=== PATIENT | female | born 1960 | race Caucasian/White ===

== ENCOUNTER → 2017-12-11 11:06 | Outpatient (CLI) | payer BC, SELFPAY ==
[2017-12-11 12:14] LABS: Add Manual Diff / Slide Review NO; Basophils Percent Auto 0.8 % (0-2); Hemoglobin 16.2 g/dL (12.0-16.0); Lymphocytes Percent Auto 25.8 % (25-40); Mean Corpuscular HGB Conc 34.4 % (30-36); Mean Corpuscular Hemoglobin 33.4 PG (26-34); Mean Corpuscular Volume 96.8 fL (80-100); Monocytes Percent Auto 8.6 % (3-14); Neutrophils Absolute Auto 4500 /uL (3000-5900); Neutrophils Percent Auto 61.8 % (50-75); Platelet Count 217 X10^3/uL (150-400); Red Blood Cell Count 4.86 X10^6/uL (4.0-5.2); Red Cell Distribution Width 12.4 % (11.6-14.8); White Blood Cell Count 7.2 X10^3/uL (4.5-11.0)
[2017-12-11 12:26] LABS: Alanine Aminotransferase 48 IU/L (9-52); Albumin 4.4 g/dL (3.5-5.0); Albumin Globulin Ratio 1.5 (1.0-2.8); Alkaline Phosphatase 57 U/L (38-126); Aspartate Aminotransferase 59 IU/L (14-36); Bilirubin Total 0.8 mg/dL (0.2-1.3); Blood Urea Nitrogen 7 mg/dL (7-17); Calcium 9.6 mg/dL (8.4-10.2); Carbon Dioxide 30 mmol/L (22-32); Chloride 102 mmol/L (98-107); Cholesterol 225 mg/dL (140-199); Estimated Glomerular Filt Rate > 60.0 mL/min (>60); Glucose 90 mg/dL (70-100); HEMOLYSIS < 15 (0-50); Sodium 144 mmol/L (137-145); Total Protein 7.4 g/dL (6.3-8.2); Triglycerides 197 mg/dL (35-150)
[2017-12-11 12:49] LABS: HDL Cholesterol 123 mg/dL (40-60); LDL Cholesterol Calculated 63 mg/dL (<100)
[2017-12-11 12:54] LABS: Thyroid Stimulating Hormone 3.15 uIU/mL (0.47-4.68)
== END ==
PROVIDERS: Family Provider Family Medicine; PCP Family Medicine; Visit Provider Family Medicine
DX: Z00.00 Encounter for general adult medical examination without abnormal findings (principal); E78.2 Mixed hyperlipidemia
CPT/HCPCS: 36415; 80053; 80061; 84443; 85025

== ENCOUNTER → 2018-01-18 14:51 | Outpatient (CLI) | payer BC, SELFPAY ==
--- NOTE | 2018-01-18 | DI.MG.S_ITS ---
BILATERAL DIGITAL SCREENING MAMMOGRAM 3D/2D WITH CAD POST LUMPECTOMY: 01/18/2018 CLINICAL: Routine screening. Personal history of bilateral breast cancer. Family history of breast cancer. Comparison is made to exams dated: 12/28/2016 mammogram, 12/27/2015 mammogram, 12/24/2014 mammogram, and 02/15/2014 mammogram - [facility]. The tissue of both breasts is extremely dense, which lowers the sensitivity of mammography. Current study was also evaluated with a Computer Aided Detection (CAD) system. There are benign post operative findings in both breasts, with overlying linear scar markers. No significant masses, calcifications, or other findings are seen in either breast. There has been no significant interval change. IMPRESSION: There is no mammographic evidence of malignancy. A 1 year screening mammogram is recommended. This exam was interpreted at Station ID: [id number]. NOTE: For mammograms, a report in lay terms will be sent to the patient. Approximately 15% of breast malignancies will not be visualized mammographically. In the management of a palpable breast mass, a negative mammogram must not discourage biopsy of a clinically suspicious lesion. Electronically Signed By: Earle Vargas M.D. ecl/:01/19/2018 07:24:55 copy to: FLEX PRATER letter sent: Normal Exam ACR BI-RADS Category 2: Benign Finding(s) [id number]
[2018-01-18 15:12] LABS: Add Manual Diff / Slide Review NO; Basophils Percent Auto 0.8 % (0-2); Eosinophils Percent Auto 4.1 % (2-4); Hematocrit 43.9 % (36-46); Hemoglobin 14.8 g/dL (12.0-16.0); Lymphocytes Percent Auto 23.4 % (25-40); Mean Corpuscular HGB Conc 33.8 % (30-36); Mean Corpuscular Hemoglobin 33.5 PG (26-34); Mean Corpuscular Volume 99.1 fL (80-100); Monocytes Percent Auto 9.7 % (3-14); Neutrophils Absolute Auto 3100 /uL (3000-5900); Platelet Count 197 X10^3/uL (150-400); Red Blood Cell Count 4.43 X10^6/uL (4.0-5.2); Red Cell Distribution Width 12.9 % (11.6-14.8)
[2018-01-18 15:29] LABS: Alanine Aminotransferase 40 IU/L (9-52); Albumin 4.3 g/dL (3.5-5.0); Albumin Globulin Ratio 1.7 (1.0-2.8); Alkaline Phosphatase 53 U/L (38-126); Aspartate Aminotransferase 50 IU/L (14-36); BUN Creatinine Ratio 12.9 (6-22); Bilirubin Total 1.1 mg/dL (0.2-1.3); Blood Urea Nitrogen 9 mg/dL (7-17); Calcium 9.3 mg/dL (8.4-10.2); Carbon Dioxide 28 mmol/L (22-32); Chloride 101 mmol/L (98-107); Estimated Glomerular Filt Rate > 60.0 mL/min (>60); Globulin 2.6 g/dL (1.7-4.1); Glucose 124 mg/dL (70-100); HEMOLYSIS 16 (0-50); Potassium 4.3 mmol/L (3.4-5.1); Sodium 138 mmol/L (137-145); Total Protein 6.9 g/dL (6.3-8.2)
[2018-01-20 15:45] LABS: Cancer Antigen 27.29 23 U/mL (< 38)
== END ==
PROVIDERS: PCP Family Medicine; Visit Provider Nurse Practitioner Gerontology
DX: Z12.31 Encounter for screening mammogram for malignant neoplasm of breast (principal); Z85.3 Personal history of malignant neoplasm of breast; Z80.3 Family history of malignant neoplasm of breast; J45.909 Unspecified asthma, uncomplicated; E78.2 Mixed hyperlipidemia; G62.9 Polyneuropathy, unspecified; G89.29 Other chronic pain
CPT/HCPCS: 36415; 77063; 77067; 80053; 85025; 86300

== ENCOUNTER → 2018-04-12 15:34 | Outpatient (CLI) | payer BC, SELFPAY ==
[2018-04-12 15:43] LABS: RBC Urine None Seen (0-5/HPF)
[2018-04-12 16:09] LABS: Appearance Urine UA CLEAR; Bilirubin Urine UA NEGATIVE (NEGATIVE); Color Urine UA YELLOW; Glucose Urine UA NEGATIVE (Negative); Ketones Urine UA NEGATIVE (NEGATIVE); Leukocyte Esterase Urine UA NEGATIVE (NEGATIVE); Nitrite Urine UA NEGATIVE (Negative); Occult Blood Urine UA NEGATIVE (Negative); Protein Urine UA NEGATIVE (Negative); Specific Gravity Urine UA <=1.005 (1.000-1.035); Urobilinogen Urine UA 0.2 E.U./dL (0.2)
[2018-04-12 16:20] LABS: Add Manual Diff / Slide Review NO; Basophils Absolute Auto 100 /uL (0-100); Basophils Percent Auto 0.5 % (0-2); Eosinophils Absolute Auto 100 /uL (0-450); Hematocrit 42.4 % (36-46); Hemoglobin 14.1 g/dL (12.0-16.0); Lymphocytes Absolute Auto 1300 /uL (1100-4500); Lymphocytes Percent Auto 11.6 % (25-40); Mean Corpuscular HGB Conc 33.2 % (30-36); Mean Corpuscular Hemoglobin 32.7 PG (26-34); Mean Corpuscular Volume 98.5 fL (80-100); Monocytes Absolute Auto 1000 /uL (0-900); Monocytes Percent Auto 9.2 % (3-14); Neutrophils Absolute Auto 8600 /uL (1500-7000); Neutrophils Percent Auto 77.7 % (50-75); Platelet Count 202 X10^3/uL (150-400); Red Blood Cell Count 4.31 X10^6/uL (4.0-5.2); Red Cell Distribution Width 12.6 % (11.6-14.8)
[2018-04-12 16:21] LABS: Bacteria Urine Occasional (0-1); Culture Indicated Urine Cult Not Indicated; Squamous Epithelial Cell Urine 0-1 /HPF; WBC Urine 0-1/HPF (0-5/HPF)
== END ==
PROVIDERS: Family Provider Family Medicine; PCP Family Medicine; Visit Provider Family Medicine
DX: K57.92 Diverticulitis of intestine, part unspecified, without perforation or abscess without bleeding (principal); R10.9 Unspecified abdominal pain
CPT/HCPCS: 36415; 81001; 85025

== ENCOUNTER → 2018-05-30 16:00 | Outpatient (CLI) | payer BC, SELFPAY ==
[2018-05-30 16:28] LABS: Influenza A and B by PCR Rapid Negative (Negative)
== END ==
PROVIDERS: Family Provider Family Medicine; PCP Family Medicine; Visit Provider Physician Assistant
DX: R68.89 Other general symptoms and signs (principal)
CPT/HCPCS: 87400

== ENCOUNTER → 2018-11-23 16:17 | Outpatient (CLI) | payer BC, SELFPAY ==
--- NOTE | 2018-11-23 16:24 | DI.RAD.S_ITS ---
PROCEDURE: XR HIP W PEL IF DONE LT 2V INDICATIONS: Left hip pain TECHNIQUE: AP pelvis with lateral view(s) of the left hip(s). COMPARISON: [facility], CR, [id number] W PEL IF PERFORMED, 05/13/2015, 11:23. FINDINGS: Bones: Symmetric appearing mild to moderate bilateral hip joint osteoarthritic changes are seen with joint space narrowing and subchondral sclerosis. No fractures or dislocations. Pelvic ring appears intact. No evidence of avascular necrosis of femoral head. No suspicious bony lesions. Soft tissues: The visualized bowel gas pattern is normal. No suspicious soft tissue calcifications. IMPRESSION: Symmetric appearing mild to moderate bilateral hip joint osteoarthritis. Dictated by: Kolby Asif M.D. on 11/23/2018 at 18:04 Approved by: Kolby Asif M.D. on 11/23/2018 at 18:04
== END ==
PROVIDERS: Family Provider Family Medicine; PCP Family Medicine; Visit Provider Hospitalist
DX: M25.552 Pain in left hip (principal); M16.0 Bilateral primary osteoarthritis of hip
CPT/HCPCS: 73502

== ENCOUNTER → 2018-12-05 06:15 | Outpatient (CLI) | payer BC, SELFPAY ==
--- NOTE | 2018-12-05 06:16 | DI.MRI.S_ITS ---
PROCEDURE: MR PELVIS WO CON INDICATIONS: Left hip pain TECHNIQUE: Coronal HASTE, sagittal breath-hold T2 FSE; axial T1 FSE with and without fat saturation through the pelvis. Optional long- and short-axis uterine nonbreath-hold T2 FSE through the uterus. Sagittal or axial dynamic VIBE during administration of contrast. Post-contrast axial or coronal VIBE/2-D FLASH with fat saturation from the iliac crests to the symphysis. Optional diffusion weighted imaging and ADC may be performed. COMPARISON: None. FINDINGS: Image quality: Excellent. Uterus: Bulky appearing uterus is seen with multiple uterine fibroids and measures up to 5 x 4 cm in size. Endometrium is within normal limits. Adnexa: Both ovaries are normal in size, without suspicious cystic or solid lesions. Urinary system: Bladder wall is normal in thickness. Distal ureters are non distended. Urethra appears normal in morphology. Nodes and vessels: No pelvic or inguinal adenopathy by size criteria. Iliac vessels are normal in size. Bowel and peritoneum: No pathologic free pelvic fluid. Inferior colon and small bowel loops are normal in caliber. Soft tissues: No inguinal hernias. No findings of pelvic floor incompetence in the absence of provocation. Bones: Extensive marrow edema involving left femoral neck and intertrochanteric region is seen extending to proximal left femoral shaft. No definite fracture line is identified. Mild adjacent soft tissue edema is seen. There is also extensive marrow edema involving S1 and S2 vertebral bodies extending to involve the right side of sacrum adjacent to right sacroiliac joint. There is extension of medullary space. No cortical disruption or discrete fracture line. 1.7 x 1 cm oval area of marrow edema involving right posterior inferior sacrum is seen. There is also subtle area of marrow edema involving the anterior aspect of left iliac bone. Similar lesion is noted involving posterior left acetabular roof. IMPRESSION: 1. Multiple expansile intraosseous lesion in the bony pelvis most prominent involving left femoral neck and intertrochanteric region extending to proximal left femoral shaft as well as S1 and S2 vertebral bodies extending to right sacrum. 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 No definite pathologic fracture is seen. Early stress fracture in left femoral neck cannot be entirely excluded. 2. No gross soft tissue mass or fluid collection is seen. 3. No pelvic free fluid. No bowel obstruction. Multiple uterine fibroids. Dictated by: Kolby Asif M.D. on 12/05/2018 at 9:30 Approved by: Kolby Asif M.D. on 12/05/2018 at 10:33
--- NOTE | 2018-12-05 06:16 | DI.MRI.S_ITS ---
PROCEDURE: MR HIP LT WO CON INDICATIONS: left hip pain TECHNIQUE: Noncontrast coronal T1 spin echo and STIR through the bony pelvis. Coronal and axial T2 fast spin echo with fat saturation, sagittal T1 spin echo, and oblique axial T2 fast spin echo with fat saturation through the hip. COMPARISON: None. FINDINGS: Image quality: Excellent. Bones and joints: There is extensive marrow edema involving the left femoral neck extending to proximal left femoral shaft and intertrochanteric region. No definite discrete fracture line is seen. There is no evidence of avascular necrosis of femoral head. No definite cortical erosion or destruction is noted. Ill-defined marrow edema involving right sacral and inferior portion of right iliac bone is also seen incompletely evaluated on this MRI of left hip study. Symmetric mild to moderate bilateral hip joint osteoarthritic changes are noted. No gross marrow signal abnormality is seen in visualized lower lumbar spine. A Tendons and ligaments: The gluteus medius and minimus tendons appear intact, without associated muscle atrophy. The nearby proximal iliotibial band also appears intact. The iliopsoas tendon appears intact, without adjacent bursal fluid collections or evidence for impingement syndrome. The origin of the hamstring tendon is intact at the ischial tuberosity, as well as the associated sacrotuberous ligament. The straight and reflected heads of the rectus femoris muscle origin appear intact, as well as the conjoint tendon. The ligamentum teres appears intact where visualized. Labrum and cartilage: The acetabular labrum appears intact in the absence of intra-articular contrast. Cartilage surface of the femoral head appears of normal thickness. The alpha angle of the femur is within normal limits at less than 55 degrees. Soft tissues: Visualized muscles demonstrate normal bulk and internal signal. Quadratus femoris muscle demonstrates no internal edema to suggest ischiofemoral impingement. The proximal sciatic neurovascular bundle appears normal adjacent to the hamstring tendons. No free pelvic fluid. Bladder wall thickness is normal. Genitourinary structures and bowel loops appear normal where visualized. No acute appearing uterus is seen with multiple uterine fibroids. IMPRESSION: 1. Extensive marrow signal abnormality involving left femoral neck, intertrochanteric region and proximal left femoral shaft with no discrete fracture line visualized. Finding is highly suspicious for an expansile and infiltrative process involving left proximal femur. Similar marrow signal abnormality is also noted involving right sacrum and right iliac bone and is concerning for metastatic bony lesions. 2. Bilateral hip joint osteoarthritis. No acute fracture or dislocation. No evidence of avascular necrosis of femoral heads. 3. Multiple uterine fibroids. Dictated by: Kolby Asif M.D. on 12/05/2018 at 9:11 Approved by: Kolby Asif M.D. on 12/05/2018 at 9:20
== END ==
PROVIDERS: Family Provider Family Medicine; PCP Family Medicine; Visit Provider Family Medicine
DX: M25.552 Pain in left hip (principal); M16.0 Bilateral primary osteoarthritis of hip; D25.9 Leiomyoma of uterus, unspecified; M89.9 Disorder of bone, unspecified
CPT/HCPCS: 72195; 73721

== ENCOUNTER → 2018-12-15 08:56 | Outpatient (CLI) | payer BC, SELFPAY ==
--- NOTE | 2018-12-15 09:38 | DI.CT.S_ITS ---
PROCEDURE: CT CHEST ABD PEL W CON INDICATIONS: Metastatic breast cancer TECHNIQUE: After the administration of oral and intravenous contrast, 5 mm thick sections acquired from the lung apices to the symphysis. 5 mm coronal and sagittal reformats were performed, with additional 7 mm coronal MIP reformats through the lungs. For radiation dose reduction, the following was used: automated exposure control, adjustment of mA and/or kV according to patient size. COMPARISON: [facility], MR, MR PELVIS WO CON, 12/05/2018, 7:02. [facility], CT, ABDOMEN/PELVIS WITH CONTRAST, 12/16/2015, 19:37. [facility], CT, CHEST/ABD/PEL WITH CONTRAST, 04/07/2013, 7:49. FINDINGS: Image quality: Excellent. CHEST: Lungs and pleura: No pleural effusion or pneumothorax. 1.3 x 1.1 cm medial right lower lobe nodular opacity is seen on image to 31 series 3 which is increased since the prior study from 12/16/15. Scattered scarring and atelectasis noted throughout both upper and lower lobes. Central bronchial wall thickening noted. Mediastinum: Heart size is normal. No pericardial effusion. No mediastinal or hilar adenopathy by size criteria. Thoracic aorta and central pulmonary arteries are normal in size. Esophagus is normal in caliber. No hiatal hernia. Chest wall: No axillary or supraclavicular adenopathy by size criteria. Thyroid gland negative. ABDOMEN: Solid organs: Diffuse hepatic steatosis. Gallbladder contains a 5 mm gallstone seen on image 62 series 2. Duodenal diverticulum noted with air-fluid level. Biliary system is non dilated. Pancreas enhances normally. Spleen is normal in size and enhancement. No adrenal nodules. Kidneys demonstrate normal size and enhancement, without hydronephrosis. Peritoneum and bowel: Bowel loops demonstrate normal wall thickness and caliber. No free fluid or air. Colonic diverticulosis incidentally noted. Rectum grossly unremarkable. Nodes and vessels: No retroperitoneal or mesenteric adenopathy by size criteria. Aorta and inferior vena cava are normal in size. Tiny fat containing umbilical hernia. PELVIS: Genitourinary: Bladder wall thickness is normal. Possible ill-defined uterine fibroids as before. Miscellaneous: No inguinal hernias or adenopathy. Bones: Patchy sclerosis present within the proximal left femur and right sacrum in keeping with osseous metastatic disease, much more conspicuous on the comparison MRI dated 12/05/18. However, other areas of signal change in the prior study are much less conspicuous on the current exam and not well seen for example within the anterior left iliac wing, and posteromedial right iliac bone. Partially visualized sclerotic C6 vertebral body lesion IMPRESSION: Increasing nodular focus within the medial right lower lobe, worrisome for pulmonary metastasis. Multiple osseous metastases although these are much more conspicuous on the comparison MRI dated 12/05/18. Of note densely sclerotic C6 vertebral body lesion suspicious for additional osseous metastasis although this could be further evaluated with cervical MRI with contrast. Consider whole body bone scan as clinically necessary. Additional chronic and incidental findings as above. Dictated by: Vignesh Jamison M.D. on 12/15/2018 at 10:36 Approved by: Vignesh Jamison M.D. on 12/15/2018 at 10:53
[2018-12-15 10:10] LABS: Add Manual Diff / Slide Review NO; Basophils Absolute Auto 100 /uL (0-100); Basophils Percent Auto 1.3 % (0-2); Eosinophils Absolute Auto 200 /uL (0-450); Eosinophils Percent Auto 3.9 % (2-4); Hematocrit 45.9 % (36-46); Hemoglobin 15.5 g/dL (12.0-16.0); Lymphocytes Absolute Auto 1600 /uL (1100-4500); Lymphocytes Percent Auto 32.1 % (25-40); Mean Corpuscular HGB Conc 33.8 % (30-36); Mean Corpuscular Hemoglobin 32.5 PG (26-34); Mean Corpuscular Volume 96.2 fL (80-100); Monocytes Absolute Auto 600 /uL (0-900); Monocytes Percent Auto 12.1 % (3-14); Neutrophils Absolute Auto 2500 /uL (1500-7000); Neutrophils Percent Auto 50.6 % (50-75); Platelet Count 265 X10^3/uL (150-400); Red Blood Cell Count 4.77 X10^6/uL (4.0-5.2); Red Cell Distribution Width 12.7 % (11.6-14.8); White Blood Cell Count 4.9 X10^3/uL (4.5-11.0)
[2018-12-15 11:01] LABS: Alanine Aminotransferase 36 IU/L (9-52); Albumin 4.6 g/dL (3.5-5.0); Albumin Globulin Ratio 1.6 (1.0-2.8); Alkaline Phosphatase 121 U/L (38-126); Aspartate Aminotransferase 53 IU/L (14-36); Bilirubin Total 0.8 mg/dL (0.2-1.3); Blood Urea Nitrogen 9 mg/dL (7-17); Calcium 10.8 mg/dL (8.4-10.2); Carbon Dioxide 30 mmol/L (22-32); Chloride 98 mmol/L (98-107); Cholesterol 242 mg/dL (140-199); Estimated Glomerular Filt Rate > 60.0 mL/min (>60); Globulin 2.9 g/dL (1.7-4.1); Glucose 120 mg/dL (80-110); HDL Cholesterol 108 mg/dL (40-60); HEMOLYSIS < 15 (0-50); LDL Cholesterol Calculated 102 mg/dL (<100); Sodium 140 mmol/L (137-145); Total Protein 7.5 g/dL (6.3-8.2); Triglycerides 160 mg/dL (35-150)
[2018-12-15 11:02] LABS: TSH w/ Reflex to FT4 2.59 uIU/mL (0.47-4.68)
== END ==
PROVIDERS: Nurse Practitioner; Family Provider Family Medicine; PCP Family Medicine
DX: C50.919 Malignant neoplasm of unspecified site of unspecified female breast (principal); C79.51 Secondary malignant neoplasm of bone; R91.8 Other nonspecific abnormal finding of lung field; K76.0 Fatty (change of) liver, not elsewhere classified; K57.10 Diverticulosis of small intestine without perforation or abscess without bleeding; K57.90 Diverticulosis of intestine, part unspecified, without perforation or abscess without bleeding; E78.2 Mixed hyperlipidemia
CPT/HCPCS: 36415; 71260; 74177; 80053; 80061; 84443; 85025; Q9967

== ENCOUNTER → 2018-12-23 07:50 | Outpatient (CLI) | payer BC, SELFPAY ==
--- NOTE | 2018-12-23 07:51 | DI.NM.S_ITS ---
PROCEDURE: [place] BONE SCAN WHOLE BODY RADIOPHARMACEUTICAL: 18.4 mCi Tc-99m MDP IV. INDICATIONS: bone metastasis, breast cancer TECHNIQUE: Delayed whole-body scintigrams were obtained approximately 3-4 hours after intravenous injection of radiotracer. Anterior and posterior views were acquired from vertex to feet. COMPARISON: [facility], MR, MR HIP LT WO CON, 12/05/2018, 6:39. [facility], NM, BONE SCAN WHOLE BODY, 04/07/2013, 10:18. [facility], MR, MR PELVIS WO CON, 12/05/2018, 7:02. [facility], CT, CT CHEST ABD PEL W CON, 12/15/2018, 10:09. FINDINGS: There are multiple foci of abnormal uptake involving calvarium, left maxilla, cervical spine (C6), thoracic spine (T1, T 7, T10), lumbar spine L1), sacrum, the left 11th rib, right iliac bone, and proximal left femur, consistent with metastases. The findings are new compared to the last bone scan on 04/07/2013. IMPRESSION: Multiple foci of osseous metastatic disease involving the skull, cervical, thoracic and lumbar spine, sacrum, the left 11th rib, right iliac bone, and the proximal left femur. The bone lesions are new. Dictated by: Elisha Galicia M.D. on 12/23/2018 at 13:44 Approved by: Elisha Galicia M.D. on 12/23/2018 at 13:53
== END ==
PROVIDERS: Family Provider Family Medicine; PCP Family Medicine; Visit Provider Internal Medicine Hematology & Oncology
DX: C50.919 Malignant neoplasm of unspecified site of unspecified female breast (principal); C79.51 Secondary malignant neoplasm of bone
CPT/HCPCS: 78306; A9503

== ENCOUNTER → 2018-12-28 16:17 | Outpatient (CLI) | payer SELFPAY ==
--- NOTE | 2018-12-28 16:20 | DI.NM.S_ITS ---
PROCEDURE: [place] PET CT FUSION LIMITED AREA RADIOPHARMACEUTICAL: 12 mCi F-18 fluorodeoxyglucose IV. INDICATIONS: Metastatic breast cancer. Reported history of left breast surgery 10 years prior, right breast surgery 3 years prior, and left shoulder surgery 6 years prior. Reported history of bilateral breast cancer, with history of chemotherapy and radiation therapy in 2016. TECHNIQUE: After intravenous administration of F-18 fluoro-deoxyglucose (FDG), noncontrast CT images were obtained for attenuation correction and anatomic localization. A series of overlapping emission PET images was then obtained. The patient's pretest fasting blood glucose level as measured by glucometer was 116 mg/dl. The area imaged spanned from the skull vertex to the feet. COMPARISON: [facility], NM, NM BONE SCAN WHOLE BODY, 12/23/2018, 11:01. [facility], CT, CT CHEST ABD PEL W CON, 12/15/2018, 10:09. [facility], MR, MR PELVIS WO CON, 12/05/2018, 7:02. [facility], MR, MR HIP LT WO CON, 12/05/2018, 6:39. [facility], CR, XR HIP W PEL IF DONE LT 2V, 11/23/2018, 16:37. [facility], MG, MM SCREENING MAMMO BI, 01/18/2018, 15:33. FINDINGS: Head and neck: There is a 1.9 cm anteroposterior by 1.5 cm transverse irregular spiculated medial right supraclavicular neck mass demonstrating increased FDG activity. Thyroid gland is unremarkable. Calcified plaque of the bilateral carotid bifurcations, right greater than left. Thorax: There is redemonstration of a 1.3 cm anteroposterior by 1.1 cm transverse irregular spiculated mass in the medial right lower lobe which is similar in size and appearance to comparison exam of 12/15/18. This does not demonstrate significant FDG activity on PET scan. There is anterior right middle lobe and anterior right upper lobe atelectasis and parenchymal scarring. Central bronchial wall thickening again noted. No mediastinal or hilar lymphadenopathy. There is mild calcification of the aortic arch. Abdomen and pelvis: No enlarged retroperitoneal or mesenteric lymph nodes. No abnormal hal tracer uptake. There is normal heterogeneous hepatic tracer uptake. There is diffuse hepatic steatosis. The spleen is normal in size. The previous identified 5 mm gallstone seen on comparison CT is not well seen on the current exam. Pancreas is normal in morphology. No adrenal nodules. Kidneys are normal in size, without hydronephrosis or nephrolithiasis. Similar-appearing duodenal diverticulum. There is diffuse colonic diverticulosis without evidence of acute diverticulitis. Aorta and inferior vena cava are normal in size. No free fluid or air. No pelvic or inguinal adenopathy. Bladder wall thickness is normal. Small fat-containing umbilical hernia again noted. There are bilateral breast calcifications. Bones: There is increased FDG-uptake of the inferior left occipital bone and left anterolateral aspect of the C1 vertebral body (extending to the left C1 transverse process), with associated sclerosis. There is increased FDG-uptake of the C6 vertebral body with associated sclerosis. There is increased sclerosis throughout the cervical spine. There is increased FDG-uptake of the right sacrum with associated sclerosis. There is increased FDG-uptake of the proximal left femur with associated sclerosis, centered primarily within the intertrochanteric region and involving the lesser trochanter. There is cortical irregularity and irregular lucency of the intertrochanteric region of the proximal left femur concerning for small nondisplaced fractures. Right shoulder arthroplasty are again demonstrated. Additional areas of abnormal osseous uptake described on comparison nuclear medicine bone scan of 12/23/18 are less well-seen on the current exam, likely secondary to differences in imaging technique. IMPRESSION: 1. Numerous areas of abnormal osseous FDG-uptake consistent with diffuse skeletal metastatic disease, most prominently involving the proximal left femur, right sacrum, C1 and C6 vertebral bodies, and inferior left occipital bone. There are associated CT findings concerning for potential small nondisplaced proximal left femur intratrochanteric pathological fractures. Additional increased sclerosis throughout the cervical spine correlates with multilevel degenerative changes, but additional metastatic involvement could appear similar. 2. 1.9 cm irregular spiculated FDG-avid medial right supraclavicular soft tissue neck mass consistent with metastatic disease. 3. 1.3 cm irregular spiculated mass in the medial right lower lobe does not demonstrate significant increased FDG-avidity, but remains morphologically concerning for additional metastatic disease/lung malignancy on CT imaging. Attention on followup exams recommended. Findings discussed with referring provider Dr. Shannan Cadet by telephone by Dr. Vargas at 12:50 PM on 12/29/18. Dictated by: Earle Vargas M.D. on 12/29/2018 at 10:51 Approved by: Earle Vargas M.D. on 12/29/2018 at 13:01
== END ==
PROVIDERS: Family Provider Family Medicine; PCP Family Medicine; Visit Provider Internal Medicine Hematology & Oncology
DX: C50.911 Malignant neoplasm of unspecified site of right female breast (principal); C50.912 Malignant neoplasm of unspecified site of left female breast; M89.9 Disorder of bone, unspecified; R22.1 Localized swelling, mass and lump, neck; R91.1 Solitary pulmonary nodule; K57.90 Diverticulosis of intestine, part unspecified, without perforation or abscess without bleeding; N32.3 Diverticulum of bladder; K42.9 Umbilical hernia without obstruction or gangrene

== ENCOUNTER 2019-01-06 01:08 | Inpatient (IN) | payer BC, SELFPAY ==
[2019-01-06] VITALS (11 sets, daily range): BP systolic 122–162; BP diastolic 77–98; PULSE 58–96; RESP 14–20; TEMP 36.4–37.1; O2SAT 94–97; BMI 24.0; BMI 20.7; BMI 21.4
--- NOTE | 2019-01-06 01:12 | DI.RAD.S_ITS ---
PROCEDURE: XR FEMUR LT MIN 2V INDICATIONS: hx cancer fall pain TECHNIQUE: 2 views of the femur were acquired. COMPARISON: [place], [place], [place] BONE SCAN WHOLE BODY, 12/23/2018, 11:01. [place], [place], [place] PET CT FUSION SKULL 2 THIGH, 12/28/2018, 16:49. [facility], , XR HIP W PEL IF DONE LT 2V, 01/06/2019, 1:17. FINDINGS: Bones: There is a femoral neck fracture with superior displacement of the distal fracture fragment. Mixed sclerotic and lytic appearance of the proximal femur is consistent with metastasis. No suspicious bony lesions. Soft tissues: No suspicious soft tissue calcifications or masses. IMPRESSION: 1. Displaced right femoral neck fracture. 2. Mixed sclerotic and lytic bone lesion involving the proximal femur consistent with metastasis. Dictated by: Elisha Galicia M.D. on 01/06/2019 at 9:12 Approved by: Elisha Galicia M.D. on 01/06/2019 at 9:16
--- NOTE | 2019-01-06 01:12 | DI.RAD.S_ITS ---
PROCEDURE: XR HIP W PEL IF DONE LT 2V INDICATIONS: short pain TECHNIQUE: AP pelvis with lateral view(s) of the left hip(s). COMPARISON: [facility], [place] BONE SCAN WHOLE BODY, 12/23/2018, 11:01. [facility], CR, XR FEMUR LT MIN 2V, 01/06/2019, 1:17. [facility], CT, CT CHEST ABD PEL W CON, 12/15/2018, 10:09. [facility], MR, MR HIP LT WO CON, 12/05/2018, 6:39. [facility], CR, XR HIP W PEL IF DONE LT 2V, 11/23/2018, 16:37. FINDINGS: Bones: There is a left femoral neck fracture with superior displacement of the distal fracture fragment and angulation. There is mixed sclerotic and lytic appearance in the proximal femur. The fracture secondary a pathological fracture. Pelvic ring appears intact. No suspicious bony lesions. Soft tissues: The visualized bowel gas pattern is normal. No suspicious soft tissue calcifications. IMPRESSION: Suspect a pathologic fracture of the left femoral neck. Mixed sclerotic and lytic appearance in the proximal femur is consistent with osseous metastasis. Dictated by: Elisha Galicia M.D. on 01/06/2019 at 9:16 Approved by: Elisha Galicia M.D. on 01/06/2019 at 9:21
[2019-01-06] MEDS: HYDROMORPHONE 1 MG INJ IV ×4 (01:25→19:15)
--- NOTE | 2019-01-06 01:27 | ED_ITS ---
HPI - Extremity Injury (Lower) General Chief Complaint: Extremity Injury, Lower Stated Complaint: Left leg pain Time Seen by Provider: 01/06/19 01:12 Source: patient and EMS Mode of arrival: EMS Limitations: no limitations History of Present Illness HPI Narrative: Patient is a 58-year-old female with history of metastatic breast cancer. A new lesion was recently found in the left femoral neck. She was scheduled to start radiation on Wednesday which is in 4 days. However she fell this evening and has extreme pain in the left side and her left leg is shortened. No other injury. She did take 3 Vicodin prior to arrival. She states it does not hurt if you touch it however she is unable to weightbear. He is able to move her toes. MD complaint: hip injury Related Data Home Medications Medication Instructions Recorded Confirmed multivitamin [Multiple Vitamins] 1 tab PO Q48H #0 03/03/16 01/03/19 Vitamin B-12 50 mcg PO Q DAY #0 06/29/17 01/03/19 Previous Rx's Medication Instructions Recorded albuterol sulfate 90 mcg/actuation See Rx Instructions INHALATION Q4H 12/15/17 aerosol inhaler #3 each ipratropium-albuterol 0.5 mg-3 See Rx Instructions INHALATION 12/31/17 mg(2.5 mg base)/3 mL nebulization Q2HP PRN #180 ml soln atorvastatin [Lipitor] 10 mg PO HS #90 tab 07/21/18 gabapentin 900 mg PO BID 30 Days #180 cap 09/20/18 atenolol 50 mg tablet 50 mg PO Q DAY #90 tab 11/07/18 omeprazole 20 mg capsule,delayed 20 mg PO QDAY #90 cap 11/11/18 release fluticasone propionate 250 See Rx Instructions .ROUTE 11/23/18 mcg/actuation blister powder for .COMPLEX #60 unspecified inhalation alprazolam 0.5 mg tablet 0.5 - 1 mg PO BIDP PRN #60 tab 12/21/18 hydrocodone 5 mg-acetaminophen 325 1 - 2 tab PO Q6HP PRN #60 tab 12/21/18 mg tablet miscellaneous medical supply #1 each 12/30/18 Allergies Allergy/AdvReac Type Severity Reaction Status Date / Time No Known Drug Allergies Allergy Verified 12/21/18 15:08 Review of Systems Review of Systems Narrative: GENERAL: Denies chills, fatigue, malaise, fever, sweats, travel HEENT: Denies sinus pain, ear pain, sore throat, difficulty swallowing, neck pain RESPIRATORY: Denies dyspnea, cough, wheezing, hemoptysis, sputum. CARDIOVASCULAR: Denies chest pain, palpitations, orthopnea, edema GASTROINTESTINAL: Denies nausea, vomiting, abdominal pain, diarrhea, constipation, melena. : Denies dysuria, frequency, incontinence, hematuria, urinary retention, flank pain. MUSCULOSKELETAL: See HPI SKIN: No rash, no erythema, no pruritus NEUROLOGIC: Denies weakness, dizziness, headache, numbness, change in speech, confusion PSYCHIATRIC: No concerning psychosocial issues. 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 (Acute) Osteopenia after menopause (Acute) Pancreatitis (Chronic ~2010) Vertigo (Chronic ~2011) Surgical History Anesthesia (Resolved) Breast cancer (Resolved ~2006) History of shoulder surgery (Resolved ~2011) Status post appendectomy (~1963) Family History Brother Age: 55 Scoliosis Father Heart disease Hypertension Mother Age: 81 Cancer Diabetes mellitus Social History household members: significant other Smoking Status: Former smoker alcohol intake: current Exam Initial Vital Signs Initial Vital Signs: Vital Signs Temperature 98.7 F 01/06/19 01:15 Pulse Rate 96 H 01/06/19 01:15 Respiratory Rate 16 01/06/19 01:15 Blood Pressure 162/88 H 01/06/19 01:15 Pulse Oximetry 94 01/06/19 01:15 GENERAL: Well-appearing, well-nourished and in no acute distress. HEENT: Head atraumatic,EOMI, pupils reactive, face symmetric CARDIOVASCULAR: Regular rate and rhythm without murmurs, rubs or gallops. RESPIRATORY: Breath sounds equal bilaterally, no wheezes rales or rhonchi. ABDOMEN: Soft, nontender. Normoactive bowel sounds all 4 quadrants. No guarding or rebound. EXTREMITIES: Normal range of motion, no clubbing or edema. Neurovascularly intact Left leg is shortened able to move toes distal pedal pulse intact. No pain in pelvis or hip no contusion. NEUROLOGICAL: Alert and oriented x4.. Cranial nerves II through XII grossly intact. SKIN: Warm, dry, no laceration, no petechiae, no rashes or lesions. Course Orders Ordered: ED Orders 01/06/19 01:12 XR femur LT min 2V Stat XR hip w pel if done LT 2V Stat 01/06/19 01:20 Complete Blood Count AUTO DIFF Stat Comprehensive Metabolic Panel Stat 01/06/19 03:52 Consult to Orthopedic Surgery Routine Hydromorphone HCl (Dilaudid) 0.5 mg IV Q4HR PRN PRN Reason: Pain, Moderate (4-6) Last Admin: 01/06/19 04:12 Dose: 0.5 mg Documented by: SILVIA Sodium Chloride (Normal Saline 0.9%) 1,000 mls @ 125 mls/hr IV CONT KINGSLEY Last Admin: 01/06/19 04:14 Dose: 125 mls/hr Documented by: SILVIA Ondansetron HCl (Zofran) 4 mg IV Q4HR PRN PRN Reason: Nausea And Vomiting Sodium Chloride (Normal Saline 0.9% Flush) 10 ml IV PRN PRN PRN Reason: Flush Discontinued Medications Hydromorphone HCl (Dilaudid) 1 mg IV NOW ONE Stop: 01/06/19 01:14 Last Admin: 01/06/19 01:25 Dose: 1 mg Documented by: JC Hydromorphone HCl (Dilaudid) 0.5 mg IV NOW ONE Stop: 01/06/19 02:54 Last Admin: 01/06/19 02:58 Dose: 0.5 mg Documented by: KENDRICK Consultations Consultation #1: Dr. Florence has reviewed x-rays himself. Request and he will will go to OR later today Time: 02:38 Consultation #2: Dr. Krueger, updated patient symptoms ortho recommendations. Vital Signs Vital signs: Vital Signs - 8 hr 01/06/19 01:15 Temperature 98.7 F Pulse Rate 96 H Respiratory Rate 16 Blood Pressure 162/88 H Pulse Oximetry 94 MDM - Extremity Injury (Lower) Lab Data Attestation: I reviewed the patient's lab results. Result diagrams: 01/06/19 01:20 01/06/19 01:20 Labs: Lab Results 01/06/19 01/06/19 Range/Units 01:20 01:20 WBC 8.1 (4.5-11.0) X10^3/uL RBC 4.59 (4.0-5.2) X10^6/uL Hgb 14.9 (12.0-16.0) g/dL Hct 43.8 (36-46) % MCV 95.5 (80-100) fL MCH 32.4 (26-34) PG MCHC 34.0 (30-36) % RDW 12.4 (11.6-14.8) % Plt Count 225 (150-400) X10^3/uL Neut % (Auto) 74.4 (50-75) % Lymph % (Auto) 18.0 L (25-40) % [place] % (Auto) 6.0 (3-14) % Eos % (Auto) 1.0 L (2-4) % Baso % (Auto) 0.6 (0-2) % Neut # (Auto) 6000 (6885-8059) /uL Lymph # (Auto) 1500 (8506-1779) /uL [place] # (Auto) 500 (0-900) /uL Eos # (Auto) 100 (0-450) /uL Baso # (Auto) 0 (0-100) /uL Sodium 140 (137-145) mmol/L Potassium 3.9 (3.4-5.1) mmol/L Chloride 99 (98-107) mmol/L Carbon Dioxide 27 (22-32) mmol/L BUN 10 (7-17) mg/dL Creatinine 0.60 (0.52-1.04) mg/dL Estimated GFR > 60.0 (>60) mL/min BUN/Creatinine Ratio 16.7 (6-22) Glucose 170 H (80-110) mg/dL Calcium 9.4 (8.4-10.2) mg/dL Total Bilirubin 0.5 (0.2-1.3) mg/dL AST 53 H (14-36) IU/L ALT 31 (9-52) IU/L Alkaline Phosphatase 130 H (38-126) U/L Total Protein 8.0 (6.3-8.2) g/dL Albumin 4.7 (3.5-5.0) g/dL Globulin 3.3 (1.7-4.1) g/dL Albumin/Globulin Ratio 1.4 (1.0-2.8) Imaging Data Left hip: Attestation: I personally reviewed and interpreted this imaging study as follows: My impression: Pathologic femoral neck fracture femur: Attestation: I personally reviewed and interpreted this imaging study as follows: My impression: femoral neck fracture Discharge Plan Departure Patient Disposition: Admitted As Inpatient Clinical Impression: Closed left hip fracture Qualifiers: Encounter type: initial encounter Qualified Code(s): S72.002A - Fracture of unspecified part of neck of left femur, initial encounter for closed fracture Discharge Date/Time: 01/06/19 03:40 Admit Date/Time: 01/06/19 02:49 Admit Provider: Tj Krueger
[2019-01-06 01:36] LABS: Add Manual Diff / Slide Review NO; Basophils Absolute Auto 0 /uL (0-100); Basophils Percent Auto 0.6 % (0-2); Eosinophils Absolute Auto 100 /uL (0-450); Hematocrit 43.8 % (36-46); Hemoglobin 14.9 g/dL (12.0-16.0); Lymphocytes Absolute Auto 1500 /uL (1100-4500); Mean Corpuscular Hemoglobin 32.4 PG (26-34); Mean Corpuscular Volume 95.5 fL (80-100); Monocytes Absolute Auto 500 /uL (0-900); Neutrophils Absolute Auto 6000 /uL (1500-7000); Neutrophils Percent Auto 74.4 % (50-75); Platelet Count 225 X10^3/uL (150-400); Red Blood Cell Count 4.59 X10^6/uL (4.0-5.2); Red Cell Distribution Width 12.4 % (11.6-14.8); White Blood Cell Count 8.1 X10^3/uL (4.5-11.0)
[2019-01-06 01:43] LABS: Alanine Aminotransferase 31 IU/L (9-52); Albumin 4.7 g/dL (3.5-5.0); Albumin Globulin Ratio 1.4 (1.0-2.8); Alkaline Phosphatase 130 U/L (38-126); Aspartate Aminotransferase 53 IU/L (14-36); BUN Creatinine Ratio 16.7 (6-22); Bilirubin Total 0.5 mg/dL (0.2-1.3); Blood Urea Nitrogen 10 mg/dL (7-17); Calcium 9.4 mg/dL (8.4-10.2); Carbon Dioxide 27 mmol/L (22-32); Chloride 99 mmol/L (98-107); Estimated Glomerular Filt Rate > 60.0 mL/min (>60); Globulin 3.3 g/dL (1.7-4.1); Glucose 170 mg/dL (80-110); HEMOLYSIS < 15 (0-50); Potassium 3.9 mmol/L (3.4-5.1); Sodium 140 mmol/L (137-145)
[2019-01-06] MEDS: HYDROMORPHONE 0.5 MG INJ IV ×4 (02:58→09:40)
[2019-01-06] MEDS: SODIUM CHLORIDE 0.9% 1,000 ML 125 ML IV ×2 (04:14→12:01)
--- NOTE | 2019-01-06 04:53 | PC.ADMIT ---
Addendum entered by Karley Aj R.N. 01/06/19 06:33: States pain is again 8/10 with slightest movement and 5/10 with no movement; requesting more pain medication. Dr Krueger contacted and new order received. Original Note: 0340 Patient admitted to room 218 per stretcher from ER. States she tripped on crutches at home placing full weight on left leg but did not fall. Significant other assisted her to the bed. EMT's called after severe pain in left hip did not subside. Was diagnosed with fx left hip. Patient is alert and oriented. Breath sounds CTA with sat of 94% on 1L/min oxygen (desat in ER reported following administration of Dilaudid). HRR. Denies nausea. BT present and abdomen is soft/flat. Indwelling catheter is patent; urine clear yellow. Complaint of 9/10 left hip/groin pain and was medicated with IV Dilaudid and ice pack applied. Not wanting to move due to pain so will use Marissa tilt function to alter position as tolerated. Skin condition good except bilateral heels are reddened and skin is peeling. Significant other rooming in. Fall risk score is high and bed alarm is activated. Instructed in bed controls and call light. Informed of NPO status, ortho consult for a.m. and given lemon glycerin swabs for mouth moisturizer. [email or web address] Admission Note: The patient,Vicky Tripathi,58 y/o, was given written information regarding hospital policies, unit procedures and contact persons. Patient's smoking status: Former smoker. Vital Signs - 8 hr 01/06/19 01:15 01/06/19 02:58 Temperature 98.7 F Pulse Rate 96 H 58 L Respiratory Rate 16 16 Blood Pressure 162/88 H Blood Pressure [Left Arm] 136/94 H Pulse Oximetry 94 96
--- NOTE | 2019-01-06 07:02 | P.CONS_ITS ---
History of Present Illness Consult details Date Patient Seen: 01/06/19 Time Patient Seen: 07:03 Chief complaint: Left leg pain Reason for consult: L hip fracture Requesting provider: Tj Krueger Narrative: 4-year-old female with a left hip fracture. She has been treated for 2 separate types of breast cancer, left breast 2008, right breast 2013. She has a known recurrence of the breast cancer with metastasis to her sacrum as well as her left hip. Her oncologist is Dr. Whaley. She has been working with Dr. Carter and the plan was to start radiation therapy to the left hip on Wednesday and then possible surgery after this. They were also going to biopsy a lymph node in her neck. She has been touchdown weight-bearing on the left leg for the past few weeks using a walker. Not really having much pain in the leg but when she tried to get into bed last night she dragged her left toe and began having severe pain in the left hip. She came into the emergency room and was found have a displaced femoral neck fracture. Could no longer move or walk on the leg. She denies any pain across her lower back, or anywhere else in her body. She has no problems with the right leg. It is somewhat tolerable laying in bed but any motion of the left leg is excruciatingly sharp. She is not on any blood thinners. [facility] Medical History Ankle pain (Chronic) Anxiety (Chronic) Arthralgia of left hip (Acute) Asthma (Chronic) Breast cancer (Acute) Chicken pox (Resolved) Elbow pain (Chronic) Foot pain (Chronic) 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 (Acute) Osteopenia after menopause (Acute) Pancreatitis (Chronic ~2010) Vertigo (Chronic ~2011) Surgical History Anesthesia (Resolved) Breast cancer (Resolved ~2006) History of shoulder surgery (Resolved ~2011) Status post appendectomy (~1963) Family History Brother Age: 55 Scoliosis Father Heart disease Hypertension Mother Age: 81 Cancer Diabetes mellitus Social History household members: significant other Smoking Status: Former smoker alcohol intake: current Meds Home Medications and Allergies Home Medications Medication Instructions Recorded Confirmed Type multivitamin [Multiple Vitamins] 1 tab PO Q48H #0 03/03/16 01/06/19 History Vitamin B-12 50 mcg PO Q DAY #0 06/29/17 01/06/19 History albuterol sulfate 90 mcg/actuation See Rx Instructions INHALATION Q4H 12/15/17 01/06/19 Rx aerosol inhaler #3 each ipratropium-albuterol 0.5 mg-3 See Rx Instructions INHALATION 12/31/17 01/06/19 Rx mg(2.5 mg base)/3 mL nebulization Q2HP PRN #180 ml soln atorvastatin [Lipitor] 10 mg PO HS #90 tab 07/21/18 01/06/19 Rx gabapentin 900 mg PO BID 30 Days #180 cap 09/20/18 01/06/19 Rx atenolol 50 mg tablet 50 mg PO Q DAY #90 tab 11/07/18 01/06/19 Rx omeprazole 20 mg capsule,delayed 20 mg PO QDAY #90 cap 11/11/18 01/06/19 Rx release alprazolam 0.5 mg tablet 0.5 - 1 mg PO BIDP PRN #60 tab 12/21/18 01/06/19 Rx hydrocodone 5 mg-acetaminophen 325 1 - 2 tab PO Q6HP PRN #60 tab 12/21/18 01/06/19 Rx mg tablet miscellaneous medical supply #1 each 12/30/18 01/06/19 Rx beclomethasone dipropionate [Qvar 2 inh INHALATION BID 01/06/19 01/06/19 History RediHaler] calcium carbonate-vitamin D3 2 cap PO DAILY 01/06/19 01/06/19 History [Calcium 600 + D(3)] Allergies Allergy/AdvReac Type Severity Reaction Status Date / Time No Known Drug Allergies Allergy Verified 12/21/18 15:08 Review of Systems Constitutional Constitutional: Denies chills, Reports fatigue and Denies fever(s) Eyes Eyes: Denies blurry vision ENT Ears, Nose, Mouth, and Throat: No abnormal hearing, No dizziness and No lip swelling Cardiovascular Cardiovascular: Denies chest pain and Reports shortness of breath with activity (She has asthma) Respiratory Respiratory: Reports dyspnea on exertion (She has asthma) Gastrointestinal Gastrointestinal: Denies abdominal pain Musculoskeletal Musculoskeletal: Reports as per HPI and Denies numbness Integumentary/Breasts Skin/Breast: Denies changing lesions Neurologic Neurologic: Denies abnormal hearing, Denies dizziness and Denies numbness Psychiatric Psychiatric: Reports anxiety Endocrine Endocrine: Reports fatigue Hematologic/Lymphatic Hematologic/Lymphatic: Denies easy bleeding Allergic/Immunologic Allergic/Immunologic: Denies lip swelling Exam Vital Signs (past 8 hours): - 01/06/19 01:15 01/06/19 02:58 01/06/19 03:55 Temperature 98.7 F 98.4 F Pulse Rate 96 H 58 L 92 H Respiratory Rate 16 16 17 Blood Pressure 162/88 H 122/77 Blood Pressure [Left Arm] 136/94 H Pulse Oximetry 94 96 94 Oxygen Delivery Method Nasal Cannula Oxygen Flow Rate 1 Const Orientation: alert and oriented x3 Resp Auscultation: clear to auscultation bilaterally Cardio Rate: regular rate Rhythm: regular rhythm Back/Spine/Pelvis Other: Nontender over the sacrum Extrem Other: Left hip intact integument. Pain with any attempt at log roll. Intact sensation throughout the left leg. Easily wiggles toes and ankle with full strength. 2+ dorsalis pedis pulse. Right leg full pain-free range of motion. 5/5 strength. Objective Imaging Hip x-ray: My impression: Hip x-ray from yesterday shows a displaced femoral neck fracture with bony changes consistent with metastasis through the end proximal femur. MRI hip 12/05/18: My impression: metastatic lesions to right side of S1 and S2. R ileum, and extensively into L proximal femur in neck and trochanteric region bone scan 12/23/18: My impression: Multiple areas metastasis in the skull, cervical thoracic and lumbar spine, S1 and S2, right ilium, 11th rib, and left proximal femur. Labs Result Diagrams: 01/06/19 01:20 01/06/19 01:20 Labs: Laboratory Results - last 24 hr 01/06/19 01/06/19 01:20 01:20 WBC 8.1 RBC 4.59 Hgb 14.9 Hct 43.8 MCV 95.5 MCH 32.4 MCHC 34.0 RDW 12.4 Plt Count 225 Neut % (Auto) 74.4 Lymph % (Auto) 18.0 L [place] % (Auto) 6.0 Eos % (Auto) 1.0 L Baso % (Auto) 0.6 Neut # (Auto) 6000 Lymph # (Auto) 1500 [place] # (Auto) 500 Eos # (Auto) 100 Baso # (Auto) 0 Sodium 140 Potassium 3.9 Chloride 99 Carbon Dioxide 27 BUN 10 Creatinine 0.60 Estimated GFR > 60.0 BUN/Creatinine Ratio 16.7 Glucose 170 H Calcium 9.4 Total Bilirubin 0.5 AST 53 H ALT 31 Alkaline Phosphatase 130 H Total Protein 8.0 Albumin 4.7 Globulin 3.3 Albumin/Globulin Ratio 1.4 Assessment & Plan Assessment & Plan narrative: Metastatic cancer, presumed from the breast, through multiple areas of the body, now with a pathologic left hip fracture. Initially she was going to have a biopsy and radiation. However with her hip fracture, that changes the time course. She is going to require partial hip replacement to fix this so that she can then mobilize as soon as possible. Dr. Carter has been following her for this problem and I will discuss it with Dr. Carter today and either she or I can perform the surgery this evening. We discussed risks and benefits as well as postoperative course. She will need to be on blood thinners postoperatively as she has metastatic cancer and extremity fracture. The wound will need to heal before she should start radiation. I am going to let her eat breakfast as the OR schedule is not open till this evening and then NPO for the remainder of the day.
[2019-01-06] MEDS: ALBUTEROL HFA 60 PUFF/8 GM INH INH ×3 (07:49→19:16)
[2019-01-06] MEDS: ONDANSETRON 4 MG/2 ML INJ IV (07:59)
[2019-01-06] MEDS: GABAPENTIN 300 MG CAPSULE 900 MG PO ×2 (07:59→20:32)
[2019-01-06] MEDS: ATENOLOL 50 MG TABLET PO (08:04)
--- NOTE | 2019-01-06 08:46 | PM.HP.1 ---
History of Present Illness History of Present Illness Date Patient Seen: 01/06/19 Time Patient Seen: 08:46 Chief complaint: Left leg pain Narrative: 58-year-old female with history of breast cancer left breast and right breast. One of the cancer was triple negative breast cancer the other 1 was estrogen receptor positive. Patient earlier this year began to have hip pain. There is initial concern of hip osteoarthritis. Further examination revealed probable metastatic disease. Patient went through other investigations including CT scan bone scan and PET scan. Patient was found to have multiple metastatic lesions. It in the hip pelvis sacral area school. There is questionable uptake as well in the lung lesion. Patient has since met with oncology Dr. Le her Dr. Hansen her primary care doctor and Dr. dominga Carter orthopedic surgery. Patient had a treatment plan including radiation oncology and biopsy of lesion to further differentiate type of cancer. Patient presented to the emergency department last evening. For the last month she has been walking with crutches. She has had increasing pain in her left hip. Difficulty with ambulation. Her walker really does not work well in her house. She then fell. And had hip pain. And was unable to ambulate and was brought to the emergency department. On x-ray examination patient was found to have a femoral neck fracture. Patient states she has good pain control. She is using pain medication every 2 hours. She says she is tired. On review of patient's health history patient states she has had many surgeries before she gets postoperative nausea. No problems with anesthesia. Patient denies any history with bleeding disorders or blood clotting disorders. Patient denies any history of heart disease heart attacks or irregular heartbeats. Patient does not have any problems with heart failure. Patient has inhalers for which she takes which are albuterol as well as ipratropium. Patient has never had a stroke or peripheral blood clot. 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 (Acute) Osteopenia after menopause (Acute) Pancreatitis (Chronic ~2010) Vertigo (Chronic ~2011) Surgical History Anesthesia (Resolved) Breast cancer (Resolved ~2006) History of shoulder surgery (Resolved ~2011) Status post appendectomy (~1963) Family & Social History Family History Brother Age: 55 Scoliosis Father Heart disease Hypertension Mother Age: 81 Cancer Diabetes mellitus Social History: household members significant other Prior Living Arrangements House Safety & Behavioral: Feels Safe in Current Yes Environment Been Physically Hurt or No Threatened By a Person Suicidal Ideation Description None Tobacco & Substance use: Smoking Status Former smoker alcohol intake current alcohol intake frequency 0-2 drinks per day Substance Use Type does not use Meds Home Medications and Allergies Home Medications Medication Instructions Recorded Confirmed Type multivitamin [Multiple Vitamins] 1 tab PO Q48H #0 03/03/16 01/06/19 History Vitamin B-12 50 mcg PO Q DAY #0 06/29/17 01/06/19 History albuterol sulfate 90 mcg/actuation See Rx Instructions INHALATION Q4H 12/15/17 01/06/19 Rx aerosol inhaler #3 each ipratropium-albuterol 0.5 mg-3 See Rx Instructions INHALATION 12/31/17 01/06/19 Rx mg(2.5 mg base)/3 mL nebulization Q2HP PRN #180 ml soln atorvastatin [Lipitor] 10 mg PO HS #90 tab 07/21/18 01/06/19 Rx gabapentin 900 mg PO BID 30 Days #180 cap 09/20/18 01/06/19 Rx atenolol 50 mg tablet 50 mg PO Q DAY #90 tab 11/07/18 01/06/19 Rx omeprazole 20 mg capsule,delayed 20 mg PO QDAY #90 cap 11/11/18 01/06/19 Rx release alprazolam 0.5 mg tablet 0.5 - 1 mg PO BIDP PRN #60 tab 12/21/18 01/06/19 Rx hydrocodone 5 mg-acetaminophen 325 1 - 2 tab PO Q6HP PRN #60 tab 12/21/18 01/06/19 Rx mg tablet miscellaneous medical supply #1 each 12/30/18 01/06/19 Rx beclomethasone dipropionate [Qvar 2 inh INHALATION BID 01/06/19 01/06/19 History RediHaler] calcium carbonate-vitamin D3 2 cap PO DAILY 01/06/19 01/06/19 History [Calcium 600 + D(3)] Allergies Allergy/AdvReac Type Severity Reaction Status Date / Time No Known Drug Allergies Allergy Verified 12/21/18 15:08 Exam Vital Signs (past 8 hours): - 01/06/19 01:15 01/06/19 02:58 01/06/19 03:55 Temperature 98.7 F 98.4 F Pulse Rate 96 H 58 L 92 H Respiratory Rate 16 16 17 Blood Pressure 162/88 H 122/77 Blood Pressure [Left Arm] 136/94 H Pulse Oximetry 94 96 94 01/06/19 08:00 Temperature 98.4 F Pulse Rate 95 H Respiratory Rate 16 Blood Pressure 146/87 H Blood Pressure [Left Arm] Pulse Oximetry 96 Oxygen Delivery Method Nasal Cannula Oxygen Flow Rate 1 Narrative Exam Narrative: Gen.: Alert somewhat sleepy good historian. Family member at the bedside HEENT: NC/AT PERRLA oral mucosa is moist Cardio: S1-S2 regular rate and rhythm Respiratory: Normal respiratory effort lungs are clear Abdomen: Soft nontender Extremities: Good distal pulses trace lower extremity edema Neurologic: Cranial nerves are intact grossly. Moving all extremities Objective Labs Result Diagrams: 01/06/19 01:20 01/06/19 01:20 Labs: Laboratory Results - last 24 hr 01/06/19 01/06/19 01:20 01:20 WBC 8.1 RBC 4.59 Hgb 14.9 Hct 43.8 MCV 95.5 MCH 32.4 MCHC 34.0 RDW 12.4 Plt Count 225 Neut % (Auto) 74.4 Lymph % (Auto) 18.[address] [place] % (Auto) 6.0 Eos % (Auto) 1.0 L Baso % (Auto) 0.6 Neut # (Auto) 6000 Lymph # (Auto) 1500 [place] # (Auto) 500 Eos # (Auto) 100 Baso # (Auto) 0 Sodium 140 Potassium 3.9 Chloride 99 Carbon Dioxide 27 BUN 10 Creatinine 0.60 Estimated GFR > 60.0 BUN/Creatinine Ratio 16.7 Glucose 170 H Calcium 9.4 Total Bilirubin 0.5 AST 53 H ALT 31 Alkaline Phosphatase 130 H Total Protein 8.0 Albumin 4.7 Globulin 3.3 Albumin/Globulin Ratio 1.4 Assessment & Plan Assessment & Plan narrative: Left hip fracture femoral neck. Pathologic due to her metastatic cancer presumed cancer source is breast as patient has had 2 previous breast cancers. Patient has been seen and evaluated by Orthopedic surgery and is anticipated to undergo hip replacement surgery. We will provide medical optimization for the surgery. On review patient's blood work. Patient is not anemic preoperatively. Patient has normal kidney function. Patient's platelets are within the normal range. Patient has no history of bleeding or blood clotting disorders. Presumably metastatic cancer which puts patient at high risk for venous thromboembolism preoperatively during and postoperatively. Would recommend anticoagulation for the patient potentially indefinitely while she undergoes treatment for her metastatic disease. Patient will have an EKG preoperatively done. Will go ahead and switch her atenolol to metoprolol which may have a better cardio protective affects 50 mg. She will be placed on SCDs and afterwards as per orthopedic surgery recommended anticoagulation. She is currently on Dilaudid for pain which seems to be helping well as q.2 hours and getting Zofran. Place her on a bowel regimen of Colace and senna to help prevent constipation after surgery. Breast cancer history of possible metastatic disease. Guess biopsy could be done during the surgical process that today while her hip replacement. Will let that be left up to the surgeons. Hypertension. Switch atenolol to metoprolol for better beta phillip coverage for surgery. Probably just continue on with this afterwards. Asthma. Intermittent use of inhalers. She will be written for her and helped steroids as well as albuterol as needed. Hyperlipidemia. Currently stable. History of diverticulosis no current problems at this point. Anxiety. Continued intermittent use of lorazepam. Code status full code. Medical optimization for surgery discussion above. Patient meets inpatient criteria. Quality VTE Deep Vein Thrombosis/Pulmonary Embolism Present on Admission: No
--- NOTE | 2019-01-06 09:43 | OT.IP.TRT ---
Surgery Performed Operation Date: 01/06/19 17:00 <No data on this case meets the specified criteria> Occupational Therapy Treatment Note M3 OT- IP Subjective and Pain Start: 01/06/19 09:42 Freq: Status: Active Protocol: Document 01/06/19 09:42 [facility] (Rec: 01/06/19 09:43 [facility] [id number]) OT- Subjective Occupational Therapy Visit Type Type Administrative Note Notes Pt looking to have surgery this evening, therefore to do OT eval tomorrow.
[2019-01-06] MEDS: hydrOXYzine pamoate 25 MG CAPSULE PO ×2 (11:07→22:48)
[2019-01-06] MEDS: BECLOMETHASONE 80 MCG INH 10.6 GM 2 PUFF INH ×2 (11:58→19:16)
[2019-01-06] MEDS: HYDROMORPHONE 0.5 MG INJ 1 MG IV (12:00)
--- NOTE | 2019-01-06 15:43 | DIET.PN ---
Dietary Progress Note Assessment: 58y F admitted for L femoral neck fx secondary to extensive met Ca referred to nutrition for MNA score 10 and Javy score 15. Pt NPO (missed window for breakfast this am) and in considerable px inappropriate for RD consult today. Pt wt recorded as 63.5kg and 54.8kg in same day, STATISTICAL PROGRAMMER ANALYST Isabel asked to get accurate wt of pt which is 56.8kg showing 10% wt loss in 2w which is severe. HT: 162.5cm WT: 56.8kg UBW: 65kg BMI: 21.5 Labs: AST 53 H, Alk Phos 130 H MNA:10 Javy: 15 Nutrition Diagnosis: Acute Severe PCM r/t decreased intake of food related to px from met Ca aeb unintentional wt loss 10% in 2w (severe), femoral fx secondary to met Ca, MNA score 10. Interventions: Recc liberalized General diet order c PRO smoothies tid to address severe PCM, diet aides will assess pt's food preferences Sat am. Diet Order: currently NPO, recc general diet order add PRO smoothies tid EER: 1600kcal, 70g PRO (1.2g/kg per Ca), 1.7L fluids Monitoring/Evaluations: I&Os, pt food preference
[2019-01-06] MEDS: ALPRAZolam 0.5 MG TABLET PO (18:05)
--- NOTE | 2019-01-06 19:42 | PC.NURSE ---
Addendum entered by Natalie Mckenna R.N. 01/06/19 23:32: Pt reports pain 5/10 to left hip. Reports improvement in c/o itching verbalized earlier and pain. Vistaril for spasms that woke pt from sleep. Discussed changing positions in bed with pt. Pt agreeable to slightly turning onto right side. This was done utilizing turning feature in bed with pillow placed under left hip. Pt reports unable to tolerate scd to RLE at this time. Pump was turned off and NOC RN informed. Original Note: Pt's surgery has been postponed this evening as per Dr. Carter. Awaiting instrumention as per automobile assembly supervisor, Mattie'elizabeth, statement. Pt and pt's family have multiple questions. Printing Supervisor, Mattie, has notified surgery and requested Dr. Carter come to see patient and family to address. Pt reports left hip pain with any movement. Ice to hip as well as iv dilaudid as per pt request every 2 hours. Pt admits to neuropathy to feet BL and states sensation is currently at baseline to BL LE's. Dr. Carter arrives at bedside and pt's iv fluids were dc'd as per . Pt was instructed per Dr. Carter to eat diet tonight and npo after midnight anticipating surgery 1430 01/07. Clear liquids until 0800 01/[address] Carter. Pt agreeable to scd to RLE and this was placed. Hernandez to gravity and oral fluids encouraged. Attentive family to obtain evening meal for patient and bring in to hospital. Pt's conversation and mentation remain intact. 02 2L nc sats 93% per continuous monitor.
--- NOTE | 2019-01-06 20:27 | PM.PREOP ---
Pre-operative Note Interval Note History & Physical reviewed/Exam performed by Physician: Yes Changes to H&P: Yes H&P completed within 30 days and has changed as indicated here:: Vicky has a known metastatic cancer in her left hip. She was waiting to get in with the radiation oncologist. I spoke to her medical oncologist and his partner in order to optimize her plan for fixation of her left hip. Unfortunately she fell and noted the acute onset of worsening left hip pain. She has a known history of breast cancer of 2 different types and it is uncertain what type her left femur cancer is. Her x-rays show a displaced left femoral neck fracture. She needs operative fixation to include a cemented left hip unipolar with an open biopsy of her left femur. Procedure alternatives risks benefits complications possible need for blood transfusion and concerns regarding her metastatic cancer and known metastases was discussed in detail with the patient. She consents to left hip partial replacement for metastatic cancer and open biopsy.
[2019-01-06] MEDS: ATORVASTATIN 10 MG TABLET PO (20:31)
[2019-01-06] MEDS: DOCUSATE 100 MG CAPSULE PO (20:32)
[2019-01-06] MEDS: SENNOSIDES 8.6 MG TABLET 17.2 MG PO (20:32)
[2019-01-06] MEDS: SODIUM CHLORIDE 0.9% FLUSH 10 ML IV (20:33)
[2019-01-06] MEDS: diphenhydrAMINE 25 MG TABLET PO (20:33)
[2019-01-06] MEDS: HYDROMORPHONE 2 MG TABLET PO (21:49)
[2019-01-07] VITALS (17 sets, daily range): BP systolic 100–151; BP diastolic 69–90; PULSE 74–108; RESP 10–20; TEMP 36.6–37.6; O2SAT 89–97
--- NOTE | 2019-01-07 | PATH_ITS ---
[facility] Accession Number: [id number] . 01 Material submitted: . PART A: femur - LEFT FEMORAL HEAD PART B: bone - LEFT FEMORAL NECK AND CANAL SEGMENTS PART C: bone - LEFT FEMORAL NECK AND CANAL SEGMENTS . 01 Clinical history: . LEFT LEG PAIN . 01 Diagnosis: A. Femoral Head, Left, Resection: Metastatic poorly differentiated adenocarcinoma, consistent with origin from patient's known breast primary. Focal degenerative and reactive changes, consistent with osteoarthritis. . B. Bone, Left Femoral Neck and Canal, Excision: Metastatic poorly differentiated adenocarcinoma, consistent with origin from patient's known breast primary (see comment). Focal osteonecrosis, consistent with recent fracture site. . C. Bone, Left Femoral Neck and Canal, Excision: Metastatic, poorly differentiated adenocarcinoma, consistent with origin from patient's known breast primary. Focal osteonecrosis, consistent with recent fracture site. [facility] 01/13/2019 1841 Local . 01 Comment: All three specimens show multiple foci of extensive involvement by a poorly differentiated carcinoma forming solid sheets, nests, and cribriform glands of large eosinophilic cells with pleomorphic/atypical nuclei. A panel of *immunostains is obtained on block B1, with controls stained appropriately. The tumor shows the following results: . Cytokeratin 7: Uniformly positive. Cytokeratin 20: Negative. Estrogen receptor: Negative. GATA3: Rare cell positive (weak). Mammaglobin: Focally positive. GCDFP15: Uniformly positive. TTF1: Negative. PAX-8: Negative. . These results in conjunction with the provided clinical history and morphologic features confirm metastasis from the patient's known breast primary. Additionally, the morphologic features are compatible with a ductal-type breast carcinoma. Origin from breast is specifically supported with coexpression of multiple breast markers GATA3 (albeit minimal), GCDFP15, and mammaglobin. In this case, estrogen receptor is negative, although false negative results cannot be excluded given that the specimen has undergone decalcification. Furthermore, there is no evidence for metastatic adenocarcinoma from lung (negative TTF1) or gynecologic tract (negative PAX-8). . The findings of this case are verbally provided by Dr. Fields to Nurse Medina on 01/13/2019 at 2:20 p.m. She indicates that the patient presented with a recent fracture of the left femoral neck. . * This test was developed and its performance characteristics determined by [employer]. It has not been cleared or approved by the U.S. Food and Drug Administration. The FDA has determined that such clearance or approval is not necessary. This test is used for clinical purposes. It should not be regarded as investigational or for research. . 01 Electronically signed: . Kerri Fields MD, Pathologist NPI- [id number] . 01 Gross description: . (A) Received in formalin, labeled left femoral head, is a femoral head (4.3 x 3.9 x 3.8 cm) and a piece of resected bone (2.9 x 2.4 x 1.5 cm). The femoral head has a hernandez-florence semi-soft irregular margin. The surface is hernandez-yellow with focal eburnation. The cut surface is hernandez-yellow and focally hemorrhagic and soft. No nodules or masses are identified. The separate piece has a florence-white and diffusely hemorrhagic cut surface and appears to be the true resection margin. The resection margin is inked blue. Section code: (A1-A4) femoral head, one full cross-section quartered; (A5) femoral head, additional sales representative canvas products tissue; (A6) separate piece, sales representative canvas products. Note: The tissue has been decalcified. Also received: Two slices in Vanzol fixative and two air-dried slides. (B) Received in formalin, labeled left fem neck + canal segments, are multiple fragments of brown hemorrhagic gritty bone (12.2 x 2.9 x 0.4 cm in aggregate). Decalcified and entirely submitted in cassettes B1-B3. (C) Received in B Plus Fix fixative, labeled left femoral neck + canal segments in B Fix, are multiple fragments of hernandez hemorrhagic gritty bone (3.6 x 2.2 x 0.3 cm in aggregate. Decalcified and entirely submitted in cassettes C1, C2. ([id number]) /MRV 01/11/2019 1012 Local . 01 Pathologist provided ICD-10: C79.51 . 01 CPT . 365249, 746406, 241598, 417067, 630805, 822009, [id number], [id number] Performed at: 01 [facility] [address] [place] [address] [address], [place], [place] [id number] MD Sergio Murray MD Phone: [phone]
--- NOTE | 2019-01-07 | DI.RAD.S_ITS ---
PROCEDURE: XR PELVIS 1-2V INDICATIONS: INNER OP PICTURE TECHNIQUE: Intra-operative view of the pelvis and hip acquired. COMPARISON: [facility], CR, XR FEMUR LT MIN 2V, 01/06/2019, 1:17. [facility], CR, XR HIP W PEL IF DONE LT 2V, 01/06/2019, 1:17. [facility], CT, CT CHEST ABD PEL W CON, 12/15/2018, 10:09. FINDINGS: Bones: Intraoperative devices prior to placement of arthroplasty prostheses are in expected positions. No fractures or suspicious bony lesions. Soft tissues: Overlying surgical retractors are present, along with other intraoperative changes. IMPRESSION: Normal intraoperative examination. Dictated by: Harsh Matson M.D. on 01/07/2019 at 15:26 Approved by: Harsh Matson M.D. on 01/07/2019 at 15:27
[2019-01-07] MEDS: OXYCODONE IR 5 MG TABLET 10 MG PO ×4 (00:12→13:46)
[2019-01-07] MEDS: diphenhydrAMINE 25 MG TABLET PO (03:26)
[2019-01-07] MEDS: hydrOXYzine pamoate 25 MG CAPSULE PO ×2 (03:26→08:24)
[2019-01-07 07:27] LABS: Add Manual Diff / Slide Review NO; Basophils Absolute Auto 0 /uL (0-100); Basophils Percent Auto 0.6 % (0-2); Eosinophils Absolute Auto 100 /uL (0-450); Eosinophils Percent Auto 2.4 % (2-4); Hematocrit 41.1 % (36-46); Hemoglobin 13.9 g/dL (12.0-16.0); Lymphocytes Absolute Auto 1400 /uL (1100-4500); Lymphocytes Percent Auto 23.2 % (25-40); Mean Corpuscular HGB Conc 33.9 % (30-36); Mean Corpuscular Hemoglobin 32.8 PG (26-34); Mean Corpuscular Volume 96.6 fL (80-100); Monocytes Absolute Auto 800 /uL (0-900); Monocytes Percent Auto 13.4 % (3-14); Neutrophils Absolute Auto 3500 /uL (1500-7000); Neutrophils Percent Auto 60.4 % (50-75); Platelet Count 206 X10^3/uL (150-400); Red Blood Cell Count 4.25 X10^6/uL (4.0-5.2); Red Cell Distribution Width 12.7 % (11.6-14.8); White Blood Cell Count 5.8 X10^3/uL (4.5-11.0)
[2019-01-07 07:30] LABS: Alanine Aminotransferase 25 IU/L (9-52); Albumin 4.2 g/dL (3.5-5.0); Albumin Globulin Ratio 1.4 (1.0-2.8); Alkaline Phosphatase 122 U/L (38-126); Aspartate Aminotransferase 47 IU/L (14-36); Bilirubin Total 1.3 mg/dL (0.2-1.3); Blood Urea Nitrogen 9 mg/dL (7-17); Carbon Dioxide 32 mmol/L (22-32); Chloride 97 mmol/L (98-107); Estimated Glomerular Filt Rate > 60.0 mL/min (>60); Glucose 105 mg/dL (80-110); HEMOLYSIS < 15 (0-50); Potassium 4.1 mmol/L (3.4-5.1); Sodium 137 mmol/L (137-145); Total Protein 7.2 g/dL (6.3-8.2)
[2019-01-07 07:37] LABS: Prothrombin Time 11.3 SECONDS (10.1-12.7)
[2019-01-07] MEDS: PANTOPRAZOLE 20 MG TABLET PO (08:23)
[2019-01-07] MEDS: ALPRAZolam 0.5 MG TABLET PO (08:24)
[2019-01-07] MEDS: METOPROLOL ER 50 MG TABLET PO (08:24)
[2019-01-07] MEDS: SODIUM CHLORIDE 0.9% FLUSH 10 ML IV (08:29)
[2019-01-07] MEDS: GABAPENTIN 300 MG CAPSULE 900 MG PO ×2 (08:29→21:51)
--- NOTE | 2019-01-07 08:44 | PT-IP ANOTE ---
PT eval on hold. pt is awaiting surgery.
--- NOTE | 2019-01-07 09:41 | P.PN_ITS ---
Subjective Subjective Date Patient Seen: 01/07/19 Time Patient Seen: 09:21 Interval history: Patient having increased pain in her hip. Surgery was delayed from last night to sometime this afternoon apparently for need for specific components for her implant. Details are unfortunately not available in the chart but that is with the patient tells me No other new complaints issues problems other than the pain Exam Vital Signs (past 8 hours): - 01/07/19 04:00 Temperature 98.9 F Pulse Rate 74 Respiratory Rate 18 Blood Pressure 119/69 Pulse Oximetry 94 Oxygen Delivery Method Nasal Cannula Oxygen Flow Rate 1 Objective Labs Result Diagrams: 01/07/19 07:05 01/07/19 07:05 Labs: Laboratory Results - last 24 hr 01/07/19 01/07/19 01/07/19 07:05 07:05 07:20 WBC 5.8 RBC 4.25 Hgb 13.9 Hct 41.1 MCV 96.6 MCH 32.8 MCHC 33.9 RDW 12.7 Plt Count 206 Neut % (Auto) 60.4 Lymph % (Auto) 23.2 L [place] % (Auto) 13.4 Eos % (Auto) 2.4 Baso % (Auto) 0.6 Neut # (Auto) 3500 Lymph # (Auto) 1400 [place] # (Auto) 800 Eos # (Auto) 100 Baso # (Auto) 0 PT 11.3 INR 1.0 Sodium 137 Potassium 4.1 Chloride 97 L Carbon Dioxide 32 BUN 9 Creatinine 0.60 Estimated GFR > 60.0 BUN/Creatinine Ratio 15.0 Glucose 105 Calcium 10.0 Total Bilirubin 1.3 AST 47 H ALT 25 Alkaline Phosphatase 122 Total Protein 7.2 Albumin 4.2 Globulin 3.0 Albumin/Globulin Ratio 1.4 Assessment & Plan Assessment & Plan narrative: 1. Pathologic fracture left hip-plan for surgical repair today which will also include specimen/biopsy for the obvious metastatic disease that resulted in her fracture period as yet the etiology of her neoplasm is not exactly clear. Patient had been planning an outpatient biopsy prior to this fracture and that will now be accomplished at time of repair Further care management as to her hip and orthopedic issues as per Orthopedic surgery 2. Metastatic neoplasia of uncertain origin-will obtain biopsy today and follow- up treatment as per Oncology. Obviously she will need to complete healing after her hip repair surgery before she would be candidate for various therapies specially those directed specifically at that location (patient had been planned to have radiation therapy to the bony metastasis which of course now may not be necessary and/or would have to certainly wait until healing has occurred) 3. Patient's other medical problems including her asthma her hyperlipidemia her anxiety etc seem to be stable. Patient's chronic medications including her inhalers appear to have been ordered by admitting physician. Dr. Hansen will resume care of patient on Wednesday. Note: Greater than 30 minutes was spent evaluating the patient on the floor, including examining the patient, discussing clinical course with clinical and nursing staff, reviewing clinical course in the computer, preparing documentation and writing orders for continued management of care, discussing status with family as appropriate, reviewing plans for the next 24 hours with both patient/family and nursing staff as appropriate. Quality VTE Deep Vein Thrombosis/Pulmonary Embolism Present on Admission: No
[2019-01-07] MEDS: BECLOMETHASONE 80 MCG INH 10.6 GM 2 PUFF INH ×2 (10:41→21:50)
[2019-01-07] MEDS: ALBUTEROL HFA 60 PUFF/8 GM INH INH (10:41)
[2019-01-07] MEDS: hydrOXYzine pamoate 25 MG CAPSULE 50 MG PO (11:41)
--- NOTE | 2019-01-07 12:04 | P.PN_ITS ---
Subjective Subjective Date Patient Seen: 01/07/19 Interval history: Patient with history of metastatic breast cancer who fell yesterday resulting in a displaced pathologic left femoral neck fracture. Continues to have hip pain, she felt the Dilaudid given to her yesterday contributed to significant nausea with one episode of emesis. Has taken Oxycodone since without nausea. Continues to have complaint of muscle spasm. Hernandez catheter in place. Exam Vital Signs (past 8 hours): - 01/07/19 08:00 01/07/19 10:51 01/07/19 11:39 Temperature 99.7 F H Pulse Rate 88 85 Respiratory Rate 14 16 Blood Pressure 136/78 Pulse Oximetry 95 95 89 L Oxygen Delivery Method Room Air Oxygen Flow Rate 1 Narrative Exam Narrative: 58 year old female resting in bed. Alert and oriented in some discomfort. Patient able to wiggle toes. Sensation intact to light touch. Palpable pedal pulse. SCD on right leg. Objective Labs Result Diagrams: 01/07/19 07:05 01/07/19 07:05 Labs: Laboratory Results - last 24 hr 01/07/19 01/07/19 01/07/19 07:05 07:05 07:20 WBC 5.8 RBC 4.25 Hgb 13.9 Hct 41.1 MCV 96.6 MCH 32.8 MCHC 33.9 RDW 12.7 Plt Count 206 Neut % (Auto) 60.4 Lymph % (Auto) 23.2 L [place] % (Auto) 13.4 Eos % (Auto) 2.4 Baso % (Auto) 0.6 Neut # (Auto) 3500 Lymph # (Auto) 1400 [place] # (Auto) 800 Eos # (Auto) 100 Baso # (Auto) 0 PT 11.3 INR 1.0 Sodium 137 Potassium 4.1 Chloride 97 L Carbon Dioxide 32 BUN 9 Creatinine 0.60 Estimated GFR > 60.0 BUN/Creatinine Ratio 15.0 Glucose 105 Calcium 10.0 Total Bilirubin 1.3 AST 47 H ALT 25 Alkaline Phosphatase 122 Total Protein 7.2 Albumin 4.2 Globulin 3.0 Albumin/Globulin Ratio 1.4 Assessment & Plan Assessment & Plan narrative: Patient has been made NPO in anticipation of cemented left hip unipolar hip arthroplasty with an open biopsy of her left femur later today. Continue Oxycodone, Vistaril increased from 25 to 50mg for muscle spasm. SCD on unaffected leg for DVT prophylaxis. Quality VTE Deep Vein Thrombosis/Pulmonary Embolism Present on Admission: No
[2019-01-07] MEDS: LACTATED RINGERS 1,000 ML 42 ML IV ×2 (12:23→16:49)
--- NOTE | 2019-01-07 12:53 | CM.DANOTE ---
DCP: Case received, EMR reviewed and met with patient. Introduced self and role. Was able to obtain some baseline health and activity information from patient. DCP assessment/template completed with information currently available. Patient is a 58 year old female who admitted on 01/06 early in the morning to the care of the hospitalist/orthopedic team. PCP: Dr. Hansen. Payer: confirmed: [facility] Patient came to the hospital via ambulance secondary to a ground level fall. Patient holds diagnosis of left femoral neck fracture. Patient had been using crutches prior to fall, since she has history of cancer, and bone metastasis. Patient mentioned that she had gotten her crutch caught and fell. Spoke to PAC in [place]. He patient will be having surgery today. She mentioned that patient should be able to be full weight bearing after surgery. She has support of her significant other, Nirali, to help patient when she is discharged. P: DCP to continue to follow patient. Will see how she does after surgery, and will also consult with physical therapy team. Anabell Us RN/Military Lawyer
--- NOTE | 2019-01-07 13:54 | DI.RAD.S_ITS ---
PROCEDURE: XR HIP W PEL IF DONE LT 2V COMPARISON: [facility], KIRSTEN, XR HIP W PEL IF DONE LT 2V, 01/06/2019, 1:17. INDICATIONS: post op FINDINGS: There has been interval placement of left hip arthroplasty. Hardware is intact without evidence of fracture. There is good anatomic alignment. Expected postsurgical changes are noted. IMPRESSION: Left hip arthroplasty as above. Dictated by: Tish Joseph M.D. on 01/07/2019 at 17:59 Approved by: Tish Joseph M.D. on 01/07/2019 at 18:01
[2019-01-07] MEDS: CEFAZOLIN 2 GM/100 ML FROZ.PIGGY IV ×2 (14:06→21:49)
[2019-01-07] MEDS: VANCOMYCIN 1,000 MG/200 ML PIGGYBACK 200 MG IV (14:13)
--- NOTE | 2019-01-07 15:01 | SUR.OPER ---
Lateral on padded OR bed. Gel axillary roll. Arms secured on padded armboard with pillow supporting top arm. Padded hip positioner braces x4 - anterior and posterior chest and pelvis. Additional gel pad used anterior pelvis. Gel pad under bottom leg from knee to foot and secured with tape over sheet.
[2019-01-07] MEDS: TRANEXAMIC ACID 1,000 MG VIAL 1000 MG IV (15:46)
[2019-01-07] MEDS: BUPIVACAINE 0.25% W/ EPI 30 ML VIAL 60 ML INJ (15:46)
[2019-01-07] MEDS: BUPIVACAINE LIPOSOME 266 MG/20 ML VIAL INJ (15:47)
--- NOTE | 2019-01-07 15:47 | PC.NURSE ---
Ortho: Pt is reporting pain relief w/oral oxycodone. She thinks the dilaudid was causing nausea and requests to try morphine instead if she needs something else for pain. MD made aware of request. They will order post-op. Surgeon gave the go ahead she can take orals for pain with a sip of water but nothing else. She has been able to do that. She has also had problems with muscle spasms and md made aware and oral vistaril was increased and the pt reported the higher dose was helpful. Pt has ref her scds, they are to painful when they pump up to wear causing her muscle spasms to be worse. They are off for now. Pt understands they are for prevention of blood clots. MENG and Dr. Castrejon are aware she has been ref scd's and why. They will see how she does post op and consider doing something different then if she still can't tolerate them. Pt off to OR at about 1330. Family is with her and they are supportive. Cont w/poc.
[2019-01-07] MEDS: SODIUM CHLORIDE IRRIG SOLUTION 250 ML, EPINEPHrine 1 MG IRR (15:51)
--- NOTE | 2019-01-07 17:05 | PM.OP.1 ---
Operative Date/Time/Diagnoses Date of procedure: 01/07/19 Time of procedure: 14:36 Pre-op diagnosis: Metastatic lesion to the left proximal femur probable breast cancer, pathological fracture of the left femoral neck Post-op diagnosis: same Procedure & Clinicians Procedure: Left hip cemented unipolar, open biopsy and tumor debridement of the left proximal femur Same procedure as scheduled: Yes Indications: This is a 58-year-old female with a known history of 2 types of breast cancer who has been having ongoing pain in her left proximal femur. Her initial plain x-rays suggested probable metastatic disease to the left proximal femur and subsequent workup with a PET scan bone scan has shown involvement of the left proximal femur. She was scheduled for an open biopsy and debridement as well as being evaluated by Radiation Oncology attempting to optimize the timing when she caught her toe and noted worsening left hip pain came to the emergency room where an x-ray showed a left femoral neck fracture. Surgeon: Gale Carter Facility Security Officer: Nicolle Courtney Anesthesia Type: General and Spinal Operative Notes Closure Type: primary Specimen(s): other (Extensive pathology including formalin be fixed today of and slides.) Estimated Blood Loss (mL): 250 Blood products transfused: none Procedure in detail: The patient was seen in the pre-operative area, where the patient identified the left hip as the operative site and this was marked with my initials. The patient received pre-operative antibiotics and was taken to the operating room and placed on the operative table in the supine position after satisfactory anesthesia. A certified coatings inspector out was performed. Patient was placed in the lateral decubitus position and all bony prominences were carefully padded and the arms were appropriately position. The left lower extremity was prepared from the ankle to the iliac crest with ChloroPrep in the usual fashion and draped through sterile drapes. The hip was approached through posterolateral approach. Dissection was carried out down through skin and subcutaneous tissues. The fascia was opened. Gelpi retractors were placed. A Charnley retractor was placed. A small amount of inflamed bursa was resected. The piriformis was identified and protected. The other short external rotators and capsule were carefully stripped from the posterior aspect of the femur. They were tagged and carefully retracted. The femoral neck was brought up and an osteotomy was made of the residual femoral neck approximately 1 fingerbreadth above the lesser trochanter. The head was removed without difficulty. It was carefully sized. The acetabulum was meticulously irrigated with normal saline. There were no significant arthritic changes in the acetabulum. The acetabulum was carefully protected with an E tape. Tissue was meticulously removed from both the fracture site as well as along the proximal femur. I used a combination of a box osteotome as well as multiple Cloward Dawn and a reverse cutting curette in order to debulk pathological bone in the proximal aspect of the femur. It was then carefully and tissue was sent from the neck area as well as the canal area to pathology and placed in be fixed today of and slides were sent as well as formalin in an attempt to get receptors and other testing for markers for her long-term oncological treatment. Specimens were meticulously prepared. All pathological appearing bone was removed. There did not appear to be significant cortical destruction but there was clear abnormal bone and some bony reaction around that the that pathological bone in the proximal femur. Next a T-handled reamer and a lateralizing reamer were used to further open the canal. The tapered reamers were then used, followed by sequential broaching. All abnormal bone was then meticulously removed with a reverse biting curette. I specifically marked the reamers in preparation for a long prosthesis. We prepared the canal up to a size 12. The head was sized at a size 44. I took an intraoperative film with a trial prosthesis 190. A trial head and neck were then placed and the hip relocated and checked for leg length and stability. The patient was stable in the position of sleep, of squatting, and could be put through a range of motion with 45 degrees internal rotation without dislocation. At 90 degrees flexion, internal rotation to 70 was possible before dislocation. This was felt to be satisfactory. Based on the intraoperative film it looked like we could likely go up to the 225 mm S Jose Juan Lang stem and I wanted to protect the maximum amount of her canal that was reasonable. I did some additional reaming distally to make sure that the size 12 would passed distally and then inserted a trial size 12 to make sure that it could be adequately seated. The Appropriate components were opened, and the trials were removed. A distal cement restrictor was placed. The bone was meticulously cleaned with pulse lavage. The canal was packed with vag packing with epinephrine. Antibiotics cement was mixed and carefully pressurized into the femoral canal. The femoral component was placed without difficulty. A repeat trial reduction showed good range of motion and stability. We did a brief Betadine soak after the cement had hardened. Patient had good range of motion and stability. The final head and neck were placed after carefully irrigating the wound. The capsulomuscular flap was then repaired to the greater trochanter though an awl hole using the tag sutures. The short external rotators were repaired with black braided nylon. There was minimal bleeding. No drain was placed. The subcutaneous tissues were meticulous with distally irrigated in order to avoid any residual tumor cells. The fascia matias was closed with Vicryl. The subcutaneous layer was closed with barbed stitches, and the skin with a running 3-0 V-Lock suture and SteriStrips. An Aquacel Ag dressing was applied and the patient was taken to recovery having tolerated the procedure well. Complications: none Post-operative Condition: stable Disposition: Acute Care Plan for aftercare: Weight-bearing as tolerated on the left lower extremity. Routine posterior hip precautions. Out of bed to chair today. She can probably be discharged to home on Wednesday. We will check final pathology. She is scheduled with Radiation Oncology on Wednesday.
[2019-01-07] MEDS: LACTATED RINGERS 1,000 ML 125 ML IV (18:00)
[2019-01-07] MEDS: ASPIRIN EC 81 MG TABLET PO (21:49)
[2019-01-07] MEDS: ATORVASTATIN 10 MG TABLET PO (21:49)
[2019-01-07] MEDS: DOCUSATE 100 MG CAPSULE PO (21:50)
[2019-01-07] MEDS: SENNOSIDES 8.6 MG TABLET 17.2 MG PO (21:50)
--- NOTE | 2019-01-07 23:54 | PC.NURSE ---
A&OX3. 93% 1L. cont. pulse ox. pt denied pain. ice packs on L.hip. dressing cdi. pt able to wiggle toes. no numbness. PP++. mayank patent. IVF. call light in reach. bed alarm active.
[2019-01-08] VITALS (11 sets, daily range): BP systolic 112–131; BP diastolic 45–89; PULSE 59–107; RESP 16–18; TEMP 36.8–38.3; O2SAT 88–96
[2019-01-08] MEDS: CEFAZOLIN 2 GM/100 ML FROZ.PIGGY IV (04:59)
[2019-01-08 06:09] LABS: Hematocrit 36.7 % (36-46); Hemoglobin 12.8 g/dL (12.0-16.0)
[2019-01-08] MEDS: MULTIVITAMIN 1 TABLET 1 TAB PO (06:26)
[2019-01-08] MEDS: OXYCODONE IR 5 MG TABLET 10 MG PO ×6 (06:29→23:20)
[2019-01-08] MEDS: BECLOMETHASONE 80 MCG INH 10.6 GM 2 PUFF INH ×2 (08:17→17:59)
[2019-01-08] MEDS: PANTOPRAZOLE 20 MG TABLET PO (08:55)
[2019-01-08] MEDS: METOPROLOL ER 50 MG TABLET PO (08:55)
[2019-01-08] MEDS: GABAPENTIN 300 MG CAPSULE 900 MG PO ×2 (08:56→20:20)
[2019-01-08] MEDS: ASPIRIN EC 81 MG TABLET PO (08:56)
[2019-01-08] MEDS: CYANOCOBALAMIN (VITAMIN B-12) 100 MCG TABLET 50 MCG PO (08:56)
[2019-01-08] MEDS: CALCIUM CARB/VIT D3 500/200 TABLET 2 EACH PO (08:57)
[2019-01-08] MEDS: DOCUSATE 100 MG CAPSULE PO (08:57)
[2019-01-08] MEDS: SODIUM CHLORIDE 0.9% FLUSH 10 ML IV ×2 (08:57→20:21)
--- NOTE | 2019-01-08 09:13 | P.PN_ITS ---
Subjective Subjective Date Patient Seen: 01/08/19 Time Patient Seen: 09:13 Interval history: Patient appears to be much better spirits this morning Did have surgery yesterday afternoon Reporting pain is much improved in left hip. Still having some pain but signif icantly improved Unable tolerate SCDs because of muscle spasms they seem to generate etc Exam Vital Signs (past 8 hours): - 01/08/19 04:00 01/08/19 08:10 01/08/19 08:18 Temperature 98.2 F 98.9 F Pulse Rate 75 87 96 H Respiratory Rate 18 16 18 Blood Pressure 125/73 112/72 Pulse Oximetry 90 L 96 92 Oxygen Delivery Method Nasal Cannula Oxygen Flow Rate 1 Narrative Exam Narrative: Unremarkable, wound not examined Objective Labs Result Diagrams: 01/08/19 05:55 01/07/19 07:05 Labs: Laboratory Results - last 24 hr 01/08/19 05:55 Hgb 12.8 Hct 36.7 Assessment & Plan Assessment & Plan narrative: 1. Hip fracture now status post ORIF-continued postoperative recovery and therapies as per Orthopedic surgery. Specimen sent for pathology given the metastatic and neoplastic nature of her pathologic fracture 2. VTE prophylaxis-patient at especially high risk of developing DVT given her postoperative orthopedic surgery status as well as her active malignancy status. In my opinion Lovenox would be far better in terms of risk reduction than relying on aspirin plus SCDs alone especially in this patient who does not tolerate the SCDs. Therefore I have discontinued aspirin and ordered Lovenox for VTE prophylaxis. Plan to repeat hemoglobin hematocrit tomorrow and observe for evidence of active bleeding around her surgical site. 3. As before patient's other medical problems seem stable. Current inhalers ordered etc Dr. Hansen to resume care tomorrow, Wednesday. Note: Greater than 15 minutes was spent evaluating the patient on the floor, including examining the patient, discussing clinical course with clinical and nursing staff, reviewing clinical course in the computer, preparing documentation and writing orders for continued management of care, discussing status with family as appropriate, reviewing plans for the next 24 hours with both patient/family and nursing staff as appropriate. Quality VTE Deep Vein Thrombosis/Pulmonary Embolism Present on Admission: No
[2019-01-08] MEDS: ENOXAPARIN 40 MG/0.4 ML SYRINGE SUBCUT (10:00)
[2019-01-08] MEDS: hydrOXYzine pamoate 25 MG CAPSULE 50 MG PO (10:01)
[2019-01-08] MEDS: ALPRAZolam 0.5 MG TABLET PO (10:01)
--- NOTE | 2019-01-08 10:30 | PM.PNPO.1 ---
Subjective Subjective Date Patient Seen: 01/08/19 Time Patient Seen: 10:30 Interval history: Patient is postoperative day 1. Of a left hip hemiarthroplasty due to a pathological fracture. Patient is doing well this morning without much complaint. Patient states the hip feels much better today compared to yesterday. Exam Vital Signs (past 8 hours): - 01/08/19 04:00 01/08/19 08:10 01/08/19 08:18 Temperature 98.2 F 98.9 F Pulse Rate 75 87 96 H Respiratory Rate 18 16 18 Blood Pressure 125/73 112/72 Pulse Oximetry 90 L 96 92 Oxygen Delivery Method Nasal Cannula Oxygen Flow Rate 1 Narrative Exam Narrative: On physical exam, patient has positive dorsiflexion and plantar flexion of her toes and ankles. Palpable pedal pulses. Nontender to palpation to the posterior aspect of the calf. Patient's dressing on the left hip is clean and dry. No sign of any strike through or drainage. Objective Labs Result Diagrams: 01/08/19 05:55 01/07/19 07:05 Labs: Laboratory Results - last 24 hr 01/08/19 05:55 Hgb 12.8 Hct 36.7 Assessment & Plan Post-op Postoperative Procedures: Procedures Operation Date: 01/07/19 15:30 Actual Procedures Side Surgeon p total hip arthroplasty- cemented unipolar Left Gale Carter MD Postoperative day: 1 Postoperative status: doing well Postoperative status narrative: Patient doing well after a left hip arthroplasty due to a pathological femoral neck fracture. Postoperative plan: routine post-op care Postoperative plan narrative: Patient will most likely be able to be discharge home. She has a very large family support system. Would anticipate discharge home early this week. Time Spent With Patient Time with patient: less than 15 minutes Quality VTE Deep Vein Thrombosis/Pulmonary Embolism Present on Admission: No
--- NOTE | 2019-01-08 12:01 | PT.IIE ---
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 She could walk about 15 minutes with the crutches before needing a rest break. The fall that resulted in the left femoral neck fracture was a result of catching one of her crutches on the floor. Activities of Daily Living and IADL's Pt needed assist to get in and out of the tub, but could perform her own hygeine once in. She was otherwise independent with ADL's. She still drives and does shopping tasks independently. Social History Household Members significant other Living Arrangements House Number of Floors (Floors) One Floor Number of Stairs To Enter/Railing? 1 LUL, no railing Home Environment Standard Height Toilet Home Equipment Front Wheel Walker,Crutches, Hospital Bed,Grab Bars In Shower M2 PT-IP Current Condition Start: 01/07/19 08:44 Freq: NEEDED Status: Active Protocol: Document 01/08/19 09:03 AW (Rec: 01/08/19 12:01 AW [id number]) Physical Therapy Current Condition Current Condition Evaluation Date 01/08/19 Treatment Diagnosis s/p L unipolar SHARRON, metastatic breast cancer, impaired mobility Precautions Posterior Hip Precautions No Hip Flexion > 90 degrees,No Hip Internal Rotation,No Hip Adduction Weight Bearing Status Weight Bearing Status Weight Bear as Tolerated M3 PT-IP Subjective Start: 01/07/19 08:44 Freq: NEEDED Status: Active Protocol: Document 01/08/19 09:03 AW (Rec: 01/08/19 12:01 AW [id number]) Subjective Physical Therapy Visit Type Type Initial Evaluation Visit Start Time 08:50 Visit Stop Time 10:26 Total Visit Minutes 39 Notes Split visit [id number] [phone] Number of DITCHER Visits 0 Physical Therapy Visit Comments Patient Comments Pt visiting with family, but willing to work with PT Patient Goals Pt hopes to discharge home with her supportive boyfriend. Therapy Pain Assessment Pain When Pain Assessed During Mobility Pain Present Pain Present Pain Reported Location left hip/groin Intensity 8 Scale Used Numeric (1 - 10) Pain Management Techniques Apply Cold,Re-positioning, Timing of Activity with Medications M4 PT-IP Mobility and Gait Start: 01/07/19 08:44 Freq: NEEDED Status: Active Protocol: Document 01/08/19 09:03 AW (Rec: 01/08/19 12:01 AW [id number]) PT-Bed Mobility Assessment Supine to Sit Supine to Sit Minimal Assistance Scooting Scooting to Edge of Bed Standby Assistance Scooting Up and Down in Bed Minimal Assistance PT-Transfer Assessment Sit to and From Stand Sit to and from Stand Minimal Assistance,1 Person Assistance,Use of Upper Extremities Equipment Transfer Assistive Device Gait Belt,Front Wheeled Walker Orthotic/Prosthetic Devices or Brace: No Transfers Transfer Destination Chair Transfer Technique pt ambulated with FWW Transfer Ability Level of Assist Contact Guard Assistance,1 Person Assistance,Use of Upper Extremities Comments Mobility Comments Pt required min assist for bed mobility to support the operative leg and mod verbal cues for sequencing in order to maintain posterior hip precautions. Pt completed sit <> stand CGA to min assist with frequent education about avoiding >90 degrees hip flexion. Gait Assessment Gait Gait Assistance Required: Contact Guard Assist Distance (Feet) 15 Able to Maintain Weight Bearing Status Yes During Gait Assistive Devices Assistive Device Gait Belt,Front Wheeled Walker Orthotic/Prosthetic Devices or Brace: No Gait Deviations General Gait Pattern Antalgic,Decreased Stride Length,Decreased Feet Clearance,Flexed Trunk,Step-to Gait Factors Limiting Gait Function Factors Limiting Gait Function Decreased Activity Tolerance, Decreased Sensation,Decreased Strength,Pain,Poor Balance Comments Gait Comments Pt required ~3 minutes to ambulate 15 feet with FWW CGA during which she reported 8/10 pain. PT-Balance Assessment Sitting Balance and Reactions Static Sitting Balance Ability Good Dynamic Sitting Balance Ability Good Standing Balance and Reactions Static Standing Balance Ability Good Dynamic Standing Balance Ability Fair Device Used FWW M5 PT-IP Objective Assessments Start: 01/07/19 08:44 Freq: NEEDED Status: Active Protocol: Document 01/08/19 09:03 AW (Rec: 01/08/19 12:01 AW [id number]) Orientation Orientation/Cognition Level of Alertness Alert Orientation Name,Day of Week,Place, Situation Language Function Ability No Deficits Noted Safety Awareness Decreased Safety Awareness Comments Pt had difficulty remembering all posterior hip precautions, mentioning twice that she had trouble leaning as far forward as I'm supposed to. Continually educated pt on precautions, especially for hip flexion. Significant other in the room understands the precautions and is able to cue appropriately. 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 M6 PT-IP Treatment Start: 01/07/19 08:44 Freq: NEEDED Status: Active Protocol: Document 01/08/19 09:03 AW (Rec: 01/08/19 12:01 AW [id number]) Physical Therapy Treatment Education Education Provided Precautions,Weight Bearing Status,Post-Op Packet,Safety Other Treatments Other Treatment Performed Reviewed PT plan of care, post -op exercises, hip precautions , and safe use of FWW. M7 PT-IP Assessment and Plan Start: 01/07/19 08:44 Freq: NEEDED Status: Active Protocol: Document 01/08/19 09:03 AW (Rec: 01/08/19 12:01 AW [id number]) PT Summary Assessment and Plan Potential Rehabilitation Potential Good Status of Condition at Evaluation Evolving Summary Impairments Pain,Strength,Balance, Sensation,Cognition,Bed Mobility,Transfers,Gait, Activity Tolerance Assessment Summary Pt is a 58 yo woman with history of breast cancer with metastases to bone who was admitted after a fall during which she sustained a left femoral neck fracture. She was seen for PT evaluation on POD1 following unipolar hip arthroplasty and open biopsy. PLOF: She had been using bilateral axillary crutches at all times for the past 1-2 months due to hip pain. She required assistance to get in and out of the tub/shower, but reports independence with all other ADL's. CLOF: Pt required CGA to min assist for all mobility. She demonstrated decreased activity tolerance and required increased time for all mobility due to pain. She also required frequent cueing for posterior hip precautions. She lives with her significant other who will be able to take off some time to assist at home when pt discharges. Her son will also be able to stay in the home and help as needed if pt's boyfriend needs to return to work. Anticipate pt will meet the functional goals of this plan of care. If so, she will be safe to discharge home with possible need for home health PT. Goals Bed Mobility Goal Standby Assistance Transfer Goal Standby Assistance,Front Wheeled Walker Gait Goal Standby Assistance,Front Wheel Walker Gait Distance 100 Other Goals up/down 1 step without railing CGA Days to Meet Goals 5 Frequency of Treatment Frequency Of Treatment Twice a Day Treatment Plan Physical Therapy Treatment Plan Bed Mobility Training,Transfer Training,Gait Training, Therapeutic Exercise,Balance Retraining,Post Op Education, Discharge Planning,Hot or Cold Pack,Neuromuscular Re-ed, Coordination Retraining,Manual Therapy Other Recommendations and Next Treatment review hip precautions, Focus progress gait distance Recommendations To Nursing Amount of Assist Needed 1 Person Assist Discharge Recommendations PT Discharge Recommendations Home with Assistance,Home Health,Outpatient PT Other Discharge Recommendations Home with assist and HH vs outpatient PT Equipment Needed for Home Before FWW for home use. Pt has one Discharge in the room, but is can not be sized appropriately for her.
--- NOTE | 2019-01-08 12:35 | PT.IPTN ---
Current Diagnoses Pathological fracture, left femur, initial encounter for fracture (01/06/19) Surgery Performed Operation Date: 01/07/19 15:30 Actual Procedures p total hip arthroplasty- cemented unipolar(Left) - Gale Carter MD Physical Therapy Treatment Note M2 PT-IP Current Condition Start: 01/07/19 08:44 Freq: NEEDED Status: Active Protocol: Document 01/08/19 09:03 AW (Rec: 01/08/19 12:01 AW [id number]) Physical Therapy Current Condition Current Condition Evaluation Date 01/08/19 Treatment Diagnosis s/p L unipolar SHARRON, metastatic breast cancer, impaired mobility Precautions Posterior Hip Precautions No Hip Flexion > 90 degrees,No Hip Internal Rotation,No Hip Adduction Weight Bearing Status Weight Bearing Status Weight Bear as Tolerated M3 PT-IP Subjective Start: 01/07/19 08:44 Freq: NEEDED Status: Active Protocol: Document 01/08/19 12:35 CLB (Rec: 01/08/19 12:46 CLB [id number]) Subjective Physical Therapy Visit Type Type Patient Refusal Notes Pt refused stating she would like to take a nap and have pain meds on board before working with therapy. Will check back with pt later this afternoon. M4 PT-IP Mobility and Gait Start: 01/07/19 08:44 Freq: NEEDED Status: Active Protocol: Document 01/08/19 09:03 AW (Rec: 01/08/19 12:01 AW [id number]) PT-Bed Mobility Assessment Supine to Sit Supine to Sit Minimal Assistance Scooting Scooting to Edge of Bed Standby Assistance Scooting Up and Down in Bed Minimal Assistance PT-Transfer Assessment Sit to and From Stand Sit to and from Stand Minimal Assistance,1 Person Assistance,Use of Upper Extremities Equipment Transfer Assistive Device Gait Belt,Front Wheeled Walker Orthotic/Prosthetic Devices or Brace: No Transfers Transfer Destination Chair Transfer Technique pt ambulated with FWW Transfer Ability Level of Assist Contact Guard Assistance,1 Person Assistance,Use of Upper Extremities Comments Mobility Comments Pt required min assist for bed mobility to support the operative leg and mod verbal cues for sequencing in order to maintain posterior hip precautions. Pt completed sit <> stand CGA to min assist with frequent education about avoiding >90 degrees hip flexion. Gait Assessment Gait Gait Assistance Required: Contact Guard Assist Distance (Feet) 15 Able to Maintain Weight Bearing Status Yes During Gait Assistive Devices Assistive Device Gait Belt,Front Wheeled Walker Orthotic/Prosthetic Devices or Brace: No Gait Deviations General Gait Pattern Antalgic,Decreased Stride Length,Decreased Feet Clearance,Flexed Trunk,Step-to Gait Factors Limiting Gait Function Factors Limiting Gait Function Decreased Activity Tolerance, Decreased Sensation,Decreased Strength,Pain,Poor Balance Comments Gait Comments Pt required ~3 minutes to ambulate 15 feet with FWW CGA during which she reported 8/10 pain. PT-Balance Assessment Sitting Balance and Reactions Static Sitting Balance Ability Good Dynamic Sitting Balance Ability Good Standing Balance and Reactions Static Standing Balance Ability Good Dynamic Standing Balance Ability Fair Device Used FWW M5 PT-IP Objective Assessments Start: 01/07/19 08:44 Freq: NEEDED Status: Active Protocol: Document 01/08/19 09:03 AW (Rec: 01/08/19 12:01 AW [id number]) Orientation Orientation/Cognition Level of Alertness Alert Orientation Name,Day of Week,Place, Situation Language Function Ability No Deficits Noted Safety Awareness Decreased Safety Awareness Comments Pt had difficulty remembering all posterior hip precautions, mentioning twice that she had trouble leaning as far forward as I'm supposed to. Continually educated pt on precautions, especially for hip flexion. Significant other in the room understands the precautions and is able to cue appropriately. 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 M6 PT-IP Treatment Start: 01/07/19 08:44 Freq: NEEDED Status: Active Protocol: Document 01/08/19 09:03 AW (Rec: 01/08/19 12:01 AW [id number]) Physical Therapy Treatment Education Education Provided Precautions,Weight Bearing Status,Post-Op Packet,Safety Other Treatments Other Treatment Performed Reviewed PT plan of care, post -op exercises, hip precautions , and safe use of FWW. M7 PT-IP Assessment and Plan Start: 01/07/19 08:44 Freq: NEEDED Status: Active Protocol: Document 01/08/19 09:03 AW (Rec: 01/08/19 12:01 AW [id number]) PT Summary Assessment and Plan Potential Rehabilitation Potential Good Status of Condition at Evaluation Evolving Summary Impairments Pain,Strength,Balance, Sensation,Cognition,Bed Mobility,Transfers,Gait, Activity Tolerance Assessment Summary Pt is a 58 yo woman with history of breast cancer with metastases to bone who was admitted after a fall during which she sustained a left femoral neck fracture. She was seen for PT evaluation on POD1 following unipolar hip arthroplasty and open biopsy. PLOF: She had been using bilateral axillary crutches at all times for the past 1-2 months due to hip pain. She required assistance to get in and out of the tub/shower, but reports independence with all other ADL's. CLOF: Pt required CGA to min assist for all mobility. She demonstrated decreased activity tolerance and required increased time for all mobility due to pain. She also required frequent cueing for posterior hip precautions. She lives with her significant other who will be able to take off some time to assist at home when pt discharges. Her son will also be able to stay in the home and help as needed if pt's boyfriend needs to return to work. Anticipate pt will meet the functional goals of this plan of care. If so, she will be safe to discharge home with possible need for home health PT. Goals Bed Mobility Goal Standby Assistance Transfer Goal Standby Assistance,Front Wheeled Walker Gait Goal Standby Assistance,Front Wheel Walker Gait Distance 100 Other Goals up/down 1 step without railing CGA Days to Meet Goals 5 Frequency of Treatment Frequency Of Treatment Twice a Day Treatment Plan Physical Therapy Treatment Plan Bed Mobility Training,Transfer Training,Gait Training, Therapeutic Exercise,Balance Retraining,Post Op Education, Discharge Planning,Hot or Cold Pack,Neuromuscular Re-ed, Coordination Retraining,Manual Therapy Other Recommendations and Next Treatment review hip precautions, Focus progress gait distance Recommendations To Nursing Amount of Assist Needed 1 Person Assist Discharge Recommendations PT Discharge Recommendations Home with Assistance,Home Health,Outpatient PT Other Discharge Recommendations Home with assist and HH vs outpatient PT Equipment Needed for Home Before FWW for home use. Pt has one Discharge in the room, but is can not be sized appropriately for her.
[2019-01-08] MEDS: hydrOXYzine pamoate 25 MG CAPSULE PO ×3 (14:08→23:20)
--- NOTE | 2019-01-08 14:45 | PT.IPTN ---
Current Diagnoses Pathological fracture, left femur, initial encounter for fracture (01/06/19) Surgery Performed Operation Date: 01/07/19 15:30 Actual Procedures p total hip arthroplasty- cemented unipolar(Left) - Gale Carter MD Physical Therapy Treatment Note M2 PT-IP Current Condition Start: 01/07/19 08:44 Freq: NEEDED Status: Active Protocol: Document 01/08/19 09:03 AW (Rec: 01/08/19 12:01 AW [id number]) Physical Therapy Current Condition Current Condition Evaluation Date 01/08/19 Treatment Diagnosis s/p L unipolar SHARRON, metastatic breast cancer, impaired mobility Precautions Posterior Hip Precautions No Hip Flexion > 90 degrees,No Hip Internal Rotation,No Hip Adduction Weight Bearing Status Weight Bearing Status Weight Bear as Tolerated M3 PT-IP Subjective Start: 01/07/19 08:44 Freq: NEEDED Status: Active Protocol: Document 01/08/19 14:34 AW (Rec: 01/08/19 14:45 AW [id number]) Subjective Physical Therapy Visit Type Type Treatment Note Visit Start Time 14:10 Visit Stop Time 14:35 Total Visit Minutes 25 Physical Therapy Visit Comments Patient Comments Pt willing to work with PT Therapy Pain Assessment Pain When Pain Assessed During Mobility Pain Present Pain Present Pain Reported Location left hip/groin Intensity 6 Scale Used Numeric (1 - 10) Pain Management Techniques Apply Cold,Re-positioning, Timing of Activity with Medications M4 PT-IP Mobility and Gait Start: 01/07/19 08:44 Freq: NEEDED Status: Active Protocol: Document 01/08/19 14:34 AW (Rec: 01/08/19 14:45 AW [id number]) PT-Bed Mobility Assessment Sit to Supine Sit to Supine Minimal Assistance Scooting Scooting Up and Down in Bed Standby Assistance PT-Transfer Assessment Sit to and From Stand Sit to and from Stand Minimal Assistance,1 Person Assistance,Use of Upper Extremities Equipment Transfer Assistive Device Gait Belt,Front Wheeled Walker Orthotic/Prosthetic Devices or Brace: No Transfers Transfer Destination Bed Transfer Technique pt ambulated with FWW Transfer Ability Level of Assist Contact Guard Assistance,1 Person Assistance,Use of Upper Extremities Comments Mobility Comments Pt completed sit to supine transfer with min assist to support the operative leg. Sit > stand from BSC required min assist. Pt was better able to verbalize and exercise hip precautions this session. Gait Assessment Gait Gait Assistance Required: Contact Guard Assist Distance (Feet) 60 Able to Maintain Weight Bearing Status Yes During Gait Assistive Devices Assistive Device Gait Belt,Front Wheeled Walker Orthotic/Prosthetic Devices or Brace: No Gait Deviations General Gait Pattern Antalgic,Decreased Stride Length,Decreased Feet Clearance,Flexed Trunk,Step-to Gait Factors Limiting Gait Function Factors Limiting Gait Function Decreased Activity Tolerance, Decreased Sensation,Decreased Strength,Pain,Poor Balance Comments Gait Comments Pt ambulated very slowly with FWW CGA. She verbalized understanding of internal rotation precaution and planned accordingly for turns. M5 PT-IP Objective Assessments Start: 01/07/19 08:44 Freq: NEEDED Status: Active Protocol: Document 01/08/19 09:03 AW (Rec: 01/08/19 12:01 AW [id number]) Orientation Orientation/Cognition Level of Alertness Alert Orientation Name,Day of Week,Place, Situation Language Function Ability No Deficits Noted Safety Awareness Decreased Safety Awareness Comments Pt had difficulty remembering all posterior hip precautions, mentioning twice that she had trouble leaning as far forward as I'm supposed to. Continually educated pt on precautions, especially for hip flexion. Significant other in the room understands the precautions and is able to cue appropriately. 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 M6 PT-IP Treatment Start: 01/07/19 08:44 Freq: NEEDED Status: Active Protocol: Document 01/08/19 14:34 AW (Rec: 01/08/19 14:45 AW [id number]) Physical Therapy Treatment Exercises Exercises Ankle Pumps,Gluteal Sets,Quad Sets,Heel Slides Education Education Provided Precautions,Safety M7 PT-IP Assessment and Plan Start: 01/07/19 08:44 Freq: NEEDED Status: Active Protocol: Document 01/08/19 14:34 AW (Rec: 01/08/19 14:45 AW [id number]) PT Summary Assessment and Plan Summary Progress Towards Goals Progressing Toward Goals Assessment Summary Pt was able to increase her gait distance with no signs of respiratory distress or unusual fatigue. Pain continues to be her limiting factor, but she understands the importance of early mobility. Family is extremely supportive. Goals Bed Mobility Goal Standby Assistance Transfer Goal Standby Assistance,Front Wheeled Walker Gait Goal Standby Assistance,Front Wheel Walker Gait Distance 100 Other Goals up/down 1 step without railing CGA Days to Meet Goals 5 Frequency of Treatment Frequency Of Treatment Twice a Day Treatment Plan Physical Therapy Treatment Plan Bed Mobility Training,Transfer Training,Gait Training, Therapeutic Exercise,Balance Retraining,Post Op Education, Discharge Planning,Hot or Cold Pack,Neuromuscular Re-ed, Coordination Retraining,Manual Therapy Other Recommendations and Next Treatment review hip precautions, trial Focus stair if appropriate Recommendations To Nursing Amount of Assist Needed 2 Person Assist Discharge Recommendations PT Discharge Recommendations Home with Assistance,Home Health,Outpatient PT Other Discharge Recommendations Home with assist and HH vs outpatient PT Equipment Needed for Home Before FWW for home use. Pt has one Discharge in the room, but is can not be sized appropriately for her.
--- NOTE | 2019-01-08 15:49 | PC.NURSE ---
Ortho: Up to chair for several hours and did amb a short distance this am and then out in the hallway this afternoon. Reviewed posterior hip precautions and pt has been following them. Pt hopes to be able to go home with boyfriend instead of to rehab. He and the rest of her family are very supportive and involved in care. No nausea today, has tolerated sm amts of diet w/out problems. Po pain med has been given x2 along w/vistaril. PPP and feet =/warm. Still some sl sensation changes. Has had a spinal which for the most part has worn off but she could be feeling some sl effects from that. Pt is resting quietly. Cont w/poc.
[2019-01-08] MEDS: ATORVASTATIN 10 MG TABLET PO (20:20)
--- NOTE | 2019-01-08 22:42 | PC.NURSE ---
pain control with oxycodone and vistaril. pt is 1pa to the BSC. no n/v. passing gas. pt had a bowel movement tonight. talley patent. call light in reach. bed alarm active.
[2019-01-09] VITALS (10 sets, daily range): BP systolic 103–134; BP diastolic 64–84; PULSE 87–108; RESP 16–18; TEMP 36.4–38.5; O2SAT 92–97
[2019-01-09] MEDS: ACETAMINOPHEN 325 MG TABLET 650 MG PO ×2 (04:19→16:12)
[2019-01-09] MEDS: hydrOXYzine pamoate 25 MG CAPSULE PO (04:20)
[2019-01-09 05:55] LABS: Hematocrit 35.2 % (36-46); Hemoglobin 12.4 g/dL (12.0-16.0)
--- NOTE | 2019-01-09 07:02 | PC.NURSE ---
Pt complaining of muscle spasms, hydroxyzine given. Febrile overnight as well.Tylenol given later in the morning, and temp was brought down to 99.1F. IS use encouraged. Ehrnandez catheter d/c'ed at 0605 this morning. Pt was 88% on RA. 2L Nc placed, O2 95%
--- NOTE | 2019-01-09 08:27 | PM.PN.1 ---
Subjective Subjective Date Patient Seen: 01/09/19 Time Patient Seen: 08:00 Interval history: POD 2 s/p L hip hemiarthroplasty with Dr. Carter. Overnight patient had temperature, high of 101.3, resolved with tylenol. H&H dropped slightly to 12.4/35.2. Patient has no complaints. Pain controlled with oxycodone and tylenol. Muscle spasms controlled with vistaril. Urinary catheter removed this AM, patient denies voiding. Patient requested SCDs be turned off overnight, I discussed dvt prophylaxis with her. Nurse turned on SCDs. Patient denies chills, nausea, vomiting, chest pain, shortness of breath, calf pain. Exam Vital Signs (past 8 hours): - 01/09/19 00:33 01/09/19 03:50 01/09/19 06:09 Temperature 100.2 F H 101.3 F H 99.1 F Pulse Rate 100 H Respiratory Rate 18 Blood Pressure 119/64 Pulse Oximetry 92 01/09/19 07:37 01/09/19 08:00 Temperature 98.3 F Pulse Rate 92 H Respiratory Rate 18 Blood Pressure 126/71 Pulse Oximetry 92 94 Oxygen Delivery Method Nasal Cannula Oxygen Flow Rate 1 Narrative Exam Narrative: 58 year old female is laying in bed in no apparent distress, mildly diaphoretic. A&Ox3. Dressing is CDI on L hip. L hip is warm, no lesions or rashes. Patient able to actively plantar flex/dorsiflex. Sensory function grossly intact to light touch in LE b/l. Dorsalis Pedis 2+ b/l. Capillary refill <2 seconds LE b/l. Calves warm, soft, compressible, nttp. Objective Labs Result Diagrams: 01/09/19 05:30 01/07/19 07:05 Labs: Laboratory Results - last 24 hr 01/09/19 05:30 Hgb 12.4 Hct 35.2 L Assessment & Plan Assessment & Plan narrative: Urinary - monitor voiding Ambulate with PT today Continue pain control/muscle spasms with vistaril and oxycodone DVT prophylaxis - continue SCDs, lovenox Anticipate discharge this week, appreciate internal medicine' plan for discharge Quality VTE Deep Vein Thrombosis/Pulmonary Embolism Present on Admission: No
[2019-01-09] MEDS: CALCIUM CARB/VIT D3 500/200 TABLET 2 EACH PO (08:38)
[2019-01-09] MEDS: CYANOCOBALAMIN (VITAMIN B-12) 100 MCG TABLET 50 MCG PO (08:38)
[2019-01-09] MEDS: ENOXAPARIN 40 MG/0.4 ML SYRINGE SUBCUT (08:39)
[2019-01-09] MEDS: GABAPENTIN 300 MG CAPSULE 900 MG PO ×2 (08:40→20:15)
[2019-01-09] MEDS: OXYCODONE IR 5 MG TABLET 10 MG PO ×4 (08:41→19:31)
[2019-01-09] MEDS: METOPROLOL ER 50 MG TABLET PO (08:41)
[2019-01-09] MEDS: SODIUM CHLORIDE 0.9% FLUSH 10 ML IV ×2 (08:41→21:54)
[2019-01-09] MEDS: PANTOPRAZOLE 20 MG TABLET PO (08:41)
[2019-01-09] MEDS: BECLOMETHASONE 80 MCG INH 10.6 GM 2 PUFF INH ×2 (08:43→21:00)
--- NOTE | 2019-01-09 09:22 | PT.IPTN ---
Current Diagnoses Pathological fracture, left femur, initial encounter for fracture (01/06/19) Surgery Performed Operation Date: 01/07/19 15:30 Actual Procedures p total hip arthroplasty- cemented unipolar(Left) - Gale Carter MD Physical Therapy Treatment Note M2 PT-IP Current Condition Start: 01/07/19 08:44 Freq: NEEDED Status: Active Protocol: Document 01/08/19 09:03 AW (Rec: 01/08/19 12:01 AW [id number]) Physical Therapy Current Condition Current Condition Evaluation Date 01/08/19 Treatment Diagnosis s/p L unipolar SHARRON, metastatic breast cancer, impaired mobility Precautions Posterior Hip Precautions No Hip Flexion > 90 degrees,No Hip Internal Rotation,No Hip Adduction Weight Bearing Status Weight Bearing Status Weight Bear as Tolerated M3 PT-IP Subjective Start: 01/07/19 08:44 Freq: NEEDED Status: Active Protocol: Document 01/09/19 08:47 CLB (Rec: 01/09/19 09:54 CLB [id number]) Subjective Physical Therapy Visit Type Type Treatment Note Visit Start Time 08:47 Visit Stop Time 09:22 Total Visit Minutes 33 Number of WASHING TUB OPERATOR Visits 1 Physical Therapy Visit Comments Patient Comments Pt willing to work with PT Patient Goals Pt hopes to discharge home with her supportive boyfriend. Therapy Pain Assessment Pain When Pain Assessed During Mobility Pain Present Pain Present Pain Reported Location left hip/groin Intensity 6 Scale Used Numeric (1 - 10) Pain Management Techniques Apply Cold,Re-positioning, Timing of Activity with Medications M4 PT-IP Mobility and Gait Start: 01/07/19 08:44 Freq: NEEDED Status: Active Protocol: Document 01/09/19 08:47 CLB (Rec: 01/09/19 09:54 CLB [id number]) PT-Bed Mobility Assessment Supine to Sit Supine to Sit Minimal Assistance Scooting Scooting to Edge of Bed Standby Assistance PT-Transfer Assessment Sit to and From Stand Sit to and from Stand Contact Guard Assistance,1 Person Assistance,Use of Upper Extremities Equipment Transfer Assistive Device Gait Belt,Front Wheeled Walker Orthotic/Prosthetic Devices or Brace: No Transfers Transfer Destination Chair,Toilet Transfer Technique pt ambulated with FWW Transfer Ability Level of Assist Contact Guard Assistance,1 Person Assistance,Use of Upper Extremities Comments Mobility Comments Pt required Min A of LLE to EOB. Gait Assessment Gait Gait Assistance Required: Contact Guard Assist Distance (Feet) 50 Able to Maintain Weight Bearing Status Yes During Gait Assistive Devices Assistive Device Gait Belt,Front Wheeled Walker Orthotic/Prosthetic Devices or Brace: No Gait Deviations General Gait Pattern Antalgic,Decreased Stride Length,Decreased Feet Clearance,Flexed Trunk,Step-to Gait Factors Limiting Gait Function Factors Limiting Gait Function Decreased Activity Tolerance, Decreased Sensation,Decreased Strength,Pain,Poor Balance Comments Gait Comments Pt ambulated to BR ~15ft using good sequencing with FWW and stepping with operated foot first. Pt then ambulate to sink where she stood and washed her hands and brushed her teeth. Pt then ambulated to chair. M5 PT-IP Objective Assessments Start: 01/07/19 08:44 Freq: NEEDED Status: Active Protocol: Document 01/08/19 09:03 AW (Rec: 01/08/19 12:01 AW [id number]) Orientation Orientation/Cognition Level of Alertness Alert Orientation Name,Day of Week,Place, Situation Language Function Ability No Deficits Noted Safety Awareness Decreased Safety Awareness Comments Pt had difficulty remembering all posterior hip precautions, mentioning twice that she had trouble leaning as far forward as I'm supposed to. Continually educated pt on precautions, especially for hip flexion. Significant other in the room understands the precautions and is able to cue appropriately. 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 M6 PT-IP Treatment Start: 01/07/19 08:44 Freq: NEEDED Status: Active Protocol: Document 01/09/19 08:47 CLB (Rec: 01/09/19 09:54 CLB [id number]) Physical Therapy Treatment Exercises Exercises Ankle Pumps Education Education Provided Precautions,Safety M7 PT-IP Assessment and Plan Start: 01/07/19 08:44 Freq: NEEDED Status: Active Protocol: Document 01/09/19 08:47 CLB (Rec: 01/09/19 09:54 CLB [id number]) PT Summary Assessment and Plan Summary Impairments Pain,Strength,Balance, Sensation,Cognition,Bed Mobility,Transfers,Gait, Activity Tolerance Progress Towards Goals Progressing Toward Goals Assessment Summary Pt was a bit shaky but was able to improve bed mobility and gait quality. Pt with increased pain with ambulation did not want to walk in lomeli but agreed to walk further this afternoon. Pt able to urinate nursing was informed. Pt's boyfriend was present and will be able to assist pt at home, he will be getting pt a FWW for home use that can be properly adjusted to pt's height and has rearranged the bedroom so that a FWW can be used in home. Goals Bed Mobility Goal Standby Assistance Transfer Goal Standby Assistance,Front Wheeled Walker Gait Goal Standby Assistance,Front Wheel Walker Gait Distance 100 Days to Meet Goals 5 Frequency of Treatment Frequency Of Treatment Twice a Day Treatment Plan Physical Therapy Treatment Plan Bed Mobility Training,Transfer Training,Gait Training, Therapeutic Exercise,Balance Retraining,Post Op Education, Discharge Planning,Hot or Cold Pack,Neuromuscular Re-ed, Coordination Retraining,Manual Therapy Other Recommendations and Next Treatment progress gait, stairs when Focus able. Recommendations To Nursing Amount of Assist Needed 1 Person Assist Discharge Recommendations PT Discharge Recommendations Home with Assistance,Home Health,Outpatient PT Other Discharge Recommendations Home with assist and HH vs outpatient PT Equipment Needed for Home Before FWW ([facility] will [facility]
--- NOTE | 2019-01-09 11:00 | CM.DPC ---
DCP Cont: Per MD, pt making progress and continuing to work with therapy. Per PT, recommending safe d/c home with significant other assist and HH vs outpt PT. SW met bedside with pt and explained role and pt confirms that s.o. available for assist at d/c and he plans to burr picker recommended DME at [facility] tomorrow when they are open. SW discussed HH services and frequency and pt states that her preference is to stay with her outpt PT provider and that significant other has confirmed that he is agreeable to provide transport for the pt to outpt PT appointments. SW discussed that after d/c if outpt PT is difficult to get to that HH can be accessed through her PCP office if needed and pt acknowledges understanding. Plan: SW to follow for likely pt d/c home via [facility] Other POV when medically stable and outpt PT. MAX Brice
--- NOTE | 2019-01-09 11:50 | P.PN_ITS ---
Subjective Subjective Date Patient Seen: 01/09/19 Time Patient Seen: 09:50 Interval history: Hip fracture. Patient is doing reasonably well. Tolerating diet well. Has had bowel movement in urinating. Anticipating. Anticipating being discharged home with assistance from her partner. Getting adequate amount pain relief from her oral medications. Ambulating with some assistance. Exam Vital Signs (past 8 hours): - 01/09/19 06:09 01/09/19 07:37 01/09/19 08:00 Temperature 99.1 F 98.3 F Pulse Rate 92 H Respiratory Rate 18 Blood Pressure 126/71 Pulse Oximetry 92 94 01/09/19 08:43 Temperature Pulse Rate 108 H Respiratory Rate 18 Blood Pressure Pulse Oximetry 93 Oxygen Delivery Method Room Air Oxygen Flow Rate 1 Narrative Exam Narrative: Patient examined she is sitting up in her chair a appears uncomfortable but in no distress. O2 sats have dropped during the night but her normal now on room air. Lungs decreased breath sounds throughout does not take a deep breath because of position. Objective Labs Result Diagrams: 01/09/19 05:30 01/07/19 07:05 Labs: Laboratory Results - last 24 hr 01/09/19 05:30 Hgb 12.4 Hct 35.2 L labs reviewed as above Assessment & Plan Assessment & Plan narrative: 1. Status post ORIF hip fracture stable. Tolerate of oral medications. 2. Of more significance is her diagnosis of presumed metastatic lab cancer. Earl purcell re-treated from surgery was sent to pathology for evaluation. 3. Discharge planning forthcoming as per orthopedist Quality VTE Deep Vein Thrombosis/Pulmonary Embolism Present on Admission: No
--- NOTE | 2019-01-09 13:36 | PC.NURSE ---
Addendum entered by Liseth Soto R.N. 01/09/19 14:38: Patient visiting family. C/O nausea- crackers and Zofran 4 mg PO given. Patient denies pain at this time. Original Note: Patient is A/Ox3. Patient up to chair for lunch with FWW. Ambulated with PT this morning. Had post Hernandez void, 600cc. Dsg on left hip is CDI, pulses strong and intact bilaterally. Patient able to lift LLE slightly. C/O neuropathy in bilateral feet, this is WNL for patient. Patient requested to hold off on pain medication until this afternoons session with PT. Oxy 10 mg passed 30 minutes prior to PT working with her. Patient was on 2 L O2 at 0700 this AM due to SOB overnight. Removed O2, patient tolerated well, currently at 95% room air. Patient denies SOB. Patient reports 3 BM's yesterday. Noted trembling in RUE. Patient reports this is also normal for her. Call light in reach, patient denies further needs at this time.
--- NOTE | 2019-01-09 14:21 | PT.IPTN ---
Current Diagnoses Pathological fracture, left femur, initial encounter for fracture (01/06/19) Surgery Performed Operation Date: 01/07/19 15:30 Actual Procedures p total hip arthroplasty- cemented unipolar(Left) - Gale Carter MD Physical Therapy Treatment Note M2 PT-IP Current Condition Start: 01/07/19 08:44 Freq: NEEDED Status: Active Protocol: Document 01/08/19 09:03 AW (Rec: 01/08/19 12:01 AW [id number]) Physical Therapy Current Condition Current Condition Evaluation Date 01/08/19 Treatment Diagnosis s/p L unipolar SHARRON, metastatic breast cancer, impaired mobility Precautions Posterior Hip Precautions No Hip Flexion > 90 degrees,No Hip Internal Rotation,No Hip Adduction Weight Bearing Status Weight Bearing Status Weight Bear as Tolerated M3 PT-IP Subjective Start: 01/07/19 08:44 Freq: NEEDED Status: Active Protocol: Document 01/09/19 13:53 CLB (Rec: 01/09/19 14:21 CLB [id number]) Subjective Physical Therapy Visit Type Type Treatment Note Visit Start Time 13:53 Visit Stop Time 14:11 Total Visit Minutes 18 Number of ACADEMIC TUTOR Visits 2 Physical Therapy Visit Comments Patient Comments Pt willing to work with PT Therapy Pain Assessment Pain When Pain Assessed During Mobility Pain Present Pain Present Pain Reported M4 PT-IP Mobility and Gait Start: 01/07/19 08:44 Freq: NEEDED Status: Active Protocol: Document 01/09/19 13:53 CLB (Rec: 01/09/19 14:21 CLB [id number]) PT-Transfer Assessment Sit to and From Stand Sit to and from Stand Contact Guard Assistance,1 Person Assistance,Use of Upper Extremities Equipment Transfer Assistive Device Gait Belt,Front Wheeled Walker Orthotic/Prosthetic Devices or Brace: No Transfers Transfer Destination Chair Transfer Technique pt ambulated with FWW Transfer Ability Level of Assist Contact Guard Assistance,1 Person Assistance,Use of Upper Extremities Gait Assessment Gait Gait Assistance Required: Contact Guard Assist Distance (Feet) 60 Able to Maintain Weight Bearing Status Yes During Gait Assistive Devices Assistive Device Gait Belt,Front Wheeled Walker Orthotic/Prosthetic Devices or Brace: No Gait Deviations General Gait Pattern Antalgic,Decreased Stride Length,Decreased Feet Clearance,Flexed Trunk,Step-to Gait Factors Limiting Gait Function Factors Limiting Gait Function Decreased Activity Tolerance, Decreased Sensation,Decreased Strength,Pain,Poor Balance Comments Gait Comments Pt ambulated in lomeli ~60ft CGA with cues for walker use. M5 PT-IP Objective Assessments Start: 01/07/19 08:44 Freq: NEEDED Status: Active Protocol: Document 01/08/19 09:03 AW (Rec: 01/08/19 12:01 AW [id number]) Orientation Orientation/Cognition Level of Alertness Alert Orientation Name,Day of Week,Place, Situation Language Function Ability No Deficits Noted Safety Awareness Decreased Safety Awareness Comments Pt had difficulty remembering all posterior hip precautions, mentioning twice that she had trouble leaning as far forward as I'm supposed to. Continually educated pt on precautions, especially for hip flexion. Significant other in the room understands the precautions and is able to cue appropriately. 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 M6 PT-IP Treatment Start: 01/07/19 08:44 Freq: NEEDED Status: Active Protocol: Document 01/09/19 13:53 CLB (Rec: 01/09/19 14:21 CLB [id number]) Physical Therapy Treatment Exercises Exercises Ankle Pumps Education Education Provided Precautions,Safety M7 PT-IP Assessment and Plan Start: 01/07/19 08:44 Freq: NEEDED Status: Active Protocol: Document 01/09/19 13:53 CLB (Rec: 01/09/19 14:21 CLB [id number]) PT Summary Assessment and Plan Summary Impairments Pain,Strength,Balance, Sensation,Cognition,Bed Mobility,Transfers,Gait, Activity Tolerance Progress Towards Goals Progressing Toward Goals Assessment Summary Pt is CGA for sit-stand and gait. Pt left in chair to wait for OT to take shower. Family present, answered questions about stairs and DME needs. Pt will need to trial stairs before d/c home. Goals Transfer Goal Standby Assistance,Front Wheeled Walker Gait Goal Standby Assistance,Front Wheel Walker Gait Distance 100 Other Goals up/down 1 step without railing CGA Days to Meet Goals 5 Frequency of Treatment Frequency Of Treatment Twice a Day Treatment Plan Physical Therapy Treatment Plan Bed Mobility Training,Transfer Training,Gait Training, Therapeutic Exercise,Balance Retraining,Post Op Education, Discharge Planning,Hot or Cold Pack,Neuromuscular Re-ed, Coordination Retraining,Manual Therapy Other Recommendations and Next Treatment progress gait, stairs when Focus able. Recommendations To Nursing Amount of Assist Needed 1 Person Assist Discharge Recommendations PT Discharge Recommendations Home with Assistance,Home Health,Outpatient PT Equipment Needed for Home Before FWW (boyfriend will get one Discharge from [facility].)
[2019-01-09] MEDS: ONDANSETRON 4 MG ODT PO (14:36)
--- NOTE | 2019-01-09 16:00 | OT.IP.EVAL ---
Current Diagnoses Pathological fracture, left femur, initial encounter for fracture (01/06/19) Surgery Performed Operation Date: 01/07/19 15:30 Actual Procedures p total hip arthroplasty- cemented unipolar(Left) - Gale Carter MD Past Medical History (Last Updated 01/07/19 @ 09:10 by Osmin Castrejon MD) Anxiety (Chronic) Asthma (Chronic) Breast cancer (Chronic) Foot pain (Chronic) 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 (Chronic) Osteopenia after menopause (Chronic) Pancreatitis (Chronic ~2010) Vertigo (Chronic ~2011) Surgical History (Last Reviewed 01/06/19 @ 07:07 by Kenan Florence MD) Anesthesia (Resolved) Breast cancer (Resolved ~2006) History of shoulder surgery (Resolved ~2011) Status post appendectomy (~1963) Occupational Therapy Inpatient Evaluation/Re-Eval M1 PT/OT-IP Prior Functional Status Start: 01/07/19 08:44 Freq: NEEDED Status: Active Protocol: Document 01/09/19 16:00 [facility] (Rec: 01/09/19 16:31 [facility] [id number]) Medical Review Prior Functional Status Medical History Reviewed Yes Diet/Fluid Consistency Regular Communication No known deficits Mobility and Gait Due to left hip pain associated with bone mets, pt had been ambulating with bilateral axillary crutches since early November. She could walk about 15 minutes with the crutches before needing a rest break. The fall that resulted in the left femoral neck fracture was a result of catching one of her crutches on the floor. Activities of Daily Living and IADL's Pt needed assist to get in and out of the tub, but could perform her own hygiene once in. She was otherwise independent with ADL's. She still drives and does shopping tasks independently. Social History Household Members significant other Living Arrangements House Number of Floors (Floors) One Floor Number of Stairs To Enter/Railing? 1 LUL, no railing Home Environment Standard Height Toilet Home Equipment Front Wheel Walker,Crutches, Hospital Bed,Grab Bars In Shower M2 OT-IP Current Condition Start: 01/06/19 09:42 Freq: Status: Active Protocol: Document 01/09/19 16:00 [facility] (Rec: 01/09/19 16:31 [facility] [id number]) Occupational Therapy Current Condition Current Condition Evaluation Date 01/09/19 Treatment Diagnosis Left femoral neck hip fracture Diagnosis Onset Date 01/06/19 Post Operative Precautions Posterior Hip Precautions No Hip Flexion > 90 degrees,No Hip Internal Rotation,No Hip Adduction Weight Bearing Status Weight Bearing Status Weight Bear as Tolerated M3 OT- IP Subjective and Pain Start: 01/06/19 09:42 Freq: Status: Active Protocol: Document 01/09/19 16:00 [facility] (Rec: 01/09/19 16:31 [facility] [id number]) OT- Subjective Occupational Therapy Visit Type Type Initial Evaluation Visit Start Time 15:15 Visit Stop Time 16:02 Total Visit Minutes 47 Occupational Therapy Visit Comments Patient Comments Pt's significant other present for caregiver training for bed mobility and ADl needs and here to assist for pt's shower. Patient/Caregiver Goals To go home tomorrow. OT Pain Assessment Pain When Pain Assessed At Rest Pain Present Pain Present Pain Reported Location left hip/groin Intensity 5 Scale Used Numeric (1 - 10) M4 OT- IP ADL's Start: 01/06/19 09:42 Freq: Status: Active Protocol: Document 01/09/19 16:00 [facility] (Rec: 01/09/19 16:31 [facility] [id number]) OT ADL-Grooming General Evaluation Grooming Ability Standby Assistance Areas Needing Assistance Retrieving/Set-up of Grooming Items OT ADL-Dressing General Eval Lower Body Dressing Ability Minimal Assistance,Maximum Assistance Areas Needing Assistance Socks Comments OT Dressing Comments After educated on Lb dressing equipment able to noel/doff socks with SBA and min vc. Pt educated to wear pads at night and may be easier to wear loose clothing or gown at home. OT ADL-Toileting General Evaluation Toileting Ability Standby Assistance Comments OT Toileting Comments Pt states to get BSC to place next to the bed. OT ADL-Bathing Bathing Type Bathing Type Shower General Evaluation Bathing Ability Moderate Assistance Areas Needing Assistance Retrieving/Setting Up Items, Wash/Dry Back,Wash/Dry Perineal Area,Wash/Dry Lower Extremities Devices Bathing Equipment Hand Held Shower Sprayer, Shower Chair with Arms Comments OT Bathing Comments Pt will benefit from tub bench which they are planning to obtain. In addition would benefit from installing grab bars in the shower on the side and front anthony to increase safety and independence to stand for pericare needs. M5 OT- IP IADL's Start: 01/06/19 09:42 Freq: Status: Active Protocol: Document 01/09/19 16:00 [facility] (Rec: 01/09/19 16:31 [facility] [id number]) OT-Instrumental Activities of Daily Living Home Safety Awareness Home Safety Comments At this time pt's significant other to assist for IADL needs . M6 OT- IP Functional Cognition Start: 01/06/19 09:42 Freq: Status: Active Protocol: Document 01/09/19 16:00 [facility] (Rec: 01/09/19 16:31 [facility] [id number]) Cognitive Factors Limiting Selfcare Function Cognitive Ability Level of Alertness Alert Patient Orientation Name,Place,Situation Attention Span Ability Capable of Focused Attention, Capable of Sustained Attention Ability to Follow Commands Able to Follow One Step Commands Memory Description Short Term Impaired Safety Awareness Decreased Recall of Precautions,Decreased Ability to Apply Precautions, Underestimates Need for Assistance Problem Solving Ability Unable to Identify Errors Cognitive Comments Cognitive Assessment Comments Pt not able to recall all hip precautions and needing cues to help incorporate during dressing, showering, and bed mobility needs. Pt's significant other able to appropriate remind her of safety needs, of leg placement and hip precautions. OT- Vision and Hearing OT- Hearing Assessment OT- Hearing Assessment WFL M7 OT- IP Mobility and Balance Start: 01/06/19 09:42 Freq: Status: Active Protocol: Document 01/09/19 16:00 [facility] (Rec: 01/09/19 16:31 [facility] [email or web address]) OT- Bed Mobility Assessment Sit to Supine Sit to Supine Assist Minimal Assistance,1 Person Assistance OT-Transfer Assessment Sit to and From Stand Sit to and from Stand Minimal Assistance,Moderate Assistance,1 Person Assistance Transfers Transfer Ability Minimal Assistance,1 Person Assistance Technique Transfer Destination Bed,Chair,Shower Stall Transfer Technique Stand Step Pivot Devices Transfer Assistive Devices Gait Belt,Front Wheeled Walker Comments Mobility Comments Pt's significant other trained to noel/doff gait belt, how to give pt asisst to stand if needed. At times pt needs from CGA to MODA to stand to FWW. Pt needing MORGAN for balance while stepping over the threshold of the shower. Pt needing MORGAN to help get LLE into the bed. OT- Balance Assessment Sitting Balance and Reactions Static Sitting Balance Ability Normal Dynamic Sitting Balance Ability Good Standing Balance and Reactions Static Standing Balance Ability Fair M8 OT- IP Objective Assessments Start: 01/06/19 09:42 Freq: Status: Active Protocol: Document 01/09/19 16:00 [facility] (Rec: 01/09/19 16:31 [facility] [id number]) OT Gross Range of Motion Upper Extremity Range of Motion Assessment Within Functional Limits M9 OT- IP Assessment and Plan Start: 01/06/19 09:42 Freq: Status: Active Protocol: Document 01/09/19 16:00 [facility] (Rec: 01/09/19 16:31 [facility] [id number]) OT Summary Assessment and Plan Potential Rehabilitation Potential Good Analytic Complexity at Evaluation Moderate Summary OT Impairments Pain,Balance,Functional Cognition,Functional Mobility, Dressing,Toileting,Bathing, Toilet Transfers,Shower Transfers Progress Towards Goals Slow Progress due to Medical Issues,Slow Progress due to Activity Tolerance Assessment Summary Pt MOD complexity due to metastic breast cancer with unipolar Left hip and now decreased activity tolerance, needing use of FWW for mobility, and will needing assist for all ADl's at this time. Pt's significant other to be home with pt 05/10 initially and has been through caregiver training for all OT needs. He is able to show and demonstrate good safety and understanding for pt's needs. Recommend pt to have 05/10 assist and home health. Goals Grooming Goal Standby Assistance Dressing Goal Standby Assistance Toileting Goal Standby Assistance Bathing Goal Minimal Assistance Toilet Transfer Goal Standby Assistance Shower Transfer Goal Contact Guard Assistance Patient/Caregiver Education Goal Demonstrate Post-Op Precautions,Caregiver Independent Assisting Patient Days to Meet Goals 3 Frequency of Treatment Frequency Of Treatment Once a Day Treatment Plan OT Treatment Plan ADL Training,Functional Cognition Training,Functional Mobility,Patient/Family Education,Discharge Planning Discharge Recommendations OT Discharge Recommendations Home with 05/10 Assist,Home Health Home Equipment Needs FWW, BSC, tub bench, HHSP, grab bars for the shower, non skid mat LB dressing equipment issued to pt.
[2019-01-09] MEDS: ATORVASTATIN 10 MG TABLET PO (20:15)
[2019-01-10] VITALS: BP 122/75; PULSE 94; RESP 18; TEMP 36.9; O2SAT 96
[2019-01-10 04:00] VITALS: BP 134/80; PULSE 99; RESP 18; TEMP 37.7; O2SAT 96
[2019-01-10] MEDS: OXYCODONE IR 5 MG TABLET 10 MG PO ×3 (04:35→12:14)
[2019-01-10] MEDS: ACETAMINOPHEN 325 MG TABLET 650 MG PO ×2 (04:36→12:14)
[2019-01-10] MEDS: MULTIVITAMIN 1 TABLET 1 TAB PO (06:30)
[2019-01-10 08:00] VITALS: BP 127/71; PULSE 94; RESP 13; TEMP 36.3; O2SAT 94
[2019-01-10] MEDS: METOPROLOL ER 50 MG TABLET PO (08:34)
[2019-01-10] MEDS: CALCIUM CARB/VIT D3 500/200 TABLET 2 EACH PO (08:35)
[2019-01-10] MEDS: CYANOCOBALAMIN (VITAMIN B-12) 100 MCG TABLET 50 MCG PO (08:35)
[2019-01-10] MEDS: PANTOPRAZOLE 20 MG TABLET PO (08:35)
[2019-01-10] MEDS: DOCUSATE 100 MG CAPSULE PO (08:35)
[2019-01-10] MEDS: GABAPENTIN 300 MG CAPSULE 900 MG PO (08:35)
--- NOTE | 2019-01-10 08:35 | PM.PN.1 ---
Subjective Subjective Date Patient Seen: 01/10/19 Time Patient Seen: 08:35 Interval history: Hip fracture. Doing better appetite better feeling better in general has been ambulating in the hallway with physical therapy doing reasonably well. Continue to improve daily. Has having no upper respiratory problems. Anticipating being discharged this afternoon with boyfriend. Ranges cremated home for safety issues with a bedside commode walker and railing and shower. Exam Vital Signs (past 8 hours): - 01/10/19 04:00 01/10/19 08:00 Temperature 99.8 F H 97.4 F L Pulse Rate 99 H 94 H Respiratory Rate 18 13 Blood Pressure 134/80 127/71 Pulse Oximetry 96 94 Oxygen Delivery Method Room Air Oxygen Flow Rate 0 Narrative Exam Narrative: Patient doing examined she is in hospital bed to sitting upright looks much more animated and a good spirits today heating aggressively her breakfast. Lungs are clear. Objective Labs Result Diagrams: 01/09/19 05:30 01/07/19 07:05 Labs: Labs reviewed as above Assessment & Plan Assessment & Plan narrative: 1. Status post ORIF left hip fracture. 2. Presumed metastatic breast cancer and pelvis and femur. 3. Diagnosis forthcoming. 4. Postoperatively doing well anticipate being discharged afternoon. 5. Discharge planning forthcoming as far as orthopedist and Oncology. Presumably will resume large commence radiation therapy in approximately 2 weeks as per Orthopedics/Oncology Quality VTE Deep Vein Thrombosis/Pulmonary Embolism Present on Admission: No
[2019-01-10] MEDS: ENOXAPARIN 40 MG/0.4 ML SYRINGE SUBCUT (08:38)
[2019-01-10] MEDS: SODIUM CHLORIDE 0.9% FLUSH 10 ML IV (08:40)
[2019-01-10] MEDS: BECLOMETHASONE 80 MCG INH 10.6 GM 2 PUFF INH (09:41)
--- NOTE | 2019-01-10 09:41 | PT.IPTN ---
Current Diagnoses Pathological fracture, left femur, initial encounter for fracture (01/06/19) Surgery Performed Operation Date: 01/07/19 15:30 Actual Procedures p total hip arthroplasty- cemented unipolar(Left) - Gale Carter MD Physical Therapy Treatment Note M2 PT-IP Current Condition Start: 01/07/19 08:44 Freq: NEEDED Status: Active Protocol: Document 01/08/19 09:03 [facility] (Rec: 01/08/19 12:01 [facility] [id number]) Physical Therapy Current Condition Current Condition Evaluation Date 01/08/19 Treatment Diagnosis s/p L unipolar SHARRON, metastatic breast cancer, impaired mobility Precautions Posterior Hip Precautions No Hip Flexion > 90 degrees,No Hip Internal Rotation,No Hip Adduction Weight Bearing Status Weight Bearing Status Weight Bear as Tolerated M3 PT-IP Subjective Start: 01/07/19 08:44 Freq: NEEDED Status: Active Protocol: Document 01/10/19 09:02 [facility] (Rec: 01/10/19 10:14 [facility] [id number]) Subjective Physical Therapy Visit Type Type Treatment Note Visit Start Time 09:02 Visit Stop Time 09:41 Total Visit Minutes 39 Notes Nirali Wilson present for CG training. Number of BELLOWS TESTER Visits 3 Physical Therapy Visit Comments Patient Comments Pt willing to trial stairs. Therapy Pain Assessment Pain When Pain Assessed During Mobility Pain Present Pain Present Denied Pain M4 PT-IP Mobility and Gait Start: 01/07/19 08:44 Freq: NEEDED Status: Active Protocol: Document 01/10/19 09:02 [facility] (Rec: 01/10/19 10:14 [facility] [id number]) PT-Bed Mobility Assessment Supine to Sit Supine to Sit Contact Guard Assistance,Head of Bed Elevated Scooting Scooting to Edge of Bed Standby Assistance PT-Transfer Assessment Sit to and From Stand Sit to and from Stand Contact Guard Assistance,1 Person Assistance,Use of Upper Extremities Equipment Transfer Assistive Device Gait Belt,Front Wheeled Walker Orthotic/Prosthetic Devices or Brace: No Transfers Transfer Destination Chair,Toilet Transfer Technique pt ambulated with FWW Transfer Ability Level of Assist Contact Guard Assistance,1 Person Assistance,Use of Upper Extremities Comments Mobility Comments Pt required CGA for bed mobility and all transfers. Pt able to perform pericare and boyfriend assist pt CGA. Gait Assessment Gait Gait Assistance Required: Contact Guard Assist Distance (Feet) 30 Able to Maintain Weight Bearing Status Yes During Gait Assistive Devices Assistive Device Gait Belt,Front Wheeled Walker Orthotic/Prosthetic Devices or Brace: No Gait Deviations General Gait Pattern Antalgic,Decreased Stride Length,Decreased Feet Clearance,Flexed Trunk,Step-to Gait Factors Limiting Gait Function Factors Limiting Gait Function Decreased Activity Tolerance, Decreased Sensation,Decreased Strength,Pain,Poor Balance Comments Gait Comments Pt ambulated SBA/CGA with good safety awareness. Pt able to bear wt on LLE with no c/o increased pain. Stair Climbing Assessment Evaluation Level of Assist On Stairs Contact Guard Assistance,1 Person Assistance Devices Stair Climbing Assistive Devices Front Wheel Walker Technique/Endurance Stair Climbing Direction Ascend and Descend Stair Climbing Technique Step to Step Number of Steps Climbed 1 Stair Climbing Set # Repetitions (reps) 2 Comments Stair Climbing Comments Pt able to perform platform stair climbing with CG assist. M5 PT-IP Objective Assessments Start: 01/07/19 08:44 Freq: NEEDED Status: Active Protocol: Document 01/08/19 09:03 [facility] (Rec: 01/08/19 12:01 [facility] [id number]) Orientation Orientation/Cognition Level of Alertness Alert Orientation Name,Day of Week,Place, Situation Language Function Ability No Deficits Noted Safety Awareness Decreased Safety Awareness Comments Pt had difficulty remembering all posterior hip precautions, mentioning twice that she had trouble leaning as far forward as I'm supposed to. Continually educated pt on precautions, especially for hip flexion. Significant other in the room understands the precautions and is able to cue appropriately. 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 M6 PT-IP Treatment Start: 01/07/19 08:44 Freq: NEEDED Status: Active Protocol: Document 01/10/19 09:02 [facility] (Rec: 01/10/19 10:14 [facility] [id number]) Physical Therapy Treatment Exercises Exercises Heel Slides,Supine Hip Abduction Education Education Provided Precautions,Safety M7 PT-IP Assessment and Plan Start: 01/07/19 08:44 Freq: NEEDED Status: Active Protocol: Document 01/10/19 09:02 [facility] (Rec: 01/10/19 10:14 [facility] [id number]) PT Summary Assessment and Plan Summary Impairments Pain,Strength,Balance, Sensation,Cognition,Bed Mobility,Transfers,Gait, Activity Tolerance Assessment Summary Pt is able to perform all bed mobility, transfers and gait with assist of boyfriendNirali. Pt also performed stair training successfully. Pt is able to d/c home with family assist when medically stable. Frequency of Treatment Frequency Of Treatment Twice a Day Treatment Plan Physical Therapy Treatment Plan Bed Mobility Training,Transfer Training,Gait Training, Therapeutic Exercise,Balance Retraining,Post Op Education, Discharge Planning,Hot or Cold Pack,Neuromuscular Re-ed, Coordination Retraining,Manual Therapy Recommendations To Nursing Amount of Assist Needed 1 Person Assist Discharge Recommendations PT Discharge Recommendations Home with Assistance,Home Health,Outpatient PT Equipment Needed for Home Before FWW, BSC, shower chair ( Discharge boyfriend will get one from [employer].)
[2019-01-10 09:42] VITALS: PULSE 103; O2SAT 93
--- NOTE | 2019-01-10 09:51 | OT.IP.TRT ---
Current Diagnoses Pathological fracture, left femur, initial encounter for fracture (01/06/19) Surgery Performed Operation Date: 01/07/19 15:30 Actual Procedures p total hip arthroplasty- cemented unipolar(Left) - Gale Carter MD Occupational Therapy Treatment Note M2 OT-IP Current Condition Start: 01/06/19 09:42 Freq: Status: Active Protocol: Document 01/09/19 16:00 [facility] (Rec: 01/09/19 16:31 [facility] [id number]) Occupational Therapy Current Condition Current Condition Evaluation Date 01/09/19 Treatment Diagnosis Left femoral neck hip fracture Diagnosis Onset Date 01/06/19 Post Operative Precautions Posterior Hip Precautions No Hip Flexion > 90 degrees,No Hip Internal Rotation,No Hip Adduction Weight Bearing Status Weight Bearing Status Weight Bear as Tolerated M3 OT- IP Subjective and Pain Start: 01/06/19 09:42 Freq: Status: Active Protocol: Document 01/10/19 09:48 [facility] (Rec: 01/10/19 09:51 [facility] [id number]) OT- Subjective Occupational Therapy Visit Type Type Administrative Note Notes Touched base with pt and significant other regarding OT needs and both have good understanding for all needs and looking to discharge today . No charge.
[2019-01-10 10:13] VITALS: BP 124/74; PULSE 97
--- NOTE | 2019-01-10 11:32 | PM.PN.1 ---
Subjective Subjective Date Patient Seen: 01/10/19 Time Patient Seen: 10:00 Interval history: POD 3 s/p L hip hemiarthroplasty with Dr. Carter. Overnight no acute events. Patient has no complaints. Pain controlled with oxycodone and tylenol. Muscle spasms controlled with vistaril. Patient voiding without assistance or difficulty. Patient ambulating with physical therapy. Patient denies chills, nausea, vomiting, chest pain, shortness of breath, calf pain. Exam Vital Signs (past 8 hours): - 01/10/19 04:00 01/10/19 08:00 01/10/19 09:42 Temperature 99.8 F H 97.4 F L Pulse Rate 99 H 94 H 103 H Respiratory Rate 18 13 Blood Pressure 134/80 127/71 Pulse Oximetry 96 94 93 01/10/19 10:13 Temperature Pulse Rate 97 H Respiratory Rate Blood Pressure 124/74 Pulse Oximetry Oxygen Delivery Method Room Air Oxygen Flow Rate 0 Narrative Exam Narrative: 58 year old female sitting comfortably in bed in no apparent distress. A&Ox3. Dressing CDI. Patient able to actively dorsiflex/plantar flex. Sensory function grossly intact to light touch in LE b/l. Dorsalis pedis 2+ b/l. Capillary refill <2seconds. Objective Labs Result Diagrams: 01/09/19 05:30 01/07/19 07:05 Assessment & Plan Assessment & Plan narrative: Pain under control, voiding without difficulty or assistance, ambulating well with physical therapy. Weight-bearing as tolerated on the left lower extremity. Routine posterior hip precautions. Discharge this afternoon likely Quality VTE Deep Vein Thrombosis/Pulmonary Embolism Present on Admission: No
--- NOTE | 2019-01-10 14:08 | PC.NURSE ---
Day shift: Pt left unit via WC with her SO and taken to private car by GIOVANNI Colbert. Paperwork signed and all questions answered. Pt has screlaine. Pt has all personal belongings. Jose Ramon is CDI. F/U appointment has been made.
--- NOTE | 2019-01-10 14:53 | CM.DPC ---
DCP: continued: case received, EMR reviewed. Discussed in Team Rounds. Therapy dept noted that pt was doing well for the home setting and eager to d/c. Plan was for OUTPT PT. A d/c order was obtained and pt was able to go home this afternoon with her partner Nirali.
--- NOTE | 2019-02-03 17:52 | P.DS_ITS ---
History of Present Illness History of Present Illness Chief complaint: Left leg pain Discharge Providers Provider Date of admission: 01/06/19 02:49 Discharge Date: 01/10/19 Primary care physician: Janes Hansen MD Consults: 01/06/19 03:52 Consult to Orthopedic Surgery Routine Comment: Consulting Provider: Kenan Florence Reason for consultation: left hip fracture Has provider been notified: Yes 01/06/19 04:18 Consult to Dietitian, Adult Routine Comment: Reason For Exam: MNA score 10 01/06/19 09:01 Consult to Care Management Routine Comment: Consult to Dietitian, Adult Routine Comment: Reason For Exam: nutrition Consult to Occupational Therapy Evaluate & Treat Comment: Physician Instructions: Evaluate and treat Consult to Physical Therapy Evaluate & Treat Comment: Physician Instructions: Evaluate and Treat 01/07/19 13:52 Consult to Anesthesiology Routine Comment: Consulting Provider: Anesthesiologist Reason for consultation: Regional block for post operative pain control 01/07/19 17:41 Consult to Discharge Planning Routine Comment: Consult to Physical Therapy Evaluate & Treat Comment: Physician Instructions: post op SHARRON protocol Consult to Respiratory Therapy Evaluate & Treat Comment: Physician Instructions: Evaluate and treat Discharge provider: Janes Hansen MD Summary Hospital Course Discharge Diagnosis: 1. Left hip fracture. 2. Status post ORIF. 3. Metastatic cancer to pelvis presumed breast. 4. COPD/reactive airway stable. 5. Pain management better postop Hospital Course: Patient was admitted for evaluation hip pain. Was found to have a hip fracture. Pre-existing abnormalities in her pelvis and femur conveyed the likelihood of this being pathologic fracture. She is being evaluated for presumed metastatic breast cancer to the pelvis. Surgery was performed by her orthopedist doctor states Jeff without difficulty. Postop early patient felt much better and was ambulating. Patient was discharged home with assistance from her male friend. Medications as listed. She will be followed up by Dr. Jeff. Follow-up long-term game plan will be radiation therapy presumably 2-3 weeks after the incision heels yet to be determined Status at Discharge Cognitive/behavioral status at discharge: oriented and at baseline, oriented Functional status at discharge: uses cane/walker Overall status at discharge: patient is not back to baseline Exam Vital Signs (past 8 hours): Oxygen Delivery Method Room Air Oxygen Flow Rate 0 Objective Labs Result Diagrams: 01/09/19 05:30 10/26/19 07:05 Discharge Plan Discharge Plan Patient Disposition: Home Discharge orders & Medications Prescriptions: New oxycodone 10 mg tablet 10 mg PO Q4-6H PRN (Reason: pain) Qty: 40 RF: 0 hydroxyzine pamoate [Vistaril] 25 mg capsule 25 mg PO BEDTIME PRN (Reason: muscle spasms) Qty: 15 RF: 0 Continued multivitamin [Multiple Vitamins] 1 EACH tablet 1 tab PO Q48H Qty: 0 RF: 0 Vitamin B-12 50 MCG tablet 50 mcg PO Q DAY Qty: 0 RF: 0 ipratropium-albuterol 0.5 mg-3 mg(2.5 mg base)/3 mL solution for nebulization See Rx Instructions INHALATION Q2HP PRN (Reason: SOB) Qty: 180 RF: 2 atorvastatin [Lipitor] 10 mg tablet 10 mg PO HS Qty: 90 RF: 3 atenolol 50 mg tablet 50 mg PO Q DAY Qty: 90 RF: 3 omeprazole 20 mg capsule,delayed release(DR/EC) 20 mg PO QDAY Qty: 90 RF: 0 albuterol sulfate [Proventil HFA] 90 mcg/actuation HFA aerosol inhaler See Rx Instructions INHALATION Q4H Qty: 3 RF: 8 gabapentin 300 mg Capsule 900 mg PO BID 30 Days Qty: 180 RF: 11 Calcium 600 + D(3) 600 mg calcium- 200 unit Capsule 2 cap PO DAILY RF: 0 Qvar RediHaler 80 mcg/actuation Hfa Aerosol Breath Activated 2 inh INHALATION BID RF: 0 alprazolam [Xanax] 0.5 mg tablet 0.5 - 1 mg PO BIDP PRN (Reason: anxiety) Qty: 60 RF: 1 Discontinued hydrocodone-acetaminophen [[place]] 5-325 mg tablet 1 - 2 tab PO Q6HP PRN (Reason: pain) Qty: 60 RF: 0 No Action (DME) miscellaneous medical supply Misc See Rx Instructions .ROUTE .MEDSUPPLY Qty: 1 RF: 0 Flovent Diskus 250 mcg/actuation blister with device 1 inhalation INHALATION BID Qty: 60 RF: 3 hydrocodone-acetaminophen [[place]] 5-325 mg tablet 1 - 2 tab PO Q6HP PRN (Reason: pain) Qty: 60 RF: 0 aspirin 81 mg Tablet,Delayed Release (Dr/Ec) 81 mg DAILY RF: 0 Follow up/Referrals: Janes Hansen MD [Primary Care Provider] - Gale Jeff MD [Physician] - 01/20/19 8:30 am (appt:01/20 @ 8:[address] jeff @ [facility] [address] [place] [address] please arrive 15 minutes prior to scheduled appointment) Diet/Activity/Treatments Activity: Posterior hip precautions. Weightbearing as tolerated. Visit Report/Discharge Packet Instructions: How to Choose and Use a Walker, DI for Femoral Fracture, DI for Hip Replacement, DI for Constipation, How to Prevent Falls, Stool Softeners, Oxycodone, Hydroxyzine Discharge Data Primary Care Provider: Janes Hansen Discharges patient from system. Discharge Date/Time: 01/10/19 14:10 Quality VTE Deep Vein Thrombosis/Pulmonary Embolism Present on Admission: No
== END 2019-01-10 14:10 | disposition home or self-care (01) | DRG 470 ==
LOC: ED 02:39 → AC 02:50
PROVIDERS: Internal Medicine; Orthopaedic Surgery; Admitting Provider Family Medicine; Emergency Provider Emergency Medicine; PCP Family Medicine; Visit Provider Family Medicine
PROC: 0SRS0JZ Replacement of Left Hip Joint, Femoral Surface with Synthetic Substitute, Open Approach (ICD-10-PCS; CPT 27125; principal; 2019-01-07 15:30)
DX: M84.452A Pathological fracture, left femur, initial encounter for fracture (principal); C79.51 Secondary malignant neoplasm of bone; C50.912 Malignant neoplasm of unspecified site of left female breast; C50.911 Malignant neoplasm of unspecified site of right female breast; I10 Essential (primary) hypertension; J45.909 Unspecified asthma, uncomplicated; M62.838 Other muscle spasm; F41.9 Anxiety disorder, unspecified; Z87.891 Personal history of nicotine dependence; W19.XXXA Unspecified fall, initial encounter
CPT/HCPCS: 36415; 51701; 72170; 73502; 73552; 80053; 85014; 85018; 85025; 85610; 93005; 94640; 94760; 94762; 96374; 96376; 97110; 97116; 97162; 97166; 97530; 97535; 99223; 99232; 99238; 99283; 99284; C1776; C9290; J0171; J0690; J1170; J1650; J2405

== ENCOUNTER → 2019-01-16 08:49 | Outpatient (CLI) | payer BC, SELFPAY ==
[2019-01-06 04:01] VITALS: BMI 20.7
--- NOTE | 2019-01-16 08:50 | DI.US.S_ITS ---
PROCEDURE: US EXTREMELY NONVASC UPPER RT INDICATIONS: h/o breast cancer, likely recurrent TECHNIQUE: Real-time scanning was performed of the right supraclavicular region, with image documentation. COMPARISON: [place], [place], [place] PET CT FUSION SKULL 2 THIGH, 12/28/2018, 16:49. FINDINGS: Ill-defined supraclavicular mass measuring 2.1 x 1.3 x 1.6 cm corresponds to area of increased FDG activity. IMPRESSION: Area of abnormal increased FDG activity on the PET CT corresponds to an ill-defined right supraclavicular mass, which should be amenable to ultrasound guided FNA. It is highly suspicious for malignancy. Dictated by: Horacio Estrada M.D. on 01/16/2019 at 16:50 Approved by: Horacio Estrada M.D. on 01/16/2019 at 16:51
== END ==
PROVIDERS: PCP Family Medicine
DX: C50.919 Malignant neoplasm of unspecified site of unspecified female breast (principal); R22.1 Localized swelling, mass and lump, neck
CPT/HCPCS: 76882

== ENCOUNTER 2019-01-17 10:15 | Day surgery (SDC) | payer BC, SELFPAY ==
[2019-01-06 04:01] VITALS: BMI 20.7
--- NOTE | 2019-01-17 | DI.US.S_ITS ---
PROCEDURE: US BIOPSY LYMPH NODE Ultrasound-guided right neck biopsy. INDICATIONS: MALIG. NEOPLASM OF UNSPECIFIED SITE TECHNIQUE: The indications, alternatives, benefits, risks, and complications of the procedure were explained to the patient. Written informed consent was obtained and placed in the chart. Continuous EKG and hemodynamic monitoring was started by trained personnel. Real-time sonography was utilized to choose the site for percutaneous right neck biopsy. The skin was prepped and draped in the usual sterile fashion. 1% lidocaine was infiltrated down to the site of interest. A coaxial needle was then advanced into the site of interest under direct sonographic visualization. A biopsy apparatus was then utilized, and core biopsies were obtained. The needle was then withdrawn; a bandage was applied to the biopsy site. COMPARISON: PET/CT 12/28/2018. FINDINGS: Biopsy site(s): Right neck/supraclavicular. Spiculated hypoechoic mass measuring approximately 2 x 1.8 x 1.4 cm which corresponds to the FDG avid mass on recent PET/CT. The lesion is posterior to the right jugular vein. The mass is firm and with posterior acoustic shadowing. Needle: 25 gauge needle fine aspiration and 20 gauge Temno biopsy needle set. Number of passes: FNA x5. One 20 gauge core biopsy was obtained. Medications: 1% lidocaine for local anaesthesia. Complications: None. IMPRESSION: Successful ultrasound-guided core needle biopsy and fine needle aspiration biopsy, with pathology results pending. Dictated by: Alverto Wang M.D. on 01/17/2019 at 16:14 Approved by: Alverto Wang M.D. on 01/17/2019 at 16:19
--- NOTE | 2019-01-17 12:23 | PATH_ITS ---
[facility] Accession Number: [id number] . 01 Material submitted: . lymph node - RIGHT SUPRA CLAVICULAR LYMPH NODE . 02 Diagnosis: Right Supraclavicular Lymph Node, Needle Core Biopsy: Small focus of atypical cells, morphologically consistent with metastatic breast carcinoma; insufficient atypical cell volume for further evaluation. The specimen consists predominantly of fibroconnective and fibroadipose tissue; no lymph node tissue is identified in the specimen. MRV 01/19/2019 1337 Local . 02 Electronically signed: . Meg Martínez MD, Pathologist NPI- [id number] . 01 Gross description: . RIGHT SUPRA CLAVICULAR LYMPH NODE: Received in formalin is 1 fragment(s) of hernandez, soft tissue measuring 0.6 x 0.1 x 0.1 cm submitted entirely in 1 cassette(s) /[facility] [place] 01/17/2019 2206 Local . 02 Microscopic: . Immunohistochemical stains were performed with the following results: . GATA3: Insufficient atypical cellular material for evaluation. ER: Insufficient atypical cellular material for evaluation. . The small focus of interest is not present on the IHC stained slides. . * This test was developed and its performance characteristics determined by [employer]. It has not been cleared or approved by the U.S. Food and Drug Administration. The FDA has determined that such clearance or approval is not necessary. This test is used for clinical purposes. It should not be regarded as investigational or for research. . 02 Pathologist provided ICD-10: Z85.3, C50.411 . 02 CPT . 020154, Z94709, [id number] Performed at: 01 [facility] [address], [place], [place] [id number] MD Sergio Murray MD Phone: [phone] Performed at: 02 [facility] [address] [place] [id number] MD Varsha Boston MD Phone: [phone]
--- NOTE | 2019-01-17 12:23 | PATH_ITS ---
Note [facility] Accession Number: [id number] TESTS RESULT FLAG UNITS REF RANGE LAB Clinician Provided Cytology Information No. of containers..01 ThinPrep Vial No. of containers..00 Previously Prepared Cytology Slide 01 RIGHT SUPRACLAVICULA DIAGNOSIS: 02 RIGHT SUPRACLAVICULA INCONCLUSIVE. FEW ATYPICAL CELL GROUPS PRESENT, POSSIBLY OF EPITHELIAL ORIGIN; NO LYMPHOCYTES IDENTIFIED IN THE BACKGROUND. Pathologist ICD10: 02 Z85.3 01 Diagnosis: 1. Right breast: stage II, T 2 NI MO TNBC, poorly differentiated. Patient is status post partial mastectomy followed by adjuvant dose-dense AC chemotherapy, followed by 12 weeks of paclitaxel, last administered in September 2013, She completed consolidative radiation therapy at [facility]. 2. Left breast: stage II, T 2 NO, invasive carcinoma, luminal-like subtype, diagnose about in 2008. She underwent lumpectomy, chemo and radiation. Then, tamoxifen for about 3 years. Interval history: The patient is a 58-year old woman who returns today for follow-up. She has a history of bilateral breast cancers. She had triple negative breast cancer in the right breast is in 2013. She also had left-sided ER positive breast cancer in 2008, Since her last visit with me, she developed some worsening left-sided hip pain. She had some x-rays done that looks like it might be arthritis. She was referred to an orthopedic surgeon who suspected metastatic cancer. Since then, she has had imaging with bone scan, CT and PET scan. The bone scan showed evidence of uptake in the sacrum and hip. There was activity in the spine and skull. The PET scan showed those areas as well as right supraclavicular lymph node, She has not yet had a biopsy a She has been walking with crutches and avoiding weight-bearing on her hip. Despite this, she has been working light duty and continues to work regularly. Her appetite has been fair, She has had some increased fatigue that she attributes mostly to anxiety. No nausea. or vomiting. No shortness of breath, She denies any other new aches or pains. Patient has had genetic testing for BRCA 1 and 2 which was negative according to patient. mother: breast cancer maternal aunt: breast cancer paternal aunt: breast cancer She does have a small right supraclavicular node about 1 to 1-1/2 cm that is palpable. Meg Martínez MD, Pathologist NPI- [id number] Filemon Miller, Production Assembler ([facility]) 01 30 CC, COLORLESS, CLEAR RECEIVED: 5 ALCOHOL FIXED AND 5 QUICK STAINED SLIDES. /U 01/18/2019 1230 Local FLAG LEGEND: L-Low Normal,H-High Normal,LL-Alert Low,HH-Alert High <-Panic Low,>-Panic High,A-Abnormal,AA-Critical Abnormal Performed at: 01 =Z [facility] [address], [place] [address] Sergio Murray MD, 02 LCLWA [facility] [id number] [place] [id number] Varsha Boston MD, Performed at: 01 [facility] [address], [place], [place] [id number] MD Sergio Murray MD Phone: [phone]
== END 2019-01-17 22:00 | disposition home or self-care (01) ==
PROVIDERS: PCP Family Medicine
DX: C50.411 Malignant neoplasm of upper-outer quadrant of right female breast (principal); Z85.3 Personal history of malignant neoplasm of breast
CPT/HCPCS: 38505; 76942

== ENCOUNTER → 2019-01-18 15:20 | Oncology outpatient (ONC) | payer BC, SELFPAY ==
--- NOTE | 2017-12-14 09:47 | PC.NURSE ---
Pt called requesting refills on hydrocodone. Pt was last seen here in Aug refill issued at that time. Next 2 refills were issued by Dr Hansen one in Sep and again in Oct each one for #60. was left that we would not be filling Rx until she has been seen in our clinic which is not until 01/25. Deferred to Dr Hansen for refills. Pt has an appt with him on 12/15.
--- NOTE | 2018-01-27 10:12 | P.PNONC_ITS ---
PN -Subjective Interval history: The patient is a 57-year-old female who presents to the clinic January 27, 2018. She carries a diagnosis of bilateral breast cancer right being at node positive triple-negative the left being a node-negative's stage II luminal subtype. Diagnosis made in 2012. Patient remains in clinical remission. Patient presents today for her 6 month interval follow-up. Unfortunately despite increasing her Neurontin to 900 mg every 8 hours she continues to have painful neuropathy in the feet. Neuropathy is worse particularly after work. She does take a single Vicodin pill at night with good benefit. No significant neuropathy is noted in the hands. Neuropathy in the feet not causing any gait instability or stumbling. She has learned to cope by changing her shoes 3 times a day while at work, which is on her feet all day at the [employer]. Remainder of her review of systems negative for any new focal bone pains headaches visual changes. No new pain, no new lumps or bumps. 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 She enjoys her work. Her bilateral screening mammogram 01/18/2018 without evidence of recurrence. She will be due for colonoscopy in about 2 years. She has not had a DEXA bone density screening june 2017 demonstrating stable osteopenia, the pt takes calcuim and Vit D Past Medical History The patient's past medical history is significant for: 1. Right side being a stage II, T2 N1 M0 triple- negative poorly differentiated presentation. Patient is status post partial mastectomy followed by adjuvant dose-dense AC chemotherapy, followed by 12 weeks of paclitaxel, last administered in September 2013. She completed consolidative radiation therapy at [facility]. showing no evidence of disease recurrence. 2. Left-sided stage II, T2 N0 invasive carcinoma, luminal-like subtype. Please see my clinic note dated April 04, 2012, under the [facility] for further details. Patient was on tamoxifen for approximately 2 years at the time of her contralateral recurrence, and at this time she's off all anti-hormone therapy. She's up to date with her imaging studies, including her last bilateral screening mammogram on 12/30/2016, reporting no evidence of recurrence. 3. Hypertension. 4. Hypercholesterolemia. 5. GERD. 6. Arthritis. 7. Asthma. 8. Right axillary nodule evaluated on CT scan dated April 07, 2013, as well as an ultrasound on July 20, 2013, the ultrasound characterizing the lesion as a fluid focal collection and CT describing the lesion as a 35 x 29 cystic collection in the right axilla, both consistent with seroma formation. Home Medications and Allergies Home Medications Medication Instructions Recorded Confirmed Type CHOLECALCIFEROL (VITAMIN D3) 800 unit PO QDAY #0 03/21/12 12/15/17 History (Vitamin D3) calcium carbonate-vitamin D3 1 PO QAM #0 03/21/12 12/15/17 History [Calcium 600 with Vitamin D3] multivitamin [Multiple Vitamins] 1 tab PO Q48H #0 03/03/16 12/15/17 History gabapentin [Neurontin] 300 mg PO Q6H #270 07/02/16 12/15/17 Rx atenolol 50 mg PO Q DAY #90 tab 01/28/17 12/15/17 Rx atorvastatin [Lipitor] 10 mg PO HS #90 tab 06/07/17 12/15/17 Rx cyanocobalamin (vitamin B-12) 50 mcg PO Q DAY #0 06/29/17 12/15/17 History [Vitamin B-12] hydrocodone 5 mg-acetaminophen 325 See Label Instructions PO Q6H PRN 09/24/17 Rx mg tablet #60 tab fluticasone 250 mcg/actuation 1 inhalation INHALATION BID #60 12/07/17 12/15/17 Rx blister powder for inhalation each albuterol sulfate HFA 90 See Label Instructions INHALATION 12/15/17 Rx mcg/actuation aerosol inhaler Q4H #3 each alprazolam 0.5 mg tablet 0.5 - 1 mg PO BIDP PRN #60 tab 12/15/17 Rx omeprazole 20 mg capsule,delayed 20 mg PO QDAY #90 cap 12/15/17 Rx release ipratropium-albuterol 0.5 mg-3 See Label Instructions INHALATION 12/31/17 Rx mg(2.5 mg base)/3 mL nebulization Q2HP PRN #180 ml soln hydrocodone-acetaminophen [[place]] 1 - 2 tab PO Q6HP PRN #60 tab 01/27/18 Rx Allergies Allergy/AdvReac Type Severity Reaction Status Date / Time No Known Drug Allergies Allergy Verified 12/15/17 15:39 Exam - Constitutional positive no acute distress, positive thin - Routine HEENT Exam Eye: Present: conjunctivae pink. Absent: conjunctival icterus, scleral injection ENT: Present: mucous membranes moist, oropharynx clear - Routine Neck Exam Present: supple. Absent: lymphadenopathy - Routine Chest/Breast/Axilla Exam Chest wall exam standard: Absent: tenderness, mass Breast: Present: right mastectomy, left mastectomy Axillae: Absent: lymphadenopathy, mass, tenderness - Routine Respiratory Exam Present: Clear to auscultation bilaterally, decreased breath sounds. Absent: rales, rhonchi, wheezes - Routine Cardiovascular Exam Present: RRR, S1, S2. Absent: murmur, gallop, rubs, JVD - Routine Abdominal Exam Present: soft, normoactive bowel sounds. Absent: tenderness, distended, organomegaly - Routine Extremities Exam Absent: edema, calf tenderness - Routine Skin Exam Present: intact, normal turgor. Absent: petechiae, rash - Routine Neurological Exam Present: alert, oriented X3 - Routine Psychiatric Exam Present: normal affect Results - Imaging Additional studies: Procedures Colonoscopy (04/30/14) Excision of axillary lymph node (03/14/13) Incision with removal of foreign body or device from skin and subcutaneous tissue (06/26/14) Insertion of totally implantable vascular access device [VAD] (03/14/13) Local excision of lesion of breast (03/29/13) Other soft tissue x-ray of chest wall (03/14/13) Subtotal mastectomy (03/14/13) Assessment and Plan (1) Breast cancer Current visit: No Status: Acute Vicky is a very pleasant 57-year-old female who carries a diagnosis of bilateral breast cancer. She is up-to-date on her mammogram. Clinically showing no signs or symptoms of disease recurrence. Additionally CBC, CMP unremarkable. CA 27-29 remains appropriately low. RTC in 6 months for provider visit cbc cmp ca 27.29 (2) Neuropathy associated with cancer Current visit: No Status: Acute She continues with grade 2 neuropathy of her feet, gabapentin has been effective. Continue. (3) Osteopenia after menopause Current visit: Yes Status: Acute Stable when compared to previous bone density screen. Patient's most recent bone density screen was June of 2017. We will go ahead and repeat this in 1 year, we will schedule for early July 2018. Continue calcium and vitamin-D.
[2018-01-27 15:50] VITALS: BP 146/81; PULSE 70; RESP 18; TEMP 36.1; O2SAT 99
[2018-07-12 17:37] LABS: Add Manual Diff / Slide Review NO; Basophils Absolute Auto 0 /uL (0-100); Basophils Percent Auto 0.1 % (0-2); Eosinophils Absolute Auto 100 /uL (0-450); Eosinophils Percent Auto 2.8 % (2-4); Hematocrit 44.6 % (36-46); Hemoglobin 14.8 g/dL (12.0-16.0); Lymphocytes Absolute Auto 1500 /uL (1100-4500); Lymphocytes Percent Auto 29.6 % (25-40); Mean Corpuscular HGB Conc 33.1 % (30-36); Mean Corpuscular Hemoglobin 32.1 PG (26-34); Mean Corpuscular Volume 96.8 fL (80-100); Monocytes Absolute Auto 500 /uL (0-900); Monocytes Percent Auto 10.4 % (3-14); Neutrophils Absolute Auto 2900 /uL (1500-7000); Neutrophils Percent Auto 57.1 % (50-75); Platelet Count 236 X10^3/uL (150-400); Red Cell Distribution Width 13.2 % (11.6-14.8); White Blood Cell Count 5.1 X10^3/uL (4.5-11.0)
[2018-07-12 20:26] LABS: Alanine Aminotransferase 35 IU/L (9-52); Albumin 4.5 g/dL (3.5-5.0); Albumin Globulin Ratio 1.5 (1.0-2.8); Alkaline Phosphatase 81 U/L (38-126); Aspartate Aminotransferase 37 IU/L (14-36); BUN Creatinine Ratio 16.7 (6-22); Bilirubin Total 0.8 mg/dL (0.2-1.3); Blood Urea Nitrogen 10 mg/dL (7-17); Carbon Dioxide 29 mmol/L (22-32); Chloride 98 mmol/L (98-107); Estimated Glomerular Filt Rate > 60.0 mL/min (>60); Glucose 101 mg/dL (70-100); HEMOLYSIS < 15 (0-50); Sodium 137 mmol/L (137-145); Total Protein 7.5 g/dL (6.3-8.2)
[2018-07-14 16:20] LABS: Cancer Antigen 27.29 32 U/mL (< 38)
[2018-07-20 15:57] VITALS: BP 136/83; PULSE 75; RESP 18; TEMP 36.6; O2SAT 98
--- NOTE | 2018-07-20 16:33 | P.PNONC_ITS ---
PN -Subjective Interval history: Diagnosis: Bilateral breast cancers 1. Right side being a stage II, T2 N1 M0 triple- negative poorly differentiated presentation. Patient is status post partial mastectomy followed by adjuvant dose-dense AC chemotherapy, followed by 12 weeks of paclitaxel, last administered in September 2013. She completed consolidative radiation therapy at [facility]. 2. Left-sided stage II, T2 N0 invasive carcinoma, luminal-like subtype. Interval history: The patient is a 57-year-old woman with a history of bilateral breast cancers. The most recent was on the right and was triple negative. She had dose dense Adriamycin and Cytoxan followed by paclitaxel. Her treatment was complicated by a neuropathy which persists. Since her last visit here, she has noted ongoing pain and numbness in her feet. She has been using gabapentin as well as occasional hydrocodone. She has not noticed any changes in the breast. She denies any shortness of breath cough for chest pain. No abdominal complaints. No fevers chills or sweats. She has not noted any adenopathy. she denies any other changes in her health. Past Medical History 3. Hypertension. 4. Hypercholesterolemia. 5. GERD. 6. Arthritis. 7. Asthma. 8. Right axillary nodule evaluated on CT scan dated April 07, 2013, as well as an ultrasound on July 20, 2013, the ultrasound characterizing the lesion as a fluid focal collection and CT describing the lesion as a 35 x 29 cystic collection in the right axilla, both consistent with seroma formation. - Patient Self-Reported Symptoms SR Constitution: Fatigue/Malaise SR respiratory issues: Cough, Shortness of breath Home Medications and Allergies Home Medications Medication Instructions Recorded Confirmed Type CHOLECALCIFEROL (VITAMIN D3) 800 unit PO QDAY #0 03/21/12 07/20/18 History (Vitamin D3) calcium carbonate-vitamin D3 1 PO QAM #0 03/21/12 06/11/18 History [Calcium 600 with Vitamin D3] multivitamin [Multiple Vitamins] 1 tab PO Q48H #0 03/03/16 07/20/18 History atorvastatin [Lipitor] 10 mg PO HS #90 tab 06/07/17 07/20/18 Rx Vitamin B-12 50 mcg PO Q DAY #0 06/29/17 07/20/18 History albuterol sulfate HFA 90 See Rx Instructions INHALATION Q4H 12/15/17 07/20/18 Rx mcg/actuation aerosol inhaler #3 each omeprazole 20 mg capsule,delayed 20 mg PO QDAY #90 cap 12/15/17 07/20/18 Rx release ipratropium-albuterol 0.5 mg-3 See Rx Instructions INHALATION 12/31/17 07/20/18 Rx mg(2.5 mg base)/3 mL nebulization Q2HP PRN #180 ml soln atenolol 50 mg PO Q DAY #90 tab 02/04/18 07/20/18 Rx alprazolam 0.5 mg tablet 0.5 - 1 mg PO BIDP PRN #60 tab 04/11/18 07/20/18 Rx fluticasone propionate 250 1 inhalation INHALATION BID #60 05/10/18 07/20/18 Rx mcg/actuation blister powder for each inhalation clotrimazole 1 % topical ointment 1 applictn TOP TID #30 gram 06/11/18 Rx gabapentin [Neurontin] 300 mg PO Q6H #270 cap 06/15/18 07/20/18 Rx hydrocodone-acetaminophen [[place]] 1 - 2 tab PO Q6HP PRN #60 tab 07/20/18 Rx Allergies Allergy/AdvReac Type Severity Reaction Status Date / Time No Known Drug Allergies Allergy Verified 05/30/18 15:51 Exam Vital signs: Vital Signs Temp Pulse Resp BP Pulse Ox 07/20/18 15:57 98 F 75 18 136/83 98 Intake and Output 07/20/18 07/20/18 07/20/18 07:59 15:59 23:59 Other: Weight 64.4 kg Patient Weight 07/20/18 23:59 Weight 64.4 kg - Constitutional positive no acute distress, positive average body habitus - Routine HEENT Exam Head: Present: normocephalic, atraumatic Eye: Present: EOMI, PERRL. Absent: conjunctival icterus, scleral injection ENT: Present: mucous membranes moist, oropharynx clear - Routine Neck Exam Present: supple. Absent: lymphadenopathy, thyromegaly - Routine Chest/Breast/Axilla Exam Axillae: Absent: lymphadenopathy Comments: Breast exam shows well-healed incisions on both breasts. There is no nodularity or masses. No axillary adenopathy on either side. - Routine Respiratory Exam Present: Clear to auscultation bilaterally. Absent: rales, wheezes - Routine Cardiovascular Exam Present: RRR, S1, S2. Absent: murmur - Routine Abdominal Exam Present: soft, normoactive bowel sounds. Absent: tenderness, organomegaly - Routine Extremities Exam Absent: edema - Routine Back/Spine Exam Back/Spine: Absent: paraspinal tenderness, vertebral tenderness - Routine Skin Exam Present: intact. Absent: petechiae, rash - Routine Neurological Exam Present: alert, oriented X3 - Routine Psychiatric Exam Present: normal affect, normal thought process Results - Labs Laboratory Last Values WBC 5.1 X10^3/uL (4.5-11.0) 07/12/18 17:04 RBC 4.60 X10^6/uL (4.0-5.2) 07/12/18 17:04 Hgb 14.8 g/dL (12.0-16.0) 07/12/18 17:04 Hct 44.6 % (36-46) 07/12/18 17:04 MCV 96.8 fL (80-100) 07/12/18 17:04 MCH 32.1 PG (26-34) 07/12/18 17:04 MCHC 33.1 % (30-36) 07/12/18 17:04 RDW 13.2 % (11.6-14.8) 07/12/18 17:04 Plt Count 236 X10^3/uL (150-400) 07/12/18 17:04 Neut % (Auto) 57.1 % (50-75) 07/12/18 17:04 Lymph % (Auto) 29.6 % (25-40) 07/12/18 17:04 [place] % (Auto) 10.4 % (3-14) 07/12/18 17:04 Eos % (Auto) 2.8 % (2-4) 07/12/18 17:04 Baso % (Auto) 0.1 % (0-2) 07/12/18 17:04 Neut # (Auto) 2900 /uL (7795-6891) 07/12/18 17:04 Lymph # (Auto) 1500 /uL (6815-8672) 07/12/18 17:04 [place] # (Auto) 500 /uL (0-900) 07/12/18 17:04 Eos # (Auto) 100 /uL (0-450) 07/12/18 17:04 Baso # (Auto) 0 /uL (0-100) 07/12/18 17:04 Sodium 137 mmol/L (137-145) 07/12/18 17:04 Potassium 4.0 mmol/L (3.4-5.1) 07/12/18 17:04 Chloride 98 mmol/L (98-107) 07/12/18 17:04 Carbon Dioxide 29 mmol/L (22-32) 07/12/18 17:04 BUN 10 mg/dL (7-17) 07/12/18 17:04 Creatinine 0.60 mg/dL (0.52-1.04) 07/12/18 17:04 Estimated GFR > 60.0 mL/min (>60) 07/12/18 17:04 BUN/Creatinine Ratio 16.7 (6-22) 07/12/18 17:04 Glucose 101 mg/dL (70-100) H 07/12/18 17:04 Calcium 10.0 mg/dL (8.4-10.2) 07/12/18 17:04 Total Bilirubin 0.8 mg/dL (0.2-1.3) 07/12/18 17:04 AST 37 IU/L (14-36) H 07/12/18 17:04 ALT 35 IU/L (9-52) 07/12/18 17:04 Alkaline Phosphatase 81 U/L (38-126) 07/12/18 17:04 Total Protein 7.5 g/dL (6.3-8.2) 07/12/18 17:04 Albumin 4.5 g/dL (3.5-5.0) 07/12/18 17:04 Globulin 3.0 g/dL (1.7-4.1) 07/12/18 17:04 Albumin/Globulin Ratio 1.5 (1.0-2.8) 07/12/18 17:04 CA 27-29 32 U/mL (< 38) 07/12/18 17:04 - Imaging Additional studies: Procedures Colonoscopy (04/30/14) Excision of axillary lymph node (03/14/13) Incision with removal of foreign body or device from skin and subcutaneous tissue (06/26/14) Insertion of totally implantable vascular access device [VAD] (03/14/13) Local excision of lesion of breast (03/29/13) Other soft tissue x-ray of chest wall (03/14/13) Subtotal mastectomy (03/14/13) Assessment and Plan (1) Breast cancer Current visit: No Status: Acute Vicky is a very pleasant 57-year-old female who carries a diagnosis of bilateral breast cancer. She has no evidence of recurrence and is doing well. She will be due for mammogram in the fall. She return to clinic in 1 year for follow-up. (2) Neuropathy associated with cancer Current visit: No Status: Acute She continues with grade 2 neuropathy of her feet, gabapentin has been effective. Continue.
--- NOTE | 2018-09-20 11:53 | PC.NURSE ---
This nurse left telephone message for patient to strip picker a prescription for Gabapentin written as she requested to take 900 mg BID.
--- NOTE | 2018-12-05 11:57 | ONC.MSW ---
Description: T/C from Dr. Hansen re: urgent breast patient referral Activity: Dr. Hansen called this [employer] TECHNICIAN/IKE to expedite getting pt an appt due to potential recurrance. She had imaging that showed extensive bony lesions, presuming to be new chloé mets. Called pt and offered a 40-minute appt[address] Whaley next week on 12/14 (she had seen Dr. Whaley once on 07/20/18), however she felt that was too far out, and was feeling highly anxious. We were able to get her a 20-minute appt. today with Dr. Cadet. Called Dr. Hansen and left a message to update him.
[2018-12-05 15:03] VITALS: BP 134/89; PULSE 67; RESP 18; TEMP 36.6; O2SAT 98
--- NOTE | 2018-12-05 15:09 | P.PNONC_ITS ---
PN -Subjective Interval history: ID/CC: 58 year old with bilateral breast cancers Oncology History: 1. 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 Patient is status post partial mastectomy followed by adjuvant dose-dense AC chemotherapy, followed by 12 weeks of paclitaxel, last administered in September 2013. She completed consolidative radiation therapy at [facility]. 2. Left breast: stage II, T2 N0, invasive carcinoma, luminal-like subtype, diagnose about in 2008. She underwent lumpectomy, chemo and radiation. Then, tamoxifen for about 3 years. Interval history: She noticed left hip pain with limping about 2 weeks ago. On 11/23/2012, hip X- ray showed symmetric appearing mild to moderate bilateral hip joint osteoarthritis. Patient tried ibuprofen and then physical therapy. However the hip pain continued and got worse. And she noticed that she was having problems put weight on the left foot. She talked with her primary care provider Dr. Hansen. Patient was referred to orthopedic physician Dr. Gale Carter who saw the patient this this morning. Before the visit, the patient underwent MRI Hip/Pelvis that showed extensive marrow signal abnormality involving left femoral neck, intertrochanteric region and proximal left femoral shaft with no discrete fracture lines visualized highly suspicious for an expansile and infiltrative process involving left proximal femur. Seminal marrow signal abnormality is also noted involving right sacrum and right iliac bone and is consistent for metastatic bone lesions. The scan also showed bilateral hip joint osteoarthritis. No acute fracture or dislocation. No evidence of avascular necrosis of femoral heads. Multiple uterine fibroids were also noted. Dr. Gale Carter reviewed the MRI image with the patient and his friend and referred to oncology for further evaluation. Clinically, she reports that she has pretty good energy. She reports no lumps or bumps in the breast or axillae. She has shortness of breath which she attributed to asthma. She denies cough or chest pain. Patient has some headache which she said is due to the use of crutches. She denies any abdominal pain. He denies any nausea or vomiting. No diarrhea and no constipation. Patient has had colonoscopy about 8 years ago. Eighteen year follow-up colonoscopy was recommended at the time. Patient also has had genetic testing which was negative according to patient. mother: breast cancer maternal aunt: breast cancer paternal aunt: breast cancer Past Medical History 1. Hypertension. 2. Hypercholesterolemia. 3. GERD. 4. Arthritis. 5. Asthma. - Patient Self-Reported Symptoms SR Constitution: Fatigue/Malaise SR respiratory issues: Shortness of breath SR Musculoskeletal issues: Muscle weakness, Difficulty walking, Bone pain - Additional ROS All systems PM: reviewed and no additional remarkable complaints except as stated Home Medications and Allergies Home Medications Medication Instructions Recorded Confirmed Type multivitamin [Multiple Vitamins] 1 tab PO Q48H #0 03/03/16 12/05/18 History Vitamin B-12 50 mcg PO Q DAY #0 06/29/17 12/05/18 History albuterol sulfate 90 mcg/actuation See Rx Instructions INHALATION Q4H 12/15/17 07/20/18 Rx aerosol inhaler #3 each ipratropium-albuterol 0.5 mg-3 See Rx Instructions INHALATION 12/31/17 12/05/18 Rx mg(2.5 mg base)/3 mL nebulization Q2HP PRN #180 ml soln atorvastatin [Lipitor] 10 mg PO HS #90 tab 07/21/18 12/05/18 Rx gabapentin 900 mg PO BID 30 Days #180 cap 09/20/18 12/05/18 Rx atenolol 50 mg tablet 50 mg PO Q DAY #90 tab 11/07/18 12/05/18 Rx alprazolam 0.5 mg tablet 0.5 - 1 mg PO BIDP PRN #60 tab 11/08/18 12/05/18 Rx omeprazole 20 mg capsule,delayed 20 mg PO QDAY #90 cap 11/11/18 12/05/18 Rx release fluticasone propionate 250 See Rx Instructions .ROUTE 11/23/18 12/05/18 Rx mcg/actuation blister powder for .COMPLEX #60 unspecified inhalation hydrocodone 5 mg-acetaminophen 325 1 - 2 tab PO Q6HP PRN #60 tab 11/28/18 12/05/18 Rx mg tablet Allergies Allergy/AdvReac Type Severity Reaction Status Date / Time No Known Drug Allergies Allergy Verified 11/23/18 15:30 Exam Vital signs: Vital Signs Temp Pulse Resp BP Pulse Ox 12/05/18 15:03 97.9 F 67 18 134/89 98 Intake and Output 12/04/18 12/05/18 12/05/18 23:59 07:59 15:59 Other: Weight 62.8 kg Patient Weight 12/05/18 23:59 Weight 62.8 kg Narrative: ECOG 1 - Constitutional positive no acute distress, positive average body habitus, positive cooperative Comments: Accompanied by her friend to the clinic today. - Routine HEENT Exam Head: Present: normocephalic, atraumatic Eye: Present: EOMI, PERRL, normal accommodation. Absent: conjunctival icterus ENT: Present: mucous membranes moist - Routine Neck Exam Present: supple. Absent: lymphadenopathy, thyromegaly - Detailed Breast Exam left Inspection: Absent: rash, erythema, swelling, peau d'orange, nipple discharge Palpation: Absent: mass, tenderness, induration, implant right Inspection: Present: area of retraction (at previous surgical insicion site). Absent: rash, erythema, swelling, peau d'orange, nipple discharge, discharge Palpation: Absent: mass, tenderness, induration, implant - Routine Respiratory Exam Present: Clear to auscultation bilaterally. Absent: wheezes - Routine Cardiovascular Exam Present: RRR, S1, S2. Absent: murmur, gallop, rubs - Routine Abdominal Exam Present: soft. Absent: tenderness, distended, organomegaly - Routine Extremities Exam Absent: edema - Routine Back/Spine Exam Back/Spine: Absent: full ROM, CVA tenderness, paraspinal tenderness, vertebral tenderness, muscle spasm, erythema - Routine Neurological Exam Present: alert, oriented X3, CN II-XII intact. Absent: sensory deficit, motor deficit - Routine Psychiatric Exam Present: normal affect Results - Labs Laboratory Last Values WBC 6.4 X10^3/uL (4.5-11.0) 12/05/18 16:26 RBC 4.64 X10^6/uL (4.0-5.2) 12/05/18 16:26 Hgb 15.1 g/dL (12.0-16.0) 12/05/18 16:26 Hct 44.7 % (36-46) 12/05/18 16:26 MCV 96.3 fL (80-100) 12/05/18 16:26 MCH 32.7 PG (26-34) 12/05/18 16:26 MCHC 33.9 % (30-36) 12/05/18 16:26 RDW 12.4 % (11.6-14.8) 12/05/18 16:26 Plt Count 258 X10^3/uL (150-400) 12/05/18 16:26 Neut % (Auto) 62.3 % (50-75) 12/05/18 16:26 Lymph % (Auto) 21.4 % (25-40) L 12/05/18 16:26 Wise % (Auto) 12.9 % (3-14) 12/05/18 16:26 Eos % (Auto) 2.4 % (2-4) 12/05/18 16:26 Baso % (Auto) 1.0 % (0-2) 12/05/18 16:26 Neut # (Auto) 4000 /uL (4898-9549) 12/05/18 16:26 Lymph # (Auto) 1400 /uL (1054-3242) 12/05/18 16:26 Wise # (Auto) 800 /uL (0-900) 12/05/18 16:26 Eos # (Auto) 200 /uL (0-450) 12/05/18 16:26 Baso # (Auto) 100 /uL (0-100) 12/05/18 16:26 Sodium 138 mmol/L (137-145) 12/05/18 16:26 Potassium 4.1 mmol/L (3.4-5.1) 12/05/18 16:26 Chloride 99 mmol/L (98-107) 12/05/18 16:26 Carbon Dioxide 29 mmol/L (22-32) 12/05/18 16:26 BUN 11 mg/dL (7-17) 12/05/18 16:26 Creatinine 0.50 mg/dL (0.52-1.04) L 12/05/18 16:26 Estimated GFR > 60.0 mL/min (>60) 12/05/18 16:26 BUN/Creatinine Ratio 22.0 (6-22) 12/05/18 16:26 Glucose 123 mg/dL (80-110) H 12/05/18 16:26 Calcium 10.2 mg/dL (8.4-10.2) 12/05/18 16:26 Total Bilirubin 0.8 mg/dL (0.2-1.3) 12/05/18 16:26 AST 46 IU/L (14-36) H 12/05/18 16:26 ALT 34 IU/L (9-52) 12/05/18 16:26 Alkaline Phosphatase 98 U/L (38-126) 12/05/18 16:26 Total Protein 7.5 g/dL (6.3-8.2) 12/05/18 16:26 Albumin 4.4 g/dL (3.5-5.0) 12/05/18 16:26 Globulin 3.1 g/dL (1.7-4.1) 12/05/18 16:26 Albumin/Globulin Ratio 1.4 (1.0-2.8) 12/05/18 16:26 Carcinoembryonic Ag 3.8 ng/mL (0.1-3.0) H 12/05/18 16:26 CA 27-29 32 U/mL (< 38) 07/12/18 17:04 CA 125 Antigen 13 U/mL (0-35) 12/05/18 16:26 - Imaging Additional studies: Procedures Colonoscopy (04/30/14) Excision of axillary lymph node (03/14/13) Incision with removal of foreign body or device from skin and subcutaneous tissue (06/26/14) Insertion of totally implantable vascular access device [VAD] (03/14/13) Local excision of lesion of breast (03/29/13) Other soft tissue x-ray of chest wall (03/14/13) Subtotal mastectomy (03/14/13) Assessment and Plan (1) Breast cancer Overvew: Vicky has history of bilateral breast cancer: (1) Right breast: stage II, T2 N1 M0 TNBC, poorly differentiated. Patient is status post partial mastectomy followed by adjuvant dose-dense AC chemotherapy, followed by 12 weeks of paclitaxel, last administered in September 2013. She completed consolidative radiation therapy at [facility]. 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 She underwent lumpectomy, chemo and radiation. Then, tamoxifen for about 3 years. Now she presents with left hip pain and MRI evidence of expansile lesion affecting left femoral neck, intertrochanteric region and proximal left femoral shaft, right sacrum and right iliac bone. Assessment: I talked with the patient and her friend that the new symptoms of hip pain with abnormal MRI findings are highly suspicious for metastatic cancer. However without biopsy, we do not know type of cancers that are affecting the bone. It most likely represents recurrence of her previous known breast cancer including the left hormone receptor-positive breast cancer and the right triple negative breast cancer. However it also could represent a completely new and different t ype of cancer. I talked with her and her friend that I will obtain a complete staging studies to evaluate the extent of the underlying infiltrative process. Based on the imaging studies will decide which area is most amenable for biopsy. Plan: 1. CBC, CMP, CA125, CA19-9, CEA, CA15-[address] CAP w/contrast 3. PET CT 4. Bone scan 5. 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 Continue.
--- NOTE | 2018-12-05 15:15 | ONC.MSW ---
Description: Returning Pt/Intro to [employer]/IKE Activity: Met briefly with pt prior to her provider visit. Pt was referred today urgently from Dr. Hansen. Provided services card and established initial rapport. Will plan to f/u and call pt later this week to complete navigation/[employer] initial assessment.
[2018-12-05 16:50] LABS: Add Manual Diff / Slide Review NO; Basophils Absolute Auto 100 /uL (0-100); Eosinophils Absolute Auto 200 /uL (0-450); Eosinophils Percent Auto 2.4 % (2-4); Hematocrit 44.7 % (36-46); Hemoglobin 15.1 g/dL (12.0-16.0); Lymphocytes Absolute Auto 1400 /uL (1100-4500); Lymphocytes Percent Auto 21.4 % (25-40); Mean Corpuscular HGB Conc 33.9 % (30-36); Mean Corpuscular Hemoglobin 32.7 PG (26-34); Mean Corpuscular Volume 96.3 fL (80-100); Monocytes Absolute Auto 800 /uL (0-900); Monocytes Percent Auto 12.9 % (3-14); Neutrophils Absolute Auto 4000 /uL (1500-7000); Neutrophils Percent Auto 62.3 % (50-75); Platelet Count 258 X10^3/uL (150-400); Red Blood Cell Count 4.64 X10^6/uL (4.0-5.2); Red Cell Distribution Width 12.4 % (11.6-14.8); White Blood Cell Count 6.4 X10^3/uL (4.5-11.0)
[2018-12-05 17:09] LABS: Alanine Aminotransferase 34 IU/L (9-52); Albumin 4.4 g/dL (3.5-5.0); Albumin Globulin Ratio 1.4 (1.0-2.8); Alkaline Phosphatase 98 U/L (38-126); Aspartate Aminotransferase 46 IU/L (14-36); Bilirubin Total 0.8 mg/dL (0.2-1.3); Blood Urea Nitrogen 11 mg/dL (7-17); Calcium 10.2 mg/dL (8.4-10.2); Carbon Dioxide 29 mmol/L (22-32); Chloride 99 mmol/L (98-107); Estimated Glomerular Filt Rate > 60.0 mL/min (>60); Globulin 3.1 g/dL (1.7-4.1); Glucose 123 mg/dL (80-110); HEMOLYSIS < 15 (0-50); Potassium 4.1 mmol/L (3.4-5.1); Sodium 138 mmol/L (137-145); Total Protein 7.5 g/dL (6.3-8.2)
[2018-12-05 17:38] LABS: Cancer Antigen 125 13 U/mL (0-35); Carcinoembryonic Antigen 3.8 ng/mL (0.1-3.0)
[2018-12-07 15:32] LABS: CA 15-3 22 U/mL (< 32); Cancer (Carbohydrate) Ag 19-9 43 U/mL (< 34); Cancer Antigen 27.29 45 U/mL (< 38)
--- NOTE | 2018-12-13 11:43 | ONC.NAV ---
All Referrals have been Scheduled for this Patient
--- NOTE | 2018-12-29 17:35 | ONC.SCHED ---
working on prior auth for urgent referral to ortho for Dr. Cadet, I will work on this tomorrow, Jovany.
[2019-01-03 14:36] VITALS: BP 159/93; PULSE 85; RESP 18; TEMP 36.7; O2SAT 97
--- NOTE | 2019-01-03 15:08 | ONC.PN ---
PN -Subjective Interval history: Diagnosis: 1. 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 Patient is status post partial mastectomy followed by adjuvant dose-dense AC chemotherapy, followed by 12 weeks of paclitaxel, last administered in September 2013. She completed consolidative radiation therapy at [facility]. 2. Left breast: stage II, T2 N0, invasive carcinoma, luminal-like subtype, diagnose about in 2008. She underwent lumpectomy, chemo and radiation. Then, tamoxifen for about 3 years. Interval history: The patient is a 58-year-old woman who returns today for follow-up. She has a history of bilateral breast cancers. She had triple negative breast cancer in the right breast is in 2013. She also had left-sided ER positive breast cancer in 2008. Since her last visit with me, she developed some worsening left-sided hip pain. She had some x-rays done that looks like it might be arthritis. She was referred to an orthopedic surgeon who suspected metastatic cancer. Since then, she has had imaging with bone scan, CT and PET scan. The bone scan showed evidence of uptake in the sacrum and hip. There was activity in the spine and skull. The PET scan showed those areas as well as right supraclavicular lymph node. She has not yet had a biopsy. She has been walking with crutches and avoiding weight-bearing on her hip. Despite this, she has been working light duty and continues to work regularly. Her appetite has been fair. She has had some increased fatigue that she attributes mostly to anxiety. No nausea or vomiting. No shortness of breath. She denies any other new aches or pains. Patient has had genetic testing for BRCA 1 and 2 which was negative according to patient. mother: breast cancer maternal aunt: breast cancer paternal aunt: breast cancer Past Medical History 1. Hypertension. 2. Hypercholesterolemia. 3. GERD. 4. Arthritis. 5. Asthma. - Patient Self-Reported Symptoms SR Constitution: Fatigue/Malaise SR respiratory issues: Shortness of breath SR Musculoskeletal issues: Muscle weakness, Difficulty walking, Bone pain Home Medications and Allergies Home Medications Medication Instructions Recorded Confirmed Type multivitamin [Multiple Vitamins] 1 tab PO Q48H #0 03/03/16 01/03/19 History Vitamin B-12 50 mcg PO Q DAY #0 06/29/17 01/03/19 History albuterol sulfate 90 mcg/actuation See Rx Instructions INHALATION Q4H 12/15/17 01/03/19 Rx aerosol inhaler #3 each ipratropium-albuterol 0.5 mg-3 See Rx Instructions INHALATION 12/31/17 01/03/19 Rx mg(2.5 mg base)/3 mL nebulization Q2HP PRN #180 ml soln atorvastatin [Lipitor] 10 mg PO HS #90 tab 07/21/18 01/03/19 Rx gabapentin 900 mg PO BID 30 Days #180 cap 09/20/18 01/03/19 Rx atenolol 50 mg tablet 50 mg PO Q DAY #90 tab 11/07/18 01/03/19 Rx omeprazole 20 mg capsule,delayed 20 mg PO QDAY #90 cap 11/11/18 01/03/19 Rx release fluticasone propionate 250 See Rx Instructions .ROUTE 11/23/18 01/03/19 Rx mcg/actuation blister powder for .COMPLEX #60 unspecified inhalation alprazolam 0.5 mg tablet 0.5 - 1 mg PO BIDP PRN #60 tab 12/21/18 01/03/19 Rx hydrocodone 5 mg-acetaminophen 325 1 - 2 tab PO Q6HP PRN #60 tab 12/21/18 01/03/19 Rx mg tablet miscellaneous medical supply #1 each 12/30/18 01/03/19 Rx Allergies Allergy/AdvReac Type Severity Reaction Status Date / Time No Known Drug Allergies Allergy Verified 12/21/18 15:08 Exam Vital signs: Vital Signs Temp Pulse Resp BP Pulse Ox 01/03/19 14:36 98.0 F 85 18 159/93 H 97 Intake and Output 01/02/19 01/03/19 01/03/19 23:59 07:59 15:59 Other: Weight 63.9 kg Patient Weight 01/03/19 23:59 Weight 63.9 kg - Constitutional positive no acute distress, positive average body habitus - Routine Neck Exam Present: supple, lymphadenopathy Comments: She does have a small right supraclavicular node about 1 to 1-1/2 cm that is palpable. - Routine Respiratory Exam Present: Clear to auscultation bilaterally. Absent: rales, wheezes - Routine Cardiovascular Exam Present: RRR, S1, S2. Absent: murmur - Routine Abdominal Exam Present: soft, normoactive bowel sounds. Absent: tenderness Results - Labs Laboratory Last Values WBC 6.4 X10^3/uL (4.5-11.0) 12/05/18 16: RBC 4.64 X10^6/uL (4.0-5.2) 12/05/18 16:26 Hgb 15.1 g/dL (12.0-16.0) 12/05/18 16:26 Hct 44.7 % (36-46) 12/05/18 16:26 MCV 96.3 fL (80-100) 12/05/18 16:26 MCH 32.7 PG (26-34) 12/05/18 16: MCHC 33.9 % (30-36) 12/05/18 16: RDW 12.4 % (11.6-14.8) 12/05/18 16:26 Plt Count 258 X10^3/uL (150-400) 12/05/18 16:26 Neut % (Auto) 62.3 % (50-75) 12/05/18 16:26 Lymph % (Auto) 21.4 % (25-40) L 12/05/18 16:26 [place] % (Auto) 12.9 % (3-14) 12/05/18 16:26 Eos % (Auto) 2.4 % (2-4) 12/05/18 16:26 Baso % (Auto) 1.0 % (0-2) 12/05/18 16:26 Neut # (Auto) 4000 /uL (9908-3108) 12/05/18 16:26 Lymph # (Auto) 1400 /uL (0504-1342) 12/05/18 16:26 [place] # (Auto) 800 /uL (0-900) 12/05/18 16:26 Eos # (Auto) 200 /uL (0-450) 12/05/18 16:26 Baso # (Auto) 100 /uL (0-100) 12/05/18 16:26 Sodium 138 mmol/L (137-145) 12/05/18 16:26 Potassium 4.1 mmol/L (3.4-5.1) 12/05/18 16:26 Chloride 99 mmol/L (98-107) 12/05/18 16:26 Carbon Dioxide 29 mmol/L (22-32) 12/05/18 16:26 BUN 11 mg/dL (7-17) 12/05/18 16:26 Creatinine 0.50 mg/dL (0.52-1.04) L 12/05/18 16:26 Estimated GFR > 60.0 mL/min (>60) 12/05/18 16:26 BUN/Creatinine Ratio 22.0 (6-22) 12/05/18 16:26 Glucose 123 mg/dL (80-110) H 12/05/18 16:26 Calcium 10.2 mg/dL (8.4-10.2) 12/05/18 16:26 Total Bilirubin 0.8 mg/dL (0.2-1.3) 12/05/18 16:26 AST 46 IU/L (14-36) H 12/05/18 16:26 ALT 34 IU/L (9-52) 12/05/18 16:26 Alkaline Phosphatase 98 U/L (38-126) 12/05/18 16:26 Total Protein 7.5 g/dL (6.3-8.2) 12/05/18 16:26 Albumin 4.4 g/dL (3.5-5.0) 12/05/18 16:26 Globulin 3.1 g/dL (1.7-4.1) 12/05/18 16:26 Albumin/Globulin Ratio 1.4 (1.0-2.8) 12/05/18 16:26 Carcinoembryonic Ag 3.8 ng/mL (0.1-3.0) H 12/05/18 16:26 CA 15-3 Antigen 22 U/mL (< 32) 12/05/18 16:26 CA 19-9 Antigen 43 U/mL (< 34) H 12/05/18 16:26 CA 27-29 45 U/mL (< 38) H 12/05/18 16:26 CA 125 Antigen 13 U/mL (0-35) 12/05/18 16:26 - Imaging Additional studies: Procedures Colonoscopy (04/30/14) Excision of axillary lymph node (03/14/13) Incision with removal of foreign body or device from skin and subcutaneous tissue (06/26/14) Insertion of totally implantable vascular access device [VAD] (03/14/13) Local excision of lesion of breast (03/29/13) Other soft tissue x-ray of chest wall (03/14/13) Subtotal mastectomy (03/14/13) Assessment and Plan (1) Breast cancer Overvew: Vicky has history of bilateral breast cancer: (1) Right breast: stage II, T2 N1 M0 TNBC, poorly differentiated. Patient is status post partial mastectomy followed by adjuvant dose-dense AC chemotherapy, followed by 12 weeks of paclitaxel, last administered in September 2013. She completed consolidative radiation therapy at [facility]. 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 She underwent lumpectomy, chemo and radiation. Then, tamoxifen for about 3 years. Now she presents with left hip pain and MRI evidence of expansile lesion affecting left femoral neck, intertrochanteric region and proximal left femoral shaft, right sacrum and right iliac bone. A PET scan and bone scan of also demonstrated involvement in the spine and skull. There is also a right supraclavicular lymph node. Will refer her for an ultrasound-guided lymph node biopsy. I will also make referral for Radiation Oncology and have her follow-up with Dr. Carter in Orthopedics. She return to clinic here after her biopsy. If she has recurrence of ER positive breast cancer, treatment could be a hormone therapy such as Faslodex with CDK 4/6 inhibitor. If it is recurrence of her triple negative cancer, wainwright-based chemotherapy should be considered. Will need to review her BRCA testing and consider her for PAR P inhibitor 25 minutes was spent with the patient and her the majority in counseling. 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 Continue.
--- NOTE | 2019-01-04 12:40 | ONC.SCHED ---
Davide Sigala at [facility], no prior auth req for u/s biopsy. Call reference #[id number]
--- NOTE | 2019-01-18 15:30 | ONC.SCHED ---
Spoke with Rajesh @ [employer] ([phone]) re: status of Order added to Gale Carter's surgical procedure . He will get back to us with a status
[2019-01-18 15:39] VITALS: BP 117/73; PULSE 74; RESP 18; TEMP 36.4; O2SAT 99
--- NOTE | 2019-01-18 16:13 | ONC.PN ---
PN -Subjective Interval history: Diagnosis: 1. 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 Patient is status post partial mastectomy followed by adjuvant dose-dense AC chemotherapy, followed by 12 weeks of paclitaxel, last administered in September 2013. She completed consolidative radiation therapy at [facility]. 2. Left breast: stage II, T2 N0, invasive carcinoma, luminal-like subtype, diagnose about in 2008. She underwent lumpectomy, chemo and radiation. Then, tamoxifen for about 3 years. 3. Surgical repair of left hip fracture December 2018 Interval history: The patient is a 58-year-old woman who returns today for follow-up. She has a history of bilateral breast cancers. She had triple negative breast cancer in the right breast is in 2013. She also had left-sided ER positive breast cancer in 2008. Since her last visit with me, she developed increasing pain. She was found to have fracture. She has undergone surgical repair little bit more than a week ago. She has been working with physical therapy and walking with a walker. She still has some pain although it is better now than it had been previously. She has not noticed any other new aches or pains. No fevers or chills. No shortness of breath or cough. Appetite and energy level have been low but stable. She does have an appointment next week with Radiation Oncology. Patient has had genetic testing for BRCA 1 and 2 which was negative according to patient. mother: breast cancer maternal aunt: breast cancer paternal aunt: breast cancer Past Medical History 1. Hypertension. 2. Hypercholesterolemia. 3. GERD. 4. Arthritis. 5. Asthma. - Patient Self-Reported Symptoms SR Constitution: Fatigue/Malaise SR respiratory issues: Shortness of breath SR Musculoskeletal issues: Muscle weakness, Difficulty walking, Bone pain Home Medications and Allergies Home Medications Medication Instructions Recorded Confirmed Type multivitamin [Multiple Vitamins] 1 tab PO Q48H #0 03/03/16 01/18/19 History Vitamin B-12 50 mcg PO Q DAY #0 06/29/17 01/18/19 History albuterol sulfate 90 mcg/actuation See Rx Instructions INHALATION Q4H 12/15/17 01/18/19 Rx aerosol inhaler #3 each ipratropium-albuterol 0.5 mg-3 See Rx Instructions INHALATION 12/31/17 01/18/19 Rx mg(2.5 mg base)/3 mL nebulization Q2HP PRN #180 ml soln atorvastatin [Lipitor] 10 mg PO HS #90 tab 07/21/18 01/18/19 Rx gabapentin 900 mg PO BID 30 Days #180 cap 09/20/18 01/18/19 Rx atenolol 50 mg tablet 50 mg PO Q DAY #90 tab 11/07/18 01/18/19 Rx omeprazole 20 mg capsule,delayed 20 mg PO QDAY #90 cap 11/11/18 01/18/19 Rx release miscellaneous medical supply #1 each 12/30/18 01/06/19 Rx Calcium 600 + D(3) 2 cap PO DAILY 01/06/19 01/18/19 History Qvar RediHaler 2 inh INHALATION BID 01/06/19 01/18/19 History alprazolam [Xanax] 0.5 - 1 mg PO BIDP PRN #60 tab 01/10/19 01/18/19 Rx hydroxyzine pamoate [Vistaril] 25 mg PO BEDTIME PRN #15 cap 01/10/19 01/18/19 Rx oxycodone 10 mg PO Q4-6H PRN #40 tab 01/10/19 01/18/19 Rx aspirin 81 mg DAILY 01/18/19 01/18/19 History Allergies Allergy/AdvReac Type Severity Reaction Status Date / Time No Known Drug Allergies Allergy Verified 12/21/18 15:08 Exam Vital signs: Vital Signs Temp Pulse Resp BP Pulse Ox 01/18/19 15:39 97.5 F L 74 18 117/73 99 Intake and Output 01/18/19 01/18/19 01/18/19 07:59 15:59 23:59 Other: Weight 63.4 kg Patient Weight 01/18/19 23:59 Weight 63.4 kg - Constitutional positive no acute distress, positive average body habitus - Routine HEENT Exam Head: Present: normocephalic, atraumatic Eye: Present: EOMI, PERRL. Absent: conjunctival icterus, scleral injection ENT: Present: mucous membranes moist, oropharynx clear - Routine Neck Exam Present: supple, lymphadenopathy. Absent: thyromegaly Comments: She has a small right-sided node in the supraclavicular fossa. It is about a cm in size. - Routine Respiratory Exam Present: Clear to auscultation bilaterally. Absent: rales, wheezes - Routine Cardiovascular Exam Present: RRR, S1, S2. Absent: murmur - Routine Extremities Exam Absent: edema - Routine Skin Exam Present: intact. Absent: petechiae, rash - Routine Neurological Exam Present: alert, oriented X3 - Routine Psychiatric Exam Present: normal affect, normal thought process Results - Labs Laboratory Last Values WBC 6.4 X10^3/uL (4.5-11.0) 12/05/18 16:26 RBC 4.64 X10^6/uL (4.0-5.2) 12/05/18 16:26 Hgb 15.1 g/dL (12.0-16.0) 12/05/18 16:26 Hct 44.7 % (36-46) 12/05/18 16:26 MCV 96.3 fL (80-100) 12/05/18 16:26 MCH 32.7 PG (26-34) 12/05/18 16:26 MCHC 33.9 % (30-36) 12/05/18 16:26 RDW 12.4 % (11.6-14.8) 12/05/18 16:26 Plt Count 258 X10^3/uL (150-400) 12/05/18 16:26 Neut % (Auto) 62.3 % (50-75) 12/05/18 16:26 Lymph % (Auto) 21.4 % (25-40) L 12/05/18 16:26 [place] % (Auto) 12.9 % (3-14) 12/05/18 16:26 Eos % (Auto) 2.4 % (2-4) 12/05/18 16:26 Baso % (Auto) 1.0 % (0-2) 12/05/18 16:26 Neut # (Auto) 4000 /uL (7410-3313) 12/05/18 16:26 Lymph # (Auto) 1400 /uL (0989-8920) 12/05/18 16:26 [place] # (Auto) 800 /uL (0-900) 12/05/18 16:26 Eos # (Auto) 200 /uL (0-450) 12/05/18 16:26 Baso # (Auto) 100 /uL (0-100) 12/05/18 16:26 Sodium 138 mmol/L (137-145) 12/05/18 16:26 Potassium 4.1 mmol/L (3.4-5.1) 12/05/18 16:26 Chloride 99 mmol/L (98-107) 12/05/18 16:26 Carbon Dioxide 29 mmol/L (22-32) 12/05/18 16:26 BUN 11 mg/dL (7-17) 12/05/18 16:26 Creatinine 0.50 mg/dL (0.52-1.04) L 12/05/18 16:26 Estimated GFR > 60.0 mL/min (>60) 12/05/18 16:26 BUN/Creatinine Ratio 22.0 (6-22) 12/05/18 16:26 Glucose 123 mg/dL (80-110) H 12/05/18 16:26 Calcium 10.2 mg/dL (8.4-10.2) 12/05/18 16:26 Total Bilirubin 0.8 mg/dL (0.2-1.3) 12/05/18 16:26 AST 46 IU/L (14-36) H 12/05/18 16:26 ALT 34 IU/L (9-52) 12/05/18 16:26 Alkaline Phosphatase 98 U/L (38-126) 12/05/18 16:26 Total Protein 7.5 g/dL (6.3-8.2) 12/05/18 16:26 Albumin 4.4 g/dL (3.5-5.0) 12/05/18 16:26 Globulin 3.1 g/dL (1.7-4.1) 12/05/18 16:26 Albumin/Globulin Ratio 1.4 (1.0-2.8) 12/05/18 16:26 Carcinoembryonic Ag 3.8 ng/mL (0.1-3.0) H 12/05/18 16:26 CA 15-3 Antigen 22 U/mL (< 32) 12/05/18 16:26 CA 19-9 Antigen 43 U/mL (< 34) H 12/05/18 16:26 CA 27-29 45 U/mL (< 38) H 12/05/18 16:26 CA 125 Antigen 13 U/mL (0-35) 12/05/18 16:26 - Imaging Additional studies: Procedures Colonoscopy (04/30/14) Excision of Left Upper Femur, Open Approach (01/06/19) Excision of Left Upper Femur, Open Approach, Diagnostic (01/06/19) Excision of axillary lymph node (03/14/13) Incision with removal of foreign body or device from skin and subcutaneous tissue (06/26/14) Insertion of totally implantable vascular access device [VAD] (03/14/13) Local excision of lesion of breast (03/29/13) Other soft tissue x-ray of chest wall (03/14/13) Replacement of Left Hip Joint, Femoral Surface with Synthetic Substitute, Cemented, Open Approach (01/06/19) Subtotal mastectomy (03/14/13) Assessment and Plan (1) Breast cancer Overvew: Vicky has history of bilateral breast cancer: (1) Right breast: stage II, T2 N1 M0 TNBC, poorly differentiated. Patient is status post partial mastectomy followed by adjuvant dose-dense AC chemotherapy, followed by 12 weeks of paclitaxel, last administered in September 2013. She completed consolidative radiation therapy at [facility]. 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 She underwent lumpectomy, chemo and radiation. Then, tamoxifen for about 3 years. She now has metastatic disease with bone and lymph node involvement. Pathology shows that it is ER negative. Genetic sequencing test is still pending. She will undergo radiation therapy to her hip. She will then be ready for systemic therapy. She has previously had a germ line sequencing for BRCA1 and 2 mutation that was reportedly negative. If she has an acquired mutation, we could perhaps consider a PAR P inhibitor. If she does not have mutation, but does have PD L1, Abraxane with immunotherapy would be the preferred option. If not of those conditions or true, then [place]-based chemotherapy I think would be reasonable option. She will return to clinic in about 4 weeks for follow-up. By that time, we should have results of her genetic testing and she should have completed or nearly completed her radiation therapy. She would benefit I think from Zometa or Xgeva as well. 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 Continue.
--- NOTE | 2019-01-19 13:51 | PC.NURSE ---
Pt had appointment with Dr. Whaley yesterday 01/18. Pt calling today to clarify a few questions. Pt states, I can't remember the exact type of cancer I have, triple negative something. According to pt Dr. Whaley never told me what stage cancer I have. Per pt, she is scheduled for radiation appointment tomorrow. This junior copywriter confirmed pt's original DX in 2013 was triple negative breast cancer, per progress note. Also discussed general oncology staging 1-, pt verbalized understanding. Pt had further questions r/t to staging for her disease and treatment plan. Pt's next scheduled appt with Dr. Whaley is 02/15. Explained to pt that it would be best to discuss these questions directly with Dr. Whaley, pt agrees. Also directed pt to [facility]'s Patient Portal site. Informed pt that this junior copywriter would place note in Dr. Whaley's box regarding this phone conversation and request that he follow up with ot to address her questions and concerns. Pt aware Dr. Whaley will return to this office location next week, on Wednesday. Pt agreeable to plan.
--- NOTE | 2019-01-23 08:54 | ONC.SCHED ---
OmniSeq Order: Dr. Cadet cancelled OmniSeq order due to pathology report showing metastatic breast CA. Path report showed only ER tumor marker results. Dr. Cadet ordered AZ and Her2 tumor markers. Placed order with pathologist, Varsha Teresa MD.
--- NOTE | 2019-01-24 16:14 | PC.NURSE ---
RESULTS OF LAST BIOPSY: Patient requests a call from Dr. Whaley with the results of her biopsy. Please call her at [phone].
--- NOTE | 2019-02-13 15:52 | ONC.SCHED ---
patient called to cancel appt for 02/15/19 . . . she is seeing Dr Karina Dunham at [facility] this week. She will call if needs to get back on Dr Whaley's schedule
--- NOTE | 2019-03-16 09:36 | ONC.SCHED ---
left msg. returning patient's call.
== END ==
PROVIDERS: Family Provider Family Medicine; PCP Family Medicine; Visit Provider Internal Medicine Hematology & Oncology
DX: C79.51 Secondary malignant neoplasm of bone (principal); C77.9 Secondary and unspecified malignant neoplasm of lymph node, unspecified; G63 Polyneuropathy in diseases classified elsewhere; Z85.3 Personal history of malignant neoplasm of breast; I10 Essential (primary) hypertension; E78.00 Pure hypercholesterolemia, unspecified; K21.9 Gastro-esophageal reflux disease without esophagitis; J45.909 Unspecified asthma, uncomplicated; Z80.3 Family history of malignant neoplasm of breast
CPT/HCPCS: 36415; 72195; 73721; 80053; 82378; 85025; 86300; 86301; 86304; 99214; 99215; J1100; J2250; J2274; J2704

== ENCOUNTER → 2019-02-06 14:15 | Outpatient (CLI) | payer BC, SELFPAY ==
[2019-01-06 04:01] VITALS: BMI 20.7
--- NOTE | 2019-02-06 14:16 | DI.RAD.S_ITS ---
PROCEDURE: XR SHOULDER RT MIN 2V INDICATIONS: Right Shoulder pain TECHNIQUE: 3 views of the shoulder were acquired. COMPARISON: [facility], , SHOULDER MINIMUM 2VIEW RIGHT, 12/12/2011, 13:58. FINDINGS: Bones: No previously unidentified fractures or dislocations. No suspicious bony lesions. Visualized ribs appear intact. Near-normal anatomic alignment established after ORIF of the previously identified comminuted moderately impacted and displaced right humeral head/neck fracture. Soft tissues: No suspicious soft tissue calcifications. IMPRESSION: Near normal anatomic alignment established after ORIF at the right proximal humerus. Dictated by: Darien Slater M.D. on 02/06/2019 at 15:10 Approved by: Darien Slater M.D. on 02/06/2019 at 15:11
== END ==
PROVIDERS: PCP Family Medicine; Visit Provider Family Medicine
DX: M25.511 Pain in right shoulder (principal)
CPT/HCPCS: 73030

== ENCOUNTER 2019-02-12 06:24 | Emergency (ER) | payer BC, SELFPAY ==
[2019-01-06 04:01] VITALS: BMI 20.7
[2019-02-12 06:30] VITALS: BP 174/78; PULSE 89; RESP 16; TEMP 37.2; O2SAT 94; BMI 24.0
--- NOTE | 2019-02-12 06:30 | DI.RAD.S_ITS ---
PROCEDURE: XR HIP W PEL IF DONE LT 2V INDICATIONS: severe pain L hip and femur, no known injury TECHNIQUE: AP pelvis with lateral view(s) of the left hip(s). COMPARISON: [facility], , XR HIP W PEL IF DONE LT 2V, 01/07/2019, 17:17. FINDINGS: Bones: There is a displaced fracture of the greater trochanter of the left hip which is new and compared with the prior plain film dated 01/07/19. No other fracture or dislocation. The femoral prosthesis is in unchanged position when compared with the prior study. Soft tissues: The visualized bowel gas pattern is normal. No suspicious soft tissue calcifications. IMPRESSION: Displaced fracture of the left greater trochanter as above. Dictated by: Kate Brownlee M.D. on 02/12/2019 at 7:06 Approved by: Kate Brownlee M.D. on 02/12/2019 at 7:07
--- NOTE | 2019-02-12 06:30 | DI.RAD.S_ITS ---
PROCEDURE: XR FEMUR LT MIN 2V INDICATIONS: L femur pain TECHNIQUE: 2 views of the femur were acquired. COMPARISON: [facility], CR, XR HIP W PEL IF DONE LT 2V, 02/12/2019, 7:01. [facility], CR, XR FEMUR LT MIN 2V, 01/06/2019, 1:17. FINDINGS: Bones: The distal aspect of the left femoral prosthesis is in expected location and appears intact. No fracture or dislocation of the mid and distal femur. Soft tissues: No suspicious soft tissue calcifications or masses. IMPRESSION: No fracture or dislocation of the mid and distal femur. Dictated by: Kate Brownlee M.D. on 02/12/2019 at 7:08 Approved by: Kate Brownlee M.D. on 02/12/2019 at 7:08
[2019-02-12 06:59] LABS: Add Manual Diff / Slide Review NO; Basophils Absolute Auto 0 /uL (0-100); Basophils Percent Auto 0.8 % (0-2); Eosinophils Absolute Auto 200 /uL (0-450); Eosinophils Percent Auto 4.3 % (2-4); Hematocrit 42.5 % (36-46); Lymphocytes Absolute Auto 1300 /uL (1100-4500); Lymphocytes Percent Auto 29.7 % (25-40); Mean Corpuscular HGB Conc 32.9 % (30-36); Mean Corpuscular Hemoglobin 30.9 PG (26-34); Mean Corpuscular Volume 93.9 fL (80-100); Monocytes Absolute Auto 500 /uL (0-900); Monocytes Percent Auto 11.5 % (3-14); Neutrophils Absolute Auto 2400 /uL (1500-7000); Neutrophils Percent Auto 53.7 % (50-75); Platelet Count 222 X10^3/uL (150-400); Red Blood Cell Count 4.53 X10^6/uL (4.0-5.2); Red Cell Distribution Width 14.3 % (11.6-14.8); White Blood Cell Count 4.4 X10^3/uL (4.5-11.0)
[2019-02-12 07:10] LABS: BUN Creatinine Ratio 11.7 (6-22); Blood Urea Nitrogen 7 mg/dL (7-17); Calcium 9.8 mg/dL (8.4-10.2); Carbon Dioxide 30 mmol/L (22-32); Chloride 99 mmol/L (98-107); Estimated Glomerular Filt Rate > 60.0 mL/min (>60); Glucose 139 mg/dL (80-110); HEMOLYSIS < 15 (0-50); Potassium 3.9 mmol/L (3.4-5.1); Sodium 138 mmol/L (137-145)
--- NOTE | 2019-02-12 07:22 | ED.LOWEXIN ---
HPI - Extremity Injury (Lower) General Chief Complaint: Extremity Injury, Lower Stated Complaint: Hip pain Time Seen by Provider: 02/12/19 06:25 Source: patient Mode of arrival: EMS Limitations: no limitations History of Present Illness HPI Narrative: Female with metastatic breast cancer with recent left pathologic hip fracture in 01/06/2019. It was replaced she has been doing well until yesterday. She says yesterday she moved coffee table and turned and had immediate pain. She is able to bend her leg some after receiving fentanyl by EMS is but the pain is starting to come back. She has no numbness or tingling. She does have [place] at home which she says helped some. He continues radiation therapy for her breast cancer. Related Data Home Medications Medication Instructions Recorded Confirmed multivitamin [Multiple Vitamins] 1 tab PO Q48H #0 03/03/16 01/18/19 Vitamin B-12 50 mcg PO Q DAY #0 06/29/17 01/18/19 Calcium 600 + D(3) 2 cap PO DAILY 01/06/19 01/18/19 Qvar RediHaler 2 inh INHALATION BID 01/06/19 01/18/19 aspirin 81 mg DAILY 01/18/19 01/18/19 Previous Rx's Medication Instructions Recorded albuterol sulfate 90 mcg/actuation See Rx Instructions INHALATION Q4H 12/15/17 aerosol inhaler #3 each ipratropium-albuterol 0.5 mg-3 See Rx Instructions INHALATION 12/31/17 mg(2.5 mg base)/3 mL nebulization Q2HP PRN #180 ml soln atorvastatin [Lipitor] 10 mg PO HS #90 tab 07/21/18 gabapentin 900 mg PO BID 30 Days #180 cap 09/20/18 atenolol 50 mg tablet 50 mg PO Q DAY #90 tab 11/07/18 omeprazole 20 mg capsule,delayed 20 mg PO QDAY #90 cap 11/11/18 release miscellaneous medical supply #1 each 12/30/18 alprazolam [Xanax] 0.5 - 1 mg PO BIDP PRN #60 tab 01/10/19 hydroxyzine pamoate [Vistaril] 25 mg PO BEDTIME PRN #15 cap 01/10/19 oxycodone 10 mg PO Q4-6H PRN #40 tab 01/10/19 fluticasone propionate 250 1 inhalation INHALATION BID #60 01/25/19 mcg/actuation blister powder for each inhalation hydrocodone 5 mg-acetaminophen 325 1 - 2 tab PO Q6HP PRN #60 tab 01/31/19 mg tablet Allergies Allergy/AdvReac Type Severity Reaction Status Date / Time No Known Drug Allergies Allergy Verified 12/21/18 15:08 Review of Systems Review of Systems Narrative: GENERAL: Denies chills, fatigue, malaise, fever, sweats, travel HEENT: Denies sinus pain, ear pain, sore throat, difficulty swallowing, neck pain RESPIRATORY: Denies dyspnea, cough, wheezing, hemoptysis, sputum. CARDIOVASCULAR: Denies chest pain, palpitations, orthopnea, edema GASTROINTESTINAL: Denies nausea, vomiting, abdominal pain, diarrhea, constipation, melena. : Denies dysuria, frequency, incontinence, hematuria, urinary retention, flank pain. MUSCULOSKELETAL: See HPI SKIN: No rash, no erythema, no pruritus NEUROLOGIC: Denies weakness, dizziness, headache, numbness, change in speech, confusion PSYCHIATRIC: No concerning psychosocial issues. 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) Osteopenia after menopause (Chronic) Pancreatitis (Chronic ~2010) Vertigo (Chronic ~2011) Surgical History Anesthesia (Resolved) Breast cancer (Resolved ~2006) History of shoulder surgery (Resolved ~2011) Status post appendectomy (~1963) Status post total hip replacement, left (Acute) Family History Brother Age: 56 Scoliosis Father Heart disease Hypertension Mother Age: 82 Cancer Diabetes mellitus Social History household members: significant other Smoking Status: Former smoker alcohol intake: current alcohol intake frequency: 0-2 drinks per day Substance Use Type: does not use Exam Narrative Exam Narrative: GENERAL: Well-appearing, well-nourished and in no acute distress. HEENT: Head atraumatic,EOMI, pupils reactive, face symmetric CARDIOVASCULAR: Regular rate and rhythm without murmurs, rubs or gallops. RESPIRATORY: Breath sounds equal bilaterally, no wheezes rales or rhonchi. ABDOMEN: Soft, nontender. Normoactive bowel sounds all 4 quadrants. No guarding or rebound. EXTREMITIES: Normal range of motion, no clubbing or edema. Neurovascularly intact Legs are of equal length not tender to touch in left hip she actually is able to flex and extend the hip. NEUROLOGICAL: Alert and oriented x4.Normal gait and speech. SKIN: Warm, dry, no laceration, no petechiae, no rashes or lesions. Initial Vital Signs Initial Vital Signs: Vital Signs Temperature 98.9 F 02/12/19 06:30 Pulse Rate 89 02/12/19 06:30 Respiratory Rate 16 02/12/19 06:30 Blood Pressure 174/78 H 02/12/19 06:30 Pulse Oximetry 94 02/12/19 06:30 Course Orders Ordered: ED Orders 02/12/19 06:30 XR femur LT min 2V Stat XR hip w pel if done LT 2V Stat 02/12/19 06:48 Basic Metabolic Panel Stat Complete Blood Count AUTO DIFF Stat Discontinued Medications Hydromorphone HCl (Dilaudid) 0.5 mg IV NOW ONE Stop: 02/12/19 07:39 Last Admin: 02/12/19 08:16 Dose: 0.5 mg Documented by: GINGER Hydromorphone HCl (Dilaudid) 1 mg IV NOW ONE Stop: 02/12/19 10:04 Last Admin: 02/12/19 10:21 Dose: Not Given Documented by: GINGER Hydromorphone HCl (Dilaudid) 1 mg IV NOW ONE Stop: 02/12/19 10:04 Last Admin: 02/12/19 10:06 Dose: 1 mg Documented by: GINGER Consultations Consultation #1: Dr. Carter orthopedics has in ED to see and evaluate patient she has reviewed x-ray. At this time no operative measures to be taken pain control only may weight bear as tolerated Time: 08:37 Consultation #2: Dr paul, obtain an patient's symptoms test results questions is if radiation is still possibility with a new fracture. Recommends talking to oncology 1st. Time: 09:03 Consultation #3: Dr. Earl, hospitalist at [facility] updated patient's symptoms test results he kidney oncology is phone number also recommends speaking with them Time: 09:15 Additional Consultation(s): 9:22 a.m.Oncology at [facility] Dr. Louie, has been updated patient's symptoms test results agrees with transfer and recommends Radiation Oncology see patient. 9:[address] Earl updated on oncology recommendations of transferring Vital Signs Vital signs: Vital Signs - 8 hr 02/12/19 06:30 02/12/19 08:32 02/12/19 10:00 Temperature 98.9 F Pulse Rate 89 95 H 90 Respiratory Rate 16 16 16 Blood Pressure 174/78 H Blood Pressure [Right Arm] 146/93 H 120/80 Pulse Oximetry 94 95 100 MDM - Extremity Injury (Lower) Lab Data Attestation: I reviewed the patient's lab results. Result diagrams: 02/12/19 06:48 02/12/19 06:48 Labs: Lab Results 02/12/19 02/12/19 Range/Units 06:48 06:48 WBC 4.4 L (4.5-11.0) X10^3/uL RBC 4.53 (4.0-5.2) X10^6/uL Hgb 14.0 (12.0-16.0) g/dL Hct 42.5 (36-46) % MCV 93.9 (80-100) fL MCH 30.9 (26-34) PG MCHC 32.9 (30-36) % RDW 14.3 (11.6-14.8) % Plt Count 222 (150-400) X10^3/uL Neut % (Auto) 53.7 (50-75) % Lymph % (Auto) 29.7 (25-40) % [place] % (Auto) 11.5 (3-14) % Eos % (Auto) 4.3 H (2-4) % Baso % (Auto) 0.8 (0-2) % Neut # (Auto) 2400 (5830-4749) /uL Lymph # (Auto) 1300 (2517-4256) /uL [place] # (Auto) 500 (0-900) /uL Eos # (Auto) 200 (0-450) /uL Baso # (Auto) 0 (0-100) /uL Sodium 138 (137-145) mmol/L Potassium 3.9 (3.4-5.1) mmol/L Chloride 99 (98-107) mmol/L Carbon Dioxide 30 (22-32) mmol/L BUN 7 (7-17) mg/dL Creatinine 0.60 (0.52-1.04) mg/dL Estimated GFR > 60.0 (>60) mL/min BUN/Creatinine Ratio 11.7 (6-22) Glucose 139 H (80-110) mg/dL Calcium 9.8 (8.4-10.2) mg/dL Imaging Data Left hip: Radiologist's impression: PROCEDURE: XR HIP W PEL IF DONE LT 2V INDICATIONS: severe pain L hip and femur, no known injury TECHNIQUE: AP pelvis with lateral view(s) of the left hip(s). [facility], 17:17. FINDINGS: Bones: There is a displaced fracture of the greater trochanter of the left hip which is new and compared with the prior plain film dated 01/07/19. No other fracture or dislocation. The femoral prosthesis is in unchanged position when compared with the prior study. Soft tissues: The visualized bowel gas pattern is normal. No suspicious soft tissue calcifications. IMPRESSION: Displaced fracture of the left greater trochanter as above. Dictated by: Kate Brownlee M.D. on 02/12/2019 at 7:06 Left femur: Radiologist's impression: PROCEDURE: XR FEMUR LT MIN 2V INDICATIONS: L femur pain TECHNIQUE: 2 views of the femur were acquired. COMPARISON: [facility], KIRSTEN, XR HIP W PEL IF DONE LT 2V, 02/12/2019, 7:01. [facility], , XR FEMUR LT MIN 2V, 01/06/2019, 1:17. FINDINGS: Bones: The distal aspect of the left femoral prosthesis is in expected location and appears intact. No fracture or dislocation of the mid and distal femur. Soft tissues: No suspicious soft tissue calcifications or masses. IMPRESSION: No fracture or dislocation of the mid and distal femur. Dictated by: Kate Brownlee M.D. on 02/12/2019 at 7:08 MDM Narrative Medical decision making narrative: The patient's pain is better after Dilaudid. Decision to be transferred to [facility] so she can continue her radiation. Discharge Plan Departure Patient Disposition: [facility] Clinical Impression: Closed fracture of greater trochanter of left femur Qualifiers: Encounter type: initial encounter Fracture alignment: displaced Qualified Code(s): S72.112A - Displaced fracture of greater trochanter of left femur, initial encounter for closed fracture Discharge Date/Time: 02/12/19 10:25 Prescriptions: No Action multivitamin [Multiple Vitamins] 1 EACH tablet 1 tab PO Q48H Qty: 0 RF: 0 Vitamin B-12 50 MCG tablet 50 mcg PO Q DAY Qty: 0 RF: 0 ipratropium-albuterol 0.5 mg-3 mg(2.5 mg base)/3 mL solution for nebulization See Rx Instructions INHALATION Q2HP PRN (Reason: SOB) Qty: 180 RF: 2 atorvastatin [Lipitor] 10 mg tablet 10 mg PO HS Qty: 90 RF: 3 atenolol 50 mg tablet 50 mg PO Q DAY Qty: 90 RF: 3 omeprazole 20 mg capsule,delayed release(DR/EC) 20 mg PO QDAY Qty: 90 RF: 0 (DME) miscellaneous medical supply Misc See Rx Instructions .ROUTE .MEDSUPPLY Qty: 1 RF: 0 Flovent Diskus 250 mcg/actuation blister with device 1 inhalation INHALATION BID Qty: 60 RF: 3 hydrocodone-acetaminophen [[place]] 5-325 mg tablet 1 - 2 tab PO Q6HP PRN (Reason: pain) Qty: 60 RF: 0 albuterol sulfate [Proventil HFA] 90 mcg/actuation HFA aerosol inhaler See Rx Instructions INHALATION Q4H Qty: 3 RF: 8 gabapentin 300 mg Capsule 900 mg PO BID 30 Days Qty: 180 RF: 11 aspirin 81 mg Tablet,Delayed Release (Dr/Ec) 81 mg DAILY RF: 0 Calcium 600 + D(3) 600 mg calcium- 200 unit Capsule 2 cap PO DAILY RF: 0 Qvar RediHaler 80 mcg/actuation Hfa Aerosol Breath Activated 2 inh INHALATION BID RF: 0 oxycodone 10 mg tablet 10 mg PO Q4-6H PRN (Reason: pain) Qty: 40 RF: 0 alprazolam [Xanax] 0.5 mg tablet 0.5 - 1 mg PO BIDP PRN (Reason: anxiety) Qty: 60 RF: 1 hydroxyzine pamoate [Vistaril] 25 mg capsule 25 mg PO BEDTIME PRN (Reason: muscle spasms) Qty: 15 RF: 0 Referrals: Janes Hansen MD [Primary Care Provider] -
[2019-02-12] MEDS: HYDROMORPHONE 0.5 MG INJ IV (08:16)
[2019-02-12 08:32] VITALS: BP 146/93; PULSE 95; RESP 16; O2SAT 95
[2019-02-12 10:00] VITALS: BP 120/80; PULSE 90; RESP 16; O2SAT 100
[2019-02-12] MEDS: HYDROMORPHONE 1 MG INJ IV (10:06)
--- NOTE | 2019-02-12 12:49 | P.CONS_ITS ---
History of Present Illness Consult details Date Patient Seen: 02/12/19 Time Patient Seen: 08:20 Chief complaint: Hip pain Reason for consult: Worsening left hip pain Requesting provider: [place] Narrative: This is a 58-year-old female who is well known to me with a history of metastatic breast cancer with metastases to her left femur. She is status post the left hip cemented unipolar and biopsy of her left proximal femur with findings of a poorly differentiated likely breast cancer in her proximal femur. She has been doing reasonably well with her left hip unipolar but then was bent over pulling on a table today when she noted worsening left hip pain. She is currently undergoing radiation treatment for her left proximal femur and has 5 radiation appointments left this coming week. She is also scheduled to be seen at [facility] in [place] for additional recommendations regarding her metastatic cancer. 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) Osteopenia after menopause (Chronic) Pancreatitis (Chronic ~2010) Vertigo (Chronic ~2011) Surgical History Anesthesia (Resolved) Breast cancer (Resolved ~2006) History of shoulder surgery (Resolved ~2011) Status post appendectomy (~1963) Status post total hip replacement, left (Acute) Family History Brother Age: 56 Scoliosis Father Heart disease Hypertension Mother Age: 82 Cancer Diabetes mellitus Social History household members: significant other Smoking Status: Former smoker alcohol intake: current Meds Home Medications and Allergies Home Medications Medication Instructions Recorded Confirmed Type multivitamin [Multiple Vitamins] 1 tab PO Q48H #0 03/03/16 01/18/19 History Vitamin B-12 50 mcg PO Q DAY #0 06/29/17 01/18/19 History albuterol sulfate 90 mcg/actuation See Rx Instructions INHALATION Q4H 12/15/17 1 03/20/18 Rx aerosol inhaler #3 each ipratropium-albuterol 0.5 mg-3 See Rx Instructions INHALATION 12/31/17 01/18/19 Rx mg(2.5 mg base)/3 mL nebulization Q2HP PRN #180 ml soln atorvastatin [Lipitor] 10 mg PO HS #90 tab 07/21/18 01/18/19 Rx gabapentin 900 mg PO BID 30 Days #180 cap 09/20/18 01/18/19 Rx atenolol 50 mg tablet 50 mg PO Q DAY #90 tab 11/07/18 01/18/19 Rx omeprazole 20 mg capsule,delayed 20 mg PO QDAY #90 cap 11/11/18 01/18/19 Rx release miscellaneous medical supply #1 each 12/30/18 01/06/19 Rx Calcium 600 + D(3) 2 cap PO DAILY 01/06/19 01/18/19 History Qvar RediHaler 2 inh INHALATION BID 01/06/19 01/18/19 History alprazolam [Xanax] 0.5 - 1 mg PO BIDP PRN #60 tab 01/10/19 01/18/19 Rx hydroxyzine pamoate [Vistaril] 25 mg PO BEDTIME PRN #15 cap 01/10/19 01/18/19 Rx oxycodone 10 mg PO Q4-6H PRN #40 tab 01/10/19 01/18/19 Rx aspirin 81 mg DAILY 01/18/19 01/18/19 History fluticasone propionate 250 1 inhalation INHALATION BID #60 01/25/19 Rx mcg/actuation blister powder for each inhalation hydrocodone 5 mg-acetaminophen 325 1 - 2 tab PO Q6HP PRN #60 tab 01/31/19 Rx mg tablet Allergies Allergy/AdvReac Type Severity Reaction Status Date / Time No Known Drug Allergies Allergy Verified 12/21/18 15:08 Review of Systems Review of Systems Narrative: She notes some moderate generalized fatigue she has not had significant worsening left hip pain or other bone pain, she denies any recent change in her bowel or bladder or increased respiratory problems. Exam Vital Signs (past 8 hours): - 02/12/19 06:30 02/12/19 08:32 02/12/19 10:00 Temperature 98.9 F Pulse Rate 89 95 H 90 Respiratory Rate 16 16 16 Blood Pressure 174/78 H Blood Pressure [Right Arm] 146/93 H 120/80 Pulse Oximetry 94 95 100 Oxygen Delivery Method Nasal Cannula Oxygen Flow Rate 2 Narrative Exam Narrative: She is resting comfortably in bed, she is alert she is oriented, neck is supple, cor regular rate and rhythm lungs clear, abdomen benign, left lower extremity shows a well-healed posterolateral incision, she does have some slight edema in the left lower extremity, she is tender over the greater trochanter and does have some pain with hip range of motion, pelvis is stable Objective Labs Result Diagrams: 02/12/19 06:48 02/12/19 06:48 Labs: Laboratory Results - last 24 hr 02/12/19 02/12/19 06:48 06:48 WBC 4.4 L RBC 4.53 Hgb 14.0 Hct 42.5 MCV 93.9 MCH 30.9 MCHC 32.9 RDW 14.3 Plt Count 222 Neut % (Auto) 53.7 Lymph % (Auto) 29.7 [place] % (Auto) 11.5 Eos % (Auto) 4.3 H Baso % (Auto) 0.8 Neut # (Auto) 2400 Lymph # (Auto) 1300 [place] # (Auto) 500 Eos # (Auto) 200 Baso # (Auto) 0 Sodium 138 Potassium 3.9 Chloride 99 Carbon Dioxide 30 BUN 7 Creatinine 0.60 Estimated GFR > 60.0 BUN/Creatinine Ratio 11.7 Glucose 139 H Calcium 9.8 Her x-rays show a left cemented unipolar with acceptable overall alignment, there is evidence of the left greater trochanter fracture which is minimally displaced, prosthesis appears to be stable, Assessment & Plan Assessment & Plan narrative: Impression pathological left greater trochanter fracture with a known history of metastatic breast cancer to the left proximal femur, stable left unipolar replacement with no evidence of loosening or subluxation Plan: I think she should continue with her radiation treatment for her left proximal femur. Her fracture is a pathological fracture with softened left g reater trochanter tumor bone. She can be weight-bearing as tolerated on the left lower extremity despite the fracture. She should avoid hip abductor strengthening exercises. She had difficulty mobilizing and I anticipate she requires admission for pain control and an evaluation by Physical therapy. She is scheduled for radiation therapy tomorrow in [place] and after discussion it was opted to have her transferred to [facility] so that she can get radiation and appropriate care. Time Spent With Patient Time with patient: 15-24 minutes
== END 2019-02-12 10:25 | disposition short-term general hospital (02) ==
PROVIDERS: Emergency Medicine; Emergency Provider Emergency Medicine; PCP Family Medicine
DX: S72.112A Displaced fracture of greater trochanter of left femur, initial encounter for closed fracture (principal)
CPT/HCPCS: 36415; 73502; 73552; 80048; 85025; 96374; 96376; 99283; 99284; J1170

== ENCOUNTER → 2019-03-23 13:49 | Outpatient (CLI) | payer BC, SELFPAY ==
[2019-01-06 04:01] VITALS: BMI 20.7
== END ==
PROVIDERS: PCP Family Medicine; Visit Provider Family Medicine
DX: M95.8 Other specified acquired deformities of musculoskeletal system (principal)
CPT/HCPCS: 95860

== ENCOUNTER → 2019-07-13 11:52 | Outpatient (CLI) | payer BC, SELFPAY ==
[2019-01-06 04:01] VITALS: BMI 20.7
[2019-07-13 12:25] LABS: Add Manual Diff / Slide Review NO; Basophils Absolute Auto 0 /uL (0-100); Eosinophils Absolute Auto 100 /uL (0-450); Eosinophils Percent Auto 2.9 % (2-4); Hematocrit 42.1 % (36-46); Hemoglobin 14.4 g/dL (12.0-16.0); Lymphocytes Absolute Auto 1100 /uL (1100-4500); Lymphocytes Percent Auto 23.3 % (25-40); Mean Corpuscular HGB Conc 34.1 % (30-36); Mean Corpuscular Hemoglobin 36.8 PG (26-34); Mean Corpuscular Volume 107.7 fL (80-100); Monocytes Absolute Auto 600 /uL (0-900); Monocytes Percent Auto 12.6 % (3-14); Neutrophils Absolute Auto 3000 /uL (1500-7000); Neutrophils Percent Auto 60.2 % (50-75); Platelet Count 228 X10^3/uL (150-400); Red Blood Cell Count 3.91 X10^6/uL (4.0-5.2); Red Cell Distribution Width 18.3 % (11.6-14.8); White Blood Cell Count 4.9 X10^3/uL (4.5-11.0)
[2019-07-13 12:42] LABS: Alanine Aminotransferase 20 IU/L (<35); Albumin 4.6 g/dL (3.5-5.0); Albumin Globulin Ratio 1.4 (1.0-2.8); Alkaline Phosphatase 64 U/L (38-126); Aspartate Aminotransferase 37 IU/L (14-36); BUN Creatinine Ratio 17.2 (6-22); Bilirubin Total 0.8 mg/dL (0.2-1.3); Blood Urea Nitrogen 10 mg/dL (7-17); Calcium 10.1 mg/dL (8.4-10.2); Carbon Dioxide 29 mmol/L (22-32); Chloride 97 mmol/L (98-107); Estimated Glomerular Filt Rate > 60.0 mL/min (>60); Globulin 3.3 g/dL (1.7-4.1); Glucose 107 mg/dL (80-110); HEMOLYSIS < 15 (0-50); Potassium 3.8 mmol/L (3.4-5.1); Sodium 136 mmol/L (137-145); Total Protein 7.9 g/dL (6.3-8.2)
[2019-07-13 13:13] LABS: Carcinoembryonic Antigen 4.5 ng/mL (0.1-3.0)
[2019-07-14 06:36] LABS: CA 15-3 27.5 U/mL (0.0-25.0)
== END ==
PROVIDERS: PCP Family Medicine
DX: C50.919 Malignant neoplasm of unspecified site of unspecified female breast (principal)
CPT/HCPCS: 36415; 80053; 82378; 85025; 86300

== ENCOUNTER → 2019-09-02 08:53 | Outpatient (CLI) | payer BC, SELFPAY ==
[2019-01-06 04:01] VITALS: BMI 20.7
[2019-09-03 01:13] LABS: COVID19 Sendout Not Detected (Not Detect)
== END ==
PROVIDERS: PCP Family Medicine; Visit Provider Physician Assistant
DX: Z01.812 Encounter for preprocedural laboratory examination (principal)
CPT/HCPCS: 87635

== ENCOUNTER → 2019-09-29 10:37 | Outpatient (CLI) | payer BC, SELFPAY ==
[2019-01-06 04:01] VITALS: BMI 20.7
[2019-09-29 11:58] LABS: Add Manual Diff / Slide Review NO; Basophils Absolute Auto 0 /uL (0-100); Basophils Percent Auto 0.5 % (0-2); Eosinophils Absolute Auto 100 /uL (0-450); Eosinophils Percent Auto 2.7 % (2-4); Hematocrit 42.1 % (36-46); Hemoglobin 14.5 g/dL (12.0-16.0); Lymphocytes Absolute Auto 1100 /uL (1100-4500); Lymphocytes Percent Auto 25.7 % (25-40); Mean Corpuscular HGB Conc 34.5 % (30-36); Mean Corpuscular Hemoglobin 38.3 PG (26-34); Monocytes Absolute Auto 500 /uL (0-900); Monocytes Percent Auto 11.7 % (3-14); Neutrophils Absolute Auto 2600 /uL (1500-7000); Neutrophils Percent Auto 59.4 % (50-75); Platelet Count 180 X10^3/uL (150-400); Red Blood Cell Count 3.79 X10^6/uL (4.0-5.2); Red Cell Distribution Width 16.4 % (11.6-14.8); White Blood Cell Count 4.4 X10^3/uL (4.5-11.0)
[2019-09-29 12:23] LABS: Anisocytosis 1+; Macrocytosis 3+
[2019-09-29 12:33] LABS: Alanine Aminotransferase 29 IU/L (<35); Albumin 4.5 g/dL (3.5-5.0); Albumin Globulin Ratio 1.6 (1.0-2.8); Alkaline Phosphatase 65 U/L (38-126); Aspartate Aminotransferase 53 IU/L (14-36); BUN Creatinine Ratio 16.3 (6-22); Bilirubin Total 1.5 mg/dL (0.2-1.3); Blood Urea Nitrogen 8 mg/dL (7-17); Calcium 10.7 mg/dL (8.4-10.2); Carbon Dioxide 28 mmol/L (22-32); Chloride 98 mmol/L (98-107); Estimated Glomerular Filt Rate > 60.0 mL/min (>60); Globulin 2.9 g/dL (1.7-4.1); Glucose 143 mg/dL (80-110); HEMOLYSIS 16 (0-50); Potassium 3.7 mmol/L (3.4-5.1); Sodium 135 mmol/L (137-145); Total Protein 7.4 g/dL (6.3-8.2)
[2019-09-29 13:00] LABS: Cancer Antigen 125 11.5 U/mL (0-35); Carcinoembryonic Antigen 3.3 ng/mL (0.1-3.0)
[2019-10-01 07:08] LABS: CA 15-3 29.2 U/mL (0.0-25.0)
== END ==
PROVIDERS: PCP Family Medicine; Referring Provider Internal Medicine; Visit Provider Internal Medicine
DX: C50.919 Malignant neoplasm of unspecified site of unspecified female breast (principal)
CPT/HCPCS: 36415; 80053; 82378; 85025; 86300; 86304

== ENCOUNTER → 2019-10-11 10:25 | Outpatient (CLI) | payer BC, SELFPAY ==
[2019-01-06 04:01] VITALS: BMI 20.7
--- NOTE | 2019-10-11 10:27 | DI.RAD.S_ITS ---
PROCEDURE: FL UPPER GI W AIR INDICATIONS: Reflux COMPARISON: None. FINDINGS: KUB: Preprocedural almond paste molder film demonstrates a normal bowel gas pattern. No suspicious abdominal calcifications. Visualized solid organ contours appear normal. Bony structures appear unremarkable. Esophagus: Esophageal mucosa is normal on air-contrast views. On single-contrast views, there is normal esophageal peristalsis. No strictures, extrinsic mass effects. Small Zenker's diverticulum noted. No hiatal hernia. Numerous episodes of gastroesophageal reflux were noted during the examination which projected to the upper thoracic/lower cervical esophagus. Gastroesophageal reflux occurred without provocative maneuvers. There is normal transit of a calibrated barium tablet through the esophagus. Stomach: The stomach is normally distensible, with normal rugal fold thickness. No mucosal masses or ulcers. Pylorus and duodenal bulb appear normal in morphology. Duodenal folds are normal in thickness as well. There is a 4.5 by 2.7 centimeter diverticulum involving the medial margin of the 2nd portion the duodenum. IMPRESSION: 1. Severe gastroesophageal reflux which occurs without provocative maneuvers. 2. No stricture , mass or extrinsic mass effect. 3. Small Zenker's diverticulum. 4. Moderate-sized duodenal diverticulum. Dictated by: Madelin Linton MD, PhD on 10/11/2019 at 11:44 Approved by: Madelin Linton MD, PhD on 10/11/2019 at 11:48
== END ==
PROVIDERS: PCP Family Medicine; Referring Provider Family Medicine; Visit Provider Family Medicine
DX: K21.9 Gastro-esophageal reflux disease without esophagitis (principal); K22.5 Diverticulum of esophagus, acquired; K57.10 Diverticulosis of small intestine without perforation or abscess without bleeding
CPT/HCPCS: 74246

== ENCOUNTER → 2019-10-23 14:22 | Outpatient (CLI) | payer BC, SELFPAY ==
[2019-01-06 04:01] VITALS: BMI 20.7
[2019-10-23 15:20] LABS: Add Manual Diff / Slide Review NO; Basophils Absolute Auto 0 /uL (0-100); Basophils Percent Auto 0.7 % (0-2); Eosinophils Absolute Auto 100 /uL (0-450); Eosinophils Percent Auto 1.8 % (2-4); Hematocrit 41.3 % (36-46); Lymphocytes Absolute Auto 1200 /uL (1100-4500); Lymphocytes Percent Auto 24.8 % (25-40); Mean Corpuscular Hemoglobin 38.4 PG (26-34); Mean Corpuscular Volume 113.2 fL (80-100); Monocytes Absolute Auto 700 /uL (0-900); Monocytes Percent Auto 14.7 % (3-14); Neutrophils Absolute Auto 2900 /uL (1500-7000); Platelet Count 232 X10^3/uL (150-400); Red Blood Cell Count 3.65 X10^6/uL (4.0-5.2); Red Cell Distribution Width 16.6 % (11.6-14.8)
[2019-10-23 15:33] LABS: Anisocytosis 2+; Stomatocytes 2+
[2019-10-23 16:32] LABS: Alanine Aminotransferase 36 IU/L (<35); Albumin 4.7 g/dL (3.5-5.0); Albumin Globulin Ratio 1.7 (1.0-2.8); Alkaline Phosphatase 60 U/L (38-126); Aspartate Aminotransferase 51 IU/L (14-36); BUN Creatinine Ratio 15.2 (6-22); Bilirubin Total 1.2 mg/dL (0.2-1.3); Blood Urea Nitrogen 10 mg/dL (7-17); Calcium 10.2 mg/dL (8.4-10.2); Carbon Dioxide 31 mmol/L (22-32); Chloride 96 mmol/L (98-107); Estimated Glomerular Filt Rate > 60.0 mL/min (>60); Globulin 2.8 g/dL (1.7-4.1); Glucose 86 mg/dL (80-110); HEMOLYSIS < 15 (0-50); Potassium 4.2 mmol/L (3.4-5.1); Sodium 133 mmol/L (137-145); Total Protein 7.5 g/dL (6.3-8.2)
[2019-10-23 16:48] LABS: Vitamin D 25 Hydroxy (D3) 45.8 ng/mL (30.0-100.0)
[2019-10-23 17:02] LABS: Cancer Antigen 125 11.5 U/mL (0-35); Carcinoembryonic Antigen 3.2 ng/mL (0.1-3.0)
[2019-10-24 07:10] LABS: CA 15-3 29.9 U/mL (0.0-25.0)
== END ==
PROVIDERS: PCP Family Medicine; Referring Provider Internal Medicine; Visit Provider Internal Medicine
DX: C50.919 Malignant neoplasm of unspecified site of unspecified female breast (principal)
CPT/HCPCS: 36415; 80053; 82306; 82378; 85025; 86300; 86304

== ENCOUNTER → 2019-11-16 14:37 | Outpatient (CLI) | payer BC, SELFPAY ==
[2019-01-06 04:01] VITALS: BMI 20.7
[2019-11-16 15:37] LABS: Add Manual Diff / Slide Review NO; Basophils Absolute Auto 0 /uL (0-100); Basophils Percent Auto 0.8 % (0-2); Eosinophils Absolute Auto 100 /uL (0-450); Eosinophils Percent Auto 2.5 % (2-4); Hematocrit 43.9 % (36-46); Hemoglobin 14.9 g/dL (12.0-16.0); Lymphocytes Absolute Auto 1300 /uL (1100-4500); Lymphocytes Percent Auto 23.4 % (25-40); Mean Corpuscular HGB Conc 33.8 % (30-36); Mean Corpuscular Hemoglobin 37.7 PG (26-34); Mean Corpuscular Volume 111.6 fL (80-100); Monocytes Absolute Auto 800 /uL (0-900); Monocytes Percent Auto 15.6 % (3-14); Neutrophils Absolute Auto 3100 /uL (1500-7000); Neutrophils Percent Auto 57.7 % (50-75); Platelet Count 220 X10^3/uL (150-400); Red Blood Cell Count 3.94 X10^6/uL (4.0-5.2); Red Cell Distribution Width 16.7 % (11.6-14.8); White Blood Cell Count 5.4 X10^3/uL (4.5-11.0)
[2019-11-16 15:57] LABS: Macrocytosis 2+
[2019-11-16 16:19] LABS: Alanine Aminotransferase 41 IU/L (<35); Albumin 4.6 g/dL (3.5-5.0); Albumin Globulin Ratio 1.5 (1.0-2.8); Alkaline Phosphatase 58 U/L (38-126); Aspartate Aminotransferase 55 IU/L (14-36); BUN Creatinine Ratio 12.8 (6-22); Blood Urea Nitrogen 11 mg/dL (7-17); Carbon Dioxide 31 mmol/L (22-32); Chloride 97 mmol/L (98-107); Estimated Glomerular Filt Rate > 60.0 mL/min (>60); Glucose 91 mg/dL (80-110); HEMOLYSIS < 15 (0-50); Potassium 3.9 mmol/L (3.4-5.1); Sodium 136 mmol/L (137-145); Total Protein 7.6 g/dL (6.3-8.2)
[2019-11-16 16:50] LABS: Cancer Antigen 125 12.2 U/mL (0-35); Carcinoembryonic Antigen 3.6 ng/mL (0.1-3.0)
[2019-11-17 07:09] LABS: CA 15-3 33.1 U/mL (0.0-25.0)
== END ==
PROVIDERS: PCP Family Medicine; Referring Provider Internal Medicine Medical Oncology; Visit Provider Internal Medicine Medical Oncology
DX: C50.919 Malignant neoplasm of unspecified site of unspecified female breast (principal)
CPT/HCPCS: 36415; 80053; 82378; 85025; 86300; 86304

== ENCOUNTER → 2019-12-06 15:16 | Outpatient (CLI) | payer BC, SELFPAY ==
[2019-01-06 04:01] VITALS: BMI 20.7
[2019-12-06 16:14] LABS: Add Manual Diff / Slide Review NO; Basophils Absolute Auto 0 /uL (0-100); Basophils Percent Auto 0.6 % (0-2); Eosinophils Absolute Auto 100 /uL (0-450); Eosinophils Percent Auto 2.2 % (2-4); Hematocrit 42.6 % (36-46); Hemoglobin 14.5 g/dL (12.0-16.0); Lymphocytes Absolute Auto 1100 /uL (1100-4500); Lymphocytes Percent Auto 20.9 % (25-40); Monocytes Absolute Auto 500 /uL (0-900); Monocytes Percent Auto 9.6 % (3-14); Neutrophils Absolute Auto 3600 /uL (1500-7000); Neutrophils Percent Auto 66.7 % (50-75); Platelet Count 199 X10^3/uL (150-400); Red Blood Cell Count 3.81 X10^6/uL (4.0-5.2); White Blood Cell Count 5.4 X10^3/uL (4.5-11.0)
[2019-12-06 16:17] LABS: Mean Corpuscular Volume 111.8 fL (80-100)
[2019-12-06 16:32] LABS: Alanine Aminotransferase 32 IU/L (<35); Albumin 4.3 g/dL (3.5-5.0); Albumin Globulin Ratio 1.5 (1.0-2.8); Alkaline Phosphatase 64 U/L (38-126); Aspartate Aminotransferase 46 IU/L (14-36); BUN Creatinine Ratio 12.9 (6-22); Bilirubin Total 1.1 mg/dL (0.2-1.3); Blood Urea Nitrogen 8 mg/dL (7-17); Calcium 9.5 mg/dL (8.4-10.2); Carbon Dioxide 32 mmol/L (22-32); Chloride 99 mmol/L (98-107); Estimated Glomerular Filt Rate > 60.0 mL/min (>60); Globulin 2.9 g/dL (1.7-4.1); Glucose 113 mg/dL (80-110); HEMOLYSIS < 15 (0-50); Potassium 3.8 mmol/L (3.4-5.1); Sodium 137 mmol/L (137-145); Total Protein 7.2 g/dL (6.3-8.2)
[2019-12-06 16:47] LABS: Macrocytosis 1+
[2019-12-06 17:01] LABS: Cancer Antigen 125 12.5 U/mL (0-35); Carcinoembryonic Antigen 3.5 ng/mL (0.1-3.0)
== END ==
PROVIDERS: PCP Family Medicine; Referring Provider Internal Medicine Medical Oncology; Visit Provider Internal Medicine Medical Oncology
DX: C50.919 Malignant neoplasm of unspecified site of unspecified female breast (principal)
CPT/HCPCS: 36415; 80053; 82378; 85025; 86300; 86304

== ENCOUNTER → 2020-01-02 08:26 | Outpatient (CLI) | payer BC, SELFPAY ==
[2019-01-06 04:01] VITALS: BMI 20.7
[2020-01-02 10:22] LABS: Add Manual Diff / Slide Review NO; Basophils Absolute Auto 0 /uL (0-100); Basophils Percent Auto 0.2 % (0-2); Eosinophils Absolute Auto 0 /uL (0-450); Hematocrit 44.1 % (36-46); Hemoglobin 15.1 g/dL (12.0-16.0); Lymphocytes Absolute Auto 1500 /uL (1100-4500); Lymphocytes Percent Auto 25.5 % (25-40); Mean Corpuscular HGB Conc 34.2 % (30-36); Mean Corpuscular Hemoglobin 37.7 PG (26-34); Mean Corpuscular Volume 110.4 fL (80-100); Monocytes Absolute Auto 800 /uL (0-900); Monocytes Percent Auto 13.4 % (3-14); Neutrophils Absolute Auto 3500 /uL (1500-7000); Neutrophils Percent Auto 60.9 % (50-75); Platelet Count 238 X10^3/uL (150-400); Red Blood Cell Count 3.99 X10^6/uL (4.0-5.2); Red Cell Distribution Width 16.2 % (11.6-14.8); White Blood Cell Count 5.8 X10^3/uL (4.5-11.0)
[2020-01-02 10:33] LABS: Hemoglobin A1C% w Est Avg Glu 5.6 % (4.0-6.0)
[2020-01-02 10:42] LABS: Alanine Aminotransferase 30 IU/L (<35); Albumin 4.7 g/dL (3.5-5.0); Albumin Globulin Ratio 1.5 (1.0-2.8); Alkaline Phosphatase 63 U/L (38-126); Aspartate Aminotransferase 38 IU/L (14-36); BUN Creatinine Ratio 18.6 (6-22); Blood Urea Nitrogen 11 mg/dL (7-17); Calcium 10.1 mg/dL (8.4-10.2); Carbon Dioxide 30 mmol/L (22-32); Chloride 100 mmol/L (98-107); Cholesterol 205 mg/dL (140-199); Estimated Glomerular Filt Rate > 60.0 mL/min (>60); Globulin 3.1 g/dL (1.7-4.1); Glucose 129 mg/dL (80-110); HEMOLYSIS < 15 (0-50); Potassium 4.2 mmol/L (3.4-5.1); Sodium 137 mmol/L (137-145); Total Protein 7.8 g/dL (6.3-8.2); Triglycerides 134 mg/dL (35-150)
[2020-01-02 10:51] LABS: HDL Cholesterol 109 mg/dL (40-60); LDL Cholesterol Calculated 69 mg/dL (<100)
[2020-01-02 11:00] LABS: Thyroid Stimulating Hormone 1.63 uIU/mL (0.47-4.68)
[2020-01-02 11:08] LABS: Macrocytosis 1+; Stomatocytes 2+
== END ==
PROVIDERS: PCP Family Medicine; Referring Provider Family Medicine; Visit Provider Family Medicine
DX: E78.2 Mixed hyperlipidemia (principal)
CPT/HCPCS: 36415; 80053; 80061; 83036; 84443; 85025

== ENCOUNTER → 2020-01-18 12:20 | Outpatient (CLI) | payer BC, SELFPAY ==
[2020-01-18 09:44] VITALS: BMI 20.7
--- NOTE | 2020-01-18 12:21 | DI.RAD.S_ITS ---
PROCEDURE: XR ANKLE RT MIN 3V INDICATIONS: new onset pain TECHNIQUE: 3 views of the ankle were acquired. COMPARISON: [facility], , XR FOOT RT MIN 3V, 01/18/2020, 11:20. FINDINGS: Bones: No fractures or dislocations. Ankle mortise is normally aligned. No suspicious bony lesions. Small posterior calcaneal enthesophyte. Soft tissues: No tibiotalar joint effusion. Achilles tendon appears normal. IMPRESSION: No definite radiographic abnormality. If pain persists with conservative management, consider cross sectional imaging such as CT or MRI for further assessment. Dictated by: Nnamdi Nix [facility] Interpreted: Tish Joseph MD on 01/18/2020 at 13:35 Approved by: Tish Joseph M.D. on 01/18/2020 at 16:19
--- NOTE | 2020-01-18 12:21 | DI.RAD.S_ITS ---
PROCEDURE: XR FOOT RT MIN 3V INDICATIONS: new onset pain TECHNIQUE: 3 views of the foot were acquired. COMPARISON: None. FINDINGS: Bones: No fractures or dislocations. No suspicious bony lesions. Mild hallux valgus metatarsus prima varus alignment and medial bunion. Mild 1st MTP and diffuse interphalangeal joint space narrowing. Soft tissues: No tibiotalar joint effusion. Achilles tendon appears normal. IMPRESSION: 1. Mild hallux valgus alignment and medial bunion. 2. Mild 1st MTP and diffuse interphalangeal joint degeneration. Dictated by: Nnamdi Nix [facility] Interpreted: Tish Joseph MD on 01/18/2020 at 13:33 Approved by: Tish Joseph M.D. on 01/18/2020 at 16:19
== END ==
PROVIDERS: PCP Family Medicine; Referring Provider Nurse Practitioner Family; Visit Provider Nurse Practitioner Family
DX: C80.1 Malignant (primary) neoplasm, unspecified (principal); C79.89 Secondary malignant neoplasm of other specified sites; M25.571 Pain in right ankle and joints of right foot; M79.671 Pain in right foot; M20.11 Hallux valgus (acquired), right foot; M21.611 Bunion of right foot; M19.071 Primary osteoarthritis, right ankle and foot
CPT/HCPCS: 73610; 73630

== ENCOUNTER → 2020-02-28 09:21 | Outpatient (CLI) | payer BC, SELFPAY ==
[2020-01-18 09:44] VITALS: BMI 20.7
[2020-02-28 10:28] LABS: Alanine Aminotransferase 21 IU/L (<35); Albumin 4.4 g/dL (3.5-5.0); Albumin Globulin Ratio 1.5 (1.0-2.8); Alkaline Phosphatase 67 U/L (38-126); Aspartate Aminotransferase 33 IU/L (14-36); BUN Creatinine Ratio 17.5 (6-22); Bilirubin Total 1.5 mg/dL (0.2-1.3); Blood Urea Nitrogen 10 mg/dL (7-17); Calcium 9.5 mg/dL (8.4-10.2); Carbon Dioxide 33 mmol/L (22-32); Chloride 101 mmol/L (98-107); Estimated Glomerular Filt Rate > 60.0 mL/min (>60); Glucose 118 mg/dL (80-110); HEMOLYSIS < 15 (0-50); Sodium 139 mmol/L (137-145); Total Protein 7.4 g/dL (6.3-8.2)
[2020-02-29 08:09] LABS: Parathyroid Hormone Int 57 pg/mL (15-65)
== END ==
PROVIDERS: PCP Family Medicine; Referring Provider Internal Medicine; Visit Provider Internal Medicine
DX: C50.919 Malignant neoplasm of unspecified site of unspecified female breast (principal)
CPT/HCPCS: 36415; 80053; 82330; 83970

== ENCOUNTER → 2020-04-13 12:18 | Outpatient (CLI) | payer BC, SELFPAY ==
[2020-01-18 09:44] VITALS: BMI 20.7
[2020-04-13 12:59] LABS: Add Manual Diff / Slide Review NO; Basophils Absolute Auto 0 /uL (0-100); Basophils Percent Auto 1.4 % (0-2); Eosinophils Absolute Auto 100 /uL (0-450); Eosinophils Percent Auto 2.9 % (2-4); Hemoglobin 14.3 g/dL (12.0-16.0); Lymphocytes Absolute Auto 900 /uL (1100-4500); Lymphocytes Percent Auto 31.2 % (25-40); Mean Corpuscular HGB Conc 33.2 % (30-36); Mean Corpuscular Hemoglobin 36.5 PG (26-34); Monocytes Absolute Auto 500 /uL (0-900); Monocytes Percent Auto 15.9 % (3-14); Neutrophils Absolute Auto 1500 /uL (1500-7000); Neutrophils Percent Auto 48.6 % (50-75); Platelet Count 217 X10^3/uL (150-400); Red Blood Cell Count 3.91 X10^6/uL (4.0-5.2); Red Cell Distribution Width 17.9 % (11.6-14.8)
[2020-04-13 13:12] LABS: Alanine Aminotransferase 23 IU/L (<35); Albumin 4.4 g/dL (3.5-5.0); Albumin Globulin Ratio 1.6 (1.0-2.8); Alkaline Phosphatase 63 U/L (38-126); Aspartate Aminotransferase 39 IU/L (14-36); BUN Creatinine Ratio 22.4 (6-22); Bilirubin Total 0.7 mg/dL (0.2-1.3); Blood Urea Nitrogen 13 mg/dL (7-17); Carbon Dioxide 32 mmol/L (22-32); Chloride 102 mmol/L (98-107); Estimated Glomerular Filt Rate > 60.0 mL/min (>60); Globulin 2.8 g/dL (1.7-4.1); Glucose 105 mg/dL (80-110); HEMOLYSIS < 15 (0-50); Potassium 3.6 mmol/L (3.4-5.1); Sodium 138 mmol/L (137-145); Total Protein 7.2 g/dL (6.3-8.2)
[2020-04-13 13:42] LABS: Cancer Antigen 125 12.8 U/mL (0-35); Carcinoembryonic Antigen 3.3 ng/mL (0.1-3.0)
[2020-04-14 08:07] LABS: CA 15-3 31.4 U/mL (0.0-25.0)
== END ==
PROVIDERS: PCP Family Medicine; Referring Provider Internal Medicine; Visit Provider Internal Medicine
DX: C50.919 Malignant neoplasm of unspecified site of unspecified female breast (principal)
CPT/HCPCS: 36415; 80053; 82378; 85025; 86300; 86304

== ENCOUNTER 2020-06-22 13:57 | Emergency (ER) | payer BC, SELFPAY ==
[2020-01-18 09:44] VITALS: BMI 20.7
--- NOTE | 2020-06-22 14:07 | ED.SKABFB ---
HPI - Skin/Abscess/Foreign Bdy General Chief complaint: Skin/Abscess/Foreign Body Stated complaint: really bad rash on right garcia Time Seen by Provider: 06/22/20 14:03 Source: patient and family Mode of arrival: Ambulatory Limitations: no limitations History of Present Illness HPI narrative: 59F former smoker on chemo for bone cancer presents with her significant other and a chief complaint of an irritated red, swollen and tender region her right anterior garcia for the past few days. She denies any fever, chills nor nausea or vomiting. She denies any history of blood clot, recent travel or chest pain or shortness of breath. She was seen and evaluated a few days ago at the walk-in clinic and was prescribed mupirocin which she has been unable to fill. Her symptoms persist and she is here for advice and assistance. She states her skin was dried and had some cracks that were present prior to the redness. She denies any drainage. MD complaint: rash Onset (ago): day(s) Tetanus up to date: yes Location: [facility] Severity: mild Quality: burning and aching Pain Consistency: constant Relieving factors: none Exacerbating factors: none Context: none Associated symptoms: denies other symptoms Treatments prior to arrival: none Related Data Home Medications Medication Instructions Recorded Confirmed multivitamin [Multiple Vitamins] 1 tab PO Q48H #0 03/03/16 06/21/20 Vitamin B-12 50 mcg PO Q DAY #0 06/29/17 06/21/20 capecitabine 500 mg tablet 1,000 mg PO BID tab 01/03/20 06/21/20 Previous Rx's Medication Instructions Recorded miscellaneous medical supply #1 each 12/30/18 gabapentin 300 mg capsule 900 mg PO BID 30 Days #180 cap 06/28/19 atenolol 50 mg tablet 50 mg PO Q DAY #90 tab 11/17/19 ipratropium 0.5 mg-albuterol 3 mg See Rx Instructions INHALATION 12/25/19 (2.5 mg base)/3 mL nebulization Q2HP PRN #180 ml soln atorvastatin 10 mg tablet 10 mg PO HS #90 tab 01/03/20 albuterol sulfate 90 mcg/actuation See Rx Instructions .ROUTE 02/12/20 aerosol inhaler .COMPLEX #25.5 gram alprazolam 0.5 mg tablet 0.5 mg PO BID PRN #60 tab 04/10/20 hydrocodone 5 mg-acetaminophen 325 1 - 2 tab PO Q6HP PRN #120 tab 05/01/20 mg tablet fluticasone propionate 250 1 inh INHALATION BID #60 each 05/14/20 mcg/actuation blister powder for inhalation clobetasol 0.05 % topical cream 1 applic TOPICAL BID 14 Days #30 g 06/22/20 doxycycline hyclate 100 mg PO BID #20 tab 06/22/20 Allergies Allergy/AdvReac Type Severity Reaction Status Date / Time Iodine and Iodide Containing Allergy Intermediate Hives Verified 06/22/20 14:17 Produc Review of Systems Constitutional Constitutional: Denies chills, Denies fatigue, Denies fever(s), Denies frequent falls, Denies lethargy and Denies weakness Eyes Eyes: Denies change in vision, Denies eye discharge, Denies irritation and Denies loss of vision ENT Ears, Nose, Mouth, and Throat: Denies change in voice, Denies dizziness, Denies neck pain, Denies sore throat and Denies throat swelling Cardiovascular Cardiovascular: Denies chest pain, Denies irregular heart rhythm, Denies lightheadedness, Denies palpitations, Denies dyspnea, Denies dyspnea on exertion and Denies orthopnea Respiratory Respiratory: Denies cough, Denies dyspnea, Denies dyspnea on exertion and Denies wheezing Gastrointestinal Gastrointestinal: Denies abdominal pain, Denies change in bowel habits, Denies diarrhea, Denies nausea and Denies vomiting Musculoskeletal Musculoskeletal: Denies neck pain and Denies numbness Integumentary/Breasts Skin/Breast: Denies pruritus, Reports erythema, Denies rash, Reports skin pain, Reports skin swelling and Denies wounds Neurologic Neurologic: Denies behavioral changes, Denies confusion, Denies dizziness, Denies frequent falls, Denies loss of vision, Denies numbness and Denies weakness Psychiatric Psychiatric: Denies anxiety, Denies behavioral changes, Denies confusion, Denies depression, Denies homicidal ideation and Denies suicidal ideation Endocrine Endocrine: Denies fatigue, Denies flushing and Denies palpitations Hematologic/Lymphatic Hematologic/Lymphatic: Denies easy bruising Allergic/Immunologic Allergic/Immunologic: Denies urticaria, Denies throat swelling and Denies wheezing Patient History Medical History Anxiety Asthma Breast cancer Foot pain 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 Osteopenia after menopause Pancreatitis (~2010) Right ankle pain Right foot pain Vertigo (~2011) Surgical History Anesthesia Breast cancer (~2006) History of shoulder surgery (~2011) Status post appendectomy (~1963) Status post total hip replacement, left Family History Brother Age: 57 Scoliosis Father Heart disease Hypertension Mother Age: 83 Cancer Diabetes mellitus Social History household members: significant other Smoking Status: Former smoker alcohol intake: current Smoking Status: Former smoker alcohol intake frequency: 0-2 drinks per day Substance Use Type: does not use Exam Narrative Exam Narrative: GEN: AOx3 and in mild distress EYES: Pupils are equal, round, and reactive to light and accommodation. Extraoccular muscles are intact bilaterally. There is no subconjunctival hemorrhage or exudate. CHEST: Lungs are clear to auscultation bilaterally and free of wheezes, rales, or rhonchi. Heart rate is regular rhythm, there are no murmurs, clicks, rubs, or gallops. There is no chest wall tenderness. ABD: Abdomen is soft and nontender. There is no guarding or rebound. Bowel sounds are normal in all 4 quadrants. There is no mass or organomegaly. EXT: Full painless ROM of all extremities with no loss of sensation or strength. No calf swelling, pain or medial thigh pain SKIN: 6 cm x 3 cm erythematous, warm and tender region to the right anterior garcia. There are some cracks noted in the skin that patient states was present prior. There is no drainage, fluctuance or induration. There are no vesicles and no clear distribution of a single dermatome. Initial Vital Signs Initial Vital Signs: Vital Signs Temperature 98.3 F 06/22/20 14:14 Pulse Rate 87 06/22/20 14:14 Respiratory Rate 17 06/22/20 14:14 Blood Pressure 137/75 06/22/20 14:14 Pulse Oximetry 97 06/22/20 14:14 Course Orders Ordered: Discontinued Medications Doxycycline Hyclate (Doxycycline Hyclate 100 Mg Tablet) 100 mg PO NOW ONE Stop: 06/22/20 18:02 MDM - Skin/Abscess/Foreign Bdy MDM Narrative Medical decision making narrative: Multiple diagnoses considered including shingles, thought unlikely given lack of single dermatomal distribution, vesicle illness. DVT considered but thought unlikely given lack of calf pain, circumferential erythema, medial thigh pain. Cellulitis thought most likely given pain, erythema, presence of breaks in the skin prior to presence of pain and redness. Extensive discussion regarding return precautions. Patient and understand and agree with the plan and diagnosis. Questions answered to their apparent satisfaction. Discharge Plan Departure Patient Disposition: Home Clinical Impression: Cellulitis of left leg Instructions: DI for Cellulitis -- Adult Activity Restrictions/Additional Instructions: *You have been diagnosed with [redness and pain to your anterior garcia is most classic for cellulitis] *What to do: *Take medications as directed: Your given the initial does deny and [facility] *Follow up with your primary care provider in 2-3 days, call for an appointment. Let them know you were seen in the Emergency Department and that we ask that you be seen in follow up *Return to ER if you should have any new, worsening or concerning symptoms, such as [increasing pain, swelling, red streaks or other bothersome symptoms] Prescriptions: New doxycycline hyclate 100 mg tablet 100 mg PO BID Qty: 20 RF: 0 No Action clobetasol 0.05 % cream 1 applic topical BID 14 Days Qty: 30 RF: 1 multivitamin [Multiple Vitamins] 1 EACH tablet 1 tab PO Q48H Qty: 0 RF: 0 Vitamin B-12 50 MCG tablet 50 mcg PO Q DAY Qty: 0 RF: 0 (DME) miscellaneous medical supply Misc See Rx Instructions .ROUTE .MEDSUPPLY Qty: 1 RF: 0 gabapentin 300 mg capsule 900 mg PO BID 30 Days Qty: 180 RF: 11 atenolol 50 mg tablet 50 mg PO Q DAY Qty: 90 RF: 3 ipratropium-albuterol 0.5 mg-3 mg(2.5 mg base)/3 mL solution for nebulization See Rx Instructions INHALATION Q2HP PRN (Reason: SOB) Qty: 180 RF: 2 albuterol sulfate [ProAir HFA] 90 mcg/actuation HFA aerosol inhaler See Rx Instructions .ROUTE .COMPLEX Qty: 25.5 RF: 2 alprazolam [Xanax] 0.5 mg tablet 0.5 mg PO BID PRN (Reason: anxiety) Qty: 60 RF: 1 hydrocodone-acetaminophen [Thomas] 5-325 mg tablet 1 - 2 tab PO Q6HP PRN (Reason: pain) Qty: 120 RF: 0 Flovent Diskus 250 mcg/actuation blister with device 1 inh INHALATION BID Qty: 60 RF: 3 capecitabine 500 mg tablet 1,000 mg PO BID RF: 0 atorvastatin [Lipitor] 10 mg tablet 10 mg PO HS Qty: 90 RF: 3 Referrals: Manav Alegre DO [Primary Care Provider] -
[2020-06-22 14:14] VITALS: BP 137/75; PULSE 87; RESP 17; TEMP 36.8; O2SAT 97
[2020-06-22 17:20] VITALS: BP 126/70; PULSE 66; RESP 16; O2SAT 100
--- NOTE | 2020-06-22 17:56 | PC.NURSE ---
Right lower rash with erythema and warm to the touch, worsening over the last 2 weeks.
== END 2020-06-22 18:28 | disposition home or self-care (01) ==
PROVIDERS: Emergency Provider Emergency Medicine; PCP Family Medicine
DX: L03.116 Cellulitis of left lower limb (principal)
CPT/HCPCS: 99281; 99283

== ENCOUNTER → 2020-07-23 09:58 | Outpatient (CLI) | payer BC, SELFPAY ==
[2020-01-18 09:44] VITALS: BMI 20.7
[2020-07-23 11:29] LABS: Add Manual Diff / Slide Review NO; Basophils Absolute Auto 0 /uL (0-100); Eosinophils Absolute Auto 100 /uL (0-450); Eosinophils Percent Auto 3.6 % (2-4); Hematocrit 41.4 % (36-46); Hemoglobin 14.2 g/dL (12.0-16.0); Lymphocytes Absolute Auto 900 /uL (1100-4500); Lymphocytes Percent Auto 25.7 % (25-40); Mean Corpuscular HGB Conc 34.2 % (30-36); Mean Corpuscular Hemoglobin 37.4 PG (26-34); Mean Corpuscular Volume 109.5 fL (80-100); Monocytes Absolute Auto 500 /uL (0-900); Monocytes Percent Auto 13.6 % (3-14); Neutrophils Absolute Auto 2000 /uL (1500-7000); Neutrophils Percent Auto 56.1 % (50-75); Platelet Count 193 X10^3/uL (150-400); Red Blood Cell Count 3.78 X10^6/uL (4.0-5.2); Red Cell Distribution Width 19.3 % (11.6-14.8); White Blood Cell Count 3.5 X10^3/uL (4.5-11.0)
[2020-07-23 11:50] LABS: Alanine Aminotransferase 19 IU/L (<35); Albumin 4.2 g/dL (3.5-5.0); Albumin Globulin Ratio 1.5 (1.0-2.8); Alkaline Phosphatase 82 U/L (38-126); Aspartate Aminotransferase 35 IU/L (14-36); BUN Creatinine Ratio 18.3 (6-22); Bilirubin Total 1.2 mg/dL (0.2-1.3); Blood Urea Nitrogen 11 mg/dL (7-17); Calcium 10.1 mg/dL (8.4-10.2); Carbon Dioxide 28 mmol/L (22-32); Chloride 100 mmol/L (98-107); Estimated Glomerular Filt Rate > 60.0 mL/min (>60); Globulin 2.8 g/dL (1.7-4.1); Glucose 132 mg/dL (80-110); HEMOLYSIS < 15 (0-50); Potassium 4.3 mmol/L (3.4-5.1); Sodium 137 mmol/L (137-145)
[2020-07-24 12:09] LABS: Hemoglobin A1C% w Est Avg Glu 5.3 % (4.0-6.0)
== END ==
PROVIDERS: PCP Family Medicine; Referring Provider Nurse Practitioner; Visit Provider Nurse Practitioner
DX: C50.919 Malignant neoplasm of unspecified site of unspecified female breast (principal); R73.9 Hyperglycemia, unspecified
CPT/HCPCS: 36415; 80053; 83036; 85025

== ENCOUNTER 2020-09-18 06:36 | Emergency (ER) | payer BC, SELFPAY ==
[2020-01-18 09:44] VITALS: BMI 20.7
[2020-09-18 06:40] VITALS: BP 158/95; PULSE 93; RESP 20; TEMP 36.2; O2SAT 98
--- NOTE | 2020-09-18 06:43 | DI.RAD.S_ITS ---
PROCEDURE: XR ANKLE RT MIN 3V INDICATIONS: twisted ankle now with pain TECHNIQUE: 3 views of the ankle were acquired. COMPARISON: [facility], CR, XR ANKLE RT MIN 3V, 01/18/2020, 11:22. FINDINGS: Bones: Possible fracture involving the tip of the lateral malleolus.. Ankle mortise is normally aligned. No suspicious bony lesions. Posterior calcaneal spur. Large spur at the dorsal talonavicular joint. Soft tissues: Medial soft tissue swelling. IMPRESSION: Possible nondisplaced fracture at the tip of the medial malleolus. Overlying soft tissue swelling. Follow-up radiographs in 10 days to assess for confirmatory healing sclerosis could be performed as clinically necessary. Dictated by: Vignesh Jamison M.D. on 09/18/2020 at 9:51 Approved by: Vignesh Jamison M.D. on 09/18/2020 at 9:52
--- NOTE | 2020-09-18 07:21 | ED.LOWEXIN ---
HPI - Extremity Injury (Lower) General Chief Complaint: Extremity Injury, Lower Stated Complaint: twisted right ankle yesterday hurts to walk on it Time Seen by Provider: 09/18/20 06:43 Source: patient Mode of arrival: Ambulatory Limitations: no limitations History of Present Illness HPI Narrative: This is a pleasant 59-year-old female comes emergency department with complaint of right foot pain. Patient states it hurts more on the underside of her foot when she tries to weight bear. Patient states yesterday she was stepping off a very when her foot twisted. Patient does not recall if she inverted or everted the ankle. She denies any numbness, tingling or weakness. She has swelling over the right lateral malleoli and foot. Patient states she is on chemotherapy for breast cancer which is become metastatic to the bone. Patient took pain medication yesterday but has not taken anything today. She defers anything currently. She has iodine allergy. Related Data Home Medications Medication Instructions Recorded Confirmed multivitamin (Multiple Vitamins) 1 tab PO Q48H #0 03/03/16 07/02/20 cyanocobalamin (vitamin B-12) 50 50 mcg PO Q DAY #0 06/29/17 07/02/20 mcg tablet (Vitamin B-12) capecitabine 500 mg tablet 1,000 mg PO BID tab 01/03/20 07/02/20 Previous Rx's Medication Instructions Recorded miscellaneous medical supply #1 each 12/30/18 atenolol 50 mg tablet 50 mg PO Q DAY #90 tab 11/17/19 ipratropium 0.5 mg-albuterol 3 mg See Rx Instructions INHALATION 12/25/19 (2.5 mg base)/3 mL nebulization Q2HP PRN #180 ml soln atorvastatin 10 mg tablet (Lipitor) 10 mg PO HS #90 tab 01/03/20 albuterol sulfate 90 mcg/actuation See Rx Instructions .ROUTE 02/12/20 aerosol inhaler (ProAir HFA) .COMPLEX #25.5 gram doxycycline hyclate 100 mg tablet 100 mg PO BID #14 tab 07/02/20 gabapentin 300 mg capsule 900 mg PO BID 30 Days #180 cap 07/12/20 hydrocodone 5 mg-acetaminophen 325 1 - 2 tab PO Q6HP PRN #120 tab 07/29/20 mg tablet alprazolam 0.5 mg tablet See Rx Instructions .ROUTE 08/05/20 .COMPLEX #60 tab fluticasone propionate 250 1 inh INHALATION BID #60 each 09/03/20 mcg/actuation blister powder for inhalation (Flovent Diskus) Allergies Allergy/AdvReac Type Severity Reaction Status Date / Time Iodine and Iodide Containing Allergy Intermediate Hives Verified 07/02/20 10:21 Produc Review of Systems Review of Systems ROS Unobtainable: All systems reviewed & are unremarkable except as noted in HPI and below Patient History Medical History Anxiety Asthma Breast cancer Foot pain 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 Osteopenia after menopause Pancreatitis (~2010) Right ankle pain Right foot pain Vertigo (~2011) Surgical History Anesthesia Breast cancer (~2006) History of shoulder surgery (~2011) Status post appendectomy (~1963) Status post total hip replacement, left Family History Brother Age: 57 Scoliosis Father Heart disease Hypertension Mother Age: 83 Cancer Diabetes mellitus Social History household members: significant other Smoking Status: Former smoker alcohol intake: current Smoking Status: Former smoker alcohol intake frequency: 0-2 drinks per day Substance Use Type: does not use Exam Narrative Exam Narrative: GENERAL: Alert and oriented x three, well-nourished female in mild distress HEENT: Head normocephalic, atraumatic, EOMI, pupils reactive, face symmetric, moist mucous membranes NECK: Supple, full range of motion CARDIOVASCULAR: Regular rate and rhythm without murmurs, rubs or gallops. RESPIRATORY: Breath sounds equal bilaterally, no wheezes rales or rhonchi. EXTREMITIES: Normal range of motion, no clubbing. Patient has edema over the lateral malleoli and dorsum of the foot over the metatarsal. Patient does have some ecchymosis, she has very mild tenderness over the proximal 5th metatarsal bone. No other bony tenderness in the toes, foot or ankle is appreciated. Neurovascularly intact. Normal sensation. Cap refill less than 2 seconds. NEUROLOGICAL: Cranial nerves II through XII grossly intact. Moving all extremities SKIN: Warm, dry, no petechiae, no rashes or lesions. Initial Vital Signs Initial Vital Signs: Vital Signs Temperature 97.2 F L 09/18/20 06:40 Pulse Rate 93 H 09/18/20 06:40 Respiratory Rate 20 09/18/20 06:40 Blood Pressure 158/95 H 09/18/20 06:40 Pulse Oximetry 98 09/18/20 06:40 Course Orders Ordered: ED Orders 09/18/20 06:43 XR ankle RT min 3V Stat 09/18/20 08:18 XR foot RT min 3V Stat Reevaluation(s) Reevaluation #1: patient called regarding radiology read. No answer. Message left at [phone] for patient to call back regarding discrepancy. If patient tender of medial malleoli, would offer orthoboot at home. Time: 20:23 Vital Signs Vital signs: Vital Signs - 8 hr 09/18/20 06:40 Temperature 97.2 F L Pulse Rate 93 H Respiratory Rate 20 Blood Pressure 158/95 H Pulse Oximetry 98 MDM - Extremity Injury (Lower) Imaging Data Extremity x-ray #1: My Impression: Right ankle xray-no fracture noted Radiologist's Impression: [address] [id number] ReportSigned Patient: Vicky Arnold CMR#: [id number]: 9Acct:[id number]/Sex: 59 / FDate of Service: 09/18/20Loc: EDAccession Number: [id number] Procedure: XR ankle RT min 3V Ordering Provider: Nemesio Tirado D.O. PROCEDURE: XR ANKLE RT MIN 3V INDICATIONS: twisted ankle now with pain TECHNIQUE: 3 views of the ankle were acquired. COMPARISON: [facility], , XR ANKLE RT MIN 3V, 01/18/2020, 11:22. FINDINGS: Bones: Possible fracture involving the tip of the lateral malleolus.. Ankle mortise is normally aligned. No suspicious bony lesions. Posterior calcaneal spur. Large spur at the dorsal talonavicular joint. Soft tissues: Medial soft tissue swelling. IMPRESSION: Possible nondisplaced fracture at the tip of the medial malleolus. Overlying soft tissue swelling. Follow-up radiographs in 10 days to assess for confirmatory healing sclerosis could be performed as clinically necessary. Dictated by: Vignesh Jamison M.D. on 09/18/2020 at 9:51 Approved by: Vignesh Jamison M.D. on 09/18/2020 at 9:52 Extremity x-ray #2: My Impression: Right foot xray-no fx noted. Radiologist's Impression: [facility] [place] [id number] ReportSigned Patient: Vicky Arnold CMR#: [id number]: 9Acct:[id number]/Sex: 59 / FDate of Service: 09/18/20Loc: EDAccession Number: [id number] Procedure: XR foot RT min 3V Ordering Provider: Karina Bautista D.O. PROCEDURE: XR FOOT RT MIN 3V INDICATIONS: 5th metatarsal pain, twisted foot TECHNIQUE: 3 views of the foot were acquired. COMPARISON: [facility], CR, XR ANKLE RT MIN 3V, 09/18/2020, 6:56. [facility], CR, XR FOOT RT MIN 3V, 01/18/2020, 11:20. FINDINGS: Bones: No fractures or dislocations. No suspicious bony lesions. Mild hallux valgus and medial bunion. Joint space narrowing of the 1st MTP joint. The interphalangeal joints have degenerative changes. Soft tissues: No tibiotalar joint effusion. Achilles tendon appears normal. IMPRESSION: 1. Mild hallux valgus alignment and medial bunion. 2. Mild 1st MTP joint and interphalangeal joint Dictated by: Sukhdev Arvizu M.D. on 09/18/2020 at 9:23 Approved by: Sukhdev Arvizu M.D. on 09/18/2020 at 9:25 MDM Narrative Medical decision making narrative: 59-year-old female comes with complaint of foot ankle pain. Majority patient's pain is her a lateral foot over the 5th metatarsal. Patient's initial imaging shows no acute fracture in the foot. Possible change to the tip of the lateral malleolus the patient is nontender in this location. She was given ortho boot, crutches for follow-up. Discharge Plan Departure Patient Disposition: Home Clinical Impression: Ankle sprain Instructions: DI for Ankle Sprain Activity Restrictions/Additional Instructions: Follow-up with your physician in 7-10 days for recheck if your symptoms are not improving or resolving. Radiology is over reading your images, if there is any discrepancy you should expect to be contacted. You may weight bear as tolerated. Wear hard shoe/ortho shoe You may take ibuprofen up to 600 mg every 6 hours and/or Tylenol up to a 1000 mg every 8 hours. Weightbear as tolerated Splint Care: Keep splint clean and dry. Elevated affected body part to decrease swelling. OK to use ice pack on the affected body part. Use for 15-20 minutes each time, for 5-6x per day. If you develop worsening pain, numbness, tingling, discoloration of the affected body part, adjust the orthoshoe, and either see your doctor for an urgent re-assessment, or return to the Emergency Department. Return to the Emergency Department for any new or worsening symptoms. Prescriptions: No Action multivitamin [Multiple Vitamins] 1 EACH tablet 1 tab PO Q48H Qty: 0 RF: 0 Vitamin B-12 50 MCG tablet 50 mcg PO Q DAY Qty: 0 RF: 0 (DME) miscellaneous medical supply [facility] See Rx Instructions .ROUTE .MEDSUPPLY Qty: 1 RF: 0 atenolol 50 mg tablet 50 mg PO Q DAY Qty: 90 RF: 3 ipratropium-albuterol 0.5 mg-3 mg(2.5 mg base)/3 mL solution for nebulization See Rx Instructions INHALATION Q2HP PRN (Reason: SOB) Qty: 180 RF: 2 albuterol sulfate [ProAir HFA] 90 mcg/actuation HFA aerosol inhaler See Rx Instructions .ROUTE .COMPLEX Qty: 25.5 RF: 2 gabapentin 300 mg capsule 900 mg PO BID 30 Days Qty: 180 RF: 11 hydrocodone-acetaminophen 5-325 mg tablet 1 - 2 tab PO Q6HP PRN (Reason: pain) Qty: 120 RF: 0 alprazolam 0.5 mg tablet See Rx Instructions .ROUTE .COMPLEX Qty: 60 RF: 0 Flovent Diskus 250 mcg/actuation blister with device 1 inh INHALATION BID Qty: 60 RF: 3 capecitabine 500 mg tablet 1,000 mg PO BID RF: 0 atorvastatin [Lipitor] 10 mg tablet 10 mg PO HS Qty: 90 RF: 3 doxycycline hyclate 100 mg tablet 100 mg PO BID Qty: 14 RF: 0 Referrals: Gale Carter MD [Physician] - Manav Alegre DO [Primary Care Provider] - Stand Alone Forms: Work Release Note
--- NOTE | 2020-09-18 08:18 | DI.RAD.S_ITS ---
PROCEDURE: XR FOOT RT MIN 3V INDICATIONS: 5th metatarsal pain, twisted foot TECHNIQUE: 3 views of the foot were acquired. COMPARISON: [facility], CR, XR ANKLE RT MIN 3V, 09/18/2020, 6:56. [facility], CR, XR FOOT RT MIN 3V, 01/18/2020, 11:20. FINDINGS: Bones: No fractures or dislocations. No suspicious bony lesions. Mild hallux valgus and medial bunion. Joint space narrowing of the 1st MTP joint. The interphalangeal joints have degenerative changes. Soft tissues: No tibiotalar joint effusion. Achilles tendon appears normal. IMPRESSION: 1. Mild hallux valgus alignment and medial bunion. 2. Mild 1st MTP joint and interphalangeal joint Dictated by: Sukhdev Arvizu M.D. on 09/18/2020 at 9:23 Approved by: Sukhdev Arvizu M.D. on 09/18/2020 at 9:25
[2020-09-18 09:26] VITALS: BP 142/80; PULSE 68; RESP 15; O2SAT 99
== END 2020-09-18 09:28 | disposition home or self-care (01) ==
PROVIDERS: Emergency Provider Emergency Medicine; PCP Family Medicine
DX: S93.401A Sprain of unspecified ligament of right ankle, initial encounter (principal); X50.1XXA Overexertion from prolonged static or awkward postures, initial encounter
CPT/HCPCS: 73610; 73630; 99282; 99283

== ENCOUNTER → 2020-09-27 08:04 | Outpatient (CLI) | payer BC, SELFPAY ==
[2020-01-18 09:44] VITALS: BMI 20.7
[2020-09-27 10:22] LABS: Add Manual Diff / Slide Review NO; Basophils Absolute Auto 0 /uL (0-100); Basophils Percent Auto 0.7 % (0-2); Eosinophils Absolute Auto 100 /uL (0-450); Eosinophils Percent Auto 3.1 % (2-4); Hematocrit 40.8 % (36-46); Hemoglobin 13.7 g/dL (12.0-16.0); Lymphocytes Absolute Auto 1200 /uL (1100-4500); Lymphocytes Percent Auto 24.5 % (25-40); Mean Corpuscular HGB Conc 33.5 % (30-36); Mean Corpuscular Volume 110.5 fL (80-100); Monocytes Absolute Auto 700 /uL (0-900); Monocytes Percent Auto 14.1 % (3-14); Neutrophils Absolute Auto 2800 /uL (1500-7000); Neutrophils Percent Auto 57.6 % (50-75); Platelet Count 198 X10^3/uL (150-400); Red Cell Distribution Width 19.9 % (11.6-14.8); White Blood Cell Count 4.8 X10^3/uL (4.5-11.0)
[2020-09-27 10:39] LABS: Anisocytosis 1+
[2020-09-27 10:43] LABS: Alanine Aminotransferase 19 IU/L (<35); Albumin 4.1 g/dL (3.5-5.0); Albumin Globulin Ratio 1.5 (1.0-2.8); Alkaline Phosphatase 107 U/L (38-126); Aspartate Aminotransferase 38 IU/L (14-36); Bilirubin Total 0.8 mg/dL (0.2-1.3); Blood Urea Nitrogen 9 mg/dL (7-17); Calcium 9.7 mg/dL (8.4-10.2); Carbon Dioxide 29 mmol/L (22-32); Chloride 102 mmol/L (98-107); Estimated Glomerular Filt Rate > 60.0 mL/min (>60); Globulin 2.7 g/dL (1.7-4.1); Glucose 124 mg/dL (80-110); HEMOLYSIS < 15 (0-50); Potassium 4.2 mmol/L (3.4-5.1); Sodium 137 mmol/L (137-145); Total Protein 6.8 g/dL (6.3-8.2)
[2020-09-27 11:15] LABS: Carcinoembryonic Antigen 3.8 ng/mL (0.1-3.0)
[2020-09-28 06:43] LABS: CA 15-3 37.4 U/mL (0.0-25.0)
== END ==
PROVIDERS: PCP Family Medicine; Referring Provider Internal Medicine Medical Oncology; Visit Provider Internal Medicine Medical Oncology
DX: C50.919 Malignant neoplasm of unspecified site of unspecified female breast (principal)
CPT/HCPCS: 36415; 80053; 82378; 85025; 86300

== ENCOUNTER → 2020-10-01 08:10 | Outpatient (CLI) | payer BC, SELFPAY ==
[2020-01-18 09:44] VITALS: BMI 20.7
--- NOTE | 2020-10-01 08:12 | DI.RAD.S_ITS ---
PROCEDURE: XR ANKLE RT MIN 3V INDICATIONS: rt. ankle pain, f/u x-ray 09/18/20 TECHNIQUE: 3 views of the ankle were acquired. COMPARISON: [facility], , XR ANKLE RT MIN 3V, 09/18/2020, 6:56. FINDINGS: Bones: Tiny nondisplaced avulsion off the tip of the medial malleolus, as previously noted. No other fractures or dislocations. Soft tissues: No tibiotalar joint effusion. Achilles tendon appears normal. Medial soft tissue swelling. IMPRESSION: Tiny nondisplaced avulsion off the tip of the medial malleolus with associated medial soft tissue swelling. Dictated by: Horacio Estrada M.D. on 10/01/2020 at 10:09 Approved by: Horacio Estrada M.D. on 10/01/2020 at 10:11
== END ==
PROVIDERS: PCP Family Medicine; Referring Provider Family Medicine; Visit Provider Family Medicine
DX: M25.571 Pain in right ankle and joints of right foot (principal); M79.89 Other specified soft tissue disorders
CPT/HCPCS: 73610

== ENCOUNTER → 2021-03-21 16:08 | Outpatient (CLI) | payer BC, SELFPAY ==
[2020-01-18 09:44] VITALS: BMI 20.7
[2021-03-21 16:28] LABS: COVID19 -Nasal RAPID Negative (Negative)
== END ==
PROVIDERS: PCP Family Medicine; Visit Provider Nurse Practitioner Critical Care Medicine
DX: Z20.822 Contact with and (suspected) exposure to COVID-19 (principal)
CPT/HCPCS: 87635

== ENCOUNTER 2021-03-21 16:23 | Observation (INO) | payer BC, SELFPAY ==
[2020-01-18 09:44] VITALS: BMI 20.7
[2021-03-21] VITALS (15 sets, daily range): BP systolic 98–174; BP diastolic 61–84; PULSE 82–131; RESP 17–29; TEMP 37.3–38.3; O2SAT 90–97; BMI 23.3; BMI 23.0
--- NOTE | 2021-03-21 17:13 | DI.RAD.S_ITS ---
PROCEDURE: XR CHEST 1V INDICATIONS: suspected sepsis TECHNIQUE: One view of the chest was acquired. COMPARISON: [facility], CHEST 1 VIEW, 03/14/2013, 13:47. [facility], CHEST 2 VIEW, 03/16/2017, 17:55. FINDINGS: Surgical changes and devices: Right proximal humeral hardware is seen. Bilateral breast clips are seen. Lungs and pleura: Lungs are clear. No pleural effusions or pneumothorax. Mediastinum: Mediastinal contours appear normal. Heart size is normal. Bones and chest wall: No suspicious bony lesions. Age-appropriate bony degenerative changes are seen. Overlying soft tissues appear unremarkable. IMPRESSION: No focal infiltrates are seen. If there is clinical concern for a developing pulmonary process, a short-term followup chest series (with PA and lateral views, performed in deep inspiration) is suggested for further evaluation. Postoperative and degenerative changes are seen. Dictated by: Harsh Matson M.D. on 03/21/2021 at 16:40 Approved by: Harsh Matson M.D. on 03/21/2021 at 16:42
[2021-03-21] MEDS: SODIUM CHLORIDE 0.9% 1,000 ML 1000 ML IV (17:50)
--- NOTE | 2021-03-21 17:58 | ED_ITS ---
HPI - SOB/Dyspnea General Chief Complaint: Shortness of Breath/Dyspnea Stated Complaint: SOB, FEVER Time Seen by Provider: 03/21/21 17:49 Source: patient Mode of arrival: Wheelchair Limitations: no limitations History of Present Illness HPI Narrative: Patient is a 60-year-old female with history of asthma, hypertension, breast cancer with metastasis to bone currently getting chemotherapy with [facility] next treatment is in 4 days. She got her COVID booster 2 days ago. Since then she has had body aches chills increasing shortness of breath with exertion, chest pain when she coughs. She was seen at the walk-in clinic initially had a negative influenza and COVID test. She is currently tachycardic with low-grade fever of 100.9. Left dose of Tylenol with 8:00 a.m. this morning. sHe generally does not feel well. He has been able to eat and drink some but does have some mouth sores that seem to be improving as a side effect from chemo. Related Data Home Medications Medication Instructions Recorded Confirmed multivitamin (Multiple Vitamins) 1 tab PO Q48H #0 03/03/16 03/21/21 cyanocobalamin (vitamin B-12) 50 50 mcg PO Q DAY #0 06/29/17 03/21/21 mcg tablet (Vitamin B-12) famotidine 10 mg tablet 10 mg PO DAILY 03/21/21 03/21/21 gabapentin 300 mg capsule 900 mg PO TID 03/21/21 03/21/21 Previous Rx's Medication Instructions Recorded miscellaneous medical supply #1 each 12/30/18 ipratropium 0.5 mg-albuterol 3 mg See Rx Instructions INHALATION 12/25/19 (2.5 mg base)/3 mL nebulization Q2HP PRN #180 ml soln atenolol 50 mg tablet 50 mg PO Q DAY #90 tab 11/05/20 fluticasone propionate 250 See Rx Instructions .ROUTE 01/08/21 mcg/actuation blister powder for .COMPLEX #60 ea inhalation (Flovent Diskus) atorvastatin 10 mg tablet (Lipitor) 10 mg PO HS #90 tab 03/03/21 alprazolam 0.5 mg tablet See Rx Instructions .ROUTE 03/04/21 .COMPLEX #60 tab albuterol sulfate 90 mcg/actuation See Rx Instructions .ROUTE 03/05/21 aerosol inhaler (ProAir HFA) .COMPLEX #25.5 gram hydrocodone 5 mg-acetaminophen 325 1 - 2 tab PO Q6HP PRN #120 tab 03/05/21 mg tablet Allergies Allergy/AdvReac Type Severity Reaction Status Date / Time Iodine and Iodide Containing Allergy Intermediate Hives Verified 03/21/21 17:01 Produc Review of Systems Review of Systems ROS Unobtainable: All systems reviewed & are unremarkable except as noted in HPI and below Constitutional Constitutional: Reports body ache(s), Reports chills, Reports fever(s) and Denies headache(s) ENT Ears, Nose, Mouth, and Throat: Reports as per HPI, Denies dizziness and Denies headache(s) Cardiovascular Cardiovascular: Reports chest pain (with coughing), Denies syncope and Reports dyspnea on exertion Respiratory Respiratory: Reports as per HPI, Reports cough, Reports pain with cough and Reports dyspnea on exertion Gastrointestinal Gastrointestinal: Denies abdominal pain, Denies nausea and Denies vomiting Genitourinary Genitourinary: Denies urinary urgency Musculoskeletal Musculoskeletal: Denies back pain and Reports myalgias Integumentary/Breasts Skin/Breast: Denies rash Neurologic Neurologic: Denies dizziness, Denies syncope and Denies headache(s) 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 Osteopenia after menopause Pancreatitis (~2010) Right ankle pain Right foot pain Seborrheic keratosis, inflamed Vertigo (~2011) Surgical History Anesthesia Breast cancer (~2006) History of shoulder surgery (~2011) Status post appendectomy (~1963) Status post total hip replacement, left Family History Brother Age: 58 Scoliosis Father Heart disease Hypertension Mother Age: 84 Cancer Diabetes mellitus Social History household members: significant other Smoking Status: Former smoker alcohol intake: current Smoking Status: Former smoker alcohol intake frequency: holidays/special occasions only Substance Use Type: does not use Exam Initial Vital Signs Initial Vital Signs: Vital Signs Temperature 100.9 F H 03/21/21 17:01 Pulse Rate 116 H 03/21/21 17:01 Respiratory Rate 24 03/21/21 17:01 Blood Pressure 147/74 H 03/21/21 17:01 Pulse Oximetry 96 03/21/21 17:01 GENERAL: Chronically ill weak 60-year-old female HEENT: Head atraumatic,EOMI, pupils reactive, face symmetric, moist mucous membranes CARDIOVASCULAR: Tachycardic regular no murmurs RESPIRATORY: Decreased breath sounds no wheezing speaks in full sentences ABDOMEN: Soft, nontender. Normoactive bowel sounds all 4 quadrants. No guarding or rebound. EXTREMITIES: Normal range of motion, no clubbing or edema. Neurovascularly intact NEUROLOGICAL: Alert and oriented x4.Normal gait and speech. SKIN: Warm, dry, no laceration, no petechiae, no rashes or lesions. Course Orders Ordered: ED Orders 03/21/21 18:37 Blood Culture Stat 03/21/21 20:31 Respiratory Panel (Film Array) Stat Acetaminophen (Acetaminophen 325 Mg Tablet) 650 mg PO Q6HR PRN PRN Reason: Fever/Mild Pain (1-3) Hydrocodone Bitart/Acetaminophen (Hydrocodone/Acet 5/325 Tablet) 1 tab PO Q6H PRN PRN Reason: pain Albuterol (Albuterol 2.5 Mg/3 Ml Neb (Adult)) 2.5 mg INH Q4H PRN PRN Reason: Shortness Of Breath Or Wheezing Albuterol/Ipratropium (Albuterol/Ipratropium 3 Ml Ampul) 3 ml INH RTQ4HR PRN PRN Reason: Shortness Of Breath Albuterol/Ipratropium (Albuterol/Ipratropium 3 Ml Ampul) 2.5 ml INH Q2H PRN PRN Reason: Shortness Of Breath Alprazolam (Alprazolam 0.5 Mg Tablet) 0.5 mg PO BID PRN PRN Reason: Anxiety Atenolol (Atenolol 50 Mg Tablet) 50 mg PO DAILY [facility] Last Admin: 03/22/21 02:18 Dose: Not Given Documented by: SILVIA Atorvastatin Calcium (Atorvastatin 20 Mg Tablet) 10 mg PO BEDTIME [facility] Last Admin: 03/22/21 02:19 Dose: Not Given Documented by: SILVIA Budesonide (Budesonide 0.5 Mg/2 Ml Neb) 0.5 mg INH RTBID [facility] Enoxaparin Sodium (Enoxaparin 30 Mg/0.3 Ml Syringe) 30 mg SUBCUT DAILY [facility] Famotidine (Famotidine 20 Mg Tablet) 10 mg PO DAILY [facility] Gabapentin (Gabapentin 300 Mg Capsule) 900 mg PO TID [facility] Sodium Chloride (Normal Saline 0.9%) 500 mls @ 40 mls/hr IV CONT [facility] Last Admin: 03/22/21 02:12 Dose: 40 mls/hr Documented by: SILVIA Naloxone HCl (Naloxone 0.4 Mg/Ml Vial) 0.2 mg IV Q2MIN PRN PRN Reason: Opiate Reversal Ondansetron HCl (Ondansetron 4 Mg/2 Ml Inj) 4 mg IV Q8HR PRN PRN Reason: Nausea And Vomiting Oxycodone HCl (Oxycodone Ir 5 Mg Tablet) 5 mg PO Q6HR PRN PRN Reason: Pain, Moderate (4-6) Prednisone (Prednisone 20 Mg Tablet) 40 mg PO DAILY [facility] Stop: 03/25/21 08:59 Sodium Chloride (Sodium Chloride 0.9% Flush) 10 ml IV PRN PRN PRN Reason: Flush Last Admin: 03/22/21 02:12 Dose: 10 ml Documented by: SILVIA Sodium Chloride (Sodium Chloride 0.9% Flush) 10 ml IV BID [facility] Discontinued Medications Acetaminophen (Acetaminophen 325 Mg Tablet) 975 mg PO NOW ONE Stop: 03/21/21 18:13 Last Admin: 03/21/21 18:17 Dose: 975 mg Documented by: CASSIE Albuterol/Ipratropium (Albuterol/Ipratropium 3 Ml Ampul) 3 ml INH NOW ONE Stop: 03/21/21 18:13 Last Admin: 03/21/21 18:33 Dose: 3 ml Documented by: MADIE Diphenhydramine HCl (Diphenhydramine 50 Mg/Ml Vial) 25 mg IV NOW ONE Stop: 03/21/21 19:02 Last Admin: 03/21/21 19:05 Dose: 25 mg Documented by: CASSIE Furosemide (Furosemide 40 Mg/4 Ml Vial) 20 mg IV NOW ONE Stop: 03/21/21 20:37 Last Admin: 03/21/21 20:52 Dose: 20 mg Documented by: ARUN Sodium Chloride (Normal Saline 0.9%) 1,000 mls @ 1,000 mls/hr IV BOLUS ONE Stop: 03/21/21 18:12 Last Infusion: 03/21/21 19:12 Dose: 0 mls/hr Documented by: Admin: 03/21/21 17:50 Dose: 1,000 mls/hr Documented by: CASSIE Methylprednisolone (Methylprednisolone 125 Mg/2 Ml Vial) 125 mg IV NOW ONE Stop: 03/21/21 19:02 Last Admin: 03/21/21 19:05 Dose: 125 mg Documented by: CASSIE Potassium Chloride (Potassium Chloride 20 Meq/15 Ml Udc) 40 meq PO NOW ONE Stop: 03/21/21 22:37 Last Admin: 03/21/21 22:59 Dose: Not Given Documented by: SILVIA Potassium Chloride (Potassium Chloride 20 Meq Tab) 40 meq PO NOW ONE Stop: 03/21/21 22:59 Last Admin: 03/21/21 23:15 Dose: 40 meq Documented by: TAMRA Vital Signs Vital signs: Vital Signs - 8 hr 03/21/21 19:36 03/21/21 19:55 03/21/21 20:00 Pulse Rate 116 H 116 H 113 H Respiratory Rate 29 H 21 20 Blood Pressure 124/65 132/71 126/69 Pulse Oximetry 94 94 90 L 03/21/21 20:30 03/21/21 21:00 03/21/21 21:30 Pulse Rate 106 H 131 H 104 H Respiratory Rate 27 H 18 17 Blood Pressure 120/62 117/73 Pulse Oximetry 94 95 03/21/21 22:00 Pulse Rate 96 H Respiratory Rate 18 Blood Pressure 110/69 Pulse Oximetry 95 MDM - SOB/Dyspnea Lab Data Attestation: I reviewed the patient's lab results. Result diagrams: 03/21/21 17:42 03/21/21 17:42 Labs: Lab Results 03/21/21 03/21/21 03/21/21 Range/Units 17:42 17:42 17:42 WBC 11.1 H (4.5-11.0) X10^3/uL RBC 3.71 L (4.0-5.2) X10^6/uL Hgb 11.4 L (12.0-16.0) g/dL Hct 34.3 L (36-46) % MCV 92.4 (80-100) fL MCH 30.6 (26-34) PG MCHC 33.1 (30-36) % RDW 16.5 H (11.6-14.8) % Plt Count 203 (150-400) X10^3/uL Neut % (Auto) Not Reportable Lymph % (Auto) Not Reportable Caroline % (Auto) Not Reportable Eos % (Auto) Not Reportable Baso % (Auto) Not Reportable Lymph # (Auto) Not Reportable Caroline # (Auto) Not Reportable Baso # (Auto) Not Reportable Total Counted 100 Seg Neutrophils % 72.0 H (38-70) % Lymphocytes % (Manual) 11.0 L (25-45) % Monocytes % (Manual) 16.0 H (2-11) % Eosinophils % (Manual) 1.0 L (2-4) % Neutrophils # (Manual) 7992 H (3582-1955) /uL RBC Morphology See below Polychromasia 1+ H Anisocytosis 1+ H PT 12.6 (10.1-12.7) SECONDS INR 1.1 (0.9-1.3) APTT 28 (26.4-36.2) SECONDS Sodium 137 (137-145) mmol/L Potassium 3.3 L (3.4-5.1) mmol/L Chloride 105 (98-107) mmol/L Carbon Dioxide 27 (22-32) mmol/L BUN 4 L (7-17) mg/dL Creatinine 0.44 L (0.52-1.04) mg/dL Estimated GFR > 60.0 (>60) mL/min BUN/Creatinine Ratio 9.1 (6-22) Glucose 124 H (80-110) mg/dL Lactate (0.7-2.1) mmol/L Calcium 9.1 (8.4-10.2) mg/dL Magnesium (1.6-2.3) mg/dL Total Bilirubin 0.5 (0.2-1.3) mg/dL AST 31 (14-36) IU/L ALT 20 (<35) IU/L Alkaline Phosphatase 149 H (38-126) U/L Total Creatine Kinase (30-135) U/L CK-MB (CK-2) CK-MB (CK-2) Rel Index Troponin I (0.01-0.034) ng/mL NT-Pro-B Natriuret Pep (<125) pg/mL Total Protein 6.8 (6.3-8.2) g/dL Albumin 3.8 (3.5-5.0) g/dL Globulin 3.0 (1.7-4.1) g/dL Albumin/Globulin Ratio 1.3 (1.0-2.8) Lipase 55 (23-300) U/L Procalcitonin 6.50 H (<0.5) ng/mL Chlamy pneumoniae PCR (Not Detect) Adenovirus (PCR) (Not Detect) B. pertussis DNA (PCR) (Not Detecte) B.parapertussis DNA PCR (Not Detecte) Coronavirus OC43 (PCR) (Not Detect) Coronavirus HKU1 (PCR) (Not Detect) Coronavirus 229E (PCR) (Not Detect) SARS-CoV-2 (PCR) (Not Detecte) Coronavirus NL63 (PCR) (Not Detect) Human Metapneumovir PCR (Not Detect) Influenza Type A (PCR) (Not Detect) Influenza Type B (PCR) (Not Detect) M. pneumoniae (PCR) (Not Detect) Parainfluenza 1 (PCR) (Not Detect) Parainfluenza 2 (PCR) (Not Detect) Parainfluenza 3 (PCR) (Not Detect) Parainfluenza 4 (PCR) (Not Detect) RSV (PCR) (Not Detect) Entero/Rhino (PCR) (Not Detect) 03/21/21 03/21/21 03/21/21 Range/Units 17:42 17:42 17:50 WBC (4.5-11.0) X10^3/uL RBC (4.0-5.2) X10^6/uL Hgb (12.0-16.0) g/dL Hct (36-46) % MCV (80-100) fL MCH (26-34) PG MCHC (30-36) % RDW (11.6-14.8) % Plt Count (150-400) X10^3/uL Neut % (Auto) Lymph % (Auto) Caroline % (Auto) Eos % (Auto) Baso % (Auto) Lymph # (Auto) Caroline # (Auto) Baso # (Auto) Total Counted Seg Neutrophils % (38-70) % Lymphocytes % (Manual) (25-45) % Monocytes % (Manual) (2-11) % Eosinophils % (Manual) (2-4) % Neutrophils # (Manual) (8688-2584) /uL RBC Morphology Polychromasia Anisocytosis PT (10.1-12.7) SECONDS INR (0.9-1.3) APTT (26.4-36.2) SECONDS Sodium (137-145) mmol/L Potassium (3.4-5.1) mmol/L Chloride (98-107) mmol/L Carbon Dioxide (22-32) mmol/L BUN (7-17) mg/dL Creatinine (0.52-1.04) mg/dL Estimated GFR (>60) mL/min BUN/Creatinine Ratio (6-22) Glucose (80-110) mg/dL Lactate 2.3 H (0.7-2.1) mmol/L Calcium (8.4-10.2) mg/dL Magnesium 1.8 (1.6-2.3) mg/dL Total Bilirubin (0.2-1.3) mg/dL AST (14-36) IU/L ALT (<35) IU/L Alkaline Phosphatase (38-126) U/L Total Creatine Kinase 22 L (30-135) U/L CK-MB (CK-2) TNP CK-MB (CK-2) Rel Index TNP Troponin I < 0.012 (0.01-0.034) ng/mL NT-Pro-B Natriuret Pep 608 H (<125) pg/mL Total Protein (6.3-8.2) g/dL Albumin (3.5-5.0) g/dL Globulin (1.7-4.1) g/dL Albumin/Globulin Ratio (1.0-2.8) Lipase (23-300) U/L Procalcitonin (<0.5) ng/mL Chlamy pneumoniae PCR (Not Detect) Adenovirus (PCR) (Not Detect) B. pertussis DNA (PCR) (Not Detecte) B.parapertussis DNA PCR (Not Detecte) Coronavirus OC43 (PCR) (Not Detect) Coronavirus HKU1 (PCR) (Not Detect) Coronavirus 229E (PCR) (Not Detect) SARS-CoV-2 (PCR) (Not Detecte) Coronavirus NL63 (PCR) (Not Detect) Human Metapneumovir PCR (Not Detect) Influenza Type A (PCR) (Not Detect) Influenza Type B (PCR) (Not Detect) M. pneumoniae (PCR) (Not Detect) Parainfluenza 1 (PCR) (Not Detect) Parainfluenza 2 (PCR) (Not Detect) Parainfluenza 3 (PCR) (Not Detect) Parainfluenza 4 (PCR) (Not Detect) RSV (PCR) (Not Detect) Entero/Rhino (PCR) (Not Detect) 03/21/21 03/21/21 Range/Units 20:06 20:31 WBC (4.5-11.0) X10^3/uL RBC (4.0-5.2) X10^6/uL Hgb (12.0-16.0) g/dL Hct (36-46) % MCV (80-100) fL MCH (26-34) PG MCHC (30-36) % RDW (11.6-14.8) % Plt Count (150-400) X10^3/uL Neut % (Auto) Lymph % (Auto) Caroline % (Auto) Eos % (Auto) Baso % (Auto) Lymph # (Auto) Caroline # (Auto) Baso # (Auto) Total Counted Seg Neutrophils % (38-70) % Lymphocytes % (Manual) (25-45) % Monocytes % (Manual) (2-11) % Eosinophils % (Manual) (2-4) % Neutrophils # (Manual) (3961-6311) /uL RBC Morphology Polychromasia Anisocytosis PT (10.1-12.7) SECONDS INR (0.9-1.3) APTT (26.4-36.2) SECONDS Sodium (137-145) mmol/L Potassium (3.4-5.1) mmol/L Chloride (98-107) mmol/L Carbon Dioxide (22-32) mmol/L BUN (7-17) mg/dL Creatinine (0.52-1.04) mg/dL Estimated GFR (>60) mL/min BUN/Creatinine Ratio (6-22) Glucose (80-110) mg/dL Lactate 1.5 (0.7-2.1) mmol/L Calcium (8.4-10.2) mg/dL Magnesium (1.6-2.3) mg/dL Total Bilirubin (0.2-1.3) mg/dL AST (14-36) IU/L ALT (<35) IU/L Alkaline Phosphatase (38-126) U/L Total Creatine Kinase (30-135) U/L CK-MB (CK-2) CK-MB (CK-2) Rel Index Troponin I (0.01-0.034) ng/mL NT-Pro-B Natriuret Pep (<125) pg/mL Total Protein (6.3-8.2) g/dL Albumin (3.5-5.0) g/dL Globulin (1.7-4.1) g/dL Albumin/Globulin Ratio (1.0-2.8) Lipase (23-300) U/L Procalcitonin (<0.5) ng/mL Chlamy pneumoniae PCR Not detected (Not Detect) Adenovirus (PCR) Not detected (Not Detect) B. pertussis DNA (PCR) Not detected (Not Detecte) B.parapertussis DNA PCR Not detected (Not Detecte) Coronavirus OC43 (PCR) Not detected (Not Detect) Coronavirus HKU1 (PCR) Not detected (Not Detect) Coronavirus 229E (PCR) Not detected (Not Detect) SARS-CoV-2 (PCR) Not detected (Not Detecte) Coronavirus NL63 (PCR) Not detected (Not Detect) Human Metapneumovir PCR Not detected (Not Detect) Influenza Type A (PCR) Not detected (Not Detect) Influenza Type B (PCR) Not detected (Not Detect) M. pneumoniae (PCR) Not detected (Not Detect) Parainfluenza 1 (PCR) Not detected (Not Detect) Parainfluenza 2 (PCR) Not detected (Not Detect) Parainfluenza 3 (PCR) Not detected (Not Detect) Parainfluenza 4 (PCR) Not detected (Not Detect) RSV (PCR) Not detected (Not Detect) Entero/Rhino (PCR) Not detected (Not Detect) Urine Dip Bedside Urine Glucose Negative Bedside Urine Bilirubin - Negative Bedside Urine Ketone - Negative Urine Specific [place] 1.015 Bedside Urine Occult Blood - Negative Bedside Urine pH 7.0 Bedside Urine Protein - Negative Bedside Urine Urobilinogen - Negative Bedside Urine Nitrite - Negative Bedside Urine Leukocytes - Negative Esterase Imaging Data Chest x-ray: Radiologist's Impression: PROCEDURE:? XR CHEST 1V ? INDICATIONS:? suspected sepsis ? TECHNIQUE:? One view of the chest was acquired.? ? COMPARISON:? [facility], CR, CHEST 1 VIEW, 03/14/2013, 13:47.? [facility], , CHEST 2 VIEW, 03/16/2017, 17:55. ? FINDINGS:? ? Surgical changes and devices:? Right proximal humeral hardware is seen.? Bilateral breast clips are seen. ? Lungs and pleura:? Lungs are clear.? No pleural effusions or pneumothorax.? ? Mediastinum:? Mediastinal contours appear normal.? Heart size is normal.? ? Bones and chest wall:? No suspicious bony lesions.? Age-appropriate bony degenerative changes are seen. ? Overlying soft tissues appear unremarkable.? IMPRESSION:? No focal infiltrates are seen. ? If there is clinical concern for a developing pulmonary process, a short-term followup chest series (with PA and lateral views, performed in deep inspiration) is suggested for further evaluation. ? Postoperative and degenerative changes are seen.? ? Dictated by: Harsh Matson M.D. on 03/21/2021 at 16:40 ? ? CT scan - chest: Radiologist's Impression: PROCEDURE:? CT ANGIO CHEST PE PROTOCOL ? INDICATIONS:? short of breath with cancer ? TECHNIQUE:? After the administration of intravenous contrast, 2 mm thick sections acquired from the pulmonary apices to the posterior costophrenic angles.? 3-dimensional maximum intensity projection (MIP) coronal and sagittal reformats were then acquired through the thorax.? For radiation dose reduction, the following was used:? automated exposure control, adjustment of mA and/or kV according to patient size.? ? COMPARISON:? [facility], CT, CT CHEST ABD PEL W CON, 12/15/2018, 10:09. ? FINDINGS:? Image quality:? Excellent.? ? Pulmonary arteries:? Pulmonary arteries are normal in size, and demonstrate no intraluminal filling defects to suggest central pulmonary embolism.? ? Lungs and pleura:? Subtle patchy bilateral ground-glass opacities and more confluent airspace consolidation, with a biapical predominance.? Consider COVID-19 pneumonia as a possible etiology.? Minimal right pleural effusion and minimal right basilar atelectasis. ?Central and peripheral airways are patent.? ? Mediastinum:? Heart size is normal, without pericardial effusion.? No mediastinal or hilar adenopathy.? Thoracic aorta is normal in caliber and enhancement.? Esophagus is normal in caliber, without hiatal hernia.? ? Bones and chest wall:? Interval progression of extensive sclerotic bony metastatic disease..? This is easily seen by seeing that the T10, T11, and T12 vertebral bodies, which were previously unremarkable, now are completely replaced by sclerotic metastatic disease.? Numerous other visualized bony structures also have sclerotic metastatic lesions.? Remote ORIF of the proximal right humerus.? Ribs and thoracic spine a ppear intact throughout.? Thyroid gland is unremarkable.? No axillary or supraclavicular adenopathy.? ? Abdomen:? Visualized upper abdominal solid organs appear normal in the early arterial phase of enhancement.? ? IMPRESSION:? ? 1. No evidence of acute pulmonary emboli. ? 2. Pulmonary findings may indicate COVID-19 pneumonia.? Suggest correlation with laboratory findings. ? 3. Significant interval progression of blastic bony metastatic disease.? ? ? Dictated by: Horacio Estrada M.D. on 03/21/2021 at 19:51 ? ? ECG Data Interpretation: Normal sinus rhythm rate 109 OH interval 126 QRS [address] changes MDM Narrative Medical decision making narrative: Patient has low-grade fever tachycardia shortness of breath. She has had body aches and upper respiratory like symptoms since her COVID booster. This is possibly booster reaction however she does have an elevated procalcitonin 6.5. This may or may not be related to bacterial infection versus chemotherapy versus other. She is having shortness of breath with exertion she was given a DuoNeb treatment which did not seem to help she did not have wheezes or significantly tight chest and was moving air. BNP elevated at 600 with no prior history of congestive heart failure cardiomegaly. CT angio did not show pulmonary embolism or pleural effusions. Patient was given 1 L of fluid in the ED to help with tachycardia and elevated lactic acid. However after that L she required 2 L of oxygen his O2 sat dropped to 88%. He says then given 20 mg of Lasix. At this time rated will to place in observation to monitor fever, she is not neutropenic and oxygen. Farooq BATISTA updated patient's symptoms test results and happily accepts. Discharge Plan Departure Patient Disposition: Admitted as Observation Clinical Impression: Fever, Hypoxia Admit Date/Time: 03/21/21 22:12 Admit Provider: Zina Trivedi
[2021-03-21 18:05] LABS: INR 1.1 (0.9-1.3); Prothrombin Time 12.6 SECONDS (10.1-12.7)
[2021-03-21 18:07] LABS: Hematocrit 34.3 % (36-46); Hemoglobin 11.4 g/dL (12.0-16.0); Mean Corpuscular HGB Conc 33.1 % (30-36); Mean Corpuscular Hemoglobin 30.6 PG (26-34); Mean Corpuscular Volume 92.4 fL (80-100); PTT Partial Thromboplastin Tim 28 SECONDS (26.4-36.2); Platelet Count 203 X10^3/uL (150-400); Red Blood Cell Count 3.71 X10^6/uL (4.0-5.2); Red Cell Distribution Width 16.5 % (11.6-14.8); White Blood Cell Count 11.1 X10^3/uL (4.5-11.0)
[2021-03-21 18:09] LABS: Add Manual Diff / Slide Review YES
--- NOTE | 2021-03-21 18:12 | DI.CT.S_ITS ---
PROCEDURE: CT ANGIO CHEST PE PROTOCOL INDICATIONS: short of breath with cancer TECHNIQUE: After the administration of intravenous contrast, 2 mm thick sections acquired from the pulmonary apices to the posterior costophrenic angles. 3-dimensional maximum intensity projection (MIP) coronal and sagittal reformats were then acquired through the thorax. For radiation dose reduction, the following was used: automated exposure control, adjustment of mA and/or kV according to patient size. COMPARISON: [facility], CT, CT CHEST ABD PEL W CON, 12/15/2018, 10:09. FINDINGS: Image quality: Excellent. Pulmonary arteries: Pulmonary arteries are normal in size, and demonstrate no intraluminal filling defects to suggest central pulmonary embolism. Lungs and pleura: Subtle patchy bilateral ground-glass opacities and more confluent airspace consolidation, with a biapical predominance. Consider COVID-19 pneumonia as a possible etiology. Minimal right pleural effusion and minimal right basilar atelectasis. Central and peripheral airways are patent. Mediastinum: Heart size is normal, without pericardial effusion. No mediastinal or hilar adenopathy. Thoracic aorta is normal in caliber and enhancement. Esophagus is normal in caliber, without hiatal hernia. Bones and chest wall: Interval progression of extensive sclerotic bony metastatic disease.. This is easily seen by seeing that the T10, T11, and T12 vertebral bodies, which were previously unremarkable, now are completely replaced by sclerotic metastatic disease. Numerous other visualized bony structures also have sclerotic metastatic lesions. Remote ORIF of the proximal right humerus. Ribs and thoracic spine appear intact throughout. Thyroid gland is unremarkable. No axillary or supraclavicular adenopathy. Abdomen: Visualized upper abdominal solid organs appear normal in the early arterial phase of enhancement. IMPRESSION: 1. No evidence of acute pulmonary emboli. 2. Pulmonary findings may indicate COVID-19 pneumonia. Suggest correlation with laboratory findings. 3. Significant interval progression of blastic bony metastatic disease. Dictated by: Horacio Estrada M.D. on 03/21/2021 at 19:51 Approved by: Horacio Estrada M.D. on 03/21/2021 at 19:57
[2021-03-21 18:14] LABS: Lactate (Lactic Acid) 2.3 mmol/L (0.7-2.1)
[2021-03-21 18:15] LABS: Alanine Aminotransferase 20 IU/L (<35); Albumin 3.8 g/dL (3.5-5.0); Albumin Globulin Ratio 1.3 (1.0-2.8); Alkaline Phosphatase 149 U/L (38-126); Aspartate Aminotransferase 31 IU/L (14-36); BUN Creatinine Ratio 9.1 (6-22); Bilirubin Total 0.5 mg/dL (0.2-1.3); Blood Urea Nitrogen 4 mg/dL (7-17); Calcium 9.1 mg/dL (8.4-10.2); Carbon Dioxide 27 mmol/L (22-32); Chloride 105 mmol/L (98-107); Creatine Kinase 22 U/L (30-135); Estimated Glomerular Filt Rate > 60.0 mL/min (>60); Glucose 124 mg/dL (80-110); HEMOLYSIS < 15 (0-50); Lipase 55 U/L (23-300); Potassium 3.3 mmol/L (3.4-5.1); Sodium 137 mmol/L (137-145); Total Protein 6.8 g/dL (6.3-8.2)
[2021-03-21] MEDS: ACETAMINOPHEN 325 MG TABLET 975 MG PO (18:17)
[2021-03-21 18:27] LABS: NT-proBNP (BNP-Adult 18+) 608 pg/mL (<125); Troponin I < 0.012 ng/mL (0.01-0.034)
[2021-03-21 18:30] LABS: Anisocytosis 1+; Neutrophils Absolute Manual 7992 /uL (3000-5900); Total Cells Counted 100
[2021-03-21 18:31] LABS: Polychromasia 1+
[2021-03-21] MEDS: ALBUTEROL/IPRATROPIUM 3 ML AMPUL INH (18:33)
[2021-03-21] MEDS: diphenhydrAMINE 50 MG/ML VIAL 25 MG IV (19:05)
[2021-03-21] MEDS: methylPREDNISolone 125 MG/2 ML VIAL IV (19:05)
[2021-03-21 19:56] LABS: Reflexed Lactate in 2 Hours Y
--- NOTE | 2021-03-21 20:22 | PC.NURSE ---
Rec'd report from GIOVANNI Stewart. Pt resting in back just back from CT. Eating [employer] cheeseburger and states she has an appetite. Urine needed and pt transferred to [facility] without assist. After getting back in bed pt's sat noted to drop to 85%. Repositioned which transiently raised Spo2 to 93% and back to 85%. placed on 2L O2 NC with improvement to 95%. will monitor. Dr Lake made aware
[2021-03-21 20:26] LABS: Lactate 2HR (Lactic Acid Rflx) 1.5 mmol/L (0.7-2.1)
[2021-03-21] MEDS: FUROSEMIDE 40 MG/4 ML VIAL 20 MG IV (20:52)
[2021-03-21 22:12] LABS: Adenovirus Not Detected (Not Detect); B. parapertussis Not Detected (Not Detecte); Bordetella pertussis Not Detected (Not Detecte); Chlamydophila pneumoniae Not Detected (Not Detect); Coronavirus 229E Not Detected (Not Detect); Coronavirus HKU1 Not Detected (Not Detect); Coronavirus NL 63 Not Detected (Not Detect); Coronavirus OC43 Not Detected (Not Detect); Human Metapneumovirus Not Detected (Not Detect); Human Rhinovirus/Enterovirus Not Detected (Not Detect); Influenza A Not Detected (Not Detect); Influenza B Not Detected (Not Detect); Mycoplasma pneumoniae Not Detected (Not Detect); Parainfluenza Virus 1 Not Detected (Not Detect); Parainfluenza Virus 2 Not Detected (Not Detect); Parainfluenza Virus 3 Not Detected (Not Detect); Parainfluenza Virus 4 Not Detected (Not Detect); Respiratory Syncytial Virus Not Detected (Not Detect); SARS- CoV-2 Not Detected (Not Detecte)
--- NOTE | 2021-03-21 22:32 | DI.ECHO.S_ITS ---
[facility] +[facility]+ : : [address] : : : : [id number] : : : : Phone: [phone]+ Echocardiogram Report + + :Name: PRATIK GENAO Study Date: 03/22/2021 Height: 64 in : :[facility] ReadingLocation: Weight: 136 lb: : Gender: Female BSA: 1.7 m2 : :: 1960 Age: 60 yrs : :Reason For Study: Elevated BNP, Tachycardia, R/O endocarditis : :Ordering Physician: MÓNICA, : :ABHAY Performed By: Nicholas Navarro : :Referring: ABHAY SALES : + + Interpretation Summary The left ventricle is normal in size and wall thickness. The left ventricular ejection fraction is grossly normal. The ejection fraction is estimated to be 55-60%. There are no obvious focal wall motion abnormalities noted but poor endocardial definition reduces the sensitivity for the detection of such. Diastolic parameters suggest a relaxation abnormality of the left ventricle, consistent with probable normal filling pressures. The right ventricle is normal size. The right ventricle is not well visualized. The right ventricular systolic function is normal. Pulmonary artery pressures cannot be estimated because of the lack of a measurable TR jet velocity but the IVC suggests a CVP of around 3 mmHg. Both atria are normal in size. There is no significant valvular heart disease. There is no obvious valvular vegetation identified on this exam. Consider ROSA if there is a high degree of clinical suspicion for endocarditis and clinically appropriate. The aortic root is normal size. Procedure: A two-dimensional transthoracic echocardiogram with color flow and Doppler was performed. Comparison is made with the echocardiogram of 02/25/2014. Overall fair image quality. The patient was in normal sinus rhythm during the exam. Left Ventricle: The left ventricle is normal in size and wall thickness. The left ventricular ejection fraction is grossly normal. The ejection fraction is estimated to be 55-60%. There are no obvious focal wall motion abnormalities noted but poor endocardial definition reduces the sensitivity for the detection of such. Diastolic parameters suggest a relaxation abnormality of the left ventricle, consistent with probable normal filling pressures. Right Ventricle: The right ventricle is normal size. The right ventricle is not well visualized. The right ventricular systolic function is normal. Atria: Both atria are normal in size. There is no Doppler evidence for an interatrial shunt. Mitral Valve: The mitral valve is normal. There is no obvious vegetation seen on the mitral valve. There is trace mitral regurgitation. Aortic Valve: The aortic valve is trileaflet. The aortic valve opens well. The aortic valve is slightly calcified. No aortic regurgitation is present. Tricuspid Valve: The tricuspid valve is normal. There is no obvious tricuspid valve vegetation. There is trace tricuspid regurgitation. Pulmonary artery pressures cannot be estimated because of the lack of a measurable TR jet velocity but the IVC suggests a CVP of around 3 mmHg. Pulmonic Valve: The pulmonic valve is normal in structure and function. There is no significant valvular heart disease. There is no obvious valvular vegetation identified on this exam. Consider ROSA if there is a high degree of clinical suspicion for endocarditis and clinically appropriate. Great Vessels: The aortic root is normal size. The ascending aorta is normal in size. The aortic arch is normal in size. The IVC is of normal diameter and collapses greater than 50% with a sniff. This suggests a low right atrial pressure of 3 mm Hg. Pericardium/ Pleura There is no pericardial effusion. There is an anterior echo-free space consistent with a fat pad. There is no pleural effusion. MMode/2D Measurements & Calculations LVIDd: 4.8 cm LVOT diam: 2.0 cm LVIDs: 3.4 cm Ao root diam: 3.0 cm FS: 28.4 % asc Aorta Diam: 3.1 cm IVSd: 0.65 cm Ao Arch Diam (distal): 2.5 cm LVPWd: 0.94 cm LV bansal. diameter/BSA (cm/m^2): 2.9 LV sys. diameter/BSA (cm/m^2): 2.1 LA A2 area: 18.1 cm2 RA long axis: 2.7 cm LA A4 area: 12.9 cm2 RA area: 7.9 cm2 LA length (vol): 4.3 cm RA vol: 19.5 ml LA vol: 46.0 ml RA : 11.7 ml/m2 LA vol index: 27.7 ml/m2 RVD1 (basal): 3.2 cm TAPSE: 1.5 cm Doppler Measurements & Calculations Ao V2 max: 132.0 cm/sec LVOT Max Benny: 92.8 cm/sec Ao V2 mean: 96.1 cm/sec LV V1 max P.4 mmHg Ao max P.0 mmHg LV V1 VTI: 16.6 cm Ao mean P.0 mmHg DINO(I,D): 2.1 cm2 Ao V2 VTI: 24.2 cm DINO(V,D): 2.2 cm2 sev ratio: 0.69 DINO indexed to BSA (cm^2/m^2): 1.3 MV E max benny: 78.5 cm/sec SV(LVOT): 51.3 ml MV A max benny: 97.7 cm/sec MV E/A: 0.80 Med Peak E' Benny: 9.0 cm/sec E/E' med: 8.7 Lat Peak E' Ebnny: 10.8 cm/sec E/E' lat: 7.3 E/e' average: 8.0 MV dec time: 0.13 sec Reading Physician:02:42 PM
[2021-03-21 23:11] LABS: Magnesium 1.8 mg/dL (1.6-2.3)
[2021-03-21] MEDS: POTASSIUM CHLORIDE 20 MEQ TAB 40 MEQ PO (23:15)
[2021-03-22] VITALS (10 sets, daily range): BP systolic 104–115; BP diastolic 62–71; PULSE 73–106; RESP 14–20; TEMP 35.9–37.4; O2SAT 93–97
--- NOTE | 2021-03-22 00:18 | PC.ADMIT ---
Patient admitted to room 209 from ER per stretcher but ambulated into room/to & from bathroom with SBA. Is alert and oriented. Breath sounds diminished throughout with inspiratory crackles in left LL. On oxygen at 1L/min per NC with sat of 96%. States she does still feel slightly SOB both at rest and on exertion but improved. HRR. BP low at 98/61; denies dizziness/lightheadedness. Denies nausea. BT present and abdomen is soft. Denies dysuria but is having some frequency/urgency related to receiving Lasix in ER. Multiple scabbed areas on bilateral buttocks which she states is from pressure; encouraged to lie on side. Bilateral calf SCD's applied. Denies pain. Fall risk score is moderate and bed alarm is activated. [email or web address] Admission Note: The patient,Vicky Tripathi,60 y/o, was given written information regarding hospital policies, unit procedures and contact persons. Patient's smoking status: Former smoker. Vital Signs - 8 hr 03/21/21 17:01 03/21/21 17:46 03/21/21 18:00 Temperature 100.9 F H 100 F H Pulse Rate 116 H 114 H 121 H Respiratory Rate 24 22 Blood Pressure 147/74 H 154/84 H 174/77 H Pulse Oximetry 96 97 93 03/21/21 18:17 03/21/21 18:30 03/21/21 19:00 Temperature 100 F H 99.4 F Pulse Rate 110 H 117 H Respiratory Rate 19 19 Blood Pressure 130/75 Pulse Oximetry 95 92 03/21/21 19:36 03/21/21 19:55 03/21/21 20:00 Temperature Pulse Rate 116 H 116 H 113 H Respiratory Rate 29 H 21 20 Blood Pressure 124/65 132/71 126/69 Pulse Oximetry 94 94 90 L 03/21/21 20:30 03/21/21 21:00 03/21/21 21:30 Temperature Pulse Rate 106 H 131 H 104 H Respiratory Rate 27 H 18 17 Blood Pressure 120/62 117/73 Pulse Oximetry 94 95 03/21/21 22:00 03/21/21 22:30 03/21/21 22:50 Temperature 99.2 F Pulse Rate 96 H 96 H 82 Respiratory Rate 18 18 18 Blood Pressure 110/69 103/71 98/61 Pulse Oximetry 95 95 96
--- NOTE | 2021-03-22 01:32 | PM.HP.1 ---
History of Present Illness History of Present Illness Date Patient Seen: 03/21/21 Time Patient Seen: 22:33 Chief complaint: SOB, FEVER Narrative: Vicky Melissa is a 60-year-old female with history of asthma, hypertension, breast cancer with metastasis to bone currently getting chemotherapy with [facility] next treatment is in 4 days.? She had her COVID booster 2 days ago.? Since then she has had body aches, chills, increasing shortness of breath with exertion, chest pain when she coughs.? She was seen at the walk-in clinic initially had a negative influenza and COVID test.? She presented to the ED tachycardic at a rate of 120, with a fever of 103.9, B/P 158/95, RR 24, sating in the low 80s w/exertion, & 88% on RA.? She generally does not feel well.? He has been able to eat and drink some but does have some mouth sores that seem to be improving as a side effect from chemo. Upon admit to the floor patient denies chest pain, shortness of breath continues, 95% on 2L/NC at rest, she denies nausea, vomiting, diarrhea, hemoptysis, hematuria, melena, urinary issues, new weakness, recent falls, recent travel, illness, exposure, or trauma. Patient does note that her chills have resolved but she continues to be moderately diaphoretic, an continues to have extreme fatigue. Upon admit to the floor temp 99.4?, BP 117/73 (greater than 40 pt drop in ED), HR 104, R 17, O2 saturation 95% on 2 L nasal cannula. Patient has a white count 11.1 with a left shift neutrophils 7992, chronic anemia demonstrated by HGB 11.4, HCT 34.3. 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 Patient met SIRS/sepsis criteria in ED and has a sofa score:3. Patient's chest x-ray demonstrated no focal infiltrates, aneurysms or PE, may have developing pneumonia. Patient is admitted for SIRS/severe sepsis resulting in acute respiratory failure with hypoxia, and hypokalemia of unknown etiology. 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 Osteopenia after menopause Pancreatitis (~2010) Right ankle pain Right foot pain Seborrheic keratosis, inflamed Vertigo (~2011) Surgical History Anesthesia Breast cancer (~2006) History of shoulder surgery (~2011) Status post appendectomy (~1963) Status post total hip replacement, left Family & Social History Family History Brother Age: 58 Scoliosis Father Heart disease Hypertension Mother Age: 84 Cancer Diabetes mellitus Social History: household members significant other Prior Living Arrangements House Safety & Behavioral: Feels Safe in Current Yes Environment Been Physically Hurt or No Threatened By a Person Suicidal Ideation Description None Suicide Plan Description No Plan Tobacco & Substance use: Tobacco type cigarettes Smoking Status Former smoker alcohol intake current alcohol intake frequency holiday/special occasion Substance Use Type does not use Meds Home Medications and Allergies Home Medications Medication Instructions Recorded Confirmed Type multivitamin (Multiple Vitamins) 1 tab PO Q48H #0 03/03/16 03/21/21 History cyanocobalamin (vitamin B-12) 50 50 mcg PO Q DAY #0 06/29/17 03/21/21 History mcg tablet (Vitamin B-12) miscellaneous medical supply #1 each 12/30/18 03/21/21 Rx ipratropium 0.5 mg-albuterol 3 mg See Rx Instructions INHALATION 12/25/19 03/21/21 Rx (2.5 mg base)/3 mL nebulization Q2HP PRN #180 ml soln atenolol 50 mg tablet 50 mg PO Q DAY #90 tab 11/05/20 03/21/21 Rx fluticasone propionate 250 See Rx Instructions .ROUTE 01/08/21 03/21/21 Rx mcg/actuation blister powder for .COMPLEX #60 ea inhalation (Flovent Diskus) atorvastatin 10 mg tablet (Lipitor) 10 mg PO HS #90 tab 03/03/21 03/21/21 Rx alprazolam 0.5 mg tablet See Rx Instructions .ROUTE 03/04/21 03/21/21 Rx .COMPLEX #60 tab albuterol sulfate 90 mcg/actuation See Rx Instructions .ROUTE 03/05/21 03/21/21 Rx aerosol inhaler (ProAir HFA) .COMPLEX #25.5 gram hydrocodone 5 mg-acetaminophen 325 1 - 2 tab PO Q6HP PRN #120 tab 03/05/21 03/21/21 Rx mg tablet famotidine 10 mg tablet 10 mg PO DAILY 03/21/21 03/21/21 History gabapentin 300 mg capsule 900 mg PO TID 03/21/21 03/21/21 History Allergies Allergy/AdvReac Type Severity Reaction Status Date / Time Iodine and Iodide Containing Allergy Intermediate Hives Verified 03/21/21 17:01 Produc Review of Systems Review of Systems Narrative: All 12 point systems reviewed with the patient and are negative except otherwise documented. Exam Vital Signs (past 8 hours): - 03/21/21 17:46 03/21/21 18:00 03/21/21 18:17 Temperature 100 F H 100 F H Pulse Rate 114 H 121 H Respiratory Rate 22 Blood Pressure 154/84 H 174/77 H Pulse Oximetry 97 93 03/21/21 18:30 03/21/21 19:00 03/21/21 19:36 Temperature 99.4 F Pulse Rate 110 H 117 H 116 H Respiratory Rate 19 19 29 H Blood Pressure 130/75 124/65 Pulse Oximetry 95 92 94 03/21/21 19:55 03/21/21 20:00 03/21/21 20:30 Temperature Pulse Rate 116 H 113 H 106 H Respiratory Rate 21 20 27 H Blood Pressure 132/71 126/69 120/62 Pulse Oximetry 94 90 L 94 03/21/21 21:00 03/21/21 21:30 03/21/21 22:00 Temperature Pulse Rate 131 H 104 H 96 H Respiratory Rate 18 17 18 Blood Pressure 117/73 110/69 Pulse Oximetry 95 95 03/21/21 22:30 03/21/21 22:50 Temperature 99.2 F Pulse Rate 96 H 82 Respiratory Rate 18 18 Blood Pressure 103/71 98/61 Pulse Oximetry 95 96 Oxygen Delivery Method Nasal Cannula Oxygen Flow Rate 1.5 Narrative Exam Narrative: General: Patient is a thin elderly woman who appears older than stated age, and moderately ill appearing, in no acute distress at this time. HEENT: Normocephalic, atraumatic, extraocular muscles intact, oral pharynx is clear and mucous membranes are dry. Neck is supple and symmetric, trachea is midline, no adenopathy, no thyroid enlargement, nontender, no masses palpated. Negative for JVD Chest: Normal AP diameter and contour without kyphoscoliosis, no nasal flaring, retractions, or tachypneic labored Lungs: Auscultation of all lung glass are decreased bilaterally, shallow breathing, occansional crackles noted in Lt lower base. Cardio: regular rate and rhythm without murmur, rubs, or gallops, no carotid bruit, no cardiac pulsations present. Abdomen: Soft nontender, negative for organomegaly, or masses. Bowel sounds are hypoactive present in all 4 quadrants without guarding or rebound, no CVA tenderness. Musculoskeletal: Muscle strength and tone are equal, global weakness/deconditioning noted, no deformity, crepitus, effusions, cyanosis, clubbing or edema present. Full range of motion intact radial and pedal pulses are normal. Skin: Warm, diaphoretic and intact without rashes, ulcerations or petechiae. Pt is without hair. Neuro: Alert and orientated x3. Psych: Patient has a well-kept appearance, appropriate affect, mental status attitude thought context and judgment are appropriate for age. Objective Labs Result Diagrams: 03/21/21 17:42 03/21/21 17:42 Labs: Laboratory Results - last 24 hr 03/21/21 03/21/21 03/21/21 17:42 17:42 17:42 WBC 11.1 H RBC 3.71 L Hgb 11.4 L Hct 34.3 L MCV 92.4 MCH 30.6 MCHC 33.1 RDW 16.5 H Plt Count 203 Neut % (Auto) Not Reportable Lymph % (Auto) Not Reportable [place] % (Auto) Not Reportable Eos % (Auto) Not Reportable Baso % (Auto) Not Reportable Lymph # (Auto) Not Reportable [place] # (Auto) Not Reportable Baso # (Auto) Not Reportable Total Counted 100 Seg Neutrophils % 72.0 H Lymphocytes % (Manual) 11.0 L Monocytes % (Manual) 16.0 H Eosinophils % (Manual) 1.0 L Neutrophils # (Manual) 7992 H RBC Morphology See below Polychromasia 1+ H Anisocytosis 1+ H PT 12.6 INR 1.1 APTT 28 Sodium 137 Potassium 3.3 L Chloride 105 Carbon Dioxide 27 BUN 4 L Creatinine 0.44 L Estimated GFR > 60.0 BUN/Creatinine Ratio 9.1 Glucose 124 H Lactate Calcium 9.1 Magnesium Total Bilirubin 0.5 AST 31 ALT 20 Alkaline Phosphatase 149 H Total Creatine Kinase CK-MB (CK-2) CK-MB (CK-2) Rel Index Troponin I NT-Pro-B Natriuret Pep Total Protein 6.8 Albumin 3.8 Globulin 3.0 Albumin/Globulin Ratio 1.3 Lipase 55 Procalcitonin 6.50 H Chlamy pneumoniae PCR Adenovirus (PCR) B. pertussis DNA (PCR) B.parapertussis DNA PCR Coronavirus OC43 (PCR) Coronavirus HKU1 (PCR) Coronavirus 229E (PCR) SARS-CoV-2 (PCR) Coronavirus NL63 (PCR) Human Metapneumovir PCR Influenza Type A (PCR) Influenza Type B (PCR) M. pneumoniae (PCR) Parainfluenza 1 (PCR) Parainfluenza 2 (PCR) Parainfluenza 3 (PCR) Parainfluenza 4 (PCR) RSV (PCR) Entero/Rhino (PCR) 03/21/21 03/21/21 03/21/21 17:42 17:42 17:50 WBC RBC Hgb Hct MCV MCH MCHC RDW Plt Count Neut % (Auto) Lymph % (Auto) [place] % (Auto) Eos % (Auto) Baso % (Auto) Lymph # (Auto) [place] # (Auto) Baso # (Auto) Total Counted Seg Neutrophils % Lymphocytes % (Manual) Monocytes % (Manual) Eosinophils % (Manual) Neutrophils # (Manual) RBC Morphology Polychromasia Anisocytosis PT INR APTT Sodium Potassium Chloride Carbon Dioxide BUN Creatinine Estimated GFR BUN/Creatinine Ratio Glucose Lactate 2.3 H Calcium Magnesium 1.8 Total Bilirubin AST ALT Alkaline Phosphatase Total Creatine Kinase 22 L CK-MB (CK-2) TNP CK-MB (CK-2) Rel Index TNP Troponin I < 0.012 NT-Pro-B Natriuret Pep 608 H Total Protein Albumin Globulin Albumin/Globulin Ratio Lipase Procalcitonin Chlamy pneumoniae PCR Adenovirus (PCR) B. pertussis DNA (PCR) B.parapertussis DNA PCR Coronavirus OC43 (PCR) Coronavirus HKU1 (PCR) Coronavirus 229E (PCR) SARS-CoV-2 (PCR) Coronavirus NL63 (PCR) Human Metapneumovir PCR Influenza Type A (PCR) Influenza Type B (PCR) M. pneumoniae (PCR) Parainfluenza 1 (PCR) Parainfluenza 2 (PCR) Parainfluenza 3 (PCR) Parainfluenza 4 (PCR) RSV (PCR) Entero/Rhino (PCR) 03/21/21 03/21/21 20:06 20:31 WBC RBC Hgb Hct MCV MCH MCHC RDW Plt Count Neut % (Auto) Lymph % (Auto) [place] % (Auto) Eos % (Auto) Baso % (Auto) Lymph # (Auto) [place] # (Auto) Baso # (Auto) Total Counted Seg Neutrophils % Lymphocytes % (Manual) Monocytes % (Manual) Eosinophils % (Manual) Neutrophils # (Manual) RBC Morphology Polychromasia Anisocytosis PT INR APTT Sodium Potassium Chloride Carbon Dioxide BUN Creatinine Estimated GFR BUN/Creatinine Ratio Glucose Lactate 1.5 Calcium Magnesium Total Bilirubin AST ALT Alkaline Phosphatase Total Creatine Kinase CK-MB (CK-2) CK-MB (CK-2) Rel Index Troponin I NT-Pro-B Natriuret Pep Total Protein Albumin Globulin Albumin/Globulin Ratio Lipase Procalcitonin Chlamy pneumoniae PCR Not detected Adenovirus (PCR) Not detected B. pertussis DNA (PCR) Not detected B.parapertussis DNA PCR Not detected Coronavirus OC43 (PCR) Not detected Coronavirus HKU1 (PCR) Not detected Coronavirus 229E (PCR) Not detected SARS-CoV-2 (PCR) Not detected Coronavirus NL63 (PCR) Not detected Human Metapneumovir PCR Not detected Influenza Type A (PCR) Not detected Influenza Type B (PCR) Not detected M. pneumoniae (PCR) Not detected Parainfluenza 1 (PCR) Not detected Parainfluenza 2 (PCR) Not detected Parainfluenza 3 (PCR) Not detected Parainfluenza 4 (PCR) Not detected RSV (PCR) Not detected Entero/Rhino (PCR) Not detected Assessment & Plan Assessment & Plan narrative: Vicky Melissa is a 60-year-old female with history of asthma, hypertension, breast cancer with metastasis to bone currently getting chemotherapy with [facility] next treatment is in 4 days.? She had her COVID booster 2 days ago.? Since then she has had body aches, chills, increasing shortness of breath with exertion, chest pain when she coughs.? She was seen at the walk-in clinic initially had a negative influenza and COVID test.? Patient to be admitted observation for symptom management of acute respiratory failure and sepsis, mild rehydration, rule out sources of infection, and resolution of patient's symptoms and condition. This is very likely related to patient's COVID booster shot, although some findings on the CTA are suggestive of early developing of pneumonia. Patient may require retest of COVID if not improving. 1. Acute hypoxic respiratory failure due to severe sepsis, with mild hypokalemia, leukocytosis and elevated lactic acid, of unknown etiology, acute, in the setting asthma, acute on chronic, present on admission - HR 120, temp 103.9, B/P 158/95, RR 24, sating in the low 80s w/exertion, & 88% on RA. 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 -patient's procalcitonin, lactate and WBC may be elevated due to metastatic disease, or in reaction to COVID vaccine, or yet to be diagnosed COVID infection, will continue workup to rule out other infectious sources. -respiratory consult, nebulizers Q 4, incentive spirometry, [id number] mg x 3 days -continue pulmicort, combivent -potassium 3.3-40 mEq p.o. potassium given 2. Elevated BNP, possible CHF, acute, present on admission -BNP 608-CTA PE rule out was negative for pulmonary embolism -gentle rehydration NS @40cc/hr, to avoid exacerbation of CHF- monitor for fluid overload. -due to patient's elevated inflammatory markers, and compromised immune system echo ordered to rule out endocarditis. 3. History of breast cancer left breast and right breast, currently undergoing chemotherapy, acute on chronic, present on admission -cancer was triple negative breast cancer the other 1 was estrogen receptor positive.? -managed by Oncology 4. Essential Hypertension, acute on chronic, present on admission -Continue atenolol 5. Anxiety, chronic, present on admission-stable -continue alprazolam 6. Hyperlipidemia, chronic, present on admission -continue Lipitor 7. Anemia, likely due to metastatic disease process, acute on chronic, present on admission- stable -HGB 11.4, HCT 34.3. 8. GERD, chronic, present on admission -continue famotidine 9. Peripheral neuropathy, chronic, present on admission -continue gabapentin Code status: full Surrogate decision maker: Skye LOREDO PCR:Negative COVID vaccination: Pfizer 2020, plus booster 2021 DVT/VTE prophylaxis: Lovenox 30 and SCDs Disposition: Patient admitted for observation expected length of stay less than 2 midnights I have utilized all available immediate resources to obtain, update, or review the patient's current medications. I confirmed that the patient's advanced care plan is present, Code status is documented and/or surrogate decision maker is listed in the patient's medical record. Time Spent With Patient Critical Care time: I spent a total of [] minutes of critical care time on this patient's care today; this time is exclusive of procedural time. Quality VTE Deep Vein Thrombosis/Pulmonary Embolism Present on Admission: No
[2021-03-22] MEDS: SODIUM CHLORIDE 0.9% FLUSH 10 ML IV ×2 (02:12→20:30)
[2021-03-22] MEDS: SODIUM CHLORIDE 0.9% 500 ML 40 ML IV (02:12)
[2021-03-22] MEDS: ATORVASTATIN 20 MG TABLET 10 MG PO ×2 (03:41→20:31)
[2021-03-22 06:39] LABS: Alanine Aminotransferase 18 IU/L (<35); Albumin 3.5 g/dL (3.5-5.0); Albumin Globulin Ratio 1.3 (1.0-2.8); Alkaline Phosphatase 125 U/L (38-126); Aspartate Aminotransferase 25 IU/L (14-36); BUN Creatinine Ratio 17.5 (6-22); Bilirubin Total 0.4 mg/dL (0.2-1.3); Blood Urea Nitrogen 7 mg/dL (7-17); Calcium 9.2 mg/dL (8.4-10.2); Carbon Dioxide 28 mmol/L (22-32); Chloride 108 mmol/L (98-107); Estimated Glomerular Filt Rate > 60.0 mL/min (>60); Globulin 2.8 g/dL (1.7-4.1); Glucose 267 mg/dL (80-110); HEMOLYSIS < 15 (0-50); Potassium 4.6 mmol/L (3.4-5.1); Sodium 140 mmol/L (137-145); Total Protein 6.3 g/dL (6.3-8.2)
[2021-03-22] MEDS: ALBUTEROL/IPRATROPIUM 3 ML AMPUL INH (06:43)
[2021-03-22 06:45] LABS: NT-proBNP (BNP-Adult 18+) 520 pg/mL (<125)
[2021-03-22] MEDS: BUDESONIDE 0.5 MG/2 ML NEB INH ×2 (06:51→19:32)
[2021-03-22 07:01] LABS: Hematocrit 33.4 % (36-46); Hemoglobin 11.1 g/dL (12.0-16.0); Mean Corpuscular HGB Conc 33.3 % (30-36); Mean Corpuscular Hemoglobin 31.1 PG (26-34); Mean Corpuscular Volume 93.2 fL (80-100); Platelet Count 193 X10^3/uL (150-400); Red Blood Cell Count 3.58 X10^6/uL (4.0-5.2); Red Cell Distribution Width 16.6 % (11.6-14.8); White Blood Cell Count 10.2 X10^3/uL (4.5-11.0)
[2021-03-22 07:11] LABS: Add Manual Diff / Slide Review YES
[2021-03-22 07:24] LABS: Anisocytosis 1+; Neutrophils Absolute Manual 9180 /uL (3000-5900); Total Cells Counted 100
--- NOTE | 2021-03-22 07:55 | PM.PN.1 ---
Subjective Subjective Date Patient Seen: 03/22/21 Interval history: She is seen today to follow-up her acute febrile illness. Her COVID test was negative but her chest x-ray is read as showing a possible viral pneumonia. Her echocardiogram was just being done when I saw her. Her fevers of 103? had resolved by this morning. Her white blood count was only 10.2. The procalcitonin was 6.5 and the lactate was 2.3. She continues to blame the fevers on her COVID booster shot from several days ago. Exam Vital Signs (past 8 hours): - 03/22/21 03:47 03/22/21 06:52 Temperature 96.6 F L Pulse Rate 90 98 H Respiratory Rate 20 18 Blood Pressure 104/62 Pulse Oximetry 94 97 Oxygen Delivery Method Nasal Cannula Oxygen Flow Rate 1 Narrative Exam Narrative: She is alert and oriented x3. No apparent distress. Heart is regular rate and rhythm without murmur Lungs are clear to auscultation bilaterally Abdomen is soft, bowel sounds positive, nontender, no organomegaly. Extremities have no ankle edema Objective Labs Result Diagrams: 03/22/21 06:04 03/22/21 06:04 Labs: Laboratory Results - last 24 hr 03/21/21 03/21/21 03/21/21 17:42 17:42 17:42 WBC 11.1 H RBC 3.71 L Hgb 11.4 L Hct 34.3 L MCV 92.4 MCH 30.6 MCHC 33.1 RDW 16.5 H Plt Count 203 Neut % (Auto) Not Reportable Lymph % (Auto) Not Reportable [place] % (Auto) Not Reportable Eos % (Auto) Not Reportable Baso % (Auto) Not Reportable Lymph # (Auto) Not Reportable [place] # (Auto) Not Reportable Baso # (Auto) Not Reportable Total Counted 100 Seg Neutrophils % 72.0 H Band Neutrophils % Lymphocytes % (Manual) 11.0 L Atypical Lymphs % Monocytes % (Manual) 16.0 H Eosinophils % (Manual) 1.0 L Neutrophils # (Manual) 7992 H RBC Morphology See below Polychromasia 1+ H Anisocytosis 1+ H PT 12.6 INR 1.1 APTT 28 Sodium 137 Potassium 3.3 L Chloride 105 Carbon Dioxide 27 BUN 4 L Creatinine 0.44 L Estimated GFR > 60.0 BUN/Creatinine Ratio 9.1 Glucose 124 H Lactate Calcium 9.1 Magnesium Total Bilirubin 0.5 AST 31 ALT 20 Alkaline Phosphatase 149 H Total Creatine Kinase CK-MB (CK-2) CK-MB (CK-2) Rel Index Troponin I NT-Pro-B Natriuret Pep Total Protein 6.8 Albumin 3.8 Globulin 3.0 Albumin/Globulin Ratio 1.3 Lipase 55 Procalcitonin 6.50 H Chlamy pneumoniae PCR Adenovirus (PCR) B. pertussis DNA (PCR) B.parapertussis DNA PCR Coronavirus OC43 (PCR) Coronavirus HKU1 (PCR) Coronavirus 229E (PCR) SARS-CoV-2 (PCR) Coronavirus NL63 (PCR) Human Metapneumovir PCR Influenza Type A (PCR) Influenza Type B (PCR) M. pneumoniae (PCR) Parainfluenza 1 (PCR) Parainfluenza 2 (PCR) Parainfluenza 3 (PCR) Parainfluenza 4 (PCR) RSV (PCR) Entero/Rhino (PCR) 03/21/21 03/21/21 03/21/21 17:42 17:42 17:50 WBC RBC Hgb Hct MCV MCH MCHC RDW Plt Count Neut % (Auto) Lymph % (Auto) [place] % (Auto) Eos % (Auto) Baso % (Auto) Lymph # (Auto) [place] # (Auto) Baso # (Auto) Total Counted Seg Neutrophils % Band Neutrophils % Lymphocytes % (Manual) Atypical Lymphs % Monocytes % (Manual) Eosinophils % (Manual) Neutrophils # (Manual) RBC Morphology Polychromasia Anisocytosis PT INR APTT Sodium Potassium Chloride Carbon Dioxide BUN Creatinine Estimated GFR BUN/Creatinine Ratio Glucose Lactate 2.3 H Calcium Magnesium 1.8 Total Bilirubin AST ALT Alkaline Phosphatase Total Creatine Kinase 22 L CK-MB (CK-2) TNP CK-MB (CK-2) Rel Index TNP Troponin I < 0.012 NT-Pro-B Natriuret Pep 608 H Total Protein Albumin Globulin Albumin/Globulin Ratio Lipase Procalcitonin Chlamy pneumoniae PCR Adenovirus (PCR) B. pertussis DNA (PCR) B.parapertussis DNA PCR Coronavirus OC43 (PCR) Coronavirus HKU1 (PCR) Coronavirus 229E (PCR) SARS-CoV-2 (PCR) Coronavirus NL63 (PCR) Human Metapneumovir PCR Influenza Type A (PCR) Influenza Type B (PCR) M. pneumoniae (PCR) Parainfluenza 1 (PCR) Parainfluenza 2 (PCR) Parainfluenza 3 (PCR) Parainfluenza 4 (PCR) RSV (PCR) Entero/Rhino (PCR) 03/21/21 03/21/21 03/22/21 20:06 20:31 06:04 WBC 10.2 RBC 3.58 L Hgb 11.1 L Hct 33.4 L MCV 93.2 MCH 31.1 MCHC 33.3 RDW 16.6 H Plt Count 193 Neut % (Auto) Not Reportable Lymph % (Auto) Not Reportable [place] % (Auto) Not Reportable Eos % (Auto) Not Reportable Baso % (Auto) Not Reportable Lymph # (Auto) Not Reportable [place] # (Auto) Not Reportable Baso # (Auto) Not Reportable Total Counted 100 Seg Neutrophils % 88.0 H Band Neutrophils % 2.0 L Lymphocytes % (Manual) 5.0 L Atypical Lymphs % 4.0 H Monocytes % (Manual) 1.0 L Eosinophils % (Manual) Neutrophils # (Manual) 9180 H RBC Morphology Not Reportable Polychromasia Anisocytosis 1+ H PT INR APTT Sodium Potassium Chloride Carbon Dioxide BUN Creatinine Estimated GFR BUN/Creatinine Ratio Glucose Lactate 1.5 Calcium Magnesium Total Bilirubin AST ALT Alkaline Phosphatase Total Creatine Kinase CK-MB (CK-2) CK-MB (CK-2) Rel Index Troponin I NT-Pro-B Natriuret Pep Total Protein Albumin Globulin Albumin/Globulin Ratio Lipase Procalcitonin Chlamy pneumoniae PCR Not detected Adenovirus (PCR) Not detected B. pertussis DNA (PCR) Not detected B.parapertussis DNA PCR Not detected Coronavirus OC43 (PCR) Not detected Coronavirus HKU1 (PCR) Not detected Coronavirus 229E (PCR) Not detected SARS-CoV-2 (PCR) Not detected Coronavirus NL63 (PCR) Not detected Human Metapneumovir PCR Not detected Influenza Type A (PCR) Not detected Influenza Type B (PCR) Not detected M. pneumoniae (PCR) Not detected Parainfluenza 1 (PCR) Not detected Parainfluenza 2 (PCR) Not detected Parainfluenza 3 (PCR) Not detected Parainfluenza 4 (PCR) Not detected RSV (PCR) Not detected Entero/Rhino (PCR) Not detected 03/22/21 06:04 WBC RBC Hgb Hct MCV MCH MCHC RDW Plt Count Neut % (Auto) Lymph % (Auto) [place] % (Auto) Eos % (Auto) Baso % (Auto) Lymph # (Auto) [place] # (Auto) Baso # (Auto) Total Counted Seg Neutrophils % Band Neutrophils % Lymphocytes % (Manual) Atypical Lymphs % Monocytes % (Manual) Eosinophils % (Manual) Neutrophils # (Manual) RBC Morphology Polychromasia Anisocytosis PT INR APTT Sodium 140 Potassium 4.6 D Chloride 108 H Carbon Dioxide 28 BUN 7 Creatinine 0.40 L Estimated GFR > 60.0 BUN/Creatinine Ratio 17.5 Glucose 267 H D Lactate Calcium 9.2 Magnesium Total Bilirubin 0.4 AST 25 ALT 18 Alkaline Phosphatase 125 Total Creatine Kinase CK-MB (CK-2) CK-MB (CK-2) Rel Index Troponin I NT-Pro-B Natriuret Pep 520 H Total Protein 6.3 Albumin 3.5 Globulin 2.8 Albumin/Globulin Ratio 1.3 Lipase Procalcitonin Chlamy pneumoniae PCR Adenovirus (PCR) B. pertussis DNA (PCR) B.parapertussis DNA PCR Coronavirus OC43 (PCR) Coronavirus HKU1 (PCR) Coronavirus 229E (PCR) SARS-CoV-2 (PCR) Coronavirus NL63 (PCR) Human Metapneumovir PCR Influenza Type A (PCR) Influenza Type B (PCR) M. 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 Osteopenia after menopause Pancreatitis (~2010) Right ankle pain Right foot pain Seborrheic keratosis, inflamed Vertigo (~2011) Surgical History Anesthesia Breast cancer (~2006) History of shoulder surgery (~2011) Status post appendectomy (~1963) Status post total hip replacement, left Family History Brother Age: 58 Scoliosis Father Heart disease Hypertension Mother Age: 84 Cancer Diabetes mellitus Social History household members: significant other Smoking Status: Former smoker alcohol intake: current Assessment & Plan Assessment & Plan narrative: Vicky Melissa is a 60-year-old female with history of asthma, hypertension, breast cancer with metastasis to bone currently getting chemotherapy with [facility] next treatment is in 4 days.? She had her COVID booster 2 days ago.? Since then she has had body aches, chills, increasing shortness of breath with exertion, chest pain when she coughs.? She was seen at the walk-in clinic initially had a negative influenza and COVID test.? She was admitted for observation and symptom management of acute respiratory failure and sepsis,? mild rehydration, rule out sources of infection, and resolution of patient's symptoms and condition.? Some findings on the CTA are suggestive of early developing of pneumonia.? Patient will require retest for COVID if not improving. 1. Acute hypoxic respiratory failure due to severe sepsis, with mild hypokalemia, leukocytosis and elevated lactic acid, of unknown etiology, acute, in the setting asthma, acute on chronic, present on admission - HR 120, temp 103.9, B/P 158/95, RR 24, sating in the low 80s w/exertion, & 88% on RA. 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 -patient's procalcitonin, lactate and WBC may be elevated due to metastatic disease, or in reaction to COVID vaccine, or yet to be diagnosed COVID infection, will continue workup to rule out other infectious sources. -respiratory consult, nebulizers Q 4, incentive spirometry, [id number] mg x 3 days -continue pulmicort, combivent -potassium 3.3-40 mEq p.o. potassium given -ceftriaxone IV started on 03/22 -repeat COVID 24 hours after the initial negative test -repeat procalcitonin and white blood count on 03/23. 2. Elevated BNP, possible CHF, acute, present on admission -BNP 608-CTA? PE rule out was negative for pulmonary embolism -stop IV fluid at her request. She is eating and drinking well. -due to patient's elevated inflammatory markers, and compromised immune system echo was done to rule out endocarditis. Reading is pending. 3. History of breast cancer left breast and right breast, currently undergoing chemotherapy, acute on chronic, present on admission -cancer was triple negative breast cancer the other 1 was estrogen receptor positive.? -managed by Oncology 4. Essential Hypertension, acute on chronic, present on admission -Continue atenolol 5. Anxiety, chronic, present on admission-stable -continue alprazolam 6. Hyperlipidemia, chronic, present on admission -continue Lipitor 7. Anemia, likely due to metastatic disease process, acute on chronic, present on admission- stable -HGB 11.4, HCT 34.3. 8. GERD, chronic, present on admission -continue famotidine 9. Peripheral neuropathy, chronic, present on admission -continue gabapentin Code status: full Surrogate decision maker:Carmen Sy Time Spent With Patient Critical Care time: I spent a total of [] minutes of critical care time on this patient's care today; this time is exclusive of procedural time. Quality VTE Deep Vein Thrombosis/Pulmonary Embolism Present on Admission: No
[2021-03-22] MEDS: ENOXAPARIN 30 MG/0.3 ML SYRINGE SUBCUT (08:50)
[2021-03-22] MEDS: atenoloL 50 MG TABLET PO (08:50)
[2021-03-22] MEDS: FAMOTIDINE 20 MG TABLET 10 MG PO (08:51)
[2021-03-22] MEDS: predniSONE 20 MG TABLET 40 MG PO (08:52)
[2021-03-22] MEDS: GABAPENTIN 300 MG CAPSULE 900 MG PO ×3 (08:52→20:31)
--- NOTE | 2021-03-22 09:15 | PC.NURSE ---
Patient A/O x 3, denies pain at this time. VSS, tachy. Reports feeling SOB with activity, denies SOB at rest, 94-96% on 1L NC at this time. Lungs CTA, diminished in RLL. Denies chest pain, N/V. SCD's on bilaterally. No edema noted. NS infusing @ 40cc/hr in R AC, IV WNL. Glasses on. Patient encouraged to move in the bed and call if she feels dizzy or lightheaded. Call light in reach. Patient denies further needs. DI in room for ECHO at this time.
[2021-03-22] MEDS: cefTRIAXone 1,000 MG in SODIUM CHLORIDE 0.9% 100 ML 200 ML IV (10:36)
--- NOTE | 2021-03-22 14:16 | CM.DANOTE ---
DCP Assessment: Patient is a 60 yr old female who was admitted for Fever, respiratory failure and suspected COVID. Patient tested negative for COVID and is fully vaccinated and had her booster. CM met with patient at the bedside and explained role. Patient was alert and oriented x4 during CM visit. Patient has breast cancer and is currently on Chemotherapy. patient currently lives in [place] with her significant other Jc. Patient states she is independent with all ADLs and drives at her base line. Patient asked Cm if she could go home today CM let her know that according to Dr. Irizarry in Am rounds he was planning on keeping her another day or so to make sure her infection is undercontrol and she is able to breath appropriately with out the need of O2. Patient does not use home oxygen but is currently on 1-2L per NC to maintain O2 sat above 90%. patient stated understanding. I: [employer] and self pay Plan: Dc home when medically stable with chinmayfriend Jc. No identified DC planning needs noted. Cm will follow to assist with any new DC planning needs that may arise. Kelly Carter RNanalytical engineer Discharge Planning/Care Management Discharge Assessment Start: 03/22/21 14:14 Freq: Status: Active Protocol: Document 03/22/21 14:14 (Rec: 03/22/21 14:16 [id number]) Discharge Planning Assessment Assigned Roll On Man Kelly Carter RN Case Manger DPOA/Assigned Designee Name Jc Sy -[email or web address] / significant other Contact Information [phone] Advance Directives? No History Provided By Patient,Medical Record Has Patient been admitted in last 30 No days? Prior Living Arrangements House Household Members significant other Type of transporation used prior to Drives own vehicle admit Independent with ADL's Yes Is patient alert and oriented? Yes Caregiver for Another No Barriers to Discharge No Discharge Plan Home Transportation Arrangement Significant other jc will transport her home. Referrals Initiated None needed Whiteboard Updated in Patient Room with Yes name and ext. # of Roll On Man Review Status In Process Next Review Type Continued Stay Review
[2021-03-22] MEDS: ALPRAZolam 0.5 MG TABLET PO ×2 (14:59→20:32)
[2021-03-22] MEDS: ACETAMINOPHEN 325 MG TABLET 650 MG PO (16:58)
[2021-03-22 19:34] LABS: COVID19 - ADMIT (NP swab/PCR) Negative (Negative)
--- NOTE | 2021-03-22 22:58 | PC.NURSE ---
Patient is alert and oriented. Breath sounds diminished in right LL but otherwise CTA with improved air exchange. Patient is denying feeling SOB either at rest or with exertion tonight. When assessed was on RA with sat of 93% but when asleep she intermittently drops to mid 80's so restarted oxygen at 1L/min per NC and sat is now 96%; continuous pulse oximetry in place. States she has been using I.S. but still only able to max out at 1000. HRR. Denied nausea. BT present and abdomen is soft. Is able to move self in bed and gets up to bathroom with SBA; states she feels weak in bilateral LE. Scabbed areas bilateral buttocks noted and patient encouraged to keep off back as much as possible. Has neuropathy in bilateral LE which is chronic and unchanged. Denied pain but did request/medicated with Alprazolam to help her sleep. Is wearing bilateral calf SCD's. Fall risk score is moderate and bed alarm is activated.
[2021-03-23 04:36] VITALS: BP 101/65; PULSE 78; RESP 15; TEMP 37.1; O2SAT 96
[2021-03-23 06:49] LABS: Hematocrit 33.2 % (36-46); Hemoglobin 10.8 g/dL (12.0-16.0); Mean Corpuscular HGB Conc 32.5 % (30-36); Mean Corpuscular Hemoglobin 30.5 PG (26-34); Mean Corpuscular Volume 93.7 fL (80-100); Platelet Count 183 X10^3/uL (150-400); Red Blood Cell Count 3.54 X10^6/uL (4.0-5.2); Red Cell Distribution Width 16.9 % (11.6-14.8); White Blood Cell Count 8.3 X10^3/uL (4.5-11.0)
[2021-03-23 06:50] LABS: Add Manual Diff / Slide Review YES
[2021-03-23 06:53] LABS: Lactate (Lactic Acid) 1.2 mmol/L (0.7-2.1)
[2021-03-23 07:07] LABS: Neutrophils Absolute Manual 5727 /uL (3000-5900); Total Cells Counted 100
[2021-03-23 07:08] LABS: Anisocytosis 2+
[2021-03-23 07:11] LABS: Procalcitonin 2.81 ng/mL (<0.5)
[2021-03-23 08:39] VITALS: BP 113/68; PULSE 89; RESP 16; TEMP 37.2; O2SAT 95
[2021-03-23] MEDS: GABAPENTIN 300 MG CAPSULE 900 MG PO (09:08)
[2021-03-23] MEDS: FAMOTIDINE 20 MG TABLET 10 MG PO (09:08)
[2021-03-23] MEDS: predniSONE 20 MG TABLET 40 MG PO (09:09)
[2021-03-23] MEDS: SODIUM CHLORIDE 0.9% FLUSH 10 ML IV (09:10)
[2021-03-23] MEDS: ENOXAPARIN 40 MG/0.4 ML SYRINGE SUBCUT (09:10)
[2021-03-23 12:35] VITALS: TEMP 37.5
[2021-03-23] MEDS: ACETAMINOPHEN 325 MG TABLET 650 MG PO (12:35)
[2021-03-23 12:59] VITALS: TEMP 37.2
[2021-03-23] MEDS: BUDESONIDE 0.5 MG/2 ML NEB INH (13:19)
[2021-03-23 13:20] VITALS: PULSE 97; RESP 18; O2SAT 94
--- NOTE | 2021-03-23 14:40 | PC.NURSE ---
Day shift: Pt off unit at approx 1440. Paperwork signed and all questions answered. Pt has all personal belongings. scripts sent electronic to Pt's pharmacy. Taken to friends car via WC by SHANITA Nunez. Tolerated well. SHe remains 96% RA. Encouraged to cough, deep breath and continue I.S. use at home.
--- NOTE | 2021-03-23 19:34 | P.DS_ITS ---
History of Present Illness History of Present Illness Chief complaint: SOB, FEVER Narrative: Vicky Melissa is a 60-year-old female with history of asthma, hypertension, breast cancer with metastasis to bone currently getting chemotherapy with [facility] next treatment is in 4 days.? She had her COVID booster 2 days ago.? Since then she has had body aches, chills, increasing shortness of breath with exertion, chest pain when she coughs.? She was seen at the walk-in clinic initially had a negative influenza and COVID test.? She presented to the ED? tachycardic at a rate of 120, with a fever of 103.9, B/P 158/95, RR 24, sating in the low 80s w/exertion, & 88% on RA.? She generally does not feel well.? He has been able to eat and drink some but does have some mouth sores that seem to be improving as a side effect from chemo.? Upon admit to the floor patient denies chest pain, shortness of breath continues, 95% on 2L/NC at rest, she denies nausea, vomiting, diarrhea, hemoptysis, hematuria, melena, urinary issues, new weakness, recent falls, recent travel, illness, exposure, or trauma.? Patient does note that her chills have resolved but she continues to be moderately diaphoretic, an continues to have extreme fatigue. Upon admit to the floor temp 99.4?, BP 117/73 (greater than 40 pt drop in ED), HR 104, R 17, O2 saturation 95% on 2 L nasal cannula.? Patient has a white count 11.1 with a left shift neutrophils 7992, chronic anemia demonstrated by HGB 11.4, HCT 34.3.? 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 Patient met SIRS/sepsis criteria in ED and has a sofa score:3.? Patient's chest x-ray demonstrated no focal infiltrates, aneurysms or PE, may have developing pneumonia.?Patient is admitted for SIRS/severe sepsis resulting in acute respiratory failure with hypoxia, and hypokalemia of unknown etiology. Discharge Providers Provider Date of admission: 03/21/21 22:12 Discharge Date: 03/23/21 Primary care physician: Manav Alegre DO Consults: 03/21/21 22:30 Consult to Respiratory Therapy Evaluate & Treat Comment: Acute resp failure Physician Instructions: Evaluate and treat Discharge provider: Jose Carr MD Summary Hospital Course Discharge Diagnosis: 1. Sepsis 2. Pneumonia 3. Acute hypoxic respiratory failure without pneumonia 4. Breast malignancy with bone metastases Hospital Course: Patient admitted due to acute febrile illness with sepsis parameters, suggestion of early developing bilateral pneumonia on CTA, hypoxia in setting breast cancer chemotherapy. COVID-19 PCR was negative. Cultures have been negative. Echocardiogram normal. Patient was treated with broad-spectrum IV antibiotics with improvement in symptoms of dyspnea and mild cough and resolution of fever. She is being discharged on Levaquin for 1 week. She has follow-up appointment with her cancer specialist tomorrow at [facility]. Status at Discharge Cognitive/behavioral status at discharge: oriented Functional status at discharge: independent ambulation Overall status at discharge: patient is progressing back to baseline Exam Vital Signs (past 8 hours): - 03/23/21 12:35 03/23/21 12:59 03/23/21 13:20 Temperature 99.5 F 98.9 F Pulse Rate 97 H Respiratory Rate 18 Pulse Oximetry 94 Oxygen Delivery Method Room Air Oxygen Flow Rate 0 Narrative Exam Narrative: General: Alert pleasant and cooperative NAD Lungs: Clear to auscultation Heart: Regular rhythm Extremities: No edema Objective Labs Result Diagrams: 03/23/21 06:19 03/22/21 06:04 Labs: Laboratory Results - last 24 hr 03/22/21 03/23/21 03/23/21 16:25 06:19 06:19 WBC 8.3 RBC 3.54 L Hgb 10.8 L Hct 33.2 L MCV 93.7 MCH 30.5 MCHC 32.5 RDW 16.9 H Plt Count 183 Neut % (Auto) Not Reportable Lymph % (Auto) Not Reportable [place] % (Auto) Not Reportable Eos % (Auto) Not Reportable Baso % (Auto) Not Reportable Lymph # (Auto) Not Reportable [place] # (Auto) Not Reportable Baso # (Auto) Not Reportable Total Counted 100 Seg Neutrophils % 69.0 Lymphocytes % (Manual) 13.0 L Atypical Lymphs % 2.0 H Monocytes % (Manual) 14.0 H Eosinophils % (Manual) 2.0 Neutrophils # (Manual) 5727 RBC Morphology Not Reportable Anisocytosis 2+ H Lactate Procalcitonin 2.81 H SARS-CoV-2 (PCR) Negative 03/23/21 06:19 WBC RBC Hgb Hct MCV MCH MCHC RDW Plt Count Neut % (Auto) Lymph % (Auto) [place] % (Auto) Eos % (Auto) Baso % (Auto) Lymph # (Auto) [place] # (Auto) Baso # (Auto) Total Counted Seg Neutrophils % Lymphocytes % (Manual) Atypical Lymphs % Monocytes % (Manual) Eosinophils % (Manual) Neutrophils # (Manual) RBC Morphology Anisocytosis Lactate 1.2 Procalcitonin SARS-CoV-2 (PCR) [facility] Medical History (Updated 03/22/21 @ 01:52 by PARMINDER Hunter-JASON) Anxiety Asthma Breast cancer Essential hypertension Foot pain 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 Osteopenia after menopause Pancreatitis (~2010) Right ankle pain Right foot pain Seborrheic keratosis, inflamed Vertigo (~2011) Surgical History Anesthesia Breast cancer (~2006) History of shoulder surgery (~2011) Status post appendectomy (~1963) Status post total hip replacement, left Family History Brother Age: 58 Scoliosis Father Heart disease Hypertension Mother Age: 84 Cancer Diabetes mellitus Social History household members: significant other Smoking Status: Former smoker alcohol intake: current Discharge Plan Discharge Plan Patient Disposition: Home Provider Discharge Comment: You were admitted due to fever. Please take antibiot ic course as prescribed. Discharge orders & Medications Prescriptions: New levofloxacin 500 mg tablet 500 mg PO DAILY Qty: 7 0RF Continued multivitamin [Multiple Vitamins] 1 EACH tablet 1 tab PO Q48H Qty: 0 0RF Vitamin B-12 50 MCG tablet 50 mcg PO Q DAY Qty: 0 0RF (DME) miscellaneous medical supply Misc See Rx Instructions .ROUTE .MEDSUPPLY Qty: 1 0RF Rx Instructions: Disabled Parking Permit ipratropium-albuterol 0.5 mg-3 mg(2.5 mg base)/3 mL solution for nebulization See Rx Instructions INHALATION Q2HP PRN (Reason: SOB) Qty: 180 2RF Dose Instruction: Use one vial via nebulizer every 2 hours as needed for SOB INHALATION Q2HP PRN; Rx Instructions: Use one vial via nebulizer every 2 hours as needed for SOB INHALATION Q2HP PRN; atenolol 50 mg tablet 50 mg PO Q DAY Qty: 90 3RF Flovent Diskus 250 mcg/actuation blister with device See Rx Instructions .ROUTE .COMPLEX Qty: 60 3RF Dose Instruction: Inhale 1 puff by mouth twice daily. Rinse mouth with water and spit. Do not swallow. Rx Instructions: Inhale 1 puff by mouth twice daily. Rinse mouth with water and spit. Do not swallow. atorvastatin [Lipitor] 10 mg tablet 10 mg PO HS Qty: 90 0RF alprazolam 0.5 mg tablet See Rx Instructions .ROUTE .COMPLEX Qty: 60 0RF Rx Instructions: Take 1 tablet by mouth twice daily as needed for anxiety albuterol sulfate [ProAir HFA] 90 mcg/actuation HFA aerosol inhaler See Rx Instructions .ROUTE .COMPLEX Qty: 25.5 0RF Dose Instruction: Inhale one or two puffs by mouth every 4 hours as needed Rx Instructions: Inhale one or two puffs by mouth every 4 hours as needed hydrocodone-acetaminophen 5-325 mg tablet 1 - 2 tab PO Q6HP PRN (Reason: pain) Qty: 120 0RF famotidine 10 mg Tablet 10 mg PO DAILY 0RF gabapentin 300 mg capsule 900 mg PO TID 0RF Follow up/Referrals: Manav Alegre DO [Primary Care Provider] - Discharge Health Status Multidrug resistant organism: No MDRO Diet/Activity/Treatments Diet: Regular Visit Report/Discharge Packet Instructions: DI for Shortness of Breath, How to Prevent Falls, DI for Respiratory Failure Discharge Data Primary Care Provider: Manav Alegre Attending Provider: Zina Trivedi VTE Deep Vein Thrombosis/Pulmonary Embolism Present on Admission: No
== END 2021-03-23 14:43 | disposition home or self-care (01) ==
LOC: ED 17:49 → AC 22:12
PROVIDERS: Emergency Medicine; Family Medicine; Admitting Provider Nurse Practitioner Family; Emergency Provider Emergency Medicine; PCP Family Medicine; Referring Provider Emergency Medicine; Visit Provider Nurse Practitioner Family
DX: A41.9 Sepsis, unspecified organism (principal); J18.9 Pneumonia, unspecified organism; J96.01 Acute respiratory failure with hypoxia; C50.919 Malignant neoplasm of unspecified site of unspecified female breast; C79.51 Secondary malignant neoplasm of bone; J45.909 Unspecified asthma, uncomplicated; I10 Essential (primary) hypertension; Z20.822 Contact with and (suspected) exposure to COVID-19
CPT/HCPCS: 36415; 71045; 71275; 80053; 81003; 82550; 83605; 83690; 83735; 83880; 84145; 84484; 85007; 85025; 85610; 85730; 87040; 87633; 87635; 93005; 93010; 93306; 94640; 94760; 94762; 96361; 96372; 96374; 96375; 99285; 99406; C9803; G0378; A9270; J0696; J1200; J1650; J1940; J2930

== ENCOUNTER → 2021-03-31 09:02 | Outpatient (CLI) | payer BC, SELFPAY ==
[2021-03-21 22:55] VITALS: BMI 23.0
[2021-03-31 10:52] LABS: Add Manual Diff / Slide Review NO; Basophils Absolute Auto 100 /uL (0-100); Basophils Percent Auto 1.3 % (0-2); Eosinophils Absolute Auto 200 /uL (0-450); Eosinophils Percent Auto 3.4 % (2-4); Hematocrit 33.9 % (36-46); Hemoglobin 11.2 g/dL (12.0-16.0); Lymphocytes Absolute Auto 1300 /uL (1100-4500); Lymphocytes Percent Auto 24.3 % (25-40); Mean Corpuscular Hemoglobin 30.9 PG (26-34); Mean Corpuscular Volume 93.5 fL (80-100); Monocytes Absolute Auto 800 /uL (0-900); Monocytes Percent Auto 15.2 % (3-14); Neutrophils Absolute Auto 2900 /uL (1500-7000); Neutrophils Percent Auto 55.8 % (50-75); Platelet Count 310 X10^3/uL (150-400); Red Blood Cell Count 3.62 X10^6/uL (4.0-5.2); White Blood Cell Count 5.2 X10^3/uL (4.5-11.0)
[2021-03-31 13:00] LABS: Alanine Aminotransferase 26 IU/L (<35); Albumin 3.6 g/dL (3.5-5.0); Albumin Globulin Ratio 1.4 (1.0-2.8); Alkaline Phosphatase 132 U/L (38-126); Aspartate Aminotransferase 46 IU/L (14-36); BUN Creatinine Ratio 8.2 (6-22); Bilirubin Total 0.5 mg/dL (0.2-1.3); Blood Urea Nitrogen 4 mg/dL (7-17); Calcium 9.2 mg/dL (8.4-10.2); Carbon Dioxide 28 mmol/L (22-32); Chloride 104 mmol/L (98-107); Cholesterol 186 mg/dL (140-199); Estimated Glomerular Filt Rate > 60.0 mL/min (>60); Globulin 2.6 g/dL (1.7-4.1); Glucose 138 mg/dL (80-110); HDL Cholesterol 71 mg/dL (40-60); HEMOLYSIS 17 (0-50); LDL Cholesterol Calculated 63 mg/dL (<100); Sodium 138 mmol/L (137-145); Total Protein 6.2 g/dL (6.3-8.2); Triglycerides 258 mg/dL (35-150)
== END ==
PROVIDERS: PCP Family Medicine; Referring Provider Family Medicine; Visit Provider Family Medicine
DX: E78.2 Mixed hyperlipidemia (principal)
CPT/HCPCS: 36415; 80053; 80061; 85025

== ENCOUNTER → 2022-06-02 14:34 | Outpatient (CLI) | payer BC, SELFPAY ==
[2021-05-05 10:15] VITALS: BMI 23.0
[2022-06-02 16:07] LABS: Influenza A - CEPHEID Flu A NEGATIVE (NEGATIVE); Influenza B - CEPHEID Flu B NEGATIVE (NEGATIVE); Respiratory Syncytial Virus Negative (Negative)
[2022-06-02 16:20] LABS: COVID-19 CEPHEID 4-PLEX PCR Negative (Negative)
== END ==
PROVIDERS: PCP Family Medicine; Visit Provider Physician Assistant
DX: R05.1 Acute cough (principal)
CPT/HCPCS: 0241U

== ENCOUNTER → 2022-06-02 14:41 | Outpatient (CLI) | payer BC, SELFPAY ==
[2021-05-05 10:15] VITALS: BMI 23.0
--- NOTE | 2022-06-02 14:44 | DI.RAD.S_ITS ---
PROCEDURE: XR CHEST 2V INDICATIONS: Cough TECHNIQUE: 2 views of the chest were acquired. COMPARISON: [facility], CR, XR CHEST 1V, 03/21/2021, 17:06. FINDINGS: Surgical changes and devices: Surgical hardware in right proximal humeral shaft are seen. Lungs and pleura: Lungs are clear. No pleural effusions or pneumothorax. Mediastinum: Mediastinal contours are normal. Heart size is normal. Bones and chest wall: Blastic lesions are seen scattered in visualized lower thoracic and lumbar spine consistent with patient's known metastatic disease. Soft tissues appear unremarkable. IMPRESSION: No acute cardiopulmonary pathology. Bony metastasis which was also seen on previous CT of chest dated 03/21/2021 Dictated by: Kolby Asif M.D. on 06/02/2022 at 14:26 Approved by: Kolby Asif M.D. on 06/02/2022 at 14:28
== END ==
PROVIDERS: PCP Family Medicine; Referring Provider Physician Assistant; Visit Provider Physician Assistant
DX: R05.1 Acute cough (principal); C80.1 Malignant (primary) neoplasm, unspecified; C79.51 Secondary malignant neoplasm of bone
CPT/HCPCS: 0241U; 71046

== ENCOUNTER 2022-11-07 16:12 | Emergency (ER) | payer BC, SELFPAY ==
[2021-05-05 10:15] VITALS: BMI 23.0
[2022-11-07 16:29] VITALS: BP 142/76; PULSE 116; RESP 18; TEMP 36.8; O2SAT 95; BMI 21.4
--- NOTE | 2022-11-07 17:16 | ED_ITS ---
HPI - Extremity Problem General Chief complaint: Extremity Problem,Nontraumatic Stated complaint: rt shoulder pain Time Seen by Provider: 11/07/22 17:16 Source: patient Mode of arrival: Ambulatory History of Present Illness HPI Narrative: 61-year-old female with metastatic breast cancer with known metastases to her skull presents with family in the chief complaint of gradually worsening right- sided neck and posterior shoulder pain that has been gradually worsening over the past few weeks. She denies any trauma or injury. She denies numbness, tingling or weakness of her extremities. She denies any chest pain or shortness of breath. She is not specifically been seen for this but did speak with her radiation oncologist who told her a few days ago that they hoped it would just get better. She is taking pain medications at home including gabapentin and hydrocodone as well as Xanax. She states she does not tolerate steroids and has been told not to take them in the future. Related Data Home Medications Medication Instructions Recorded Confirmed multivitamin (Multiple Vitamins 1 tab PO Q48H ##0 03/03/16 10/01/22 tablet) cyanocobalamin (vitamin B-12) 50 50 mcg PO Q DAY ##0 06/29/17 10/01/22 mcg tablet (Vitamin B-12) famotidine 10 mg tablet 10 mg PO DAILY 03/21/21 10/01/22 dexamethasone 4 mg tablet 8 mg PO DAILY after chemotherapy 04/03/21 10/01/22 Previous Rx's Medication Instructions Recorded miscellaneous medical supply #1 ea 12/30/18 ipratropium 0.5 mg-albuterol 3 mg See Rx Instructions inhalation 04/17/21 (2.5 mg base)/3 mL nebulization Q2HP PRN SOB #180 mL soln fluticasone propionate 250 See Rx Instructions .Route 04/30/21 mcg/actuation blister powder for .COMPLEX #60 ea inhalation (Flovent Diskus) gabapentin 300 mg capsule See Rx Instructions .Route 10/02/21 .COMPLEX #810 caps atenolol 50 mg tablet 50 mg PO Q DAY #90 tabs 01/20/22 albuterol sulfate 90 mcg/actuation See Rx Instructions .Route 02/25/22 aerosol inhaler .COMPLEX #6.7 grams guaifenesin 600 mg tablet, 600 mg PO Q12H PRN cough #30 tabs 03/24/22 extended release 12 hr (Mucinex) budesonide-formoterol HFA 160 2 puff inhalation BID #10.2 grams 05/18/22 mcg-4.5 mcg/actuation aerosol inhaler alprazolam 0.5 mg tablet See Rx Instructions .Route 09/01/22 .COMPLEX #60 tabs hydrocodone 5 mg-acetaminophen 325 1 - 2 tab PO Q6HP PRN cancer pain 10/01/22 mg tablet #120 tabs atorvastatin 10 mg tablet 10 mg PO ONCE PM #90 tabs 10/12/22 hydromorphone 2 mg tablet 2 mg PO Q4-6H PRN pain #30 tabs 11/07/22 (Dilaudid) Allergies Allergy/AdvReac Type Severity Reaction Status Date / Time Iodine and Iodide Containing Allergy Intermediate Hives Verified 11/07/22 16:29 Produc Review of Systems Review of Systems Narrative: GENERAL: Denies chills, fatigue, malaise, fever, sweats. HEENT: Denies sinus pain, ear pain, sore throat, difficulty swallowing, dizziness. RESPIRATORY: Denies dyspnea, cough, wheezing, hemoptysis, sputum. CARDIOVASCULAR: Denies chest pain, palpitations, orthopnea, edema, GASTROINTESTINAL: Denies nausea, vomiting, abdominal pain, diarrhea, constipation, melena. : Denies dysuria, frequency, incontinence, hematuria, urinary retention. MUSCULOSKELETAL: See HPI SKIN: Denies rash, skin lesions, or other NEUROLOGIC: Denies weakness, headache, numbness, change in speech, confusion, seizures, incoordination. PSYCHIATRIC: No concerning psychosocial issues. 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 Osteopenia after menopause Pancreatitis (~2010) Physical deconditioning Right ankle pain Right foot pain Seborrheic keratoses, inflamed Unspecified hearing loss, left ear Vertigo (~2011) Surgical History Anesthesia Breast cancer (~2006) History of shoulder surgery (~2011) Status post appendectomy (~1964) Status post total hip replacement, left Family History Brother Age: 59 Scoliosis Father Heart disease Hypertension Mother Age: 85 Cancer Diabetes mellitus Social History household members: significant other Smoking Status: Former smoker alcohol intake: current Smoking Status: Former smoker alcohol intake frequency: holidays/special occasions only Substance Use Type: does not use Exam Narrative Exam Narrative: GENERAL: [61] year old patient appears stated age. Thin, evidence of chronic illness HEAD: Atraumatic. Normocephalic. EYES: Pupils equal round and reactive. Extraocular motions intact. No scleral icterus. No injection or drainage. ENT: Nose without bleeding, purulent drainage. Throat without erythema, tonsillar hypertrophy or exudate. Airway patent. NECK: Trachea midline. No midline tenderness, no change with axial load, mild pain reproducible on palpation of right-sided paraspinal musculature, no obvious weakness CARDIOVASCULAR: Regular rate and rhythm without murmurs, gallops, or rubs. RESPIRATORY: Clear to auscultation. Breath sounds equal bilaterally. No wheezes, rales, or rhonchi. GASTROINTESTINAL: Abdomen soft, non-tender, nondistended. EXTREMITIES: No edema or joint tenderness. BACK: Nontender without deformity or crepitance. No flank tenderness. NEURO: AOx3. SKIN: No rash or erythema of visible areas Initial Vital Signs Initial Vital Signs: Vital Signs Temperature 98.2 F 11/07/22 16:29 Pulse Rate 116 H 11/07/22 16:29 Respiratory Rate 18 11/07/22 16:29 Blood Pressure 142/76 H 11/07/22 16:29 Pulse Oximetry 95 11/07/22 16:29 Oxygen Delivery Method Room Air 11/07/22 16:29 Course Orders Ordered: Discontinued Medications Hydromorphone HCl (Hydromorphone 1 Mg Inj) 1 mg IM NOW ONE Stop: 11/07/22 17:26 Last Admin: 11/07/22 18:00 Dose: 1 mg Documented By: JESU Oxycodone/Acetaminophen (Oxycodone/Apap 5/325 Prepack) 1 bottle MISC SEEINSTR ONE Stop: 11/07/22 18:46 Last Admin: 11/07/22 18:56 Dose: 1 bottle Documented By: NR Vital Signs Vital signs: Vital Signs - 8 hr 11/07/22 16:29 Temperature 98.2 F Pulse Rate 116 H Respiratory Rate 18 Blood Pressure 142/76 H Pulse Oximetry 95 Oxygen Delivery Method Room Air MDM - Extremity (Nontraumatic) MDM Narrative Medical decision making narrative: [61] year old patient presents with metastatic breast cancer to skull Multiple etiologies for patient's symptoms considered including, but not limited to: [Cervical radiculopathy versus metastatic disease versus other] Prior Charts reviewed in our EMR Primary Historian: patient Imaging reviewed: CT of the head notes extensive calvarial metastases including skull base. CT C Spine notes evidence of extensive sclerotic metastases Patient's history and physical exam are reassuring, no obvious neurologic involvement, no measurable weakness, no seizures or altered mental status. Imaging demonstrates what appears to be newly discovered Mets to the cervical spine. Pain controlled with medications as noted above, new prescription sent to her pharmacy of choice, she has an up coming appointment with radiation oncology and plans to discuss this further. Patient's symptoms improved over duration of stay with above-stated therapies. Findings and discharge diagnosis discussed with patient/family followed by verbalization of understanding Return precautions discussed with patient/family whom verbalize understanding of diagnosis and plan Discharge Plan Departure Patient Disposition: Home Clinical Impression: Metastasis to spinal column Activity Restrictions/Additional Instructions: *You have been diagnosed with [neck pain most likely from metastases to the bones of your neck ] *What to do: *Please continue to take your regular medications as directed. [x ] New medication prescriptions sent to your pharmacy: [ [facility]] [ ] New medication written as a paper prescription [ ] No new medications given *Please follow up with your primary care provider in 2-3 days, call for an appointment. Let them know you were seen in the Emergency Department and that we ask that you be seen in follow up. We will electronically transmit a record of today's note if your PCP is in our system *Return to Emergency Department if you should have any new, worsening or concerning symptoms, such as [fever greater than 101 F, shaking chills, worsening pain, persistent vomiting or other bothersome symptoms] You have been prescribed a short course of narcotic medications. These are potentially dangerous and addictive medications that should be used carefully. While on these medications you cannot drive or operate heavy machinery. Additionally, you cannot sign legal documents or perform any duties such as this. 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 Please understand that we cannot provide further refills of narcotics or controlled substances through the ED and your pain management will need to be through your Primary Care Provider Prescriptions: New hydromorphone [Dilaudid] 2 mg tablet 2 mg PO Q4-6H PRN (Reason: pain) Qty: 30 0RF No Action multivitamin [Multiple Vitamins] 1 EACH tablet 1 tab PO Q48H Qty: 0 Vitamin B-12 50 MCG tablet 50 mcg PO Q DAY Qty: 0 (DME) miscellaneous medical supply Misc See Rx Instructions .ROUTE .MEDSUPPLY Qty: 1 0RF Rx Instructions: Disabled Parking Permit ipratropium-albuterol 0.5 mg-3 mg(2.5 mg base)/3 mL solution for nebulization See Rx Instructions INHALATION Q2HP PRN (Reason: SOB) Qty: 180 2RF Dose Instruction: Use one vial via nebulizer every 2 hours as needed for SOB INHALATION Q2HP WI N; Rx Instructions: Use one vial via nebulizer every 2 hours as needed for SOB INHALATION Q2HP PRN; Flovent Diskus 250 mcg/actuation blister with device See Rx Instructions .ROUTE .COMPLEX Qty: 60 3RF Hold Instructions: trial Dose Instruction: Inhale 1 puff by mouth twice daily. Rinse mouth with water and spit. Do not swallow. Rx Instructions: Inhale 1 puff by mouth twice daily. Rinse mouth with water and spit. Do not swallow. gabapentin 300 mg capsule See Rx Instructions .ROUTE .COMPLEX Qty: 810 3RF Dose Instruction: TAKE THREE CAPSULES BY MOUTH THREE TIMES DAILY Rx Instructions: TAKE THREE CAPSULES BY MOUTH THREE TIMES DAILY atenolol 50 mg tablet 50 mg PO Q DAY Qty: 90 3RF albuterol sulfate 90 mcg/actuation HFA aerosol inhaler See Rx Instructions .ROUTE .COMPLEX Qty: 6.7 3RF Dose Instruction: INHALE ONE TO TWO PUFFS BY MOUTH EVERY 4 HOURS NEEDED Rx Instructions: INHALE ONE TO TWO PUFFS BY MOUTH EVERY 4 HOURS NEEDED budesonide-formoterol 160-4.5 mcg/actuation HFA aerosol inhaler 2 puff inhalation BID Qty: 10.2 11RF alprazolam 0.5 mg tablet See Rx Instructions .ROUTE .COMPLEX Qty: 60 5RF Rx Instructions: Take 1 tablet by mouth twice daily as needed for anxiety atorvastatin 10 mg tablet 10 mg PO ONCE PM Qty: 90 0RF dexamethasone 4 mg tablet 8 mg PO DAILY guaifenesin [Mucinex] 600 mg tablet extended release 12hr 600 mg PO Q12H PRN (Reason: cough) Qty: 30 0RF hydrocodone-acetaminophen 5-325 mg tablet 1 - 2 tab PO Q6HP PRN (Reason: cancer pain) Qty: 120 0RF Rx Instructions: EXEMPT for cancer pain famotidine 10 mg Tablet 10 mg PO DAILY Referrals: Josh Alegre DO [Primary Care Provider] - Stand Alone Forms: Patient Portal/API
--- NOTE | 2022-11-07 17:25 | DI.CT.S_ITS ---
PROCEDURE: CT CERVICAL SPINE WO CON INDICATIONS: severe neck and upper back pain, bony mets TECHNIQUE: Noncontrast 3 mm thick sections acquired from the skull base to the T4 level. Sagittal and coronal reformats were then constructed. For radiation dose reduction, the following was used: automated exposure control, adjustment of mA and/or kV according to patient size. COMPARISON: [facility], CT, CT HEAD/BRAIN WO CON, 11/07/2022, 17:35. FINDINGS: Image quality: Excellent. Bones: Extensive sclerotic metastases can be seen throughout the cervical spine. The visualized skull base is also involved. There is involvement of portions of the visualized upper thoracic spine. No superimposed fracture can be seen. Soft tissues: Prevertebral soft tissues are normal in thickness. No paravertebral hematomas. No apical pneumothoraces. IMPRESSION: Extensive sclerotic metastases seen. No pathologic fracture can be seen. Dictated by: Harsh Matson M.D. on 11/07/2022 at 17:21 Approved by: Harsh Matson M.D. on 11/07/2022 at 17:22
--- NOTE | 2022-11-07 17:25 | DI.CT.S_ITS ---
PROCEDURE: CT HEAD/BRAIN WO CON INDICATIONS: skull mets, pain TECHNIQUE: Noncontrast 4.5 mm thick angled axial sections acquired from the foramen magnum to the vertex, with coronal and sagittal reformats. For radiation dose reduction, the following was used: automated exposure control, adjustment of mA and/or kV according to patient size. COMPARISON: [facility], CT, CT CERVICAL SPINE WO CON, 11/07/2022, 17:35. [facility], MR, BRAIN (IAC) W&WO CONTRAST, 02/10/2013, 19:01. FINDINGS: Image quality: Excellent. CSF spaces: Basal cisterns are patent. No extra-axial fluid collections. The ventricles are symmetric in size and shape. Brain: There is a mild degree of calcification seen along the surface of the brain within the right frontal lobe superiorly and within the left frontal lobe posteriorly. No intracranial bleeds or masses. There is cerebral volume loss for age, with resultant ventricular and sulcal prominence. There are periventricular and deep white matter chronic small vessel ischemic changes. There is intracranial internal carotid artery atherosclerosis. Skull and face: The calvarium demonstrates generalized heterogeneous sclerosis, with mild sparing involving the left frontal region. Left-sided craniotomy change is seen. The skull base also demonstrates diffuse sclerotic metastases. Sinuses: Visualized sinuses and mastoids are clear. IMPRESSION: Extensive calvarial metastases, including the skull base. To the limits of noncontrast head CT, no chikis findings of brain parenchymal metastases can be seen. If it would be helpful for clinical management decision making, please consider a dedicated, scheduled brain MRI (without and with contrast) for further evaluation (assuming that there is no contraindication). Extra-axial calcification can be seen, which is considered to be benign. Left-sided craniotomy change noted. Dictated by: Harsh Matson M.D. on 11/07/2022 at 17:17 Approved by: Harsh Matson M.D. on 11/07/2022 at 17:21
[2022-11-07] MEDS: HYDROMORPHONE 1 MG INJ IM (18:00)
[2022-11-07 18:36] VITALS: PULSE 115; O2SAT 94
[2022-11-07 18:37] VITALS: BP 121/71; PULSE 112; O2SAT 93
[2022-11-07] MEDS: OXYCODONE/APAP 5/325 PREPACK 1 BOTTLE MISC (18:56)
[2022-11-07 19:00] VITALS: BP 128/79; PULSE 113; O2SAT 94
--- NOTE | 2022-11-07 19:04 | PC.NURSE ---
pt has known CA, her current pain medications are not managing pain and she is unable to see provider till Wednesday. here to have help with pain management.
== END 2022-11-07 19:05 | disposition home or self-care (01) ==
PROVIDERS: Emergency Provider Emergency Medicine; PCP Family Medicine
DX: C79.51 Secondary malignant neoplasm of bone (principal); M54.2 Cervicalgia
CPT/HCPCS: 70450; 72125; 96372; 99283; 99284; J1170

== ENCOUNTER → 2023-02-25 13:33 | Outpatient (CLI) | payer BC, SELFPAY ==
[2021-05-05 10:15] VITALS: BMI 23.0
--- NOTE | 2023-02-25 13:35 | DI.RAD.S_ITS ---
PROCEDURE: XR SHOULDER RT MIN 2V INDICATIONS: right shoulder pain TECHNIQUE: 3 views of the shoulder were acquired. COMPARISON: [facility], , XR SHOULDER RT MIN 2V, 02/06/2019, 14:15. [facility], , SHOULDER MINIMUM 2VIEW RIGHT, 12/12/2011, 13:58. FINDINGS: Bones: Proximal right humerus ORIF is unchanged. No dislocations. Sclerotic osseous lesions in the spine. Visualized ribs appear intact. [id number] degenerative changes. Soft tissues: No suspicious soft tissue calcifications. Right axillary clips. IMPRESSION: Stable proximal humerus ORIF. Dictated by: Alverto Wang M.D. on 02/25/2023 at 15:49 Approved by: Alverto Wang M.D. on 02/25/2023 at 15:50
--- NOTE | 2023-02-25 13:35 | DI.RAD.S_ITS ---
PROCEDURE: XR CERVICAL SPINE 4V OR 5V INDICATIONS: neck pain TECHNIQUE: 5 views of the cervical spine acquired. COMPARISON: [facility], CT, CT CERVICAL SPINE WO CON, 11/07/2022, 17:35. FINDINGS: Bones: No fractures or dislocations to the T1 level. [id number] degenerative changes. Oblique images demonstrate no bony foraminal stenoses. Sclerotic osseous lesions in the spine are again seen. Calvarial hardware. Right shoulder hardware. Soft tissues: No prevertebral soft tissue swelling. IMPRESSION: Vqkx-[id number] degenerative changes. No compression fracture. Multiple sclerotic osseous lesions. Dictated by: Alverto Wang M.D. on 02/25/2023 at 15:53 Approved by: Alverto Wang M.D. on 02/25/2023 at 15:59
== END ==
PROVIDERS: PCP Family Medicine; Referring Provider Anesthesiology; Visit Provider Anesthesiology
DX: S42.201D Unspecified fracture of upper end of right humerus, subsequent encounter for fracture with routine healing (principal); M25.511 Pain in right shoulder; M54.2 Cervicalgia; M47.812 Spondylosis without myelopathy or radiculopathy, cervical region; M89.9 Disorder of bone, unspecified
CPT/HCPCS: 72050; 73030

== ENCOUNTER → 2023-03-16 17:15 | Outpatient (CLI) | payer BC, SELFPAY ==
[2023-03-16 13:26] VITALS: BMI 23.0
--- NOTE | 2023-03-16 17:17 | DI.RAD.S_ITS ---
PROCEDURE: XR CHEST 2V INDICATIONS: exam with decr bs left lower lobe TECHNIQUE: 2 views of the chest were acquired. COMPARISON: [facility], CT, CT ANGIO CHEST PE PROTOCOL, 03/21/2021, 19:29. [facility], CR, XR CHEST 2V, 06/02/2022, 14:55. [facility], CR, XR CHEST 1V, 03/21/2021, 17:06. FINDINGS: Surgical changes and devices: Right humeral screw and plate fixation. Lungs and pleura: Lungs are clear. No pleural effusions or pneumothorax. Mediastinum: Mediastinal contours are normal. Heart size is normal. Bones and chest wall: Osseous metastatic disease. IMPRESSION: No acute cardiopulmonary abnormality is seen. Dictated by: Tom Em M.D. on 03/17/2023 at 10:57 Approved by: Tom Em M.D. on 03/17/2023 at 11:01
== END ==
PROVIDERS: PCP Family Medicine; Referring Provider Family Medicine; Visit Provider Family Medicine
DX: C50.919 Malignant neoplasm of unspecified site of unspecified female breast (principal); C79.51 Secondary malignant neoplasm of bone; J18.9 Pneumonia, unspecified organism
CPT/HCPCS: 71046

== ENCOUNTER → 2023-06-07 12:12 | Outpatient (CLI) | payer BC, SELFPAY ==
[2023-03-16 13:26] VITALS: BMI 23.0
--- NOTE | 2023-06-07 | DI.MRI.S_ITS ---
PROCEDURE: MR SHOULDER LT WO CON INDICATIONS: Pain in left shoulder; history of metastatic breast cancer. TECHNIQUE: Noncontrast oblique coronal T2 fast spin echo with fat saturation, oblique sagittal T1 spin echo and T2 fast spin echo with fat saturation, axial T1 spin echo and T2 fast spin echo with fat saturation through the shoulder. COMPARISON: [facility], OR, NM PET CT FUSION SKULL 2 THIGH, 12/28/2018, 16:49. [facility], CT, UPPER EXTREMITY WO CONTRAST, 12/14/2011, 15:31. FINDINGS: Image quality: Excellent. Rotator cuff: The supraspinatus, infraspinatus, and subscapularis tendons appear intact throughout. Sagittal images demonstrate no muscle atrophy. Bones and bursae: There are regions of increased STIR and low T1 signal intensity within the distal clavicle, the acromion, and visualized portions of the proximal humerus, compatible with metastatic disease. There is extraosseous spread of tumor surrounding the acromion and possibly also the posterior aspect of the proximal humerus. Moderate acromioclavicular joint degeneration. The acromion demonstrates conventional anatomy, without an os acromiale. No pathologic subacromial-subdeltoid or subcoracoid bursal fluid is present. Capsule and soft tissues: Labrum is grossly intact The long head of the biceps tendon demonstrates normal location and morphology. The rotator interval appears normal, without fibrosis. The coracohumeral ligament is normal in thickness. There is moderate T2 signal elevation within the posterior deltoid. IMPRESSION: 1. Multifocal metastatic disease to the osseous structures of the left shoulder as above. There is extraosseous spread as above. 2. Abnormal signal within the deltoid, possibly indicating reactive marrow edema. 3. Acromioclavicular and glenohumeral joint osteoarthritis. 4. No rotator cuff tear. Dictated by: Janes Montemayor M.D. on 06/07/2023 at 14:00 Approved by: Janes Montemayor M.D. on 06/07/2023 at 14:22
== END ==
LOC: MRI 12:13
PROVIDERS: PCP Family Medicine; Referring Provider Physician Assistant Medical; Visit Provider Physician Assistant Medical
DX: C79.51 Secondary malignant neoplasm of bone (principal); Z85.3 Personal history of malignant neoplasm of breast; M19.012 Primary osteoarthritis, left shoulder; M25.512 Pain in left shoulder
CPT/HCPCS: 73221

== ENCOUNTER 2023-07-07 13:59 | Inpatient (IN) | payer BC, SELFPAY ==
[2023-03-16 13:26] VITALS: BMI 23.0
[2023-07-07] VITALS (27 sets, daily range): BP systolic 85–130; BP diastolic 49–70; PULSE 97–154; RESP 9–24; TEMP 36.9–38.8; O2SAT 88–99; BMI 16.8; BMI 17.6
--- NOTE | 2023-07-07 14:09 | DI.RAD.S_ITS ---
PROCEDURE: XR CHEST 1V INDICATIONS: dyspnea TECHNIQUE: One view of the chest was acquired. COMPARISON: [facility], CR, XR CHEST 2V, 03/16/2023, 17:28. FINDINGS: Surgical changes and devices: Surgical clips in the right axilla. Partially visualized right humeral hardware. Lungs and pleura: Bilateral multifocal patchy consolidation, worse in the right upper lung. No pleural effusions or pneumothorax. Mediastinum: Mediastinal contours appear normal. Heart size is normal. Bones and chest wall: No suspicious bony lesions. Overlying soft tissues appear unremarkable. High-riding right-sided scapula, as before. IMPRESSION: Multifocal bilateral patchy consolidation, worse in the right upper lung, concerning for multifocal pneumonia. Recommend radiographic follow-up to document resolution and rule out underlying neoplasm. Dictated by: Adolfo Davies M.D. on 07/07/2023 at 15:31 Approved by: Adolfo Davies M.D. on 07/07/2023 at 15:33
--- NOTE | 2023-07-07 14:10 | DI.CT.S_ITS ---
PROCEDURE: CT HEAD/BRAIN WO CON INDICATIONS: ? stroke >24 hrs. Metastatic breast cancer TECHNIQUE: Noncontrast 4.5 mm thick angled axial sections acquired from the foramen magnum to the vertex, with coronal and sagittal reformats. For radiation dose reduction, the following was used: automated exposure control, adjustment of mA and/or kV according to patient size. COMPARISON: [facility], CT, CT HEAD/BRAIN WO CON, 11/07/2022, 17:35. FINDINGS: Image quality: Diagnostic. CSF spaces: Basal cisterns are patent. No extra-axial fluid collections. Ventricles are normal in size and shape. Brain: No midline shift. No intracranial masses or hemorrhage. Jernigan-white matter interface is normal. Similar loss of jernigan-white matter differentiation in the left temporal lobe, left favoring gliosis/encephalomalacia. Skull and face: Diffuse osseous metastatic disease, similar to prior. Sinuses: Air-fluid level in the sphenoid sinuses. IMPRESSION: No acute intracranial pathology. Extensive sclerotic metastatic disease. Prior left MCA infarct. No definite intracranial metastatic disease or mass effect. Dictated by: Tom Em M.D. on 07/07/2023 at 15:30 Approved by: Tom Em M.D. on 07/07/2023 at 15:31
[2023-07-07 14:47] LABS: Hematocrit 31.9 % (36-46); Hemoglobin 10.3 g/dL (12.0-16.0); Mean Corpuscular HGB Conc 32.2 % (30-36); Mean Corpuscular Hemoglobin 27.7 PG (26-34); Platelet Count 132 X10^3/uL (150-400); Red Blood Cell Count 3.71 X10^6/uL (4.0-5.2); Red Cell Distribution Width 19.8 % (11.6-14.8)
[2023-07-07 14:53] LABS: Add Manual Diff / Slide Review YES
[2023-07-07 14:55] LABS: White Blood Cell Count 1.5 X10^3/uL (4.5-11.0)
[2023-07-07 15:07] LABS: Lipase 10 U/L (23-300); Magnesium 1.8 mg/dL (1.6-2.3)
[2023-07-07 15:10] LABS: Alanine Aminotransferase 18 IU/L (<35); Albumin 3.3 g/dL (3.5-5.0); Albumin Globulin Ratio 1.1 (1.0-2.8); Alkaline Phosphatase 107 U/L (38-126); Aspartate Aminotransferase 79 IU/L (14-36); BUN Creatinine Ratio 14.3 (6-22); Bilirubin Total 0.9 mg/dL (0.2-1.3); Blood Urea Nitrogen 8 mg/dL (7-17); Calcium 8.6 mg/dL (8.4-10.2); Carbon Dioxide 27 mmol/L (22-32); Chloride 104 mmol/L (98-107); Estimated Glomerular Filt Rate > 60 mL/min (>60); Glucose 69 mg/dL (80-110); HEMOLYSIS < 15 (0-50); Neutrophils Absolute Manual 75 /uL (3000-5900); Nucleated Red Blood Cells 1 #/Diff; Potassium 3.4 mmol/L (3.4-5.1); Sodium 137 mmol/L (137-145); Total Cells Counted 100; Total Protein 6.3 g/dL (6.3-8.2)
[2023-07-07 15:11] LABS: Anisocytosis 2+; Poikilocytosis 1+
[2023-07-07] MEDS: CEFEPIME 2 GM in SODIUM CHLORIDE 0.9% 100 ML IV (15:13)
[2023-07-07] MEDS: SODIUM CHLORIDE 0.9% 1,000 ML 1000 ML IV ×3 (15:15→17:45)
[2023-07-07 15:18] LABS: Appearance Urine UA CLEAR; Bilirubin Urine UA NEGATIVE (NEGATIVE); Color Urine UA YELLOW; Glucose Urine UA NEGATIVE (Negative); Ketones Urine UA NEGATIVE (NEGATIVE); Leukocyte Esterase Urine UA NEGATIVE (NEGATIVE); Nitrite Urine UA NEGATIVE (Negative); Occult Blood Urine UA NEGATIVE (Negative); Protein Urine UA NEGATIVE (Negative); Specific Gravity Urine UA <=1.005 (1.000-1.035); Urobilinogen Urine UA 0.2 E.U./dL (0.2)
[2023-07-07 15:19] LABS: Troponin I 0.036 ng/mL (0.01-0.034)
[2023-07-07 15:24] LABS: Procalcitonin 1.62 ng/mL (<0.5)
[2023-07-07 15:27] LABS: Bacteria Urine None Seen; Culture Indicated Urine Cult Not Indicated; RBC Urine None Seen (0-5/HPF); Squamous Epithelial Cell Urine None Seen (0-5/HPF); Urine Volume 10mL (spun); WBC Urine None Seen (0-5/HPF)
[2023-07-07] MEDS: VANCOMYCIN 1,000 MG/200 ML PIGGYBACK 200 MG IV (16:09)
--- NOTE | 2023-07-07 16:17 | PC.NURSE ---
pt took her own Fluconazole for oral suspension 40 mg/ml for her mouth sores
--- NOTE | 2023-07-07 16:20 | PC.NURSE ---
2 sets of blood cultures were drawn. called lab. they are in process looking for the second set
--- NOTE | 2023-07-07 16:57 | PC.NURSE ---
Cervical collar removed. C Collar cleared by Dr Bob.
--- NOTE | 2023-07-07 17:31 | ED.GENADULT ---
HPI - General Adult <Michelle Bob MD - Last Filed: 07/12/23 07:36> General Chief complaint: Fever Stated complaint: per pt poss stroke, shaking Time Seen by Provider: 07/07/23 14:08 Source: family Mode of arrival: Wheelchair Related Data Home Medications Medication Instructions Recorded Confirmed multivitamin (Multiple Vitamins 1 tab PO Q48H ##0 03/03/16 07/07/23 tablet) cyanocobalamin (vitamin B-12) 50 50 mcg PO Q DAY ##0 06/29/17 07/07/23 mcg tablet (Vitamin B-12) fluconazole 40 mg/mL oral 50 mg PO DAILY 12/22/22 07/07/23 suspension loperamide 2 mg capsule 2 mg PO PRN PRN Diarrhea 12/22/22 07/07/23 ondansetron HCl 8 mg tablet 8 mg PO DAILY PRN Nausea And 12/22/22 07/07/23 Vomiting hydromorphone 2 mg tablet 2 mg PO Q4-5H PRN Pain (Scale 03/29/23 07/07/23 Score 4-6) lisinopril 5 mg tablet 5 mg PO DAILY 05/10/23 07/07/23 metoprolol succinate 50 mg 50 mg PO DAILY 05/10/23 07/07/23 tablet,extended release 24 hr sucralfate 1 gram tablet 1 g PO DAILY 05/10/23 07/07/23 omeprazole 20 mg capsule,delayed 20 mg PO DAILY 07/07/23 07/07/23 release Previous Rx's Medication Instructions Recorded miscellaneous medical supply #1 ea 12/30/18 ipratropium 0.5 mg-albuterol 3 mg See Rx Instructions inhalation 04/17/21 (2.5 mg base)/3 mL nebulization Q2HP PRN SOB #180 mL soln fluticasone propionate 250 See Rx Instructions .Route 04/30/21 mcg/actuation blister powder for .COMPLEX #60 ea inhalation (Flovent Diskus) atorvastatin 10 mg tablet 10 mg PO ONCE PM #90 tabs 10/12/22 aluminum-mag hydroxide-simethicone See Rx Instructions PO .COMPLEX 12/22/22 400 mg-400 mg-40 mg/5 mL oral susp #100 mL (Mylanta Maximum Strength) diphenhydramine HCl 12.5 mg/5 mL See Rx Instructions PO .COMPLEX 12/22/22 oral liquid (Benadryl Allergy) #118 mL atenolol 50 mg tablet 50 mg PO Q DAY #90 tabs 12/28/22 albuterol sulfate 90 mcg/actuation See Rx Instructions .Route 03/16/23 aerosol inhaler .COMPLEX #6.7 grams benzonatate 100 mg capsule 100 mg PO TID PRN cough #30 caps 03/16/23 alprazolam 0.5 mg tablet See Rx Instructions .Route 04/07/23 .COMPLEX #60 tabs gabapentin 300 mg capsule 900 mg (3 x 300 mg) PO 3XD #810 04/26/23 caps budesonide-formoterol HFA 160 2 puff inhalation BID #10.2 grams 04/29/23 mcg-4.5 mcg/actuation aerosol inhaler Allergies Allergy/AdvReac Type Severity Reaction Status Date / Time Iodine and Iodide Containing Allergy Intermediate Hives Verified 07/07/23 14:20 Produc <Karina Stahl MD - Last Filed: 07/08/23 00:25> History of Present Illness HPI narrative: 62-year-old female with history of widely metastatic breast cancer on Eribulin and radiation presents by private vehicle for possible stroke. History is mostly obtained from family members at bedside. Family states that they took the patient to [facility] for her weekly chemo treatment, however she was too weak to have the infusion and they took her back. They state that on the way home they noticed that she seemed to be listing to the side with drooping in her right face. Patient has been extremely fatigued and lethargic for the last several days and has also been fighting severe mouth sores from her chemo regimens. Normally she was able to walk with a walker. Today the patient continued to be so weak she could not ambulate with her walker and continued to have a right-sided droop and so family decided to bring her in for evaluation. 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 Osteopenia after menopause Breast cancer Asthma Anxiety Foot pain Vertigo (~2011) Pancreatitis (~2010) Surgical History Status post total hip replacement, left Anesthesia History of shoulder surgery (~2011) Breast cancer (~2006) Status post appendectomy (~1963) Family History Brother Age: 60 Scoliosis Father Heart disease Hypertension Mother Age: 86 Cancer Diabetes mellitus Social History household members: significant other Smoking Status: Former smoker alcohol intake: current Smoking Status: Former smoker alcohol intake frequency: holidays/special occasions only Substance Use Type: does not use Exam <Michelle Bob MD - Last Filed: 07/12/23 07:36> Initial Vital Signs Initial Vital Signs: Vital Signs Temperature 100.4 F H 07/07/23 13:59 Pulse Rate 133 H 07/07/23 13:59 Respiratory Rate 18 07/07/23 13:59 Blood Pressure 97/64 07/07/23 13:59 Pulse Oximetry 93 07/07/23 13:59 Oxygen Delivery Method Room Air 07/07/23 13:59 <Karina Stahl MD - Last Filed: 07/08/23 00:25> Initial Vital Signs Initial Vital Signs: Vital Signs Temperature 100.4 F H 07/07/23 13:59 Pulse Rate 133 H 07/07/23 13:59 Respiratory Rate 18 07/07/23 13:59 Blood Pressure 97/64 07/07/23 13:59 Pulse Oximetry 93 07/07/23 13:59 Oxygen Delivery Method Room Air 07/07/23 13:59 Const: Awake, ill-appearing, frail, debilitated Cardiac: regular rate, regular rhythm RESP: unlabored, clear bilaterally, no wheezing GI: Soft, nontender, nondistended Skin: Warm, cool, pale Neuro: AO x3, trace rate lower facial droop, decreased muscle strength right lower extremity compared to left lower extremity Course <Michelle Bob MD - Last Filed: 07/12/23 07:36> Orders Ordered: Discontinued Medications Acetaminophen (Acetaminophen 325 Mg Tablet) 650 mg PO Q6H PRN PRN Reason: Fever/Mild Pain (1-3) Last Admin: 07/09/23 00:16 Dose: 650 mg Documented By: Admin: 07/08/23 05:43 Dose: 650 mg Documented By: Admin: 07/07/23 22:54 Dose: 650 mg Documented By: AGW Al Hydrox/Mg Hydrox/Simethicone (Mag Hydrox/Alum/Simeth 30 Ml Udc) 30 ml PO Q6HR PRN PRN Reason: Dyspepsia Albuterol (Albuterol 2.5 Mg/3 Ml Neb (Adult)) 2.5 mg INH [id number] PRN PRN Reason: Shortness Of Breath Albuterol (Albuterol 2.5 Mg/3 Ml Neb (Adult)) 2.5 mg INH [id number] [facility] Last Admin: 07/10/23 09:44 Dose: Not Given Documented By: Admin: 07/09/23 23:33 Dose: Not Given Documented By: Admin: 07/09/23 23:32 Dose: Not Given Documented By: Admin: 07/09/23 15:00 Dose: Not Given Documented By: Admin: 07/09/23 10:27 Dose: 2.5 mg Documented By: Admin: 07/09/23 06:11 Dose: 2.5 mg Documented By: WLaura Admin: 07/08/23 22:38 Dose: 2.5 mg Documented By: WLaura Admin: 07/08/23 19:20 Dose: 2.5 mg Documented By: WLaura Admin: 07/08/23 15:36 Dose: 2.5 mg Documented By: Admin: 07/08/23 09:11 Dose: 2.5 mg Documented By: Admin: 07/08/23 08:34 Dose: Not Given Documented By: Admin: 07/07/23 21:38 Dose: Not Given Documented By: ERLINDA Albuterol (Albuterol 2.5 Mg/3 Ml Neb (Adult)) 2.5 mg INH RTQ2HR PRN PRN Reason: Shortness Of Breath Or Wheezing Alprazolam (Alprazolam 0.25 Mg Tablet) 0.5 mg PO BID PRN PRN Reason: Anxiety Last Admin: 07/08/23 14:39 Dose: 0.5 mg Documented By: MS Atropine Sulfate (Atropine 1% Ophth) 2 drops SL Q2HR PRN PRN Reason: Secretions Benzonatate (Benzonatate 100 Mg Capsule) 100 mg PO TID PRN PRN Reason: cough Budesonide (Budesonide 0.5 Mg/2 Ml Neb) 0.5 mg INH RTBID [facility] Last Admin: 07/10/23 09:44 Dose: Not Given Documented By: Admin: 07/09/23 23:32 Dose: Not Given Documented By: Admin: 07/09/23 06:11 Dose: 0.5 mg Documented By: Admin: 07/08/23 19:20 Dose: 0.5 mg Documented By: Admin: 07/08/23 09:11 Dose: 0.5 mg Documented By: Admin: 07/08/23 08:34 Dose: Not Given Documented By: MS Diphenhydramine HCl (Diphenhydramine 50 Mg/Ml Vial) 50 mg IV NOW ONE Stop: 07/07/23 18:33 Last Admin: 07/07/23 18:43 Dose: 50 mg Documented By: EDGARDO Docusate Sodium (Docusate 100 Mg Capsule) 100 mg PO BID PRN PRN Reason: constipation Enoxaparin Sodium (Enoxaparin 30 Mg/0.3 Ml Syringe) 30 mg SUBCUT DAILY [facility] Last Admin: 07/09/23 08:45 Dose: 30 mg Documented By: Admin: 07/08/23 14:22 Dose: 30 mg Documented By: MS Folic Acid (Folic Acid 1 Mg Tablet) 1 mg PO DAILY [facility] Last Admin: 07/09/23 08:44 Dose: 1 mg Documented By: CLL Haloperidol (Haloperidol 5 Mg/Ml Vial) 2 mg IV Q1HR PRN PRN Reason: Hallucinations Last Admin: 07/08/23 16:32 Dose: 2 mg Documented By: MS Hydromorphone HCl (Hydromorphone 2 Mg Tablet) 2 mg PO Q4HR PRN PRN Reason: Pain, Moderate (4-6) Last Admin: 07/08/23 16:04 Dose: 2 mg Documented By: Admin: 07/08/23 11:44 Dose: 2 mg Documented By: MS Hydromorphone HCl (Hydromorphone 0.5 Mg Inj) 0.5 mg IV Q2H PRN PRN Reason: Pain, Moderate (4-6) Last Admin: 07/09/23 11:26 Dose: 0.5 mg Documented By: Admin: 07/08/23 16:52 Dose: 0.5 mg Documented By: MS Sodium Chloride (Normal Saline 0.9%) 1,000 mls @ 1,000 mls/hr IV BOLUS ONE Stop: 07/07/23 15:07 Last Infusion: 07/07/23 16:06 Dose: Infused Documented By: Admin: 07/07/23 15:15 Dose: 1,000 mls/hr Documented By: SB Cefepime HCl 2 gm/ Sodium (Chloride) 100 mls @ 200 mls/hr IV NOW ONE Stop: 07/07/23 14:09 Last Infusion: 07/07/23 16:05 Dose: Infused Documented By: Admin: 07/07/23 15:13 Dose: 200 mls/hr Documented By: SB Sodium Chloride (Normal Saline 0.9%) 1,000 mls @ 1,000 mls/hr IV BOLUS ONE Stop: 07/07/23 15:10 Last Infusion: 07/07/23 17:18 Dose: Infused Documented By: Admin: 07/07/23 16:08 Dose: 1,000 mls/hr Documented By: EDGARDO Vancomycin HCl (Vancomycin) 1,000 mg in 200 mls @ 200 mls/hr IV NOW ONE Stop: 07/07/23 15:29 Last Infusion: 07/07/23 17:15 Dose: Infused Documented By: Admin: 07/07/23 16:09 Dose: 200 mls/hr Documented By: RLS Vancomycin HCl (Vancomycin) 750 mg in 150 mls @ 150 mls/hr IV Q8H [facility] Last Admin: 07/09/23 08:44 Dose: 150 mls/hr Documented By: Infusion: 07/09/23 01:18 Dose: Infused Documented By: Admin: 07/09/23 00:18 Dose: 150 mls/hr Documented By: Infusion: 07/08/23 18:50 Dose: Infused Documented By: Admin: 07/08/23 17:43 Dose: 150 mls/hr Documented By: Infusion: 07/08/23 10:02 Dose: Infused Documented By: Admin: 07/08/23 09:01 Dose: 150 mls/hr Documented By: Infusion: 07/08/23 00:51 Dose: Infused Documented By: Admin: 07/07/23 23:51 Dose: 150 mls/hr Documented By: DOLORES Vancomycin HCl (Vancomycin) 1,000 mg in 200 mls @ 200 mls/hr IV NOW ONE Stop: 07/07/23 17:14 Last Admin: 07/07/23 17:22 Dose: Not Given Documented By: FLDimple Sodium Chloride (Normal Saline 0.9%) 1,000 mls @ 1,000 mls/hr IV BOLUS ONE Stop: 07/07/23 18:40 Last Infusion: 07/07/23 19:04 Dose: Infused Documented By: Admin: 07/07/23 17:45 Dose: 1,000 mls/hr Documented By: EDGARDO Cefepime HCl 2 gm/ Sodium (Chloride) 100 mls @ 200 mls/hr IV Q12H [facility] Last Admin: 07/09/23 04:00 Dose: 200 mls/hr Documented By: Infusion: 07/08/23 15:10 Dose: Infused Documented By: Admin: 07/08/23 14:39 Dose: 200 mls/hr Documented By: Infusion: 07/08/23 03:41 Dose: Infused Documented By: Admin: 07/08/23 03:11 Dose: 200 mls/hr Documented By: CHICAW Potassium Chloride/Dextrose/Sod Cl (Dextrose 5%-0.45%Ns W/Kcl 20meq) 1,000 mls @ 84 mls/hr IV CONT [facility] Last Admin: 07/08/23 14:24 Dose: 84 mls/hr Documented By: Infusion: 07/08/23 12:02 Dose: Infused Documented By: Admin: 07/08/23 00:07 Dose: 84 mls/hr Documented By: DOLORES Sodium Chloride (Normal Saline 0.9%) 1,000 mls @ 100 mls/hr IV CONT [facility] Last Infusion: 07/08/23 18:50 Dose: 100 mls/hr Documented By: Admin: 07/08/23 16:51 Dose: 100 mls/hr Documented By: MS Sodium Chloride (Normal Saline 0.9%) 1,000 mls @ 250 mls/hr IV BOLUS ONE Stop: 07/08/23 21:27 Last Admin: 07/08/23 17:25 Dose: 250 mls/hr Documented By: MS Sodium Chloride (Normal Saline 0.9%) 1,000 mls @ 250 mls/hr IV CONT [facility] Last Admin: 07/09/23 07:00 Dose: 250 mls/hr Documented By: Infusion: 07/09/23 05:51 Dose: Infused Documented By: Admin: 07/09/23 01:51 Dose: 250 mls/hr Documented By: Infusion: 07/09/23 00:12 Dose: Infused Documented By: Admin: 07/08/23 20:12 Dose: 250 mls/hr Documented By: SR Sodium Chloride (Normal Saline 0.9%) 1,000 mls @ 1,000 mls/hr IV BOLUS ONE Stop: 07/08/23 23:37 Last Admin: 07/08/23 23:27 Dose: 1,000 mls/hr Documented By: SR Dextrose (Dextrose 5% Water) 1,000 mls @ 125 mls/hr IV CONT [facility] Last Admin: 07/10/23 02:51 Dose: 125 mls/hr Documented By: Infusion: 07/09/23 19:26 Dose: Infused Documented By: Admin: 07/09/23 11:26 Dose: 125 mls/hr Documented By: Infusion: 07/09/23 11:26 Dose: Infused Documented By: Admin: 07/09/23 11:20 Dose: 125 mls/hr Documented By: CLL POTASSIUM CHLORIDE IN WATER (Potassium Cl 10 Meq/100 Ml Janie) 10 meq in 100 mls @ 100 mls/hr IV Q1H [facility] Stop: 07/09/23 13:29 Last Admin: 07/09/23 13:03 Dose: Not Given Documented By: Admin: 07/09/23 13:03 Dose: Not Given Documented By: BLU Morphine Sulfate 50 mg/ Sodium (Chloride) 50 mls @ 5 mls/hr IV TITRATE [facility]; Protocol Last Admin: 07/10/23 10:36 Dose: 4 mg/hr, 4 mls/hr Documented By: Titration: 07/10/23 10:36 Dose: Infused Documented By: Admin: 07/10/23 00:15 Dose: 4 mg/hr, 4 mls/hr Documented By: Titration: 07/10/23 00:15 Dose: Infused Documented By: Titration: 07/09/23 17:01 Dose: 4 mg/hr, 4 mls/hr Documented By: Admin: 07/09/23 11:57 Dose: 2 mg/hr, 2 mls/hr Documented By: BLU Lorazepam (Lorazepam 2 Mg/Ml Inj) 1 mg IV Q2HR PRN PRN Reason: anxiety or shaking Last Admin: 07/09/23 10:46 Dose: 1 mg Documented By: Admin: 07/08/23 16:09 Dose: 1 mg Documented By: Lorazepam (Lorazepam 2 Mg/Ml Inj) 0 mg IV [id number] PRN; Protocol PRN Reason: Alcohol Withdrawal Last Admin: 07/08/23 21:42 Dose: 2 mg Documented By: Admin: 07/08/23 19:54 Dose: 1 mg Documented By: Admin: 07/08/23 17:09 Dose: 2 mg Documented By: Admin: 07/08/23 16:52 Dose: 2 mg Documented By: Admin: 07/08/23 16:33 Dose: 2 mg Documented By: Lorazepam (Lorazepam 2 Mg/Ml Inj) 1 mg IV Q1HR PRN PRN Reason: Agitation/Anxiety Multivitamins (Multivitamin 1 Tablet) 1 tab PO DAILY [facility] Last Admin: 07/09/23 08:44 Dose: 1 tab Documented By: BLU Naloxone HCl (Naloxone 0.4 Mg/Ml Vial) 0.2 mg IV Q2MIN PRN PRN Reason: Opiate Reversal Non-Formulary Medication (Budesonide-Formoterol) 2 puff INHALATION BID [facility] Non-Formulary Medication (Omeprazole) 20 mg PO DAILY [facility] Nf Magic Mouthwash 5 each PO Q4H PRN PRN Reason: Mucositis or mouth pain Last Admin: 07/08/23 11:43 Dose: 5 each Documented By: Stored In Pharmacy 0 each PO PRN PRN PRN Reason: . Oxycodone HCl (Oxycodone Er 10 Mg Tab) 10 mg PO BID [facility] Last Admin: 07/09/23 21:05 Dose: Not Given Documented By: Admin: 07/09/23 08:44 Dose: 10 mg Documented By: Admin: 07/09/23 00:15 Dose: 10 mg Documented By: Admin: 07/08/23 08:55 Dose: 10 mg Documented By: Admin: 07/07/23 22:05 Dose: 10 mg Documented By: DOLORES Pantoprazole Sodium (Pantoprazole Dr 40 Mg Tablet) 40 mg PO 0600 [facility] Last Admin: 07/09/23 05:56 Dose: 40 mg Documented By: Admin: 07/08/23 05:42 Dose: 40 mg Documented By: DOLORES Scopolamine (Scopolamine 1 Patch) 1 patch TOP Q72H [facility] Last Admin: 07/09/23 22:45 Dose: 1 patch Documented By: Sucralfate (Sucralfate 1 Gm Tablet) 1 gm PO [facility] Sucralfate (Sucralfate 1 Gm/10 Ml Oral Susp) 1 gm PO [facility] Last Admin: 07/09/23 08:43 Dose: 1 gm Documented By: Admin: 07/08/23 21:43 Dose: 1 gm Documented By: Admin: 07/08/23 16:52 Dose: Not Given Documented By: Admin: 07/08/23 11:45 Dose: 1 gm Documented By: Tbo-Filgrastim (Tbo-Filgrastim 300 Mcg/0.5 Ml Syringe) 300 mcg SUBCUT NOW ONE Stop: 07/08/23 10:48 Last Admin: 07/08/23 11:42 Dose: 300 mcg Documented By: Thiamine HCl (Thiamine 100 Mg Tablet) 100 mg PO DAILY [facility] Stop: 07/12/23 09:01 Last Admin: 07/10/23 07:49 Dose: Not Given Documented By: Admin: 07/09/23 08:44 Dose: 100 mg Documented By: BLU Vancomycin HCl (Vancomycin Per Pharmacy) 1 request MISC NOW ONE Stop: 07/07/23 14:12 Last Admin: 07/07/23 16:08 Dose: Not Given Documented By: EDGARDO Vancomycin HCl (Vancomycin Trough) 1 request MISC 1600 ONE Stop: 07/08/23 16:01 Last Admin: 07/08/23 13:45 Dose: 1 request Documented By: MS Vancomycin HCl (Vancomycin Peak) 1 request MISC 1830 ONE Stop: 07/08/23 18:31 Last Admin: 07/08/23 20:13 Dose: 1 request Documented By: SR Vancomycin HCl (Vancomycin Trough) 1 request MISC NOW ONE Stop: 07/11/23 08:01 Vancomycin HCl (Vancomycin Peak) 1 request MISC NOW ONE Stop: 07/11/23 10:31 Vital Signs Vital signs: Vital Signs - 8 hr 07/07/23 16:30 07/07/23 16:30 07/07/23 17:00 Temperature Pulse Rate 118 H Respiratory Rate 20 Blood Pressure 130/70 104/59 L Pulse Oximetry 92 Oxygen Delivery Method Nasal Cannula Oxygen Flow Rate 3 07/07/23 17:00 07/07/23 17:30 07/07/23 17:30 Temperature Pulse Rate 108 H 102 H Respiratory Rate 16 20 Blood Pressure 89/55 L Pulse Oximetry 93 92 Oxygen Delivery Method Nasal Cannula Oxygen Flow Rate 2 07/07/23 17:33 07/07/23 17:33 07/07/23 17:34 Temperature Pulse Rate 101 H 101 H Respiratory Rate 18 18 Blood Pressure 85/53 L Pulse Oximetry 93 93 Oxygen Delivery Method Oxygen Flow Rate 07/07/23 17:34 07/07/23 17:36 07/07/23 17:36 Temperature Pulse Rate 101 H Respiratory Rate 13 Blood Pressure 89/51 L 86/49 L Pulse Oximetry 94 Oxygen Delivery Method Nasal Cannula Oxygen Flow Rate 3 07/07/23 17:41 07/07/23 17:49 07/07/23 17:49 Temperature Pulse Rate 100 H 105 H Respiratory Rate 17 18 Blood Pressure 86/49 L 119/56 L Pulse Oximetry 94 93 Oxygen Delivery Method Nasal Cannula Oxygen Flow Rate 2 07/07/23 18:00 07/07/23 18:00 07/07/23 18:15 Temperature Pulse Rate 97 H 100 H Respiratory Rate 17 14 Blood Pressure 98/50 L Pulse Oximetry 94 93 Oxygen Delivery Method Oxygen Flow Rate 07/07/23 18:15 07/07/23 18:30 07/07/23 18:30 Temperature Pulse Rate 101 H Respiratory Rate 16 Blood Pressure 121/59 L 125/65 Pulse Oximetry 91 Oxygen Delivery Method Oxygen Flow Rate 07/07/23 19:00 07/07/23 19:05 07/07/23 19:30 Temperature 100.7 F H Pulse Rate 108 H Respiratory Rate 19 Blood Pressure 105/62 Pulse Oximetry 91 Oxygen Delivery Method Nasal Cannula Oxygen Flow Rate 3 07/07/23 19:30 Temperature Pulse Rate 104 H Respiratory Rate 24 Blood Pressure Pulse Oximetry 94 Oxygen Delivery Method Nasal Cannula Oxygen Flow Rate 3 <Karina Stahl MD - Last Filed: 07/08/23 00:25> Orders Ordered: Discontinued Medications Acetaminophen (Acetaminophen 325 Mg Tablet) 650 mg PO Q6H PRN PRN Reason: Fever/Mild Pain (1-3) Last Admin: 07/09/23 00:16 Dose: 650 mg Documented By: Admin: 07/08/23 05:43 Dose: 650 mg Documented By: Admin: 07/07/23 22:54 Dose: 650 mg Documented By: DOLORES Al Hydrox/Mg Hydrox/Simethicone (Mag Hydrox/Alum/Simeth 30 Ml Udc) 30 ml PO Q6HR PRN PRN Reason: Dyspepsia Albuterol (Albuterol 2.5 Mg/3 Ml Neb (Adult)) 2.5 mg INH [id number] PRN PRN Reason: Shortness Of Breath Albuterol (Albuterol 2.5 Mg/3 Ml Neb (Adult)) 2.5 mg INH [id number] [facility] Last Admin: 07/10/23 09:44 Dose: Not Given Documented By: Admin: 07/09/23 23:33 Dose: Not Given Documented By: Admin: 07/09/23 23:32 Dose: Not Given Documented By: Admin: 07/09/23 15:00 Dose: Not Given Documented By: Admin: 07/09/23 10:27 Dose: 2.5 mg Documented By: Admin: 07/09/23 06:11 Dose: 2.5 mg Documented By: Admin: 07/08/23 22:38 Dose: 2.5 mg Documented By: WLaura Admin: 07/08/23 19:20 Dose: 2.5 mg Documented By: WLaura Admin: 07/08/23 15:36 Dose: 2.5 mg Documented By: Admin: 07/08/23 09:11 Dose: 2.5 mg Documented By: Admin: 07/08/23 08:34 Dose: Not Given Documented By: Admin: 07/07/23 21:38 Dose: Not Given Documented By: ERLINDA Albuterol (Albuterol 2.5 Mg/3 Ml Neb (Adult)) 2.5 mg INH RTQ2HR PRN PRN Reason: Shortness Of Breath Or Wheezing Alprazolam (Alprazolam 0.25 Mg Tablet) 0.5 mg PO BID PRN PRN Reason: Anxiety Last Admin: 07/08/23 14:39 Dose: 0.5 mg Documented By: MS Atropine Sulfate (Atropine 1% Ophth) 2 drops SL Q2HR PRN PRN Reason: Secretions Benzonatate (Benzonatate 100 Mg Capsule) 100 mg PO TID PRN PRN Reason: cough Budesonide (Budesonide 0.5 Mg/2 Ml Neb) 0.5 mg INH RTBID [facility] Last Admin: 07/10/23 09:44 Dose: Not Given Documented By: Admin: 07/09/23 23:32 Dose: Not Given Documented By: Admin: 07/09/23 06:11 Dose: 0.5 mg Documented By: Admin: 07/08/23 19:20 Dose: 0.5 mg Documented By: Admin: 07/08/23 09:11 Dose: 0.5 mg Documented By: Admin: 07/08/23 08:34 Dose: Not Given Documented By: Diphenhydramine HCl (Diphenhydramine 50 Mg/Ml Vial) 50 mg IV NOW ONE Stop: 07/07/23 18:33 Last Admin: 07/07/23 18:43 Dose: 50 mg Documented By: EDGARDO Docusate Sodium (Docusate 100 Mg Capsule) 100 mg PO BID PRN PRN Reason: constipation Enoxaparin Sodium (Enoxaparin 30 Mg/0.3 Ml Syringe) 30 mg SUBCUT DAILY [facility] Last Admin: 07/09/23 08:45 Dose: 30 mg Documented By: Admin: 07/08/23 14:22 Dose: 30 mg Documented By: MS Folic Acid (Folic Acid 1 Mg Tablet) 1 mg PO DAILY [facility] Last Admin: 07/09/23 08:44 Dose: 1 mg Documented By: BLU Haloperidol (Haloperidol 5 Mg/Ml Vial) 2 mg IV Q1HR PRN PRN Reason: Hallucinations Last Admin: 07/08/23 16:32 Dose: 2 mg Documented By: MS Hydromorphone HCl (Hydromorphone 2 Mg Tablet) 2 mg PO Q4HR PRN PRN Reason: Pain, Moderate (4-6) Last Admin: 07/08/23 16:04 Dose: 2 mg Documented By: Admin: 07/08/23 11:44 Dose: 2 mg Documented By: Hydromorphone HCl (Hydromorphone 0.5 Mg Inj) 0.5 mg IV Q2H PRN PRN Reason: Pain, Moderate (4-6) Last Admin: 07/09/23 11:26 Dose: 0.5 mg Documented By: Admin: 07/08/23 16:52 Dose: 0.5 mg Documented By: Sodium Chloride (Normal Saline 0.9%) 1,000 mls @ 1,000 mls/hr IV BOLUS ONE Stop: 07/07/23 15:07 Last Infusion: 07/07/23 16:06 Dose: Infused Documented By: Admin: 07/07/23 15:15 Dose: 1,000 mls/hr Documented By: ETHAN Cefepime HCl 2 gm/ Sodium (Chloride) 100 mls @ 200 mls/hr IV NOW ONE Stop: 07/07/23 14:09 Last Infusion: 07/07/23 16:05 Dose: Infused Documented By: Admin: 07/07/23 15:13 Dose: 200 mls/hr Documented By: ETHAN Sodium Chloride (Normal Saline 0.9%) 1,000 mls @ 1,000 mls/hr IV BOLUS ONE Stop: 07/07/23 15:10 Last Infusion: 07/07/23 17:18 Dose: Infused Documented By: FLDimple Admin: 07/07/23 16:08 Dose: 1,000 mls/hr Documented By: EDGARDO Vancomycin HCl (Vancomycin) 1,000 mg in 200 mls @ 200 mls/hr IV NOW ONE Stop: 07/07/23 15:29 Last Infusion: 07/07/23 17:15 Dose: Infused Documented By: Admin: 07/07/23 16:09 Dose: 200 mls/hr Documented By: EDGARDO Vancomycin HCl (Vancomycin) 750 mg in 150 mls @ 150 mls/hr IV Q8H [facility] Last Admin: 07/09/23 08:44 Dose: 150 mls/hr Documented By: Infusion: 07/09/23 01:18 Dose: Infused Documented By: Admin: 07/09/23 00:18 Dose: 150 mls/hr Documented By: Infusion: 07/08/23 18:50 Dose: Infused Documented By: Admin: 07/08/23 17:43 Dose: 150 mls/hr Documented By: Infusion: 07/08/23 10:02 Dose: Infused Documented By: Admin: 07/08/23 09:01 Dose: 150 mls/hr Documented By: Infusion: 07/08/23 00:51 Dose: Infused Documented By: Admin: 07/07/23 23:51 Dose: 150 mls/hr Documented By: DOLORES Vancomycin HCl (Vancomycin) 1,000 mg in 200 mls @ 200 mls/hr IV NOW ONE Stop: 07/07/23 17:14 Last Admin: 07/07/23 17:22 Dose: Not Given Documented By: FLDimple Sodium Chloride (Normal Saline 0.9%) 1,000 mls @ 1,000 mls/hr IV BOLUS ONE Stop: 07/07/23 18:40 Last Infusion: 07/07/23 19:04 Dose: Infused Documented By: Admin: 07/07/23 17:45 Dose: 1,000 mls/hr Documented By: EDGARDO Cefepime HCl 2 gm/ Sodium (Chloride) 100 mls @ 200 mls/hr IV Q12H [facility] Last Admin: 07/09/23 04:00 Dose: 200 mls/hr Documented By: Infusion: 07/08/23 15:10 Dose: Infused Documented By: Admin: 07/08/23 14:39 Dose: 200 mls/hr Documented By: Infusion: 07/08/23 03:41 Dose: Infused Documented By: Admin: 07/08/23 03:11 Dose: 200 mls/hr Documented By: AGW Potassium Chloride/Dextrose/Sod Cl (Dextrose 5%-0.45%Ns W/Kcl 20meq) 1,000 mls @ 84 mls/hr IV CONT [facility] Last Admin: 07/08/23 14:24 Dose: 84 mls/hr Documented By: Infusion: 07/08/23 12:02 Dose: Infused Documented By: Admin: 07/08/23 00:07 Dose: 84 mls/hr Documented By: AGW Sodium Chloride (Normal Saline 0.9%) 1,000 mls @ 100 mls/hr IV CONT KINGSLEY Last Infusion: 07/08/23 18:50 Dose: 100 mls/hr Documented By: Admin: 07/08/23 16:51 Dose: 100 mls/hr Documented By: MS Sodium Chloride (Normal Saline 0.9%) 1,000 mls @ 250 mls/hr IV BOLUS ONE Stop: 07/08/23 21:27 Last Admin: 07/08/23 17:25 Dose: 250 mls/hr Documented By: MS Sodium Chloride (Normal Saline 0.9%) 1,000 mls @ 250 mls/hr IV CONT KINGSLEY Last Admin: 07/09/23 07:00 Dose: 250 mls/hr Documented By: Infusion: 07/09/23 05:51 Dose: Infused Documented By: Admin: 07/09/23 01:51 Dose: 250 mls/hr Documented By: Infusion: 07/09/23 00:12 Dose: Infused Documented By: Admin: 07/08/23 20:12 Dose: 250 mls/hr Documented By: SR Sodium Chloride (Normal Saline 0.9%) 1,000 mls @ 1,000 mls/hr IV BOLUS ONE Stop: 07/08/23 23:37 Last Admin: 07/08/23 23:27 Dose: 1,000 mls/hr Documented By: SR Dextrose (Dextrose 5% Water) 1,000 mls @ 125 mls/hr IV CONT KINGSLEY Last Admin: 07/10/23 02:51 Dose: 125 mls/hr Documented By: Infusion: 07/09/23 19:26 Dose: Infused Documented By: Admin: 07/09/23 11:26 Dose: 125 mls/hr Documented By: Infusion: 07/09/23 11:26 Dose: Infused Documented By: Admin: 07/09/23 11:20 Dose: 125 mls/hr Documented By: CLL POTASSIUM CHLORIDE IN WATER (Potassium Cl 10 Meq/100 Ml Janie) 10 meq in 100 mls @ 100 mls/hr IV Q1H [facility]LEY Stop: 07/09/23 13:29 Last Admin: 07/09/23 13:03 Dose: Not Given Documented By: Admin: 07/09/23 13:03 Dose: Not Given Documented By: CLL Morphine Sulfate 50 mg/ Sodium (Chloride) 50 mls @ 5 mls/hr IV TITRATE KINGSLEY; Protocol Last Admin: 07/10/23 10:36 Dose: 4 mg/hr, 4 mls/hr Documented By: Titration: 07/10/23 10:36 Dose: Infused Documented By: Admin: 07/10/23 00:15 Dose: 4 mg/hr, 4 mls/hr Documented By: Titration: 07/10/23 00:15 Dose: Infused Documented By: Titration: 07/09/23 17:01 Dose: 4 mg/hr, 4 mls/hr Documented By: Admin: 07/09/23 11:57 Dose: 2 mg/hr, 2 mls/hr Documented By: BLU Lorazepam (Lorazepam 2 Mg/Ml Inj) 1 mg IV Q2HR PRN PRN Reason: anxiety or shaking Last Admin: 07/09/23 10:46 Dose: 1 mg Documented By: Admin: 07/08/23 16:09 Dose: 1 mg Documented By: Lorazepam (Lorazepam 2 Mg/Ml Inj) 0 mg IV [id number] PRN; Protocol PRN Reason: Alcohol Withdrawal Last Admin: 07/08/23 21:42 Dose: 2 mg Documented By: Admin: 07/08/23 19:54 Dose: 1 mg Documented By: Admin: 07/08/23 17:09 Dose: 2 mg Documented By: Admin: 07/08/23 16:52 Dose: 2 mg Documented By: Admin: 07/08/23 16:33 Dose: 2 mg Documented By: Lorazepam (Lorazepam 2 Mg/Ml Inj) 1 mg IV Q1HR PRN PRN Reason: Agitation/Anxiety Multivitamins (Multivitamin 1 Tablet) 1 tab PO DAILY K[facility] Last Admin: 07/09/23 08:44 Dose: 1 tab Documented By: BLU Naloxone HCl (Naloxone 0.4 Mg/Ml Vial) 0.2 mg IV Q2MIN PRN PRN Reason: Opiate Reversal Non-Formulary Medication (Budesonide-Formoterol) 2 puff INHALATION BID K[facility]LEY Non-Formulary Medication (Omeprazole) 20 mg PO DAILY KINGSLEY Nf Magic Mouthwash 5 each PO Q4H PRN PRN Reason: Mucositis or mouth pain Last Admin: 07/08/23 11:43 Dose: 5 each Documented By: Stored In Pharmacy 0 each PO PRN PRN PRN Reason: . Oxycodone HCl (Oxycodone Er 10 Mg Tab) 10 mg PO BID [facility] Last Admin: 07/09/23 21:05 Dose: Not Given Documented By: Admin: 07/09/23 08:44 Dose: 10 mg Documented By: Admin: 07/09/23 00:15 Dose: 10 mg Documented By: Admin: 07/08/23 08:55 Dose: 10 mg Documented By: Admin: 07/07/23 22:05 Dose: 10 mg Documented By: DOLORES Pantoprazole Sodium (Pantoprazole Dr 40 Mg Tablet) 40 mg PO 0600 [facility] Last Admin: 07/09/23 05:56 Dose: 40 mg Documented By: Admin: 07/08/23 05:42 Dose: 40 mg Documented By: DOLORES Scopolamine (Scopolamine 1 Patch) 1 patch TOP Q72H [facility] Last Admin: 07/09/23 22:45 Dose: 1 patch Documented By: Sucralfate (Sucralfate 1 Gm Tablet) 1 gm PO ACHS [facility] Sucralfate (Sucralfate 1 Gm/10 Ml Oral Susp) 1 gm PO ACHS [facility] Last Admin: 07/09/23 08:43 Dose: 1 gm Documented By: Admin: 07/08/23 21:43 Dose: 1 gm Documented By: Admin: 07/08/23 16:52 Dose: Not Given Documented By: Admin: 07/08/23 11:45 Dose: 1 gm Documented By: Tbo-Filgrastim (Tbo-Filgrastim 300 Mcg/0.5 Ml Syringe) 300 mcg SUBCUT NOW ONE Stop: 07/08/23 10:48 Last Admin: 07/08/23 11:42 Dose: 300 mcg Documented By: Thiamine HCl (Thiamine 100 Mg Tablet) 100 mg PO DAILY [facility] Stop: 07/12/23 09:01 Last Admin: 07/10/23 07:49 Dose: Not Given Documented By: Admin: 07/09/23 08:44 Dose: 100 mg Documented By: BLU Vancomycin HCl (Vancomycin Per Pharmacy) 1 request MISC NOW ONE Stop: 07/07/23 14:12 Last Admin: 07/07/23 16:08 Dose: Not Given Documented By: EDGARDO Vancomycin HCl (Vancomycin Trough) 1 request MISC 1600 ONE Stop: 07/08/23 16:01 Last Admin: 07/08/23 13:45 Dose: 1 request Documented By: MS Vancomycin HCl (Vancomycin Peak) 1 request MISC 1830 ONE Stop: 07/08/23 18:31 Last Admin: 07/08/23 20:13 Dose: 1 request Documented By: SR Vancomycin HCl (Vancomycin Trough) 1 request MISC NOW ONE Stop: 07/11/23 08:01 Vancomycin HCl (Vancomycin Peak) 1 request MISC NOW ONE Stop: 07/11/23 10:31 Vital Signs Vital signs: Vital Signs - 8 hr 07/07/23 16:30 07/07/23 16:30 07/07/23 17:00 Temperature Pulse Rate 118 H Respiratory Rate 20 Blood Pressure 130/70 104/59 L Pulse Oximetry 92 Oxygen Delivery Method Nasal Cannula Oxygen Flow Rate 3 07/07/23 17:00 07/07/23 17:30 07/07/23 17:30 Temperature Pulse Rate 108 H 102 H Respiratory Rate 16 20 Blood Pressure 89/55 L Pulse Oximetry 93 92 Oxygen Delivery Method Nasal Cannula Oxygen Flow Rate 2 07/07/23 17:33 07/07/23 17:33 07/07/23 17:34 Temperature Pulse Rate 101 H 101 H Respiratory Rate 18 18 Blood Pressure 85/53 L Pulse Oximetry 93 93 Oxygen Delivery Method Oxygen Flow Rate 07/07/23 17:34 07/07/23 17:36 07/07/23 17:36 Temperature Pulse Rate 101 H Respiratory Rate 13 Blood Pressure 89/51 L 86/49 L Pulse Oximetry 94 Oxygen Delivery Method Nasal Cannula Oxygen Flow Rate 3 07/07/23 17:41 07/07/23 17:49 07/07/23 17:49 Temperature Pulse Rate 100 H 105 H Respiratory Rate 17 18 Blood Pressure 86/49 L 119/56 L Pulse Oximetry 94 93 Oxygen Delivery Method Nasal Cannula Oxygen Flow Rate 2 07/07/23 18:00 07/07/23 18:00 07/07/23 18:15 Temperature Pulse Rate 97 H 100 H Respiratory Rate 17 14 Blood Pressure 98/50 L Pulse Oximetry 94 93 Oxygen Delivery Method Oxygen Flow Rate 07/07/23 18:15 07/07/23 18:30 07/07/23 18:30 Temperature Pulse Rate 101 H Respiratory Rate 16 Blood Pressure 121/59 L 125/65 Pulse Oximetry 91 Oxygen Delivery Method Oxygen Flow Rate 07/07/23 19:00 07/07/23 19:05 07/07/23 19:30 Temperature 100.7 F H Pulse Rate 108 H Respiratory Rate 19 Blood Pressure 105/62 Pulse Oximetry 91 Oxygen Delivery Method Nasal Cannula Oxygen Flow Rate 3 07/07/23 19:30 Temperature Pulse Rate 104 H Respiratory Rate 24 Blood Pressure Pulse Oximetry 94 Oxygen Delivery Method Nasal Cannula Oxygen Flow Rate 3 Medical Decision Making <Michelle Bob MD - Last Filed: 07/12/23 07:36> Lab Data 07/09/23 07:30 07/09/23 07:30 Labs: Lab Results 07/07/23 07/07/23 07/07/23 Range/Units 14:30 15:15 18:10 WBC 1.5 L* (4.5-11.0) X10^3/uL RBC 3.71 L (4.0-5.2) X10^6/uL Hgb 10.3 L (12.0-16.0) g/dL Hct 31.9 L (36-46) % MCV 86.0 (80-100) fL MCH 27.7 (26-34) PG MCHC 32.2 (30-36) % RDW 19.8 H (11.6-14.8) % Plt Count 132 L (150-400) X10^3/uL Neut % (Auto) Not Reportable Lymph % (Auto) Not Reportable [place] % (Auto) Not Reportable Eos % (Auto) Not Reportable Baso % (Auto) Not Reportable Lymph # (Auto) Not Reportable [place] # (Auto) Not Reportable Baso # (Auto) Not Reportable Total Counted 100 Seg Neutrophils % 3.0 L (38-70) % Band Neutrophils % 2.0 L (3-7) % Lymphocytes % (Manual) 60.0 H (25-45) % Atypical Lymphs % 1.0 H ( - 0) % Monocytes % (Manual) 30.0 H (2-11) % Basophils % (Manual) 4.0 H (0-1) % Neutrophils # (Manual) 75 L (1388-5441) /uL Nucleated RBCs 1 H ( - 0) #/Diff RBC Morphology See below Poikilocytosis 1+ H Anisocytosis 2+ H Sodium 137 (137-145) mmol/L Potassium 3.4 (3.4-5.1) mmol/L Chloride 104 (98-107) mmol/L Carbon Dioxide 27 (22-32) mmol/L BUN 8 (7-17) mg/dL Creatinine 0.56 (0.52-1.04) mg/dL Estimated GFR > 60 (>60) mL/min BUN/Creatinine Ratio 14.3 (6-22) Glucose 69 L (80-110) mg/dL Lactate 2.0 (0.7-2.1) mmol/L Calcium 8.6 (8.4-10.2) mg/dL Magnesium 1.8 (1.6-2.3) mg/dL Total Bilirubin 0.9 (0.2-1.3) mg/dL AST 79 H (14-36) IU/L ALT 18 (<35) IU/L Alkaline Phosphatase 107 (38-126) U/L Troponin I 0.036 H (0.01-0.034) ng/mL Total Protein 6.3 (6.3-8.2) g/dL Albumin 3.3 L (3.5-5.0) g/dL Globulin 3.0 (1.7-4.1) g/dL Albumin/Globulin Ratio 1.1 (1.0-2.8) Lipase 10 L (23-300) U/L Procalcitonin 1.62 H (<0.5) ng/mL Urine Color Yellow Urine Appearance Clear Urine pH 6.0 (4.5-8.0) Ur Specific [place] <=1.005 (1.000-1.035) Urine Protein Negative (Negative) Urine Glucose (UA) Negative (Negative) g/dL Urine Ketones Negative (NEGATIVE) Urine Occult Blood Negative (Negative) Urine Nitrate Negative (Negative) Urine Bilirubin Negative (NEGATIVE) Urine Urobilinogen 0.2 (0.2) E.U./dL Ur Leukocyte Esterase Negative (NEGATIVE) Urine RBC None seen (0-5/HPF) Urine WBC None seen (0-5/HPF) Ur Squamous Epith Cells None seen (0-5/HPF) Urine Bacteria None seen (None) Ur Culture Indicated? Cult not indicated Vol Urine Centrifuged 10ml (spun) Chlamy pneumoniae PCR Not detected (Not Detect) Adenovirus (PCR) Not detected (Not Detect) B.parapertussis DNA PCR Not detected (Not Detecte) Coronavirus OC43 (PCR) Not detected (Not Detect) Coronavirus HKU1 (PCR) Not detected (Not Detect) Coronavirus 229E (PCR) Not detected (Not Detect) SARS-CoV-2 (PCR) Not detected (Not Detecte) Coronavirus NL63 (PCR) Not detected (Not Detect) Human Metapneumovir PCR Not detected (Not Detect) Influenza Type A (PCR) Not detected (Not Detect) Influenza Type B (PCR) Not detected (Not Detect) M. pneumoniae (PCR) Not detected (Not Detect) Parainfluenza 1 (PCR) Not detected (Not Detect) Parainfluenza 2 (PCR) Not detected (Not Detect) Parainfluenza 3 (PCR) Not detected (Not Detect) Parainfluenza 4 (PCR) Not detected (Not Detect) RSV (PCR) Not detected (Not Detect) Entero/Rhino (PCR) Not detected (Not Detect) <Karina Stahl MD - Last Filed: 07/08/23 00:25> Lab Data Labs: Lab Results 07/07/23 07/07/23 07/07/23 Range/Units 14:30 15:15 18:10 WBC 1.5 L* (4.5-11.0) X10^3/uL RBC 3.71 L (4.0-5.2) X10^6/uL Hgb 10.3 L (12.0-16.0) g/dL Hct 31.9 L (36-46) % MCV 86.0 (80-100) fL MCH 27.7 (26-34) PG MCHC 32.2 (30-36) % RDW 19.8 H (11.6-14.8) % Plt Count 132 L (150-400) X10^3/uL Neut % (Auto) Not Reportable Lymph % (Auto) Not Reportable [place] % (Auto) Not Reportable Eos % (Auto) Not Reportable Baso % (Auto) Not Reportable Lymph # (Auto) Not Reportable [place] # (Auto) Not Reportable Baso # (Auto) Not Reportable Total Counted 100 Seg Neutrophils % 3.0 L (38-70) % Band Neutrophils % 2.0 L (3-7) % Lymphocytes % (Manual) 60.0 H (25-45) % Atypical Lymphs % 1.0 H ( - 0) % Monocytes % (Manual) 30.0 H (2-11) % Basophils % (Manual) 4.0 H (0-1) % Neutrophils # (Manual) 75 L (5627-4574) /uL Nucleated RBCs 1 H ( - 0) #/Diff RBC Morphology See below Poikilocytosis 1+ H Anisocytosis 2+ H Sodium 137 (137-145) mmol/L Potassium 3.4 (3.4-5.1) mmol/L Chloride 104 (98-107) mmol/L Carbon Dioxide 27 (22-32) mmol/L BUN 8 (7-17) mg/dL Creatinine 0.56 (0.52-1.04) mg/dL Estimated GFR > 60 (>60) mL/min BUN/Creatinine Ratio 14.3 (6-22) Glucose 69 L (80-110) mg/dL Lactate 2.0 (0.7-2.1) mmol/L Calcium 8.6 (8.4-10.2) mg/dL Magnesium 1.8 (1.6-2.3) mg/dL Total Bilirubin 0.9 (0.2-1.3) mg/dL AST 79 H (14-36) IU/L ALT 18 (<35) IU/L Alkaline Phosphatase 107 (38-126) U/L Troponin I 0.036 H (0.01-0.034) ng/mL Total Protein 6.3 (6.3-8.2) g/dL Albumin 3.3 L (3.5-5.0) g/dL Globulin 3.0 (1.7-4.1) g/dL Albumin/Globulin Ratio 1.1 (1.0-2.8) Lipase 10 L (23-300) U/L Procalcitonin 1.62 H (<0.5) ng/mL Urine Color Yellow Urine Appearance Clear Urine pH 6.0 (4.5-8.0) Ur Specific [place] <=1.005 (1.000-1.035) Urine Protein Negative (Negative) Urine Glucose (UA) Negative (Negative) g/dL Urine Ketones Negative (NEGATIVE) Urine Occult Blood Negative (Negative) Urine Nitrate Negative (Negative) Urine Bilirubin Negative (NEGATIVE) Urine Urobilinogen 0.2 (0.2) E.U./dL Ur Leukocyte Esterase Negative (NEGATIVE) Urine RBC None seen (0-5/HPF) Urine WBC None seen (0-5/HPF) Ur Squamous Epith Cells None seen (0-5/HPF) Urine Bacteria None seen (None) Ur Culture Indicated? Cult not indicated Vol Urine Centrifuged 10ml (spun) Chlamy pneumoniae PCR Not detected (Not Detect) Adenovirus (PCR) Not detected (Not Detect) B.parapertussis DNA PCR Not detected (Not Detecte) Coronavirus OC43 (PCR) Not detected (Not Detect) Coronavirus HKU1 (PCR) Not detected (Not Detect) Coronavirus 229E (PCR) Not detected (Not Detect) SARS-CoV-2 (PCR) Not detected (Not Detecte) Coronavirus NL63 (PCR) Not detected (Not Detect) Human Metapneumovir PCR Not detected (Not Detect) Influenza Type A (PCR) Not detected (Not Detect) Influenza Type B (PCR) Not detected (Not Detect) M. pneumoniae (PCR) Not detected (Not Detect) Parainfluenza 1 (PCR) Not detected (Not Detect) Parainfluenza 2 (PCR) Not detected (Not Detect) Parainfluenza 3 (PCR) Not detected (Not Detect) Parainfluenza 4 (PCR) Not detected (Not Detect) RSV (PCR) Not detected (Not Detect) Entero/Rhino (PCR) Not detected (Not Detect) Imaging Data Chest x-ray: My Impression: PROCEDURE: XR CHEST 1V INDICATIONS: dyspnea TECHNIQUE: One view of the chest was acquired. COMPARISON: [facility], , XR CHEST 2V, 03/16/2023, 17:28. FINDINGS: Surgical changes and devices: Surgical clips in the right axilla. Partially visualized right humeral hardware. Lungs and pleura: Bilateral multifocal patchy consolidation, worse in the right upper lung. No pleural effusions or pneumothorax. Mediastinum: Mediastinal contours appear normal. Heart size is normal. Bones and chest wall: No suspicious bony lesions. Overlying soft tissues appear unremarkable. High-riding right-sided scapula, as before. IMPRESSION: Multifocal bilateral patchy consolidation, worse in the right upper lung, concerning for multifocal pneumonia. Recommend radiographic follow-up to document resolution and rule out underlying neoplasm. Dictated by: Adolfo Davies M.D. on 07/07/2023 at 15:31 Approved by: Adolfo Davies M.D. on 07/07/2023 at 15:33 CT scan - head: Radiologist's Impression: PROCEDURE: CT HEAD/BRAIN WO CON INDICATIONS: ? stroke >24 hrs. Metastatic breast cancer TECHNIQUE: Noncontrast 4.5 mm thick angled axial sections acquired from the foramen magnum to the vertex, with coronal and sagittal reformats. For radiation dose reduction, the following was used: automated exposure control, adjustment of mA and/or kV according to patient size. COMPARISON: [facility], CT, CT HEAD/BRAIN WO CON, 11/07/2022, 17:35. FINDINGS: Image quality: Diagnostic. CSF spaces: Basal cisterns are patent. No extra-axial fluid collections. Ventricles are normal in size and shape. Brain: No midline shift. No intracranial masses or hemorrhage. Jernigan-white matter interface is normal. Similar loss of jernigan-white matter differentiation in the left temporal lobe, left favoring gliosis/encephalomalacia. Skull and face: Diffuse osseous metastatic disease, similar to prior. Sinuses: Air-fluid level in the sphenoid sinuses. IMPRESSION: No acute intracranial pathology. Extensive sclerotic metastatic disease. Prior left MCA infarct. No definite intracranial metastatic disease or mass effect. Dictated by: Tom Em M.D. on 07/07/2023 at 15:30 Approved by: Tom Em M.D. on 07/07/2023 at 15:31 CTA - brain/neck: Radiologist's Impression: PROCEDURE: CT ANGIO HEAD AND NECK INDICATIONS: R SIDE WEAKNESS >24HRS TECHNIQUE: After the administration of intravenous contrast, 1 mm thick sections acquired from the aortic arch through the [place] of [place]. 3-dimensional qvrgbuo-zeiiepceb-ybbaslcxxa (MIP) and/or volume rendering reformats were acquired of the central intracranial vasculature and neck separately. For radiation dose reduction, the following was used: automated exposure control, adjustment of mA and/or kV according to patient size. COMPARISON: [facility], CT, CT HEAD/BRAIN WO CON, 11/07/2022, 17:35. [facility], CT, CT HEAD/BRAIN WO CON, 07/07/2023, 14:54. FINDINGS: Image quality: Limited by bolus timing, with venous contamination. BRAIN: CSF spaces: Ventricles are normal in size and shape. Basal cisterns are patent. No extra-axial fluid collections. Brain: Prior infarction can be seen involving the left temporal region. Skull and face: Left-sided craniotomy change can be seen. Orbits appear normal. Sinuses: There is at least moderate mucosal thickening within the right sphenoid sinus. Mild mucosal thickening can be seen elsewhere within the paranasal sinuses. HEAD CT ANGIOGRAPHY: Anterior circulation: Intracranial internal carotid arteries are normal in size and flow. The flow within the paired anterior cerebral arteries is normal and symmetric. The flow within the middle cerebral arteries is normal and symmetric. The anterior communicating artery is not well seen. No aneurysms are seen. Posterior circulation: Visualized portions of the vertebral arteries demonstrate normal caliber, and join to form a normal appearing basilar artery. Flow within the posterior cerebral arteries is normal and symmetric. No aneurysms are seen. NECK CT ANGIOGRAPHY: Carotid system: The great vessels demonstrate a conventional anatomy as they arise from the aortic arch. The origins of the common carotid arteries appear patent. The common carotid arteries demonstrate normal caliber and courses. The bifurcation regions demonstrate atherosclerotic irregularity with calcification. No chiksi hemodynamically see the significant stenosis can be seen. The more distal internal carotid arteries demonstrate normal course and caliber. Posterior circulation: The origins of the vertebral arteries both appear widely patent. The more superior extracranial portions of both vertebral arteries also demonstrate normal courses and calibers. The right vertebral artery is dominant to the left. Soft tissues: Visualized neck soft tissues demonstrate no suspicious abnormalities. There is a moderate right-sided pleural effusion. Poorly defined opacities can be seen within the visualized lung apices. Bones: Diffuse bony metastatic disease can be seen with sclerosis within nearly every visualized bone. Visualized cervical spine appears normally aligned. Right shoulder postoperative hardware is seen. IMPRESSION: No significant intracranial arterial abnormality is seen. No significant abnormality is seen within the arteries of the neck. There are poorly defined opacity seen within the visualized lung apices. Although these are nonspecific, multifocal infection is suspected. There is a moderate right-sided pleural effusion. Diffuse bony metastatic disease can be seen. Prior left temporal region infarct. Additional findings: Prior left craniotomy Right shoulder postoperative hardware Any quantitative measurements of stenosis were performed using NASCET criteria. Dictated by: Harsh Matson M.D. on 07/07/2023 at 18:14 Approved by: Esthela GuevaraD. on 07/07/2023 at 18:18 [facility] Narrative Medical decision making narrative: Acute on chronically unwell appearing patient presenting for right-sided weakness. Onset greater than 24 hours prior, not tPA candidate. She was noted to be febrile and tachycardic on arrival. Daytime physician empirically ordered vancomycin and cefepime for coverage based on patient's history of metastatic breast cancer on chemotherapy. Low O2 on arrival and placed on supplemental nasal cannula. Family also state that patient was not been eating or drinking very much due to her chemotherapy-induced mouth sores, IV fluids ordered. Laboratory work significant for leukopenia with WBC count 1.5, hemoglobin 10.3, platelets 132. Sodium 137, potassium 3.4, creatinine 0.56, AST 79, ALT 18. Troponin noted to be 0.036, however patient was denying any chest pain and this is likely demand from metabolic process. Chest x-ray shows multifocal pneumonia. She was already received vancomycin cefepime. CT noncontrast of brain shows remote left MCA territory infarct. Question if metabolic demand of sepsis has unmasked patient's remote stroke. Family denies any history of stroke in the past. Attempted to get records from [facility] for comparison, however these did not come through. CT angio shows no acute large vessel process. Patient to be admitted for further treatment of her condition. Discharge Plan Departure Patient Disposition: Admitted As Inpatient Clinical Impression: Acute hypoxemic respiratory failure, Multifocal pneumonia, Leukopenia, Breast cancer Admit Date/Time: 07/07/23 19:45 Admit Provider: Porfirio Cheng
--- NOTE | 2023-07-07 17:55 | PC.NURSE ---
placed purewick catheter without incident. to low intermittent suction
--- NOTE | 2023-07-07 17:58 | PC.NURSE ---
BP 80's . Dr. Bob aware . additional 3rd liter of Normal Saline started. BP trending up
--- NOTE | 2023-07-07 18:27 | DI.CT.S_ITS ---
PROCEDURE: CT ANGIO HEAD AND NECK INDICATIONS: R SIDE WEAKNESS >24HRS TECHNIQUE: After the administration of intravenous contrast, 1 mm thick sections acquired from the aortic arch through the [place]. 3-dimensional bnnkqfe-rsqfpybkl-ogzikcfbfm (MIP) and/or volume rendering reformats were acquired of the central intracranial vasculature and neck separately. For radiation dose reduction, the following was used: automated exposure control, adjustment of mA and/or kV according to patient size. COMPARISON: [facility], CT, CT HEAD/BRAIN WO CON, 11/07/2022, 17:35. [facility], CT, CT HEAD/BRAIN WO CON, 07/07/2023, 14:54. FINDINGS: Image quality: Limited by bolus timing, with venous contamination. BRAIN: CSF spaces: Ventricles are normal in size and shape. Basal cisterns are patent. No extra-axial fluid collections. Brain: Prior infarction can be seen involving the left temporal region. Skull and face: Left-sided craniotomy change can be seen. Orbits appear normal. Sinuses: There is at least moderate mucosal thickening within the right sphenoid sinus. Mild mucosal thickening can be seen elsewhere within the paranasal sinuses. HEAD CT ANGIOGRAPHY: Anterior circulation: Intracranial internal carotid arteries are normal in size and flow. The flow within the paired anterior cerebral arteries is normal and symmetric. The flow within the middle cerebral arteries is normal and symmetric. The anterior communicating artery is not well seen. No aneurysms are seen. Posterior circulation: Visualized portions of the vertebral arteries demonstrate normal caliber, and join to form a normal appearing basilar artery. Flow within the posterior cerebral arteries is normal and symmetric. No aneurysms are seen. NECK CT ANGIOGRAPHY: Carotid system: The great vessels demonstrate a conventional anatomy as they arise from the aortic arch. The origins of the common carotid arteries appear patent. The common carotid arteries demonstrate normal caliber and courses. The bifurcation regions demonstrate atherosclerotic irregularity with calcification. No chikis hemodynamically see the significant stenosis can be seen. The more distal internal carotid arteries demonstrate normal course and caliber. Posterior circulation: The origins of the vertebral arteries both appear widely patent. The more superior extracranial portions of both vertebral arteries also demonstrate normal courses and calibers. The right vertebral artery is dominant to the left. Soft tissues: Visualized neck soft tissues demonstrate no suspicious abnormalities. There is a moderate right-sided pleural effusion. Poorly defined opacities can be seen within the visualized lung apices. Bones: Diffuse bony metastatic disease can be seen with sclerosis within nearly every visualized bone. Visualized cervical spine appears normally aligned. Right shoulder postoperative hardware is seen. IMPRESSION: No significant intracranial arterial abnormality is seen. No significant abnormality is seen within the arteries of the neck. There are poorly defined opacity seen within the visualized lung apices. Although these are nonspecific, multifocal infection is suspected. There is a moderate right-sided pleural effusion. Diffuse bony metastatic disease can be seen. Prior left temporal region infarct. Additional findings: Prior left craniotomy Right shoulder postoperative hardware Any quantitative measurements of stenosis were performed using NASCET criteria. Dictated by: Harsh Matson M.D. on 07/07/2023 at 18:14 Approved by: Harsh Matson M.D. on 07/07/2023 at 18:18
[2023-07-07] MEDS: diphenhydrAMINE 50 MG/ML VIAL IV (18:43)
[2023-07-07 19:03] LABS: Adenovirus Not Detected (Not Detect); B. parapertussis Not Detected (Not Detecte); Bordetella pertussis Not Detected (Not Detect); Chlamydophila pneumoniae Not Detected (Not Detect); Coronavirus 229E Not Detected (Not Detect); Coronavirus HKU1 Not Detected (Not Detect); Coronavirus NL 63 Not Detected (Not Detect); Coronavirus OC43 Not Detected (Not Detect); Human Metapneumovirus Not Detected (Not Detect); Human Rhinovirus/Enterovirus Not Detected (Not Detect); Influenza A Not Detected (Not Detect); Influenza B Not Detected (Not Detect); Mycoplasma pneumoniae Not Detected (Not Detect); Parainfluenza Virus 1 Not Detected (Not Detect); Parainfluenza Virus 2 Not Detected (Not Detect); Parainfluenza Virus 3 Not Detected (Not Detect); Parainfluenza Virus 4 Not Detected (Not Detect); Respiratory Syncytial Virus Not Detected (Not Detect); SARS- CoV-2 Not Detected (Not Detecte)
[2023-07-07] MEDS: OXYCODONE ER 10 MG TAB PO (22:05)
[2023-07-07] MEDS: ACETAMINOPHEN 325 MG TABLET 650 MG PO (22:54)
[2023-07-07] MEDS: VANCOMYCIN 750 MG/150 ML PIGGYBACK 150 MG IV (23:51)
--- NOTE | 2023-07-07 23:52 | P.HP_ITS ---
History of Present Illness History of Present Illness Date Patient Seen: 07/07/23 Chief complaint: shaking, confused Narrative: 62 y/o with PMH of metastatic breast cancer, brought by family as she was found confused, shaking. She is undergoing chemotherapy and was just switched to a new medication. In the ED diagnosed with b/l, multifocal PNA and pancytopenia. Requires 2 L of oxygen to maintain saturation, borderline hypotensive, encephalopathic. Accompanied with son and additional family members and unable to give history. Covered broadly with abx and admitted on telemetry. Family confirmed full code status. 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 Osteopenia after menopause Breast cancer Asthma Anxiety Foot pain Vertigo (~2011) Pancreatitis (~2010) Surgical History Status post total hip replacement, left Anesthesia History of shoulder surgery (~2011) Breast cancer (~2006) Status post appendectomy (~1963) Family History Brother Age: 60 Scoliosis Father Heart disease Hypertension Mother Age: 86 Cancer Diabetes mellitus Social History household members: significant other Smoking Status: Former smoker alcohol intake: current Meds Home Medications and Allergies Home Medications Medication Instructions Recorded Confirmed Type multivitamin (Multiple Vitamins 1 tab PO Q48H ##0 03/03/16 07/07/23 History tablet) cyanocobalamin (vitamin B-12) 50 50 mcg PO Q DAY ##0 06/29/17 07/07/23 History mcg tablet (Vitamin B-12) miscellaneous medical supply #1 ea 12/30/18 07/07/23 Rx ipratropium 0.5 mg-albuterol 3 mg See Rx Instructions inhalation 04/17/21 07/07/23 Rx (2.5 mg base)/3 mL nebulization Q2HP PRN SOB #180 mL soln fluticasone propionate 250 See Rx Instructions .Route 04/30/21 07/07/23 Rx mcg/actuation blister powder for .COMPLEX #60 ea inhalation (Flovent Diskus) atorvastatin 10 mg tablet 10 mg PO ONCE PM #90 tabs 10/12/22 07/07/23 Rx aluminum-mag hydroxide-simethicone See Rx Instructions PO .COMPLEX 12/22/22 07/07/23 Rx 400 mg-400 mg-40 mg/5 mL oral susp #100 mL (Mylanta Maximum Strength) diphenhydramine HCl 12.5 mg/5 mL See Rx Instructions PO .COMPLEX 12/22/22 07/07/23 Rx oral liquid (Benadryl Allergy) #118 mL fluconazole 40 mg/mL oral 50 mg PO DAILY 12/22/22 07/07/23 History suspension loperamide 2 mg capsule 2 mg PO PRN PRN Diarrhea 12/22/22 07/07/23 History ondansetron HCl 8 mg tablet 8 mg PO DAILY PRN Nausea And 12/22/22 07/07/23 History Vomiting atenolol 50 mg tablet 50 mg PO Q DAY #90 tabs 12/28/22 07/07/23 Rx albuterol sulfate 90 mcg/actuation See Rx Instructions .Route 03/16/23 07/07/23 Rx aerosol inhaler .COMPLEX #6.7 grams benzonatate 100 mg capsule 100 mg PO TID PRN cough #30 caps 03/16/23 07/07/23 Rx hydromorphone 2 mg tablet 2 mg PO Q4-5H PRN Pain (Scale 03/29/23 07/07/23 History Score 4-6) alprazolam 0.5 mg tablet See Rx Instructions .Route 04/07/23 07/07/23 Rx .COMPLEX #60 tabs gabapentin 300 mg capsule 900 mg (3 x 300 mg) PO 3XD #810 04/26/23 07/07/23 Rx caps budesonide-formoterol HFA 160 2 puff inhalation BID #10.2 grams 04/29/23 07/07/23 Rx mcg-4.5 mcg/actuation aerosol inhaler lisinopril 5 mg tablet 5 mg PO DAILY 05/10/23 07/07/23 History metoprolol succinate 50 mg 50 mg PO DAILY 05/10/23 07/07/23 History tablet,extended release 24 hr sucralfate 1 gram tablet 1 g PO DAILY 05/10/23 07/07/23 History omeprazole 20 mg capsule,delayed 20 mg PO DAILY 07/07/23 07/07/23 History release Allergies Allergy/AdvReac Type Severity Reaction Status Date / Time Iodine and Iodide Containing Allergy Intermediate Hives Verified 07/07/23 14:20 Produc Review of Systems Review of Systems Narrative: Unobtainable due to encephalopathy. Exam Vital Signs (past 8 hours): - 07/07/23 16:00 07/07/23 16:00 07/07/23 16:30 Temperature Pulse Rate 111 H 118 H Respiratory Rate 24 20 Blood Pressure 119/59 L Pulse Oximetry 88 L 92 Oxygen Delivery Method Nasal Cannula Nasal Cannula Oxygen Flow Rate 3 3 07/07/23 16:30 07/07/23 17:00 07/07/23 17:00 Temperature Pulse Rate 108 H Respiratory Rate 16 Blood Pressure 130/70 104/59 L Pulse Oximetry 93 Oxygen Delivery Method Oxygen Flow Rate 07/07/23 17:30 07/07/23 17:30 07/07/23 17:33 Temperature Pulse Rate 102 H 101 H Respiratory Rate 20 18 Blood Pressure 89/55 L Pulse Oximetry 92 93 Oxygen Delivery Method Nasal Cannula Oxygen Flow Rate 2 07/07/23 17:33 07/07/23 17:34 07/07/23 17:34 Temperature Pulse Rate 101 H Respiratory Rate 18 Blood Pressure 85/53 L 89/51 L Pulse Oximetry 93 Oxygen Delivery Method Nasal Cannula Oxygen Flow Rate 3 07/07/23 17:36 07/07/23 17:36 07/07/23 17:41 Temperature Pulse Rate 101 H 100 H Respiratory Rate 13 17 Blood Pressure 86/49 L 86/49 L Pulse Oximetry 94 94 Oxygen Delivery Method Nasal Cannula Oxygen Flow Rate 2 07/07/23 17:49 07/07/23 17:49 07/07/23 18:00 Temperature Pulse Rate 105 H Respiratory Rate 18 Blood Pressure 119/56 L 98/50 L Pulse Oximetry 93 Oxygen Delivery Method Oxygen Flow Rate 07/07/23 18:00 07/07/23 18:15 07/07/23 18:15 Temperature Pulse Rate 97 H 100 H Respiratory Rate 17 14 Blood Pressure 121/59 L Pulse Oximetry 94 93 Oxygen Delivery Method Oxygen Flow Rate 07/07/23 18:30 07/07/23 18:30 07/07/23 19:00 Temperature Pulse Rate 101 H 108 H Respiratory Rate 16 19 Blood Pressure 125/65 Pulse Oximetry 91 91 Oxygen Delivery Method Nasal Cannula Oxygen Flow Rate 3 07/07/23 19:05 07/07/23 19:30 07/07/23 19:30 Temperature 100.7 F H Pulse Rate 104 H Respiratory Rate 24 Blood Pressure 105/62 Pulse Oximetry 94 Oxygen Delivery Method Nasal Cannula Oxygen Flow Rate 3 07/07/23 19:49 07/07/23 19:49 07/07/23 20:00 Temperature Pulse Rate 111 H 109 H Respiratory Rate 18 9 L Blood Pressure 106/67 Pulse Oximetry 93 94 Oxygen Delivery Method Nasal Cannula Nasal Cannula Oxygen Flow Rate 3 3 07/07/23 20:00 07/07/23 22:54 Temperature 100.7 F H Pulse Rate Respiratory Rate Blood Pressure 112/67 Pulse Oximetry Oxygen Delivery Method Oxygen Flow Rate Oxygen Delivery Method Nasal Cannula Oxygen Flow Rate 3 Const Other: In no distress, sleepy, several family members at bedside, including son. Resp Other: b/l rhonchi, decreased breath sounds on right Cardio Other: RRR GI Other: w/o distension Skin Other: not jaundiced Neuro Other: w/o acute focal weakness Extrem Other: w/o swelling Psych Other: confused, encephalopathic Objective Labs 07/07/23 14:30 07/07/23 14:30 Labs: Laboratory Results - last 24 hr 07/07/23 07/07/23 07/07/23 14:30 15:15 18:10 WBC 1.5 L* RBC 3.71 L Hgb 10.3 L Hct 31.9 L MCV 86.0 MCH 27.7 MCHC 32.2 RDW 19.8 H Plt Count 132 L Neut % (Auto) Not Reportable Lymph % (Auto) Not Reportable [place] % (Auto) Not Reportable Eos % (Auto) Not Reportable Baso % (Auto) Not Reportable Lymph # (Auto) Not Reportable [place] # (Auto) Not Reportable Baso # (Auto) Not Reportable Total Counted 100 Seg Neutrophils % 3.0 L Band Neutrophils % 2.0 L Lymphocytes % (Manual) 60.0 H Atypical Lymphs % 1.0 H Monocytes % (Manual) 30.0 H Basophils % (Manual) 4.0 H Neutrophils # (Manual) 75 L Nucleated RBCs 1 H RBC Morphology See below Poikilocytosis 1+ H Anisocytosis 2+ H Sodium 137 Potassium 3.4 Chloride 104 Carbon Dioxide 27 BUN 8 Creatinine 0.56 Estimated GFR > 60 BUN/Creatinine Ratio 14.3 Glucose 69 L Lactate 2.0 Calcium 8.6 Magnesium 1.8 Total Bilirubin 0.9 AST 79 H ALT 18 Alkaline Phosphatase 107 Troponin I 0.036 H Total Protein 6.3 Albumin 3.3 L Globulin 3.0 Albumin/Globulin Ratio 1.1 Lipase 10 L Procalcitonin 1.62 H Urine Color Yellow Urine Appearance Clear Urine pH 6.0 Ur Specific [place] <=1.005 Urine Protein Negative Urine Glucose (UA) Negative Urine Ketones Negative Urine Occult Blood Negative Urine Nitrate Negative Urine Bilirubin Negative Urine Urobilinogen 0.2 Ur Leukocyte Esterase Negative Urine RBC None seen Urine WBC None seen Ur Squamous Epith Cells None seen Urine Bacteria None seen Ur Culture Indicated? Cult not indicated Vol Urine Centrifuged 10ml (spun) Chlamy pneumoniae PCR Not detected Adenovirus (PCR) Not detected B.parapertussis DNA PCR Not detected Coronavirus OC43 (PCR) Not detected Coronavirus HKU1 (PCR) Not detected Coronavirus 229E (PCR) Not detected SARS-CoV-2 (PCR) Not detected Coronavirus NL63 (PCR) Not detected Human Metapneumovir PCR Not detected Influenza Type A (PCR) Not detected Influenza Type B (PCR) Not detected M. pneumoniae (PCR) Not detected Parainfluenza 1 (PCR) Not detected Parainfluenza 2 (PCR) Not detected Parainfluenza 3 (PCR) Not detected Parainfluenza 4 (PCR) Not detected RSV (PCR) Not detected Entero/Rhino (PCR) Not detected Assessment & Plan Assessment and plan (1) Multifocal pneumonia: Status: Acute (2) Sepsis: Status: Acute (3) Acute hypoxemic respiratory failure: Status: Acute (4) Pancytopenia: Status: Acute (5) Metastatic breast cancer: Problem details: triple negative breast cancer, follows with [facility] Status: Acute (6) Acute metabolic encephalopathy: Status: Acute (7) GERD (gastroesophageal reflux disease): Status: Chronic (8) Asthma: Qualifiers: Asthma severity: moderate Asthma persistence: persistent Asthma complication type: uncomplicated Qualified Code(s): J45.40 - Moderate persistent asthma, uncomplicated Status: Chronic (9) Anxiety: Status: Acute Assessment & Plan narrative: 1. Multifocal CAP, Sepsis with Acute Hypoxemic Respiratory Failure, Asthma - immunocompromised from chemotherapy, including neutropenia - Broad empiric coverage with Vancomycin and Cefepime - had 3 L of NS in the ED - maintenance IVFs, poor oral intake from oral ulcers - BMP pending - albuterol, Symbicort - oxygen 2. Metastatic Breast Carcinoma / Pancytopenia - undergoing chemotherapy - pain management for cancer-related neuropathy and metastases-related pain - CBC with differential at 5 AM - consideration of CSF if severely neutropenic 3. Acute Metabolic Encephalopathy - likely to improve quickly with initiated abx 4. GERD - PPI 5. Anxiety - Xanax prn DVT prophylaxis - SCDs (thrombocytopenic) Quality VTE Deep Vein Thrombosis/Pulmonary Embolism Present on Admission: No
[2023-07-08] VITALS (17 sets, daily range): BP systolic 95–130; BP diastolic 45–69; PULSE 64–137; RESP 16–29; TEMP 36.6–38.8; O2SAT 91–98
[2023-07-08] MEDS: DEXTROSE 5%-0.45NS W/KCL 20MEQ 1,000 ML 84 MEQ IV ×2 (00:07→14:24)
[2023-07-08] MEDS: CEFEPIME 2 GM in SODIUM CHLORIDE 0.9% 100 ML IV ×2 (03:11→14:39)
[2023-07-08 05:20] LABS: Hematocrit 32.9 % (36-46); Hemoglobin 10.3 g/dL (12.0-16.0); Mean Corpuscular HGB Conc 31.4 % (30-36); Mean Corpuscular Hemoglobin 27.5 PG (26-34); Mean Corpuscular Volume 87.6 fL (80-100); Platelet Count 133 X10^3/uL (150-400); Red Blood Cell Count 3.75 X10^6/uL (4.0-5.2); Red Cell Distribution Width 20.6 % (11.6-14.8)
[2023-07-08 05:23] LABS: Add Manual Diff / Slide Review YES; White Blood Cell Count 1.9 X10^3/uL (4.5-11.0)
[2023-07-08] MEDS: PANTOPRAZOLE DR 40 MG TABLET PO (05:42)
[2023-07-08] MEDS: ACETAMINOPHEN 325 MG TABLET 650 MG PO (05:43)
[2023-07-08 05:48] LABS: Anisocytosis 2+; Neutrophils Absolute Manual 190 /uL (3000-5900); Nucleated Red Blood Cells 1 #/Diff; Platelet Estimate Decreased on smear; Total Cells Counted 100
[2023-07-08 05:49] LABS: Macrocytosis 1+; Microcytosis 1+; Poikilocytosis 1+; Polychromasia 1+
[2023-07-08 06:51] LABS: BUN Creatinine Ratio 21.4 (6-22); Blood Urea Nitrogen 9 mg/dL (7-17); Calcium 8.7 mg/dL (8.4-10.2); Carbon Dioxide 23 mmol/L (22-32); Chloride 119 mmol/L (98-107); Estimated Glomerular Filt Rate > 60 mL/min (>60); Glucose 111 mg/dL (80-110); HEMOLYSIS 33 (0-50); Potassium 3.8 mmol/L (3.4-5.1); Sodium 148 mmol/L (137-145)
--- NOTE | 2023-07-08 07:31 | P.PN_ITS ---
Subjective Subjective Interval history: From night doctor H&P: 62 y/o with PMH of metastatic breast cancer, brought by family as she was found confused, shaking. She is undergoing chemotherapy and was just switched to a new medication. In the ED diagnosed with b/l, multifocal PNA and pancytopenia. Requires 2 L of oxygen to maintain saturation, borderline hypotensive, encephalopathic. Accompanied with son and additional family members and unable to give history. Covered broadly with abx and admitted on telemetry. Family confirmed full code status. She would chemotherapy with a new agent about 8 days ago. She suffered mucositis and was seen just 2 days ago for another treatment but was not able to have it because of her general medical status and mucositis. She then became more lethargic and there is a concern for a left facial droop. She was brought into the hospital where she was found to have a normal brain CT and CTA and evidence of pneumonia and pancytopenia. She also was found to be hypernatremic. She has had very poor oral intake for the last several days to week. She denies pain. She is chronic right arm weakness since a lymph node resection. She denies any new weakness of arms or legs that is asymmetric. Family did note some confusion. Exam Vital Signs (past 8 hours): - 07/08/23 04:40 07/08/23 05:43 Temperature 99.5 F 101.9 F H Pulse Rate 120 H Respiratory Rate 29 H Blood Pressure 130/69 Pulse Oximetry 96 Oxygen Flow Rate 3 Fraction of Inspired Oxygen 32 SaO2/FiO2 Ratio 309 Oxygen Delivery Method Nasal Cannula Oxygen Flow Rate 3 Narrative Exam Narrative: Cachectic but no distress. On 3 L of oxygen. No facial droop, normal motor strength arms and legs. Heart is regular. Lungs are notable for scattered rales. Abdomen is flat. Legs are free of edema. Objective Imaging Chest x-ray: My impression: Bilateral infiltrates, most pronounced in the right upper lobe Radiologist's impression: Multifocal bilateral patchy consolidation, worse in the right upper lung, concerning for multifocal pneumonia. Recommend radiographic follow-up to document resolution and rule out underlying neoplasm. CT scan - head: Radiologist's impression: No significant intracranial arterial abnormality is seen. No significant abnormality is seen within the arteries of the neck. There are poorly defined opacity seen within the visualized lung apices. Although these are nonspecific, multifocal infection is suspected. There is a moderate right-sided pleural effusion. Diffuse bony metastatic disease can be seen. Prior left temporal region infarct. Additional findings: Prior left craniotomy Right shoulder postoperative hardware Labs 07/08/23 04:19 07/08/23 06:09 Labs: Laboratory Results - last 24 hr 07/07/23 07/07/23 07/07/23 14:30 15:15 18:10 WBC 1.5 L* RBC 3.71 L Hgb 10.3 L Hct 31.9 L MCV 86.0 MCH 27.7 MCHC 32.2 RDW 19.8 H Plt Count 132 L Neut % (Auto) Not Reportable Lymph % (Auto) Not Reportable [place] % (Auto) Not Reportable Eos % (Auto) Not Reportable Baso % (Auto) Not Reportable Lymph # (Auto) Not Reportable [place] # (Auto) Not Reportable Baso # (Auto) Not Reportable Total Counted 100 Seg Neutrophils % 3.0 L Band Neutrophils % 2.0 L Lymphocytes % (Manual) 60.0 H Atypical Lymphs % 1.0 H Monocytes % (Manual) 30.0 H Basophils % (Manual) 4.0 H Neutrophils # (Manual) 75 L Nucleated RBCs 1 H Platelet Estimate RBC Morphology See below Polychromasia Poikilocytosis 1+ H Anisocytosis 2+ H Microcytosis Macrocytosis Sodium 137 Potassium 3.4 Chloride 104 Carbon Dioxide 27 BUN 8 Creatinine 0.56 Estimated GFR > 60 BUN/Creatinine Ratio 14.3 Glucose 69 L Lactate 2.0 Calcium 8.6 Magnesium 1.8 Total Bilirubin 0.9 AST 79 H ALT 18 Alkaline Phosphatase 107 Troponin I 0.036 H Total Protein 6.3 Albumin 3.3 L Globulin 3.0 Albumin/Globulin Ratio 1.1 Lipase 10 L Procalcitonin 1.62 H Urine Color Yellow Urine Appearance Clear Urine pH 6.0 Ur Specific [place] <=1.005 Urine Protein Negative Urine Glucose (UA) Negative Urine Ketones Negative Urine Occult Blood Negative Urine Nitrate Negative Urine Bilirubin Negative Urine Urobilinogen 0.2 Ur Leukocyte Esterase Negative Urine RBC None seen Urine WBC None seen Ur Squamous Epith Cells None seen Urine Bacteria None seen Ur Culture Indicated? Cult not indicated Vol Urine Centrifuged 10ml (spun) Chlamy pneumoniae PCR Not detected Adenovirus (PCR) Not detected B.parapertussis DNA PCR Not detected Coronavirus OC43 (PCR) Not detected Coronavirus HKU1 (PCR) Not detected Coronavirus 229E (PCR) Not detected SARS-CoV-2 (PCR) Not detected Coronavirus NL63 (PCR) Not detected Human Metapneumovir PCR Not detected Influenza Type A (PCR) Not detected Influenza Type B (PCR) Not detected M. pneumoniae (PCR) Not detected Parainfluenza 1 (PCR) Not detected Parainfluenza 2 (PCR) Not detected Parainfluenza 3 (PCR) Not detected Parainfluenza 4 (PCR) Not detected RSV (PCR) Not detected Entero/Rhino (PCR) Not detected 07/08/23 07/08/23 04:19 06:09 WBC 1.9 L* RBC 3.75 L Hgb 10.3 L Hct 32.9 L MCV 87.6 MCH 27.5 MCHC 31.4 RDW 20.6 H Plt Count 133 L Neut % (Auto) Not Reportable Lymph % (Auto) Not Reportable [place] % (Auto) Not Reportable Eos % (Auto) Not Reportable Baso % (Auto) Not Reportable Lymph # (Auto) Not Reportable [place] # (Auto) Not Reportable Baso # (Auto) Not Reportable Total Counted 100 Seg Neutrophils % 5.0 L D Band Neutrophils % 5.0 Lymphocytes % (Manual) 47.0 H Atypical Lymphs % Monocytes % (Manual) 39.0 H Basophils % (Manual) 4.0 H Neutrophils # (Manual) 190 L Nucleated RBCs 1 H Platelet Estimate Decreased on smear RBC Morphology See below Polychromasia 1+ H Poikilocytosis 1+ H Anisocytosis 2+ H Microcytosis 1+ H Macrocytosis 1+ H Sodium 148 H D Potassium 3.8 Chloride 119 H Carbon Dioxide 23 BUN 9 Creatinine 0.42 L Estimated GFR > 60 BUN/Creatinine Ratio 21.4 Glucose 111 H Lactate Calcium 8.7 Magnesium Total Bilirubin AST ALT Alkaline Phosphatase Troponin I Total Protein Albumin Globulin Albumin/Globulin Ratio Lipase Procalcitonin Urine Color Urine Appearance Urine pH Ur Specific [place] Urine Protein Urine Glucose (UA) Urine Ketones Urine Occult Blood Urine Nitrate Urine Bilirubin Urine Urobilinogen Ur Leukocyte Esterase Urine RBC Urine WBC Ur Squamous Epith Cells Urine Bacteria Ur Culture Indicated? Vol Urine Centrifuged Chlamy pneumoniae PCR Adenovirus (PCR) B.parapertussis DNA PCR Coronavirus OC43 (PCR) Coronavirus HKU1 (PCR) Coronavirus 229E (PCR) SARS-CoV-2 (PCR) Coronavirus NL63 (PCR) Human Metapneumovir PCR Influenza Type A (PCR) Influenza Type B (PCR) M. 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 Multifocal CAP and sepsis, present on admission and active - immunocompromised from chemotherapy, including neutropenia - Continue Broad empiric coverage with Vancomycin and Cefepime - had 3 L of NS in the ED - maintenance IVFs, poor oral intake from oral ulcers - BMP pending - albuterol, Symbicort - oxygen - Will contact Dr Bragg regarding her input and role of GCSF 2. Metastatic Breast Carcinoma, present on admission and active - undergoing chemotherapy (as above) - pain management for cancer-related neuropathy and metastases-related pain - CBC with differential at 5 AM - consideration of CSF if severely neutropenic 3. Acute hypoxic respiratory failure, present on admission and active 4. Hypernatremia, present on admission and active. -D5W 5. Neutropenia, secondary to chemotherapy. Present on admission and active. -discuss with oncology. Consider GCSF. 3. Acute Metabolic Encephalopathy, present on admission and active. - likely to improve quickly with initiated abx 4. GERD, present on admission and stable. - PPI 5. Anxiety, present on admission and stable. - Xanax prn Spent about 30 minutes answering questions with family. Time Spent With Patient Time with patient: 30 to 49 minutes with 50% spent counseling/coordinating care Quality VTE Deep Vein Thrombosis/Pulmonary Embolism Present on Admission: No
[2023-07-08] MEDS: OXYCODONE ER 10 MG TAB PO (08:55)
[2023-07-08] MEDS: VANCOMYCIN 750 MG/150 ML PIGGYBACK 150 MG IV ×2 (09:01→17:43)
[2023-07-08] MEDS: BUDESONIDE 0.5 MG/2 ML NEB INH ×2 (09:11→19:20)
[2023-07-08] MEDS: ALBUTEROL 2.5 MG/3 ML NEB (ADULT) INH ×4 (09:11→22:38)
[2023-07-08] MEDS: TBO-FILGRASTIM 300 MCG/0.5 ML SYRINGE SUBCUT (11:42)
[2023-07-08] MEDS: MAGIC MOUTHWASH 5 EACH PO (11:43)
[2023-07-08] MEDS: HYDROMORPHONE 2 MG TABLET PO ×2 (11:44→16:04)
[2023-07-08] MEDS: SUCRALFATE 1 GM/10 ML ORAL SUSP PO ×2 (11:45→21:43)
[2023-07-08] MEDS: VANCOMYCIN TROUGH 1 REQUEST MISC (13:45)
[2023-07-08] MEDS: ENOXAPARIN 30 MG/0.3 ML SYRINGE SUBCUT (14:22)
[2023-07-08] MEDS: ALPRAZolam 0.25 MG TABLET 0.5 MG PO (14:39)
--- NOTE | 2023-07-08 16:04 | DIET.CONS ---
Dietary Consultation Note Admission Date: 07/07/2023 19:45 Assessment: 62 y F presenting with confusion and shaking. PMH of metastatic breast cancer, undergoing chemotherapy. Nutrition screened for low MNA. Met with pt and family at bedside. Able to consume 1/4-1/3 cup of protein drinks this morning and afternoon. Family reports she has had several weeks of no intake besides a few sips on liquids or small bites of liquid foods due to mucositis. Severe muscle and subcutaneous fat wasting noted upon visual assessment. Ht: 162.56 cm Wt: 46.5 kg BMI: 17.6 UBW: 61.235 kg on 08/21/22, 24% weight loss within 10 months, severe Last BM: 07/08/23 (07/08/23 00:54) MNA: 5 Javy Score: 18 Diet: 07/08/23 Breakfast General (Regular) Diet Diet Modifications: Labs: RBC 3.75 X10^6/uL (4.0-5.2) L 07/08/23 04:19 Hgb 10.3 g/dL (12.0-16.0) L 07/08/23 04:19 Hct 32.9 % (36-46) L 07/08/23 04:19 Creatinine 0.42 mg/dL (0.52-1.04) L 07/08/23 06:09 Lactate 2.0 mmol/L (0.7-2.1) 07/07/23 14:30 Nutrition Diagnosis: Severe Chronic Protein Calorie Malnutrition r/t to decreased ability to consumed adequate energy intake in setting of chemotherapy for metastatic breast cancer as evidenced by 24% weight loss in 10 months, severe, <50% of estimated energy needs in >1 month, and severe muscle wasting (temporalis, deltoids, pectoralis major, trapezius) and severe subcutaneous fat loss (buccal and orbital fat pads). The patient is at much higher risk for medical and surgical complications because of their malnutrition. This increases the difficulty and complexity of medical and surgical interventions and increases the chances of poor outcomes such as morbidity and mortality. Interventions: 1. Coordinated with unit host/kitchen for tolerated foods and protein-based drinks 2. Will assess GOC EER: [id number] kcals/day (30-35 kcals/kg per BMI) 70-90 g protein/day (1.5-2 g protein/kg per malnutrition) Monitoring/Evaluations: po intakes, will assess GOC with healthcare team for nutrition support Electronically Signed by: Susana Cash 07/08/23 16:04 Clinical Dietitian [address] [address]
[2023-07-08] MEDS: LORazepam 2 MG/ML INJ 1 MG IV (16:09)
--- NOTE | 2023-07-08 16:26 | PC.NURSE ---
Pt has been having small shaking/tremors throughout the day. As the day as progressed, family member-daughter in law and significant other, both said that the pt does drink. Family reports that she drinks various amounts from a fifth day to two glasses of wine a day.
[2023-07-08] MEDS: HALOPERIDOL 5 MG/ML VIAL 2 MG IV (16:32)
[2023-07-08] MEDS: LORazepam 2 MG/ML INJ IV ×5 (16:33→21:42)
[2023-07-08 16:34] LABS: Vancomycin Trough 15.2 ug/mL (10-20)
[2023-07-08] MEDS: SODIUM CHLORIDE 0.9% 1,000 ML 100 ML IV (16:51)
[2023-07-08] MEDS: HYDROMORPHONE 0.5 MG INJ IV (16:52)
[2023-07-08] MEDS: SODIUM CHLORIDE 0.9% 1,000 ML 250 ML IV ×2 (17:25→20:12)
--- NOTE | 2023-07-08 19:39 | PC.NURSE ---
Pt's son Yoav Bullard, is the person who should be contacted throughout the night if medical decisions need to be made. Yoav can be reached at [phone]. Pt is not , it's significant other/boyfriend has been present throughout the day.
[2023-07-08] MEDS: VANCOMYCIN PEAK 1 REQUEST MISC (20:13)
[2023-07-08 20:30] LABS: Vancomycin Peak 26.7 ug/mL (20-40)
[2023-07-08] MEDS: SODIUM CHLORIDE 0.9% 1,000 ML 1000 ML IV (23:27)
[2023-07-09] VITALS (11 sets, daily range): BP systolic 96–119; BP diastolic 47–62; PULSE 95–135; RESP 18–24; TEMP 36.7–38.9; O2SAT 90–97
[2023-07-09] MEDS: OXYCODONE ER 10 MG TAB PO ×2 (00:15→08:44)
[2023-07-09] MEDS: ACETAMINOPHEN 325 MG TABLET 650 MG PO (00:16)
[2023-07-09] MEDS: VANCOMYCIN 750 MG/150 ML PIGGYBACK 150 MG IV ×2 (00:18→08:44)
[2023-07-09] MEDS: SODIUM CHLORIDE 0.9% 1,000 ML 250 ML IV ×2 (01:51→07:00)
[2023-07-09] MEDS: CEFEPIME 2 GM in SODIUM CHLORIDE 0.9% 100 ML IV (04:00)
[2023-07-09] MEDS: PANTOPRAZOLE DR 40 MG TABLET PO (05:56)
[2023-07-09] MEDS: BUDESONIDE 0.5 MG/2 ML NEB INH (06:11)
[2023-07-09] MEDS: ALBUTEROL 2.5 MG/3 ML NEB (ADULT) INH ×2 (06:11→10:27)
--- NOTE | 2023-07-09 07:34 | P.PN_ITS ---
Subjective Subjective Interval history: Was treated for severe alcohol withdrawal overnight. Today she was more encephalopathic and still shaking. Her family did voice a preference for hospice with child protective services social worker this morning. I did meet with them and we did agree on a do not resuscitate status and also reviewed her living will. I did speak with her oncologist at length yesterday. She also has become more hypernatremic with saline for volume depletion. She was also hypokalemic. She remains febrile. Her prognosis is very poor. Exam Vital Signs (past 8 hours): - 07/09/23 00:00 07/09/23 00:15 07/09/23 00:16 Temperature 102.1 F H 101.7 F H 101.7 F H Pulse Rate 135 H Respiratory Rate Blood Pressure 115/60 Pulse Oximetry 95 Oxygen Delivery Method Oxygen Flow Rate 3 Fraction of Inspired Oxygen 07/09/23 00:20 07/09/23 02:55 07/09/23 06:00 Temperature 99.0 F Pulse Rate 134 H 105 H 111 H Respiratory Rate 18 Blood Pressure 119/62 97/47 L Pulse Oximetry 97 93 Oxygen Delivery Method Nasal Cannula Humidification Oxygen Flow Rate 6 3 Fraction of Inspired Oxygen 44 07/09/23 06:11 Temperature Pulse Rate 108 H Respiratory Rate 24 Blood Pressure Pulse Oximetry 95 Oxygen Delivery Method Nasal Cannula Humidification Oxygen Flow Rate 3 Fraction of Inspired Oxygen 32 Fraction of Inspired Oxygen 32 SaO2/FiO2 Ratio 296 Oxygen Delivery Method Nasal Cannula,Humidification Oxygen Flow Rate 3 Narrative Exam Narrative: Severely encephalopathic and shaking. Moderately distressed. Cachectic. Eyes are open, not really able to speak. She is tachypneic, she was rhonchorous lung sounds. Heart is without murmur and regular. Abdomen is flat, legs are free of edema. 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 Multifocal CAP and sepsis, present on admission and active 2. Moderate alcohol withdrawal syndrome, new and active. 3. Metastatic Breast Carcinoma, present on admission and active - undergoing chemotherapy (as above) - pain management for cancer-related neuropathy and metastases-related pain - CBC with differential at 5 AM - consideration of CSF if severely neutropenic 4. Acute hypoxic respiratory failure, present on admission and active 5. Hypernatremia, present on admission and active. -D5W@ 125 5. Neutropenia, secondary to chemotherapy. Present on admission and improved. -discussed with oncology (Dr Bragg). -gievn GCSF4/25. 6. Hypokalemia, new and active. -we will replete. 7. Acute Metabolic Encephalopathy, present on admission and active. - likely to improve quickly with initiated abx 8. GERD, present on admission and stable. - PPI 9. Anxiety, present on admission and stable. - Xanax prn Level of care we will need to continue IV antibiotics and treat alcohol withdrawal as well as electrolyte abnormalities. She is changed into a do not resuscitate status. Quality VTE Deep Vein Thrombosis/Pulmonary Embolism Present on Admission: No
[2023-07-09 07:49] LABS: Add Manual Diff / Slide Review NO; Basophils Absolute Auto 0 /uL (0-100); Basophils Percent Auto 0.4 % (0-2); Eosinophils Absolute Auto 0 /uL (0-450); Hematocrit 29.3 % (36-46); Hemoglobin 9.3 g/dL (12.0-16.0); Lymphocytes Absolute Auto 700 /uL (1100-4500); Lymphocytes Percent Auto 12.6 % (25-40); Mean Corpuscular HGB Conc 31.8 % (30-36); Mean Corpuscular Hemoglobin 27.5 PG (26-34); Mean Corpuscular Volume 86.6 fL (80-100); Monocytes Absolute Auto 1100 /uL (0-900); Monocytes Percent Auto 20.1 % (3-14); Neutrophils Absolute Auto 3500 /uL (1500-7000); Neutrophils Percent Auto 66.9 % (50-75); Platelet Count 158 X10^3/uL (150-400); Red Blood Cell Count 3.38 X10^6/uL (4.0-5.2); Red Cell Distribution Width 20.2 % (11.6-14.8); White Blood Cell Count 5.3 X10^3/uL (4.5-11.0)
[2023-07-09 07:59] LABS: Anisocytosis 2+
[2023-07-09 08:05] LABS: Alanine Aminotransferase 20 IU/L (<35); Albumin 2.6 g/dL (3.5-5.0); Alkaline Phosphatase 94 U/L (38-126); Aspartate Aminotransferase 54 IU/L (14-36); BUN Creatinine Ratio 17.4 (6-22); Bilirubin Total 0.6 mg/dL (0.2-1.3); Blood Urea Nitrogen 8 mg/dL (7-17); Calcium 8.8 mg/dL (8.4-10.2); Carbon Dioxide 18 mmol/L (22-32); Estimated Glomerular Filt Rate > 60 mL/min (>60); Globulin 2.7 g/dL (1.7-4.1); Glucose 99 mg/dL (80-110); HEMOLYSIS < 15 (0-50); Potassium 3.2 mmol/L (3.4-5.1); Sodium 150 mmol/L (137-145); Total Protein 5.3 g/dL (6.3-8.2)
[2023-07-09 08:15] LABS: Chloride 125 mmol/L (98-107)
[2023-07-09] MEDS: SUCRALFATE 1 GM/10 ML ORAL SUSP PO (08:43)
[2023-07-09] MEDS: THIAMINE 100 MG TABLET PO (08:44)
[2023-07-09] MEDS: MULTIVITAMIN 1 TABLET 1 TAB PO (08:44)
[2023-07-09] MEDS: FOLIC ACID 1 MG TABLET PO (08:44)
[2023-07-09] MEDS: ENOXAPARIN 30 MG/0.3 ML SYRINGE SUBCUT (08:45)
--- NOTE | 2023-07-09 09:20 | CM.DANOTE ---
Initial DCP Assessment Visit Note Reviewed EMR and team rounds for pt's medical status and updates. Met with pt, [id number], and pt's Significant Other, Nirali, to introduce self and role. Pt was found to be in and out of awareness, was able to respond to direct questions, however she mostly defers to family to discuss their concerns/needs/preferences for discharge home. She will likely need BLS transport due to rapid decline in function and disease progression. Payor: [facility] PCP: Dr. Alegre Pt is a 62 year-old F with a recent hx of widely metastatic breast cancer, receiving chemo/radiation through [facility]. She was brought by family down to her weekly tx appt. at [facility] this weak, however she was so deconditioned and weak that they held her tx and sent her home. On the way home, she began to show listing to the side with R-sided facial droop, could not ambulate with her walker as she usually does. She has also been struggling with chemo-related mouth sores, which has made it difficult to eat/drink, thus worsening her weight loss and weakness. CT imaging in the ED did show that she had a recent stroke, and chest x-ray showed multifocal pneumonia. She was started on IV ABO's and fluids and admitted to the floor for continued eval and tx. Family are vigiling at bedside. Family expressed wanting more information about hospice services available in [place], and that they all feel that any further chemo tx would be futile at this point due to disease progression. This LINEN TECH did provide information about the Medicare Hospice Benefit, and agreed to meet with family again when more family members arrive to discuss the d/c plan home on hospice. Faxed referral and clinicals to [facility] for review. Spoke to Dr. Devlin, Hospitalist on today, re: pt's code status as currently being Full Code. He will speak with family about changing to comfort measures only/No Code, complete POLST form. LINEN TECH will continue to follow and assist with anticipatory grief, support, and coordination needs for d/c. Discharge Planning/Care Management CM Discharge Assessment Start: 07/09/23 09:08 Freq: Status: Active Protocol: Document 07/09/23 09:09 DPL (Rec: 07/09/23 09:20 DPL [id number]) Discharge Planning Assessment Assigned Metal Turner MAX Gonzalez Advance Directives? No History Provided By Patient,Medical Record Prior Living Arrangements House Household Members significant other Type of transporation used prior to Relies on Others admit Independent with ADL's No: modified independent Is patient alert and oriented? No: Oriented to self, family, but difficult to assess. Caregiver for Another No Comment Active Oncology treatment: chemo/radiation Comment Home with hospice. Barriers to Discharge No Discharge Plan Home Transportation Arrangement Probably will need BLS, will continue to monitor. Additional Comment Faxed referral to [facility] Updated in Patient Room with Yes name and ext. # of Metal Turner Review Status In Process Please Provide Date Initial DC 07/09/23 Assessment Was Performed
--- NOTE | 2023-07-09 10:38 | DIET.CONS2 ---
Dietary Inpatient Consultation Note Admission Date: 07/07/2023 19:45 Pt code changed to DNR. Per chart review, pt/family discussing d/c plan of home on hospice. Diet: 07/08/23 Breakfast General (Regular) Diet Diet Modifications: Nutrition Percent Meal Consumed 10 07/08/23 18:00 Electronically Signed by: Susana Cash 07/09/23 10:38 Clinical Dietitian [address] [address]
[2023-07-09] MEDS: LORazepam 2 MG/ML INJ 1 MG IV (10:46)
[2023-07-09] MEDS: DEXTROSE 5% WATER 1,000 ML 125 ML IV ×2 (11:20→11:26)
[2023-07-09] MEDS: HYDROMORPHONE 0.5 MG INJ IV (11:26)
--- NOTE | 2023-07-09 11:47 | PC.NURSE ---
Addendum entered by Viky Meyers R.N. 07/09/23 17:41: Patient just repositioned to her back and more centered in the bed. Her immediate family is in the room and visiting. Addendum entered by Viky Meyers R.N. 07/09/23 17:02: Patients morphine drip increased to 4mg/hour. Patient was flailing her arms around and in discomfort. Addendum entered by Viky Meyers R.N. 07/09/23 14:08: Patient is tolerating her morphine drip well and is comfortable at this time and sleeping. Original Note: Patient is alert to her self and familiar with family. She has been restless at times and figity. Given ativan and dilaudid for anxiety and agitation, and pain medication for grimacing. Patient is able to answer some questions, her mother just joined for a visit now. Patient has a daughter and a son that are both active in her care. Her significant other is also here visiting. Patient has a hx of drinking, her CIWA score was 4. has talked to patients family about comfort care and they are agreeable at this time. Daughter just walked in room and is also on board with patients comfort care measures. She now has a morphine drip started at 2mg/hr. All family in room.
[2023-07-09] MEDS: MORPHINE 50 MG in SODIUM CHLORIDE 0.9% 45 ML IV (11:57)
[2023-07-09] MEDS: SCOPOLAMINE 1 PATCH TOP (22:45)
[2023-07-10] MEDS: MORPHINE 50 MG in SODIUM CHLORIDE 0.9% 45 ML IV ×2 (00:15→10:36)
[2023-07-10] MEDS: DEXTROSE 5% WATER 1,000 ML 125 ML IV (02:51)
[2023-07-10 04:11] VITALS: BP 89/52; PULSE 113; RESP 14; O2SAT 84
--- NOTE | 2023-07-10 07:34 | PM.PN.1 ---
Subjective Subjective Interval history: On comfort care and obtunded, narrative not obtainable. She appears comfortable family at bedside. Exam Vital Signs (past 8 hours): - 07/10/23 04:11 Pulse Rate 113 H Respiratory Rate 14 Blood Pressure 89/52 L Pulse Oximetry 84 L Oxygen Flow Rate 1.5 Fraction of Inspired Oxygen 32 SaO2/FiO2 Ratio 281 Oxygen Delivery Method Nasal Cannula,Humidification Oxygen Flow Rate 1.5 Narrative Exam Narrative: Obtunded. No distress. Decreased respiratory effort and rate. Abdomen is flat. No spontaneous movement of extremities. No skin rash. Objective Labs 07/09/23 07:30 07/09/23 07:30 Labs: Laboratory Results - last 24 hr 07/09/23 07:30 WBC 5.3 D RBC 3.38 L Hgb 9.3 L Hct 29.3 L MCV 86.6 MCH 27.5 MCHC 31.8 RDW 20.2 H Plt Count 158 Neut % (Auto) 66.9 Lymph % (Auto) 12.6 L Norman % (Auto) 20.1 H Eos % (Auto) 0.0 L Baso % (Auto) 0.4 Neut # (Auto) 3500 Lymph # (Auto) 700 L Norman # (Auto) 1100 H Eos # (Auto) 0 Baso # (Auto) 0 RBC Morphology Not Reportable Anisocytosis 2+ H Sodium 150 H Potassium 3.2 L Chloride 125 H* Carbon Dioxide 18 L BUN 8 Creatinine 0.46 L Estimated GFR > 60 BUN/Creatinine Ratio 17.4 Glucose 99 Calcium 8.8 Total Bilirubin 0.6 AST 54 H ALT 20 Alkaline Phosphatase 94 Total Protein 5.3 L Albumin 2.6 L Globulin 2.7 Albumin/Globulin Ratio 1.0 [facility] Medical History Myofascial pain Cervical spondylosis Cancer related pain Excessive cerumen in left ear canal Lip numbness Unspecified hearing loss, left ear Seborrheic keratoses, inflamed Physical deconditioning Acute respiratory failure with hypoxia Elevated brain natriuretic peptide (BNP) level Essential hypertension Right foot pain Right ankle pain 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 Multifocal CAP and sepsis, present on admission and active 2. Moderate alcohol withdrawal syndrome, new and active. 3. Metastatic Breast Carcinoma, present on admission and active 4. Acute hypoxic respiratory failure, present on admission and active 5. Hypernatremia, present on admission and active. 6. Neutropenia, secondary to chemotherapy. Present on admission and improved. 7. Hypokalemia, new and active. 8. Acute Metabolic Encephalopathy, present on admission and active. 9. GERD, present on admission and stable. 10. Anxiety, present on admission and stable. PLAN: -transition to comfort care on July 08 per family request. She has on a morphine drip and comfortable family at bedside. is eminent. Quality VTE Deep Vein Thrombosis/Pulmonary Embolism Present on Admission: No
--- NOTE | 2023-07-10 08:17 | CM.DPC ---
DCP Cont. Reviewed EMR and team rounds for status updates. Met with family at bedside and offered anticipatory grief support. Pt appears very comfortable and is imminent. Will cancel Hospice referral and monitor for cont. support needs.
--- NOTE | 2023-07-10 16:29 | PC.NURSE ---
Day shift: Pt TOD 0470. Dr Devlin awareat this time as well. Family at bedside.
--- NOTE | 2023-07-10 17:22 | PM.DDS.1 ---
Discharge Summary History of Illness Narrative: 62 y/o with PMH of metastatic breast cancer, brought by family as she was found confused, shaking. She is undergoing chemotherapy and was just switched to a new medication. In the ED diagnosed with b/l, multifocal PNA and pancytopenia. Requires 2 L of oxygen to maintain saturation, borderline hypotensive, encephalopathic. Accompanied with son and additional family members and unable to give history. Covered broadly with abx and admitted on telemetry. Family confirmed full code status. Hospital Course Date of Admission: 07/07/23 19:45 Primary care provider: Josh Alegre DO Consults: 07/09/23 11:28 Consult to Hospice Referral Urgent Comment: Discharge provider: Jose Devlin MD Discharge Diagnosis: 1. Multifocal CAP and sepsis, present on admission and active 2. Moderate alcohol withdrawal syndrome, new and active. 3. Metastatic Breast Carcinoma, present on admission and active 4. Acute hypoxic respiratory failure, present on admission and active 5. Hypernatremia, present on admission and active. 6. Neutropenia, secondary to chemotherapy. Present on admission and improved. 7. Hypokalemia, new and active. 8. Acute Metabolic Encephalopathy, present on admission and active. 9. GERD, present on admission and stable. 10. Anxiety, present on admission and stable. Expiration at 16:28 , on comfort care with family at bedside. Hospital Course: This pleasant patient was admitted with evidence of pneumonia in context of a post chemotherapy pancytopenia. She was treated with broad-spectrum antibiotics and G-CSF. The patient went into moderate to severe alcohol withdrawal and had general clinical decompensation. Was able to speak with her oncologist directly early in her hospital encounter. Her oncologist recommended antibiotics and also did note that the patient may have widespread pulmonary metastases and that her current chemotherapy does not cross the [employer]OC[employer]ATE [employer]ATIONS SPECIALIST spent border placing her at high risk for further [employer] metastases. The patient's family ultimately requested conversion to comfort care and the patient was treated with comfort measures. The patient did pass away at 4:28 p.m. on July 09 with family at the bedside. Objective Imaging Multiple:: Radiologist's impression: Chest x-ray: My impression: Bilateral infiltrates, most pronounced in the right upper lobe Radiologist's impression: Multifocal bilateral patchy consolidation, worse in the right upper lung, concerning for multifocal pneumonia. Recommend radiographic follow-up to document resolution and rule out underlying neoplasm. CT scan - head: Radiologist's impression: No significant intracranial arterial abnormality is seen. No significant abnormality is seen within the arteries of the neck. There are poorly defined opacity seen within the visualized lung apices. Although these are nonspecific, multifocal infection is suspected. There is a moderate right-sided pleural effusion. Diffuse bony metastatic disease can be seen. Prior left temporal region infarct. Additional findings: Prior left craniotomy Right shoulder postoperative hardware Labs 07/09/23 07:30 07/09/23 07:30
--- NOTE | 2023-07-10 18:39 | PC.NURSE ---
Day shift: Left with [facility] home at approx 1840. Family was in room and able to meet that person as well. Family has all of Pt's belongings. LAUREANO Perry.
--- NOTE | 2023-07-16 05:05 | PC.NURSE ---
Late entry: Lorazepam 1mg given on 07/09/23 at 2034. Documentation not saved in MAY.
== END 2023-07-10 18:41 | disposition expired | DRG 871 ==
LOC: ED 17:55 → AC 19:46
PROVIDERS: Emergency Medicine; Hospitalist; Admitting Provider Internal Medicine; Emergency Provider Emergency Medicine; PCP Family Medicine; Referring Provider Emergency Medicine; Visit Provider Internal Medicine
DX: A41.9 Sepsis, unspecified organism (principal); E43 Unspecified severe protein-calorie malnutrition; G93.41 Metabolic encephalopathy; J18.9 Pneumonia, unspecified organism; J96.01 Acute respiratory failure with hypoxia; E87.0 Hyperosmolality and hypernatremia; Z68.1 Body mass index [BMI] 19.9 or less, adult; F10.239 Alcohol dependence with withdrawal, unspecified; C79.51 Secondary malignant neoplasm of bone; K21.9 Gastro-esophageal reflux disease without esophagitis; F41.9 Anxiety disorder, unspecified; D70.1 Agranulocytosis secondary to cancer chemotherapy; R65.20 Severe sepsis without septic shock; T45.1X5A Adverse effect of antineoplastic and immunosuppressive drugs, initial encounter; E87.6 Hypokalemia; C50.911 Malignant neoplasm of unspecified site of right female breast; Z66 Do not resuscitate; Z51.5 Encounter for palliative care; Z87.891 Personal history of nicotine dependence; Z17.1 Estrogen receptor negative status [ER-]
CPT/HCPCS: 36415; 51701; 70450; 70496; 70498; 71045; 80048; 80053; 80202; 81001; 83605; 83690; 83735; 84145; 84484; 85007; 85025; 87040; 87633; 93005; 94640; 94760; 94762; 96365; 96367; 96375; 99285; J0692; J1170; J1200; J1447; J1630; J1650; J2060; J2270; J7613; Q9967